=== PATIENT | female | born 1965 ===

== ENCOUNTER 2020-02-11 16:01 | Outpatient (REF) | payer OTHER, SELFPAY ==
[2020-02-11 17:09] LABS: Blood Urea Nitrogen 14 mg/dL (9-16)
[2020-02-11 18:49] LABS: Estimated Glomerular Filt Rate > 60
== END 2020-02-11 16:02 | disposition home or self-care (01) ==
LOC: HO.LAB 16:01
PROVIDERS: Visit Provider Urology
DX: R31.0 Gross hematuria (principal)
CPT/HCPCS: 82565; 84520

== ENCOUNTER 2020-02-12 11:04 | Outpatient (REF) | payer OTHER, SELFPAY ==
--- NOTE | 2020-02-12 11:03 | CT_ITS ---
EXAMINATION: CT ABDOMEN AND PELVIS WITHOUT AND WITH CONTRAST CLINICAL INFORMATION: Gross hematuria COMPARISON: Renal ultrasound 01/02/2020, CT abdomen and pelvis 11/06/2019, ultrasound abdomen 10/29/2017, CT abdomen and pelvis with contrast 02/10/2016. TECHNIQUE: Noncontrast CT of the abdomen is performed followed by split bolus contrast-enhanced images using 85 mL Omnipaque 350 contrast.? Post contrast imaging of the abdomen and pelvis is performed during the combined nephrogram and excretion phase. Sagittal and coronal reformatted images were obtained on the technologist's workstation for both the pre and postcontrast phases. DOSE LOWERING TECHNIQUES: This CT examination was performed using dose optimization techniques as appropriate, variously including the following: *Automated exposure control *Adjustment of mA and/or kV according to patient size (this includes techniques or standardized protocols for targeted exams where dose is matched to indication/reason for exam; i.e. extremities or head) *Use of iterative reconstruction technique DLP: 356 mGy-cm FINDINGS: LUNG BASES: The visualized lung bases are unremarkable. LIVER, GALLBLADDER, AND BILIARY TREE: The liver is normal in size and smooth in contour. There is mild hepatic steatosis. No focal hepatic parenchymal lesion or intrahepatic ductal dilatation. The gallbladder is distended to 4.2 cm in diameter. There is no gallstone or gallbladder wall thickening or pericholecystic inflammatory changes. The common duct is unremarkable. PANCREAS: Normal. SPLEEN: Normal. ADRENAL GLANDS: Normal. KIDNEYS AND URETERS: The kidneys are normal in size and contour and attenuation. The kidneys enhance symmetrically. There is no parenchymal lesion. Noncontrast reformatted images suggest a punctate nonobstructing calculus upper pole left kidney under 3 mm, coronal image 48 and sagittal image 34. There are no other urinary tract calculi. No hydronephrosis or hydroureter or perinephric stranding. No visible mucosal lesion or intra or luminal filling defect post contrast. BLADDER: Unremarkable GASTROINTESTINAL TRACT: No bowel obstruction or inflammatory changes in bowel or mesentery. No ascites or fluid collection. ABDOMINAL WALL: No significant hernia is appreciated. LYMPH NODES: No lymphadenopathy. VASCULAR: Unremarkable PELVIC VISCERA: Unremarkable OSSEOUS STRUCTURES: Multilevel degenerative changes lower thoracic and lumbosacral spine. IMPRESSION: 1. Punctate nonobstructing calculus upper pole left kidney under 3 mm. 2. No hydronephrosis, parenchymal lesion, or visible mucosal lesion.
[2020-02-12] MEDS: iohexoL 350 MG/ML 100 ML INFUS..BTL 85 ML IV (11:56)
== END 2020-02-12 11:05 | disposition home or self-care (01) ==
LOC: HO.CT 11:04
PROVIDERS: PCP Internal Medicine; Visit Provider Urology
DX: R31.0 Gross hematuria (principal)
CPT/HCPCS: 74178; Q9967

== ENCOUNTER → 2020-04-05 09:11 | Outpatient (BNVA) | payer OTHER, SELFPAY | PROVIDERS: PCP Pediatrics; Referring Provider Pediatrics; Visit Provider Internal Medicine | DX: E05.90 Thyrotoxicosis, unspecified without thyrotoxic crisis or storm (principal); R79.89 Other specified abnormal findings of blood chemistry; E55.9 Vitamin D deficiency, unspecified; G89.4 Chronic pain syndrome; Z79.899 Other long term (current) drug therapy | CPT/HCPCS: Q3014 ==

== ENCOUNTER 2020-04-06 12:17 | Outpatient (REF) | payer OTHER, SELFPAY ==
[2020-04-06 13:38] LABS: Estimated Glomerular Filt Rate > 60
[2020-04-06 14:00] LABS: Free T4 (Free Thyroxine) 0.77 ng/dL (0.71-1.85); Thyroid Stimulating Hormone 0.43 uIU/mL (0.32-4.0); Vitamin D 25-OH Total 60.3 ng/mL (>30)
[2020-04-07 20:22] LABS: Triiodothyronine T3 Total 96 ng/dL (76-181)
== END 2020-04-06 12:18 | disposition home or self-care (01) ==
LOC: HO.LAB 12:17
PROVIDERS: Urology; PCP Internal Medicine; Visit Provider Internal Medicine
DX: R31.0 Gross hematuria (principal); E05.90 Thyrotoxicosis, unspecified without thyrotoxic crisis or storm; E55.9 Vitamin D deficiency, unspecified
CPT/HCPCS: 82306; 82565; 84439; 84443; 84480

== ENCOUNTER → 2020-05-27 12:10 | Outpatient (BNVA) | payer OTHER, SELFPAY | PROVIDERS: PCP Internal Medicine; Visit Provider Internal Medicine | DX: Z76.89 Persons encountering health services in other specified circumstances (principal) | CPT/HCPCS: 93005; 99202 ==

== ENCOUNTER → 2020-06-02 12:41 | Outpatient (BNVA) | payer OTHER, SELFPAY | PROVIDERS: PCP Internal Medicine; Visit Provider Internal Medicine | DX: Z13.89 Encounter for screening for other disorder (principal) | CPT/HCPCS: Q3014 ==

== ENCOUNTER → 2020-06-07 14:03 | Outpatient (BNVA) | payer OTHER, SELFPAY | PROVIDERS: PCP Internal Medicine; Visit Provider Internal Medicine Gastroenterology | DX: Z13.89 Encounter for screening for other disorder (principal) | CPT/HCPCS: 99212 ==

== ENCOUNTER 2020-06-22 12:01 | Day surgery (SDC) | payer OTHER, SELFPAY ==
--- NOTE | 2020-06-18 13:26 | HO.ANESPROP2 ---
Documented by User: Eveline Barrientos 06/18/20 13:47 HPI - Anesthesia Eval Consult details Narrative: 54yo F for Upper Endoscopy PMFSH Active Problems Active Problems: All Active Problems (Updated 05/27/20 @ 13:42 by Carlos Lawrence MD) Idiopathic hypotension (Acute) Hair loss (Acute) Hypotension (Acute) Fibromyalgia (Acute) Mild asthma (Acute) Vitamin D deficiency (Acute) Elevated plasma metanephrines (Acute) Subclinical hyperthyroidism (Acute) Peptic ulcer disease (Acute) Anxiety (Acute) Gross hematuria (Acute) Past Medical History Medical History Anxiety Elevated plasma metanephrines Fibromyalgia Hair loss Hypotension Mild asthma Subclinical hyperthyroidism Vitamin D deficiency Family History Family History Father Alzheimers disease Mother Hypertension Surgical History Surgical History Ectopic History of appendectomy History of colonoscopy History of hysterectomy Hx of endoscopy Social History Social History Household Members: None Alcohol intake: current Alcohol intake frequency: does not drink Smoking Status: Never smoker Use of substances other than those prescribed or required for medical reasons: No Advance Directives: No Advance Directives Information Provided: Yes Recently lost weight without trying: No Meds Allergies Allergy/AdvReac Type Severity Reaction Status Date / Time zolmitriptan [From ZOMIG] Allergy Severe SWOLLEN Verified 06/07/20 14:04 THROAT AND ITCHING salsalate Allergy Unknown Unknown Verified 06/07/20 14:04 Home Medications Medication Instructions Recorded Confirmed Last Taken Type clonazepam 1 mg tablet 1 mg PO DAILY 04/05/20 06/02/20 Unknown History prochlorperazine 25 mg rectal mg [place] 04/22/20 06/02/20 Unknown History suppository mirtazapine 7.5 mg tablet 7.5 mg PO BEDTIME 05/27/20 06/02/20 Unknown History oxycodone-acetaminophen 5 mg-325 1 tab PO DAILY PRN tab 05/27/20 06/02/20 Unknown History mg tablet cimetidine 300 mg tablet 300 mg PO tab 06/02/20 06/02/20 Unknown History ibuprofen 600 mg tablet 0 mg PO 06/02/20 06/02/20 Unknown History linaclotide 290 mcg capsule 290 mcg PO DAILY cap 06/02/20 06/02/20 Unknown History ondansetron HCl 8 mg tablet 8 mg PO DAILY tab 06/02/20 06/02/20 Unknown History Exam Exam Date and Time: June 18, 2020 1326 Pertinent Lab Results Pertinent Lab Results: Laboratory Tests 12/22/19 12/22/19 02/11/20 11:37 11:37 16:15 WBC 4.5 L Hgb 12.8 Hct 40.9 Plt Count 210 Sodium 142 Potassium 4.2 Chloride 108 BUN 14 Creatinine 04/06/20 12:30 WBC Hgb Hct Plt Count Sodium Potassium Chloride BUN Creatinine 0.81 Narrative Narrative: EKG 05/2020 NSR Assessment and Plan Assessment Anesthesia Assessment: Chart Reviewed Documented by User: Araceli Sparks 06/22/20 12:48 PMFSH Past Medical History Medical History Anxiety Elevated plasma metanephrines Fibromyalgia Hair loss Hypotension Mild asthma Subclinical hyperthyroidism Vitamin D deficiency Family History Family History Father Alzheimers disease Mother Hypertension Surgical History Surgical History Ectopic History of appendectomy History of colonoscopy History of hysterectomy Hx of endoscopy Social History Social History Household Members: None Alcohol intake: current Alcohol intake frequency: does not drink Smoking Status: Never smoker Use of substances other than those prescribed or required for medical reasons: No Advance Directives: No Advance Directives Information Provided: Yes Recently lost weight without trying: No Meds Allergies Allergy/AdvReac Type Severity Reaction Status Date / Time zolmitriptan [From ZOMIG] Allergy Severe SWOLLEN Verified 06/07/20 14:04 THROAT AND ITCHING salsalate Allergy Unknown Unknown Verified 06/07/20 14:04 Home Medications Medication Instructions Recorded Confirmed Last Taken Type clonazepam 1 mg tablet 1 mg PO DAILY 04/05/20 06/02/20 Unknown History prochlorperazine 25 mg rectal mg [place] 04/22/20 06/02/20 Unknown History suppository mirtazapine 7.5 mg tablet 7.5 mg PO BEDTIME 05/27/20 06/02/20 Unknown History oxycodone-acetaminophen 5 mg-325 1 tab PO DAILY PRN tab 05/27/20 06/02/20 Unknown History mg tablet cimetidine 300 mg tablet 300 mg PO tab 06/02/20 06/02/20 Unknown History ibuprofen 600 mg tablet 0 mg PO 06/02/20 06/02/20 Unknown History linaclotide 290 mcg capsule 290 mcg PO DAILY cap 06/02/20 06/02/20 Unknown History ondansetron HCl 8 mg tablet 8 mg PO DAILY tab 06/02/20 06/02/20 Unknown History Exam Airway Mallampati Class: III TM Dist: >3cm Neck ROM: Full Heart: RRR Lungs: CTA
[2020-06-22 12:34] VITALS: BMI 24.8
--- NOTE | 2020-06-22 12:39 | MHC.SHP ---
Pre-Procedural Eval Section B Chief Complaint: dysphagia Relevant Social History: None Present Medications: see Short Stay Collaborative assessment Medical History: Significant History History of Previous Operations: Relevant previous surgery/procedure and date(s) Allergies: Allergies Allergy/AdvReac Type Severity Reaction Status Date / Time zolmitriptan [From ZOMIG] Allergy Severe SWOLLEN Verified 06/07/20 14:04 THROAT AND ITCHING salsalate Allergy Unknown Unknown Verified 06/07/20 14:04 Review of Systems Sugical H&P ROS: Negative: Constitution, Cardiovascular, Respiratory, Neurological, Hem-Onc, Allergic/Immunologic, Gastrointestinal, Genitourinary, Musculoskeletal, Integumentary, Endocrine and Eyes/Ears/Nose/Throat and Yes, Specify: Psychiatric (depression) Exam Surgical H&P Exam: Normal: HEENT, Normal: Heart, Normal: Lungs, Normal: Extremities, Normal: Skin and Normal: Neurological and Significant Findings: Abdomen (tender epigastrium) Plan Diagnosis/Plan: Unchanged I have reviewed the history and physical and performed a pertinent physical examination on my patient. No changes have occurred unless specified.
--- NOTE | 2020-06-22 12:40 | PM.OP ---
Brief Operative Note Date of Service: 06/22/20 Pre-op diagnosis: epigastric pain Post-op diagnosis: same Procedure: see op note Surgeon: Eileen Payne MD Anesthesia: MAC Estimated blood loss (mL): 0 Condition: stable Disposition: PACU
--- NOTE | 2020-06-22 12:40 | W.PM.OPN ---
Operative Note Operative Note Date of Service: 06/22/20 Narrative: Procedure Description: EGD FLEXIBLE TRANSORAL UPPER GASTROINTESTINAL ENDOSCOPY UPPER ENDOSCOPY Consent: Indications for the procedure and potential complications of bleeding, perforation, reaction to medications and missed diagnosis were discussed with the patient and informed consent was obtained. Instrument: Olympus GIF H 190 J mid size upper endoscope Monitoring: Vital signs and clinical assessment, continuous EKG monitoring, Pulse oximetry, Carbon Dioxide monitoring and blood pressure monitoring were done throughout the procedure. Procedure: The patient was placed in the left lateral decubitis position and pre-procedure medications were administered and a bite block was placed. The endoscope was inserted into the mouth and advanced under direct vision to the third part of duodenum. A careful inspection was made as the upper endoscope was withdrawn including a retroflexed examination of the proximal stomach; Findings and interventions are described below. Findings: Larynx:normal Esophagus: GE junction at 32 cm, diaphragm hiatus at 32 cm, mild LA grade A esophagitis, bx taken from GEJ and random esophagus in separate jars Stomach: Patchy gastric erythema, x 2 small ulcers at antrum 4-5 mm with crateriform appearance, bx taken. Biopsies were obtained from random stomach in seperate jar. Grade 2 flap valve on retroflexed examination of the cardia. Duodenum: Normal bulb and descending duodenum, bx taken Intervention: Biopsies as noted above Impression/Findings: gastric ulcers, improved from before but still present esophagitis gastritis (prior gastrin level was nml) PLAN: bx sent for mast cell staining maximize PPI and H 2 rhiannon combo
[2020-06-22 12:42] VITALS: BP 120/68; PULSE 72; RESP 18; TEMP 36.3; O2SAT 98
[2020-06-22] MEDS: Lactated Ringers 1,000 ML 100 ML IVCONT (12:49)
[2020-06-22 13:41] VITALS: BP 91/55; PULSE 87; RESP 16; TEMP 36.2; O2SAT 95
[2020-06-22 13:56] VITALS: BP 95/55; PULSE 66; RESP 16; O2SAT 100
[2020-06-22 14:11] VITALS: BP 95/56; PULSE 62; RESP 16; TEMP 36.2; O2SAT 99
== END 2020-06-22 14:42 | disposition home or self-care (01) ==
PROVIDERS: PCP Internal Medicine; Visit Provider Internal Medicine Gastroenterology
PROC: 0DJ08ZZ Inspection of Upper Intestinal Tract, Via Natural or Artificial Opening Endoscopic (ICD-10-PCS; CPT 43235; principal; 2020-06-22 13:40)
DX: K25.9 Gastric ulcer, unspecified as acute or chronic, without hemorrhage or perforation (principal); K20.90 Esophagitis, unspecified without bleeding; K29.70 Gastritis, unspecified, without bleeding; Z88.8 Allergy status to other drugs, medicaments and biological substances
CPT/HCPCS: 43239; 88305; 88341; 88342; J2405

== ENCOUNTER 2020-07-02 15:43 | Outpatient (REF) | payer OTHER, SELFPAY ==
[2020-07-02 15:55] LABS: MANUAL DIFF FLAG NO
[2020-07-02 15:58] LABS: Basophils Percent Auto 0.5 % (0-2); Eosinophils Absolute Auto 0.1 X10*3/uL (0.0-0.4); Eosinophils Percent Auto 2.1 % (0-4); Hematocrit 38.2 % (37-47); Imm Gran Abs Auto 0.01 X10*3/uL (0.00-0.03); Imm Gran Pct Auto 0.3 % (0.0-0.4); Lymphocytes Absolute Auto 1.6 X10*3/uL (1.2-4.9); Lymphocytes Percent Auto 41.4 % (20-40); Mean Corpuscular HGB Conc 31.4 g/dl (31.0-35.0); Mean Corpuscular Volume 92.3 fL (80-98); Monocytes Absolute Auto 0.5 X10*3/uL (0.1-1.2); Monocytes Percent Auto 12.6 % (2-11); Neutrophils Absolute Auto 1.6 X10*3/uL (2.0-8.3); Neutrophils Percent Auto 43.1 % (45-73); Platelet Count 200 X10*3/uL (160-400); Red Blood Count 4.14 X10*6/uL (4.20-5.50); White Blood Count 3.7 X10*3/uL (4.8-10.8)
[2020-07-02 16:34] LABS: Alanine Aminotransferase 19 U/L (0-31); Albumin Level 4.1 g/dL (3.5-5.0); Alkaline Phosphatase 51 U/L (39-117); Anion Gap 10 (12-20); Aspartate Amino Transferase 17 U/L (5-31); Bilirubin Total 0.4 mg/dL (0.0-1.0); Blood Urea Nitrogen 14 mg/dL (9-16); Calcium 8.4 mg/dL (8.4-10.2); Carbon Dioxide 25 mmol/L (22-29); Chloride 110 mmol/L (96-108); Cholesterol 179 mg/dL; Estimated Glomerular Filt Rate > 60; Glucose Fasting 92 mg/dL (60-99); HDL Cholesterol 65 mg/dL; LDL Cholesterol Calculated 101 mg/dl; Rheumatoid Factor < 15.0 IU/mL (<15.0); Sodium 141 mmol/L (135-145); Total Protein 6.5 g/dL (6.5-8.0); Triglycerides 67 mg/dL
== END 2020-07-02 15:44 | disposition home or self-care (01) ==
LOC: HO.LAB 15:43
PROVIDERS: PCP Internal Medicine; Visit Provider Nurse Practitioner Family
DX: M79.7 Fibromyalgia (principal)
CPT/HCPCS: 36415; 80053; 80061; 85025; 86431

== ENCOUNTER → 2020-08-04 09:55 | Outpatient (REF) | payer OTHER, SELFPAY ==
--- NOTE | 2020-08-04 09:58 | CA_ITS ---
Transthoracic Echocardiogram Patient (Last, First, Middle): Megan Santos, Gender: Female Date of : 1965 Age: 55 Procedure Date: 08/04/2020 Procedure Type: Transthoracic Echocardiogram Location: OP Height: 144.78 cm Weight: 54.43 kg BSA: 1.45 m2 Heart Rate: bpm BP: 98 / 76 mmHg Mix House Operator: RUSSELL Referring MD: Carlos Lawrence MD Video Player Mechanic: Leonardo Ruvalcaba MD Symptoms: I95.0 - Idiopathic hypotension Study Quality: Good ECG Rhythm: Sinus Conclusions: - Essentially normal study Findings Left Ventricle Normal left ventricular size, thickness, and systolic function. The visually estimated ejection fraction is between 65-70%. Diastolic function is normal for age. Right Ventricle Normal right ventricular cavity size and systolic function. Atria Both atria are normal in size. Aortic Valve Normal aortic valve structure and function. There is no aortic valve stenosis. There is no aortic valve regurgitation. Mitral Valve Normal mitral valve structure and function. There is trace mitral valve regurgitation. There is no mitral valve stenosis. Pulmonic Valve The pulmonic valve is likely normal. There is trace pulmonic valve regurgitation. Tricuspid Valve Normal tricuspid valve structure. There is trace tricuspid valve regurgitation. The right ventricular systolic pressure is normal. The right ventricular systolic pressure is 25 mmHg. Normal right atrial pressure. There is no evidence of pulmonary hypertension. Great Vessels All visible segments of the aorta are normal in size. The pulmonary artery was not well visualized. Venous The inferior vena cava is normal in size and collapses greater than 50% with inspiration. Pericardium/Pleural There is no evidence of pericardial effusion. Prior Study Comparison No prior study available for comparison. Measurements 2D Linear Measurements IVSd: 0.80 0.6-0.9/0.6-1.0 cm LVIDd: 4.26 3.9-5.3/4.2-5.9 cm LVIDd Index: 2.94 2.4-3.2/2.2-3.1 cm/m2 LVIDs: 2.51 2.0-3.6 cm LVPWd: 0.77 0.7-1.1 cm Ao Root: 2.50 2.1-3.5 cm LA Diam: 2.40 2.7-3.8/3.0-4.0 cm LAIDs Index: 1.66 1.5-2.3 cm/m2 LV Mass: 125.15 67-162/88-224 g LV Mass Index: 86.31 43-95/49-115 g/m2 LVOT Diam: 1.80 3.0+(-)1.3 cm 2D Systolic Function EF 4C: 64.90 >55% EF 2C: 78.80 >55% EF BiP: 72.20 >55% Mitral Valve MV Pk E: 0.66 MV PK A: 0.66 MV Decel Time: 136.00 E/A: 1.00 E'Lateral: 9.57 E'Medial: 7.40 E/E' Med: 8.90 E/E' Lat: 6.90 PHT: 40.00 MVA PHT: 5.50 Decel Beadle: 4.86 Aortic Valve AoV Pk Geovanny: 1.32 AoV Pk Grad: 7.00 LVOT LVOT Pk Geovanny: 1.04 LVOT Mn Geovanny: 0.67 LVOT VTI: 0.16 LVOT Pk Grad: 4.00 LVOT Mn Grad: 2.00 LVOT Diam: 1.80 LVOT Area: 2.54 Diastolic Function MV Pk E: 0.66 MV Pk A: 0.66 E/A: 1.00 E'Medial: 7.40 E/E' Med: 8.90 E' Laterial: 9.57 E/E' Lat: 6.90 Tricuspid Valve TR Pk Geovanny: 2.33 TR Pk Grad: 22.00 RA Press: 3.00 RVSP: 25.00 Great Vessels Aorta Ao Root-2D: 2.50 2.0-3.7 cm Ao Asc: 2.70 2.1-3.4 cm Updated in Other Vendor System with Status of Final Leonardo Ruvalcaba MD electronically signed on 08/04/2020 5:27:50 PM with status of Final
== END ==
LOC: HO.CARD 09:55
PROVIDERS: Visit Provider Internal Medicine
DX: I95.0 Idiopathic hypotension (principal)
CPT/HCPCS: 93306

== ENCOUNTER → 2020-10-19 10:07 | Outpatient (BNVA) | payer OTHER, SELFPAY | PROVIDERS: PCP Internal Medicine; Visit Provider Internal Medicine Gastroenterology | DX: K27.9 Peptic ulcer, site unspecified, unspecified as acute or chronic, without hemorrhage or perforation (principal) | CPT/HCPCS: 99212 ==

== ENCOUNTER 2020-11-09 13:18 | Outpatient (REF) | payer OTHER, SELFPAY ==
--- NOTE | ~2020-11-09 | US_ITS ---
EXAMINATION: US ABDOMEN COMPLETE CLINICAL INFORMATION: Epigastric pain. COMPARISON: CT abdomen pelvis 02/12/2020. Ultrasound renal with bladder 01/02/2020. TECHNIQUE: Real-time imaging of the abdominal viscera.. Exam is limited due to patient body habitus. FINDINGS: PANCREAS: Normal. ABDOMINAL AORTA: The proximal, mid, and distal segments are normal in caliber. INFERIOR VENA CAVA: Visualized portions are normal. LIVER: The liver is normal in size. The liver contour is normal. Liver echogenicity slightly increased questionable for fatty infiltration. No focal hepatic lesion. There is no intrahepatic biliary duct dilatation seen. GALLBLADDER: Normal. The gallbladder is physiologically distended without evidence of stones, sludge, polyps, wall thickening or pericholecystic fluid. COMMON BILE DUCT: Normal in caliber measuring 0.3 cm in diameter. RIGHT KIDNEY: Normal. No hydronephrosis. No renal calculi or focal parenchymal lesions. The kidney measures 10.5 cm in maximum dimension. LEFT KIDNEY: Normal. No hydronephrosis. No renal calculi or focal parenchymal lesions. The kidney measures 10.6 cm in maximum dimension. SPLEEN: Normal. The spleen measures 7.7 cm in maximum dimension. FREE FLUID: None. US/US abdomen complete IMPRESSION: Limited exam. Slightly echogenic liver questionable for mild fatty infiltration.
--- NOTE | ~2020-11-09 | US_ITS ---
EXAMINATION: US SMA CLINICAL INFORMATION: Epigastric abdominal pain. Weight loss. COMPARISON: CTA abdomen 11/06/2019. Doppler abdominal ultrasound 04/17/2019. TECHNIQUE: Ultrasound along with color Doppler imaging and spectral analysis was performed of the aorta, celiac, superior mesenteric, inferior mesenteric, and splenic arteries. FINDINGS: Note: No visceral atherosclerotic disease demonstrated on review of the CTA from 11/06/2019. 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 There is no evidence of any narrowing from the median arcuate ligament. There is no dilatation distal to the location of a possible median arcuate ligament compression site. No abnormally enlarged pancreaticoduodenal collaterals are seen which would be expected if there is chronic hemodynamically significant disease. Aorta: Normal waveform. Peak systolic velocity proximal to the SMA 72 cm/s. Peak systolic velocity distal to the SMA 81 cm/s. Celiac artery: Inspiration: Normal low resistance waveform. Peak systolic velocity 93 cm/s. Expiration: Normal low resistance waveform. Peak systolic velocity 126-249 cm/s. Erect: Normal low resistance waveform. Peak systolic velocity 104 cm/s. Postprandial: Normal low resistance waveform. Peak systolic velocity 144 cm/s. Superior mesenteric artery: Proximal: Normal waveform. Peak systolic velocity 243 cm/s. Mid: Normal waveform. Peak systolic velocity 122 cm/s. Distal: Normal waveform. Peak systolic velocity 108 cm/s. Inferior mesenteric artery: Normal waveform. Peak systolic velocity 103 cm/s. Splenic artery: Normal waveform. Peak systolic velocity 145 cm/s. 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 All other celiac velocities in both supine inspiration and erect inspiration/expiration are normal. This raises the possibility of celiac compression from the median arcuate ligament. 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 Also, there is no dilatation of the celiac artery distal to the median arcuate ligament nor are there abnormally enlarged pancreaticoduodenal collaterals which would be expected in the presence of a chronic hemodynamically significant lesion. Overall, the imaging appearance is not strongly consistent with significant compression by the median arcuate ligament. Recommend clinical correlation. Consider referral to a median arcuate ligament syndrome vascular specialist. The SMA and the AUGUSTA are widely patent.
== END 2020-11-09 13:19 | disposition home or self-care (01) ==
LOC: HO.US 13:18
PROVIDERS: PCP Internal Medicine; Visit Provider Internal Medicine Gastroenterology
DX: K27.9 Peptic ulcer, site unspecified, unspecified as acute or chronic, without hemorrhage or perforation (principal)
CPT/HCPCS: 76700; 93976

== ENCOUNTER 2021-01-03 11:35 | Day surgery (SDC) | payer OTHER, SELFPAY ==
[2020-12-28 16:22] VITALS: BMI 29.5
--- NOTE | 2020-12-31 09:23 | HO.ANESPROP2 ---
Documented by User: Eveline Barrientos NP 12/31/20 09:24 HPI - Anesthesia Eval Consult details Narrative: 55yo F for Upper Endoscopy Last EGD with TIVA 06/2020 [facility] Active Problems Active Problems: All Active Problems (Updated 12/28/20 @ 16:29 by Migdalia Abebe, RN) Gross hematuria (Acute) Peptic ulcer disease (Acute) Idiopathic hypotension (Acute) GERD (gastroesophageal reflux disease) (Acute) Bladder pain (Acute) Leg edema (Acute) Migraine headache (Acute) Hair loss (Acute) Hypotension (Acute) Fibromyalgia (Acute) Mild asthma (Acute) Vitamin D deficiency (Acute) Elevated plasma metanephrines (Acute) Subclinical hyperthyroidism (Acute) Anxiety (Acute) Past Medical History Medical History Anxiety Back pain Bladder pain Elevated plasma metanephrines Fibromyalgia GERD (gastroesophageal reflux disease) Hair loss Hypotension Leg edema Migraine headache Mild asthma Neck pain Sciatica Subclinical hyperthyroidism Vitamin D deficiency Family History Family History Father Alzheimers disease Mother Hypertension Surgical History Surgical History Ectopic History of appendectomy History of colonoscopy History of hysterectomy Hx of endoscopy Social History Social History (Updated 12/28/20 @ 16:18 by Migdalia Abebe, CHIN) Household Members: None Housing: Apartment Alcohol intake: never Patient Tobacco Use Status: Never used Tobacco e-Cigarette/Vaping Use: Never Used Second Hand Smoke Exposure: No Use of substances other than those prescribed or required for medical reasons: No Are you DNR?: No Advance Directives: No Advance Directives Information Provided: No Advance Directives on File: No Recently lost weight without trying: No Patient : No service: No Current occupational status: unemployed Meds Allergies Allergy/AdvReac Type Severity Reaction Status Date / Time zolmitriptan [From ZOMIG] Allergy Severe SWOLLEN Verified 12/16/20 13:44 THROAT AND ITCHING salsalate Allergy Intermediate Itching Verified 12/28/20 16:18 Home Medications Medication Instructions Recorded Confirmed Last Taken Type clonazepam 1 mg tablet 1 mg PO DAILY 04/05/20 12/28/20 Unknown History Exam Exam Date and Time: December 31, 2020922 Height,Weight and Vital Signs: Height 4 ft 7 in Weight 57.606 kg Narrative Narrative: EKG 05/2020 NSR ECHO 07/2020 Conclusions: - Essentially normal study ? Assessment and Plan Assessment Anesthesia Assessment: Chart Reviewed Documented by User: Araceli Brink MD 01/03/21 12:35 PMFSH Past Medical History Medical History Anxiety Back pain Bladder pain Elevated plasma metanephrines Fibromyalgia GERD (gastroesophageal reflux disease) Hair loss Hypotension Leg edema Migraine headache Mild asthma Neck pain Sciatica Subclinical hyperthyroidism Vitamin D deficiency Functional capacity: independent ambulation Patient : No Family History Family History Father Alzheimers disease Mother Hypertension Family history of problems with anesthesia: No Surgical History Surgical History Ectopic History of appendectomy History of colonoscopy History of hysterectomy Hx of endoscopy Social History Social History (Updated 12/28/20 @ 16:18 by Migdalia Abebe RN) Household Members: None Housing: Apartment Alcohol intake: never Patient Tobacco Use Status: Never used Tobacco e-Cigarette/Vaping Use: Never Used Second Hand Smoke Exposure: No Use of substances other than those prescribed or required for medical reasons: No Are you DNR?: No Advance Directives: No Advance Directives Information Provided: No Advance Directives on File: No Recently lost weight without trying: No Patient : No service: No Current occupational status: unemployed Meds Allergies Allergy/AdvReac Type Severity Reaction Status Date / Time zolmitriptan [From ZOMIG] Allergy Severe SWOLLEN Verified 12/16/20 13:44 THROAT AND ITCHING salsalate Allergy Intermediate Itching Verified 12/28/20 16:18 Home Medications Medication Instructions Recorded Confirmed Last Taken Type clonazepam 1 mg tablet 1 mg PO DAILY 04/05/20 12/28/20 Unknown History Exam Airway Mallampati Class: II TM Dist: >3cm Neck ROM: Full Loose/Missing/Broken Teeth: No Heart: RRR Lungs: CTA Assessment and Plan Final Anesthetic Review Family History of Problems with Anesthesia: No
--- NOTE | 2021-01-03 11:56 | P.HPSUR_ITS ---
Pre-Procedural Eval Section A Date of Service: 01/03/21 Section B Chief Complaint: epigastric pain Relevant Social History: None Present Medications: see Short Stay Collaborative assessment Medical History: Significant History (Anxiety Back pain Bladder pain Elevated plasma metanephrines Fibromyalgia GERD (gastroesophageal reflux disease) Hair loss Hypotension Leg edema Migraine headache Mild asthma Neck pain Sciatica Subclinical hyperthyroidism Vitamin D deficiency) History of Previous Operations: Relevant previous surgery/procedure and date(s) (Ectopic History of appendectomy History of colonoscopy History of hysterectomy Hx of endoscopy) Allergies: Allergies Allergy/AdvReac Type Severity Reaction Status Date / Time zolmitriptan [From ZOMIG] Allergy Severe SWOLLEN Verified 12/16/20 13:44 THROAT AND ITCHING salsalate Allergy Intermediate Itching Verified 12/28/20 16:18 Review of Systems Sugical H&P ROS: Negative: Constitution, Cardiovascular, Respiratory, Neurological, Psychiatric, Hem-Onc, Allergic/Immunologic, Gastrointestinal, Genitourinary, Musculoskeletal, Integumentary, Endocrine and Eyes/Ears/Nose/Throat Exam Surgical H&P Exam: Normal: HEENT, Normal: Heart, Normal: Lungs, Normal: Extrem ities, Normal: Skin and Normal: Neurological and Significant Findings: Abdomen (tender epigastrium) Plan Diagnosis/Plan: Unchanged I have reviewed the history and physical and performed a pertinent physical examination on my patient. No changes have occurred unless specified.
[2021-01-03 11:57] VITALS: BP 124/70; PULSE 72; RESP 16; TEMP 36.8; O2SAT 98
[2021-01-03] MEDS: Lactated Ringers 1,000 ML 100 ML IVCONT (12:01)
--- NOTE | 2021-01-03 12:03 | PC.NURSE ---
Patient is having upper endoscopy only. Flexible sigmoidoscopy is cancelled
--- NOTE | 2021-01-03 12:04 | P.BOP_ITS ---
Brief Operative Note Date of Service: 01/03/21 Pre-op diagnosis: epigastric pain, hx of ulcers Post-op diagnosis: same Procedure: see op note Surgeon: Eileen Payne MD Anesthesia: MAC Was an Title I Instructional Assistant used for this Procedure?: No Estimated blood loss (mL): 0 Condition: stable Disposition: PACU
--- NOTE | 2021-01-03 12:05 | W.PM.OPN ---
Operative Note Operative Note Date of Service: 01/03/21 Narrative: Procedure Description: EGD FLEXIBLE TRANSORAL UPPER GASTROINTESTINAL ENDOSCOPY UPPER ENDOSCOPY Consent: Indications for the procedure and potential complications of bleeding, perforation, reaction to medications and missed diagnosis were discussed with the patient and informed consent was obtained. Instrument: Olympus GIF H 190 J mid size upper endoscope Monitoring: Vital signs and clinical assessment, continuous EKG monitoring, Pulse oximetry, Carbon Dioxide monitoring and blood pressure monitoring were done throughout the procedure. Procedure: The patient was placed in the left lateral decubitis position and pre-procedure medications were administered and a bite block was placed. The endoscope was inserted into the mouth and advanced under direct vision to the third part of duodenum. A careful inspection was made as the upper endoscope was withdrawn including a retroflexed examination of the proximal stomach; Findings and interventions are described below. Findings: Larynx:normal Esophagus: GE junction at 34 cm, diaphragm hiatus at 34 cm, balloon dilation of LES done to 20 mm no tear seen, then UES dilated to 20 mm (no resistance was felt ) but tear noted at UES. Stomach: x 2 superficial stellate shaped ulcers at the pylorus 8-10 mm in size with surrounding inflammation. Biopsies were obtained. Grade 2 flap valve on retroflexed examination of the cardia. Duodenum: Normal bulb, diaphragmatic stricture noted at proximal second part of duodenum, dilated with 10 then 11 mm balloon, bx taken, some erythema noted consistent with peptic damage. Intervention: Biopsies as noted above, dilation of esophagus and duodenum Impression/Findings: duodenal stricture gastric ulcers-still present but not as large as before UES esophageal stricture PLAN: confirm whether or not taking nsaids cont with PPi, can use magic mouthwash as well may need repeat dilation in 6-8 weeks
[2021-01-03 12:42] VITALS: BP 111/71; PULSE 73; RESP 16; TEMP 36.8; O2SAT 96
[2021-01-03] MEDS: Mag&Al/Sim/Diphenhyd/Lidocaine 10 ML ORAL.SUSP PO (12:56)
[2021-01-03 12:57] VITALS: BP 111/68; PULSE 72; RESP 18; TEMP 36.8; O2SAT 97
--- NOTE | 2021-01-03 13:22 | HO.POSTANES ---
Post Anesthesia Evaluation Post Anesthesia Evaluation Vital Signs: Vital Signs Temp Pulse Resp BP Pulse Ox 01/03/21 12:57 98.2 F 72 18 111/68 97 01/03/21 12:42 98.2 F 73 16 111/71 96 01/03/21 11:57 98.3 F 72 16 124/70 98 Anesthesia: Monitored Mental Status: Awake Pain Control: Satisfactory Nausea/Vomiting: None Hydration: Adequate Anesthesia-Related Issues: No Anes. Related Issues
== END 2021-01-03 13:20 ==
PROVIDERS: PCP Internal Medicine; Visit Provider Internal Medicine Gastroenterology
PROC: 0DJD8ZZ Inspection of Lower Intestinal Tract, Via Natural or Artificial Opening Endoscopic (ICD-10-PCS; CPT 45330; principal; 2021-01-03 13:00)
DX: K31.5 Obstruction of duodenum (principal); K22.2 Esophageal obstruction; K25.9 Gastric ulcer, unspecified as acute or chronic, without hemorrhage or perforation; K29.80 Duodenitis without bleeding; K21.9 Gastro-esophageal reflux disease without esophagitis; K44.9 Diaphragmatic hernia without obstruction or gangrene; K58.9 Irritable bowel syndrome, unspecified; I95.9 Hypotension, unspecified; G89.0 Central pain syndrome; G47.33 Obstructive sleep apnea (adult) (pediatric); J45.909 Unspecified asthma, uncomplicated; Z88.8 Allergy status to other drugs, medicaments and biological substances
CPT/HCPCS: 43249; 43245; 43239; 88305; 88342; C1726

== ENCOUNTER 2021-01-06 12:50 | Outpatient (REF) | payer OTHER, SELFPAY ==
--- NOTE | ~2021-01-06 | US_ITS ---
EXAMINATION: US PELVIS LIMITED (BLADDER) CLINICAL INFORMATION: Other signs and symptoms involving the genitourinary system. COMPARISON: Ultrasound abdomen complete 11/09/2020. CT abdomen and pelvis over 12/25/2019. Renal ultrasound 01/02/2020. KUB 03/26/2019. X-ray abdomen 02/03/2016. TECHNIQUE: Real-time imaging of the bladder. FINDINGS: BLADDER: Well distended and normal. Bilateral ureteral jets are demonstrated. Prevoid bladder volume is 153 mL. Postvoid bladder volume is 2.23 mL. US/US bladder IMPRESSION: Unremarkable bladder US.
[2021-01-06 13:58] LABS: Alanine Aminotransferase 20 U/L (0-31); Albumin Level 4.1 g/dL (3.5-5.0); Alkaline Phosphatase 60 U/L (39-117); Anion Gap 9 (12-20); Aspartate Amino Transferase 17 U/L (5-31); Bilirubin Total 0.4 mg/dL (0.0-1.0); Blood Urea Nitrogen 13 mg/dL (9-16); Calcium 9.4 mg/dL (8.4-10.2); Carbon Dioxide 29 mmol/L (22-29); Chloride 107 mmol/L (96-108); Estimated Glomerular Filt Rate > 60; Glucose Fasting 76 mg/dL (60-99); Potassium 4.1 mmol/L (3.3-5.1); Sodium 141 mmol/L (135-145); Total Protein 6.6 g/dL (6.5-8.0)
[2021-01-06 14:11] LABS: Free T4 (Free Thyroxine) 1.01 ng/dL (0.71-1.85); Thyroid Stimulating Hormone 0.86 uIU/mL (0.32-4.0)
[2021-01-07 09:12] LABS: Thyroglobulin Antibodies 2 IU/mL (< or = 1); Thyroid Peroxidase Antibodies 17 IU/mL (<9)
[2021-01-13 14:07] LABS: Vitamin D 25-OH, D2 <4 ng/mL; Vitamin D 25-OH, D3 51 ng/mL; Vitamin D 25-OH, Total 51 ng/mL (30-100)
== END 2021-01-06 12:51 | disposition home or self-care (01) ==
LOC: HO.US 12:50
PROVIDERS: PCP Internal Medicine; Visit Provider Internal Medicine
DX: R39.89 Other symptoms and signs involving the genitourinary system (principal); E55.9 Vitamin D deficiency, unspecified; E05.90 Thyrotoxicosis, unspecified without thyrotoxic crisis or storm; M79.7 Fibromyalgia
CPT/HCPCS: 36415; 76857; 80053; 82306; 84439; 84443; 86376; 86800

== ENCOUNTER → 2021-02-18 11:40 | Outpatient (BNVA) | payer OTHER, SELFPAY | PROVIDERS: PCP Internal Medicine; Visit Provider Internal Medicine Gastroenterology | CPT/HCPCS: Q3014 ==

== ENCOUNTER → 2021-03-02 13:54 | Outpatient (REF) | payer OTHER, SELFPAY ==
--- NOTE | ~2021-03-02 | XR_ITS ---
EXAMINATION: XR SHOULDER, LEFT CLINICAL INFORMATION: Left shoulder pain COMPARISON: None TECHNIQUE: Four views of the left shoulder. Suboptimal axillary view as the patient is unable to lift her arm. FINDINGS: No fracture or dislocation. The glenohumeral joint is well aligned. The acromioclavicular joint is intact. The visualized lung is clear. The visualized ribs are intact. XR/XR shoulder LT min 2V IMPRESSION: Normal left shoulder.
--- NOTE | 2021-03-02 13:58 | CA_ITS ---
Transthoracic Echocardiogram Patient (Last, First, Middle): Megan Santos, Gender: Female Date of : 1965 Age: 55 Procedure Date: 03/02/2021 Procedure Type: Transthoracic Echocardiogram Location: OP Height: 144.78 cm Weight: 54.89 kg BSA: 1.45 m2 Heart Rate: bpm BP: 110 / 70 mmHg Butadiene Convertor Operator: ALEX/TASHIA Referring MD: Viviana Nick MD Rock Worker: Leonardo Ruvalcaba MD Symptoms: R60.0 - Localized edema Study Quality: Good ECG Rhythm: Sinus Conclusions: - 1. Normal LV systolic function with grade 1 diastolic dysfunction 2. Normal cardiac valvular Doppler 3. No gross pericardial effusion Findings Left Ventricle Normal left ventricular size, thickness, and systolic function. The visually estimated ejection fraction is between 60-65%. Spectral Doppler is indicative of an impaired relaxation filling pattern. E/E prime ratio is <8, consistent with normal filling pressures. Evidence suggests grade I (mild) diastolic dysfunction. Right Ventricle Normal right ventricular cavity size and systolic function. Atria Both atria are normal in size. There is no evidence of interatrial shunt. Aortic Valve Normal aortic valve structure and function. There is no aortic valve stenosis. There is no aortic valve regurgitation. Mitral Valve Normal mitral valve structure and function. There is no mitral valve regurgitation. There is no mitral valve stenosis. Pulmonic Valve The pulmonic valve is likely normal. There is trace pulmonic valve regurgitation. Tricuspid Valve Normal tricuspid valve structure. Tricuspid regurgitation envelope is inadequate for calculation of right ventricular systolic pressure. Great Vessels All visible segments of the aorta are normal in size. The pulmonary artery was not well visualized. Venous The inferior vena cava is normal in size and collapses greater than 50% with inspiration. Pericardium/Pleural There is no evidence of pericardial effusion. Prior Study Comparison No significant change compared to prior study dated: 08/04/2020. Measurements 2D Linear Measurements IVSd: 0.83 0.6-0.9/0.6-1.0 cm LVIDd: 4.19 3.9-5.3/4.2-5.9 cm LVIDd Index: 2.89 2.4-3.2/2.2-3.1 cm/m2 LVIDs: 2.95 2.0-3.6 cm LVPWd: 0.69 0.7-1.1 cm Ao Root: 2.90 2.1-3.5 cm LA Diam: 2.60 2.7-3.8/3.0-4.0 cm LAIDs Index: 1.79 1.5-2.3 cm/m2 LV Mass: 116.61 67-162/88-224 g LV Mass Index: 80.42 43-95/49-115 g/m2 LVOT Diam: 1.90 3.0+(-)1.3 cm 2D Systolic Function EF 4C: 62.30 >55% EF 2C: 60.60 >55% EF BiP: 61.40 >55% Mitral Valve MV Pk E: 0.60 MV PK A: 0.77 MV Decel Time: 204.00 E/A: 0.80 E'Lateral: 9.25 E'Medial: 6.20 E/E' Med: 9.70 E/E' Lat: 6.50 PHT: 60.00 MVA PHT: 3.67 Decel Hand: 2.94 Aortic Valve AoV Pk Geovanny: 1.26 AoV Mn Geovanny: 0.89 AoV VTI: 0.24 AoV Pk Grad: 6.00 Aov Mn Grad: 3.00 LVOT LVOT Diam: 1.90 LVOT Area: 2.84 Diastolic Function MV Pk E: 0.60 MV Pk A: 0.77 E/A: 0.80 E'Medial: 6.20 E/E' Med: 9.70 E' Laterial: 9.25 E/E' Lat: 6.50 Right Ventricle TAPSE (mm): 2.11 TVS' Geovanny: 12.10 Great Vessels Aorta Ao Root-2D: 2.90 2.0-3.7 cm Ao Asc: 2.90 2.1-3.4 cm Ao Arch: 2.50 Updated in Other Vendor System with Status of Final Leonardo Ruvalcaba MD electronically signed on 03/02/2021 3:22:10 PM with status of Final
== END ==
LOC: HO.CARD 13:54
PROVIDERS: PCP Internal Medicine; Visit Provider Internal Medicine
DX: R60.0 Localized edema (principal); M25.512 Pain in left shoulder
CPT/HCPCS: 73030; 93306

== ENCOUNTER 2021-06-07 10:23 | Outpatient (REF) | payer OTHER, SELFPAY ==
[2021-06-07 11:31] LABS: Erythrocyte Sedimentation Rate 9 MM/HR (0-20)
[2021-06-07 11:34] LABS: Alanine Aminotransferase 17 U/L (0-31); Albumin Level 4.2 g/dL (3.5-5.0); Alkaline Phosphatase 65 U/L (39-117); Anion Gap 9 (12-20); Aspartate Amino Transferase 22 U/L (5-31); Bilirubin Total 0.4 mg/dL (0.0-1.0); Blood Urea Nitrogen 14 mg/dL (9-16); Calcium 9.7 mg/dL (8.4-10.2); Carbon Dioxide 29 mmol/L (22-29); Chloride 104 mmol/L (96-108); Cholesterol 164 mg/dL; Estimated Glomerular Filt Rate > 60; Glucose Fasting 87 mg/dL (60-99); HDL Cholesterol 58 mg/dL; LDL Cholesterol Calculated 84 mg/dl; Potassium 4.3 mmol/L (3.3-5.1); Rheumatoid Factor < 15.0 IU/mL (<15.0); Sodium 138 mmol/L (135-145); Total Protein 6.8 g/dL (6.5-8.0); Triglycerides 110 mg/dL
[2021-06-08 13:11] LABS: Anti Nuclear Antibody Screen NEGATIVE (NEGATIVE)
[2021-06-09 07:57] LABS: Anti DNA DS Antibody 2 IU/mL
[2021-06-09 17:26] LABS: Cyclic Citrullinated Peptide <16 UNITS
[2021-06-11 13:02] LABS: Vitamin D 25-OH, D2 <4 ng/mL; Vitamin D 25-OH, D3 48 ng/mL; Vitamin D 25-OH, Total 48 ng/mL (30-100)
== END 2021-06-07 10:24 | disposition home or self-care (01) ==
LOC: HO.LAB 10:23
PROVIDERS: PCP Internal Medicine; Visit Provider Internal Medicine
DX: Z00.00 Encounter for general adult medical examination without abnormal findings (principal); E55.9 Vitamin D deficiency, unspecified; M25.50 Pain in unspecified joint; E78.5 Hyperlipidemia, unspecified
CPT/HCPCS: 36415; 80053; 80061; 82306; 85652; 86038; 86039; 86140; 86200; 86225; 86431

== ENCOUNTER → 2021-06-20 10:19 | Outpatient (BNVA) | payer OTHER, SELFPAY | PROVIDERS: PCP Internal Medicine; Referring Provider Internal Medicine; Visit Provider Internal Medicine Gastroenterology | DX: K21.9 Gastro-esophageal reflux disease without esophagitis (principal); K27.9 Peptic ulcer, site unspecified, unspecified as acute or chronic, without hemorrhage or perforation | CPT/HCPCS: 99212 ==

== ENCOUNTER 2021-07-14 08:42 | Outpatient (REF) | payer OTHER, SELFPAY ==
[2021-07-14 09:17] LABS: MANUAL DIFF FLAG NO
[2021-07-14 09:40] LABS: Basophils Percent Auto 0.6 % (0-2); Eosinophils Absolute Auto 0.1 X10*3/uL (0.0-0.4); Eosinophils Percent Auto 2.5 % (0-4); Hematocrit 38.1 % (37.0-47.0); Hemoglobin 11.9 g/dl (12.0-16.0); Imm Gran Abs Auto 0.01 X10*3/uL (0.00-0.03); Imm Gran Pct Auto 0.2 % (0.0-0.4); Lymphocytes Absolute Auto 1.7 X10*3/uL (1.2-4.9); Lymphocytes Percent Auto 33.4 % (20-40); Mean Corpuscular HGB Conc 31.2 g/dl (31.0-35.0); Mean Corpuscular Hemoglobin 28.9 pg (27.0-33.0); Mean Corpuscular Volume 92.5 fL (80.0-98.0); Mean Platelet Volume 11.2 fL (9.4-12.3); Monocytes Absolute Auto 0.7 X10*3/uL (0.1-1.2); Monocytes Percent Auto 13.6 % (2-11); Neutrophils Absolute Auto 2.6 x10*3/uL (2.0-8.3); Neutrophils Percent Auto 49.7 % (45-73); Platelet Count 213 X10*3/uL (160-400); Red Blood Count 4.12 X10*6/uL (4.20-5.50); Red Cell Distribution Width 13.1 % (11.0-16.0); White Blood Count 5.2 X10*3/uL (4.8-10.8)
[2021-07-14 11:01] LABS: Alanine Aminotransferase 17 U/L (0-31); Albumin Level 4.1 g/dL (3.5-5.0); Alkaline Phosphatase 67 U/L (39-117); Anion Gap 9 (12-20); Aspartate Amino Transferase 20 U/L (5-31); Bilirubin Total 0.4 mg/dL (0.0-1.0); Blood Urea Nitrogen 16 mg/dL (9-16); Calcium 9.2 mg/dL (8.4-10.2); Carbon Dioxide 28 mmol/L (22-29); Chloride 107 mmol/L (96-108); Estimated Glomerular Filt Rate > 60; Glucose Random 88 mg/dL (60-115); Potassium 4.4 mmol/L (3.3-5.1); Sodium 140 mmol/L (135-145); Total Protein 6.8 g/dL (6.5-8.0)
[2021-07-14 11:07] LABS: Vitamin D 25-OH Total 46.3 ng/mL (>30)
== END 2021-07-14 08:43 | disposition home or self-care (01) ==
LOC: HO.LAB 08:42
PROVIDERS: PCP Internal Medicine; Visit Provider Internal Medicine
DX: K21.9 Gastro-esophageal reflux disease without esophagitis (principal); E78.5 Hyperlipidemia, unspecified; L65.9 Nonscarring hair loss, unspecified; R10.11 Right upper quadrant pain
CPT/HCPCS: 36415; 80053; 82306; 85025

== ENCOUNTER 2021-08-09 14:56 | Outpatient (REF) | payer OTHER, SELFPAY ==
--- NOTE | ~2021-08-09 | XR_ITS ---
EXAMINATION: BILATERAL KNEE X-RAY CLINICAL INFORMATION: Osteoarthritis COMPARISON: None TECHNIQUE: 4 views of each knee FINDINGS: Bone alignment is normal. No fracture or dislocation is seen. There are mild degenerative changes at the bilateral medial femoral tibial joints with small osteophytes. Joint spaces are otherwise normal. There is no joint effusion. XR/XR knee LT 4V IMPRESSION: Mild degenerative changes at the bilateral medial femoral tibial joints.
--- NOTE | ~2021-08-09 | US_ITS ---
EXAMINATION: US ABDOMEN LIMITED CLINICAL INFORMATION: Right upper quadrant pain. COMPARISON: Ultrasound abdomen complete 11/09/2020. CT abdomen and pelvis 02/12/2020. Ultrasound kidneys and bladder 01/02/2020. X-ray abdomen KUB 03/26/2019. TECHNIQUE: Real-time imaging of the right upper quadrant abdominal viscera. FINDINGS: PANCREAS: Normal. LIVER: The liver is normal in size. The liver contour is normal. Parenchymal echogenicity is normal. No focal hepatic lesion. There is no intrahepatic biliary duct dilatation seen. GALLBLADDER: Normal. The gallbladder is physiologically distended without evidence of stones, sludge, polyps, wall thickening or pericholecystic fluid. COMMON BILE DUCT: Normal in caliber measuring 0.2 cm in diameter. RIGHT KIDNEY: Normal. No hydronephrosis. No renal calculi or focal parenchymal lesions. The kidney measures 9.5 cm in maximum dimension. FREE FLUID: None. US/US abdomen limited IMPRESSION: Essentially unremarkable sonographic appearance of the right upper quadrant of the abdomen. Specifically, no sonographic evidence of any cholelithiasis or biliary obstruction is present
--- NOTE | ~2021-08-09 | XR_ITS ---
EXAMINATION: BILATERAL KNEE X-RAY CLINICAL INFORMATION: Osteoarthritis COMPARISON: None TECHNIQUE: 4 views of each knee FINDINGS: Bone alignment is normal. No fracture or dislocation is seen. There are mild degenerative changes at the bilateral medial femoral tibial joints with small osteophytes. Joint spaces are otherwise normal. There is no joint effusion. XR/XR knee RT 4V IMPRESSION: Mild degenerative changes at the bilateral medial femoral tibial joints.
== END 2021-08-09 14:57 | disposition home or self-care (01) ==
LOC: HO.US 14:56
PROVIDERS: Absent Provider Physician Assistant; PCP Internal Medicine; Visit Provider Internal Medicine
DX: M17.0 Bilateral primary osteoarthritis of knee (principal)
CPT/HCPCS: 73564; 76705

== ENCOUNTER 2021-08-24 10:47 | Day surgery (SDC) | payer OTHER, SELFPAY ==
[2021-08-17 11:58] VITALS: BMI 29.0
--- NOTE | 2021-08-19 13:19 | HO.ANESPROP2 ---
Documented by User: Eveline Barrientos NP 08/19/21 13:41 HPI - Anesthesia Eval Consult details Narrative: 56yo F for Upper Endoscopy and Colonoscopy s/p flex sig 12/2020 with MAC prn opioids PMFSH Active Problems Active Problems: All Active Problems (Updated 07/14/21 @ 08:40 by Viviana Nick MD) Mild recurrent major depression (Acute) Right upper quadrant abdominal pain (Acute) Peptic ulcer (Acute) Voice hoarseness (Acute) Polyarthralgia (Acute) Physical exam (Acute) Left shoulder pain (Acute) Gross hematuria (Acute) Peptic ulcer disease (Acute) Idiopathic hypotension (Acute) GERD (gastroesophageal reflux disease) (Acute) Bladder pain (Acute) Leg edema (Acute) Migraine headache (Acute) Hair loss (Acute) Hypotension (Acute) Fibromyalgia (Acute) Mild asthma (Acute) Vitamin D deficiency (Acute) Elevated plasma metanephrines (Acute) Subclinical hyperthyroidism (Acute) Anxiety (Acute) Past Medical History Medical History Anxiety Back pain Bladder pain Elevated plasma metanephrines Fibromyalgia GERD (gastroesophageal reflux disease) Hair loss Hypotension Left shoulder pain Leg edema Migraine headache Mild asthma Mild recurrent major depression Neck pain Physical exam Polyarthralgia Right upper quadrant abdominal pain Sciatica Subclinical hyperthyroidism Vitamin D deficiency Voice hoarseness Family History Family History Father Alzheimers disease Mother Hypertension Family history of problems with anesthesia: No Surgical History Surgical History Ectopic History of appendectomy History of colonoscopy History of hysterectomy Hx of endoscopy Social History Social History Household Members: None Housing: Apartment Alcohol intake: never Patient Tobacco Use Status: Never used Tobacco e-Cigarette/Vaping Use: Never Used Second Hand Smoke Exposure: No Use of substances other than those prescribed or required for medical reasons: No Are you DNR?: No Advance Directives: No Advance Directives Information Provided: Yes Patient : No (hysterectomy) service: No Current occupational status: unemployed Meds Allergies Allergy/AdvReac Type Severity Reaction Status Date / Time zolmitriptan [From ZOMIG] Allergy Severe SWOLLEN Verified 07/14/21 08:25 THROAT AND ITCHING salsalate Allergy Intermediate Itching Verified 07/14/21 08:25 Home Medications Medication Instructions Recorded Confirmed Last Taken Type clonazepam 1 mg tablet 1 mg PO DAILY 04/05/20 07/14/21 Unknown History citalopram 20 mg tablet 0 mg PO 02/18/21 07/14/21 Unknown History oxycodone-acetaminophen 5 mg-325 1 tab PO TID PRN 02/18/21 07/14/21 Unknown History mg tablet Exam Exam Date and Time: August 19, 2021 1319 Height,Weight and Vital Signs: Height 4 ft 7 in Weight 56.699 kg Pertinent Lab Results Pertinent Lab Results: Laboratory Tests 07/14/21 07/14/21 09:16 09:16 WBC 5.2 Hgb 11.9 L Hct 38.1 Plt Count 213 Sodium 140 Potassium 4.4 Chloride 107 Carbon Dioxide 28 BUN 16 Creatinine 0.67 Narrative Narrative: ECHO 02/2021 Conclusions: - 1. Normal LV systolic function with grade 1 diastolic? dysfunction? 2. Normal cardiac valvular Doppler ? 3. No gross pericardial effusion ?? EKG 05/2020 NSR Assessment and Plan Assessment Anesthesia Assessment: Chart Reviewed Final Anesthetic Review Family History of Problems with Anesthesia: No Documented by User: Lila Napier MD 08/24/21 11:52 PMF Past Medical History Medical History Anxiety Back pain Bladder pain Elevated plasma metanephrines Fibromyalgia GERD (gastroesophageal reflux disease) Hair loss Hypotension Left shoulder pain Leg edema Migraine headache Mild asthma Mild recurrent major depression Neck pain Physical exam Polyarthralgia Right upper quadrant abdominal pain Sciatica Subclinical hyperthyroidism Vitamin D deficiency Voice hoarseness Family History Family History Father Alzheimers disease Mother Hypertension Surgical History Surgical History Ectopic History of appendectomy History of colonoscopy History of hysterectomy Hx of endoscopy History of Problems with Anesthesia: No Social History Social History Household Members: None Housing: Apartment Alcohol intake: never Patient Tobacco Use Status: Never used Tobacco e-Cigarette/Vaping Use: Never Used Second Hand Smoke Exposure: No Use of substances other than those prescribed or required for medical reasons: No Are you DNR?: No Advance Directives: No Advance Directives Information Provided: Yes Patient : No (hysterectomy) service: No Current occupational status: unemployed Meds Allergies Allergy/AdvReac Type Severity Reaction Status Date / Time zolmitriptan [From ZOMIG] Allergy Severe SWOLLEN Verified 07/14/21 08:25 THROAT AND ITCHING salsalate Allergy Intermediate Itching Verified 07/14/21 08:25 Home Medications Medication Instructions Recorded Confirmed Last Taken Type clonazepam 1 mg tablet 1 mg PO DAILY 04/05/20 07/14/21 Unknown History citalopram 20 mg tablet 0 mg PO 02/18/21 07/14/21 Unknown History oxycodone-acetaminophen 5 mg-325 1 tab PO TID PRN 02/18/21 07/14/21 Unknown History mg tablet Exam Airway Mallampati Class: II TM Dist: >3cm Neck ROM: Full Loose/Missing/Broken Teeth: No Heart: RRR Lungs: CTA Assessment and Plan Assessment Anesthesia Assessment: Anesthesia Plan Discussed Final Anesthetic Review History of Problems with Anesthesia: No NPO: Yes ASA Class: II Final Preanesthetic Review: Meds/Allgs Chart Reviewed, Consent Obtained/Reviewed and Anes Risks/Benef Reviewed Patient Risk: Low Procedure Risk: Intermediate Anesthetic Plan Anesthetic Plan: MAC: Disposition: Standard PACU
[2021-08-24 11:19] VITALS: BP 133/82; PULSE 89; RESP 22; TEMP 36.6; O2SAT 97
--- NOTE | 2021-08-24 11:30 | MHC.SHP ---
Pre-Procedural Eval Section A Date of Service: 08/24/21 Section B Chief Complaint: dysphagia,bleeding Details of Present Illness: Hx of peptic ulcer disease, joyce umbilical pain with straining, rectal bleeding Relevant Family History (Specify if Yes): No Relevant Social History: None Present Medications: see Short Stay Collaborative assessment Medical History: Significant History (Anxiety Back pain Bladder pain Elevated plasma metanephrines Fibromyalgia GERD (gastroesophageal reflux disease) Hair loss Hypotension Left shoulder pain Leg edema Migraine headache Mild asthma Mild recurrent major depression Neck pain Physical exam Polyarthralgia Right upper quadrant abdominal pain) History of Previous Operations: Relevant previous surgery/procedure and date(s) (Ectopic History of appendectomy History of colonoscopy History of hysterectomy Hx of endoscopy) Allergies: Allergies Allergy/AdvReac Type Severity Reaction Status Date / Time zolmitriptan [From ZOMIG] Allergy Severe SWOLLEN Verified 07/14/21 08:25 THROAT AND ITCHING salsalate Allergy Intermediate Itching Verified 07/14/21 08:25 Review of Systems Sugical H&P ROS: Negative: Constitution, Cardiovascular, Respiratory, Neurological, Psychiatric, Hem-Onc, Allergic/Immunologic, Gastrointestinal, Genitourinary, Musculoskeletal, Integumentary, Endocrine and Eyes/Ears/Nose/Throat Exam Surgical H&P Exam: Normal: HEENT, Normal: Heart, Normal: Lungs, Normal: Extremities, Normal: Abdomen, Normal: Skin and Normal: Neurological Plan Diagnosis/Plan: Unchanged I have reviewed the history and physical and performed a pertinent physical examination on my patient. No changes have occurred unless specified.
[2021-08-24] MEDS: Lactated Ringers 1,000 ML 100 ML IVCONT (11:37)
--- NOTE | 2021-08-24 11:47 | P.BOP_ITS ---
Brief Operative Note Date of Service: 08/24/21 Pre-op diagnosis: Hx of peptic ulcer disease, joyce umbilical pain with straining, rectal bleeding, dysphagia Post-op diagnosis: same Procedure: see op note Surgeon: Eileen Payne MD Anesthesia: MAC Was an Casino Duty Manager used for this Procedure?: No Estimated blood loss (mL): 0 Condition: stable Disposition: PACU
--- NOTE | 2021-08-24 11:48 | P.OP_ITS ---
Operative Note Operative Note Date of Service: 08/24/21 Narrative: Operative Information Procedure Description: EGD, Colonoscopy Indication: Hx of peptic ulcer disease, joyce umbilical pain with straining, rectal bleeding, dysphagia Anesthesia: MAC FLEXIBLE TRANSORAL UPPER GASTROINTESTINAL ENDOSCOPY AND COLONOSCOPY PROCEDURE NOTE UPPER ENDOSCOPY Consent: Indications for the procedure and potential complications of bleeding, perforation, reaction to medications and missed diagnosis were discussed with the patient and informed consent was obtained. Instrument: Olympus GIF H 190 J mid size upper endoscope Monitoring: Vital signs and clinical assessment, continuous EKG monitoring, Pulse oximetry, Carbon Dioxide monitoring and blood pressure monitoring were done throughout the procedure. Procedure: The patient was placed in the left lateral decubitis position and pre-procedure medications were administered and a bite block was placed. The endoscope was inserted into the mouth and advanced under direct vision to the third part of duodenum. A careful inspection was made as the upper endoscope was withdrawn including a retroflexed examination of the proximal stomach; Findings and interventions are described below. Findings: Larynx:normal Esophagus: GE junction at 34 cm, diaphragm hiatus at 34 cm, balloon dilation done at UES to 18 mm and GEJ to 20 mm, no tear noted. Stomach: Scars from prior uclers noted with some gastritis. Biopsies were obtained. Grade 2 flap valve on retroflexed examination of the cardia. Duodenum: tight stricture at distal bulb unable to bypass with regular scope, slim scope used and then wire placed. Over the wire the stricture was dilated to 12 mm with heme noted. Still couldnt bypass with regular scope but the stricture had opened up with the dilation. Intervention: Biopsies as noted above, dilation of esophagus and duodenal stricture COLONOSCOPY Instrument: Olympus variable stiffness pediatric scope 190L Colonoscopy Monitoring: Vital signs and clinical assessment, continuous EKG monitoring, Pulse oximetry, Carbon Dioxide monitoring and blood pressure monitoring were done throughout the procedure. Colon withdrawal time was 11 minutes. Procedure: The patient was placed in the left lateral decubitis position and pre-procedure medications were administered. After a digital rectal examination of the ano-rectum, the video colonoscope was inserted into the rectum and advanced through the colon to the cecum/TI. The colonoscope was slowly withdrawn in a retrograde panoramic fashion and the colon mucosa was carefully examined including a retroflexed view of the rectum. Rectal exam was done with patient awake before starting colonoscopy, normal squeeze, no paradoxical tightening of anal sphincter, there did appear to be exaggerated descent on bearing down. Sensation was normal, no fissures seen Findings and interventions are described below. Procedure Difficulty: easy Findings: Terminal Ileum-normal, bx taken Cecum: mild erythema bx taken from right colon Ascending Colon: normal Transverse Colon -normal, random bx taken Descending Colon:normal, random bx taken Sigmoid Colon: normal, random bx taken Rectum: Retroflexion with small internal hemorrhoids, grade I, erythema noted at mid rectum which could be consistent with prolapse, bx taken Anorectum - normal Colon preparation: [place] Bowel Preparation Scale Right colon; 2 Transverse colon:2 Left colon; 2 (0 = Unprepared colon segment with mucosa not seen due to solid stool that cannot be cleared. 1 = Portion of mucosa of the colon segment seen, but other areas of the colon segment not well seen due to staining, residual stool and/or opaque liquid. 2 = Minor amount of residual staining, small fragments of stool and/or opaque liquid, but mucosa of colon segment seen well. 3 = Entire mucosa of colon segment seen well with no residual staining, small fragments of stool or opaque liquid) Impression and Post Procedure Diagnosis: Endoscopy Findings: duodenal stricture gastritis Colonoscopy Findings: rectal erythema, internal hemorrhoids Plan: Await Pathology results Repeat Colonoscopy in 10 years or earlier if clinically indicated High fiber diet leaflet avoid straining at stool, epsom salts and sitz bath, anusol supps or cream repeat EGD in 2-4 weeks, try to stretch stricture further, might consider kenalog injection as well, cont with PPI meantime, Above findings were reviewed with the patient and relevant handouts were provided if indicated.
[2021-08-24 13:00] VITALS: BP 109/69; PULSE 78; RESP 20; TEMP 36.5; O2SAT 100
[2021-08-24 13:05] VITALS: BP 99/69; PULSE 79; RESP 16; O2SAT 99
[2021-08-24 13:10] VITALS: BP 111/66; PULSE 78; RESP 16; O2SAT 98
[2021-08-24 13:15] VITALS: BP 105/73; PULSE 74; RESP 16; TEMP 36.4; O2SAT 99
== END 2021-08-24 14:00 | disposition home or self-care (01) ==
PROVIDERS: PCP Internal Medicine; Visit Provider Internal Medicine Gastroenterology
PROC: (CPT 45380; principal; 2021-08-24 12:20)
DX: K62.5 Hemorrhage of anus and rectum (principal); K62.3 Rectal prolapse; K64.0 First degree hemorrhoids; K21.9 Gastro-esophageal reflux disease without esophagitis; R10.33 Periumbilical pain; K29.50 Unspecified chronic gastritis without bleeding; K31.5 Obstruction of duodenum; K27.9 Peptic ulcer, site unspecified, unspecified as acute or chronic, without hemorrhage or perforation; I95.9 Hypotension, unspecified; K44.9 Diaphragmatic hernia without obstruction or gangrene; J45.909 Unspecified asthma, uncomplicated; E05.80 Other thyrotoxicosis without thyrotoxic crisis or storm; Z90.49 Acquired absence of other specified parts of digestive tract
CPT/HCPCS: 45380; 43249; 43245; 43239; 88305; 88342; C1726; J2405

== ENCOUNTER 2021-09-29 13:25 | Outpatient (REF) | payer OTHER, SELFPAY ==
[2021-09-29 14:40] LABS: Thyroid Stimulating Hormone 0.35 uIU/mL (0.32-4.0)
== END 2021-09-29 13:26 | disposition home or self-care (01) ==
LOC: HO.LAB 13:25
PROVIDERS: PCP Internal Medicine; Visit Provider Internal Medicine
DX: E06.3 Autoimmune thyroiditis (principal)
CPT/HCPCS: 36415; 84443

== ENCOUNTER 2021-09-29 13:37 | Day surgery (SDC) | payer OTHER, SELFPAY ==
--- NOTE | 2021-09-28 12:01 | HO.ANESPROP2 ---
Documented by User: Eveline Barrientos NP 09/28/21 12:04 HPI - Anesthesia Eval Consult details Narrative: 56yo F for Upper Endoscopy with Balloon Dilitation PMFSH Active Problems Active Problems: All Active Problems (Updated 09/23/21 @ 12:04 by Suzie Nunez RN) Gross hematuria (Acute) Peptic ulcer disease (Acute) Idiopathic hypotension (Acute) Peptic ulcer (Acute) Rectal prolapse (Acute) Autoimmune thyroiditis (Acute) URI (upper respiratory infection) (Acute) Mild recurrent major depression (Acute) Right upper quadrant abdominal pain (Acute) Voice hoarseness (Acute) Polyarthralgia (Acute) Physical exam (Acute) Left shoulder pain (Acute) GERD (gastroesophageal reflux disease) (Acute) Bladder pain (Acute) Leg edema (Acute) Migraine headache (Acute) Hair loss (Acute) Hypotension (Acute) Fibromyalgia (Acute) Mild asthma (Acute) Vitamin D deficiency (Acute) Elevated plasma metanephrines (Acute) Subclinical hyperthyroidism (Acute) Anxiety (Acute) Past Medical History Medical History Anxiety Autoimmune thyroiditis Back pain Bladder pain Elevated plasma metanephrines Fibromyalgia GERD (gastroesophageal reflux disease) Hair loss Hypotension Left shoulder pain Leg edema Migraine headache Mild asthma Mild recurrent major depression Neck pain Physical exam Polyarthralgia Right upper quadrant abdominal pain Sciatica Subclinical hyperthyroidism URI (upper respiratory infection) Vitamin D deficiency Voice hoarseness Family History Family History Father Alzheimers disease Mother Hypertension Family history of problems with anesthesia: No Surgical History Surgical History Ectopic History of appendectomy History of colonoscopy History of hysterectomy Hx of endoscopy History of Problems with Anesthesia: No Social History Social History Household Members: None Housing: Apartment Alcohol intake: never Patient Tobacco Use Status: Never used Tobacco e-Cigarette/Vaping Use: Never Used Second Hand Smoke Exposure: No Use of substances other than those prescribed or required for medical reasons: No Are you DNR?: No Advance Directives: No Advance Directives Information Provided: Yes Patient : No (hysterectomy) service: No Current occupational status: unemployed Cognitive needs: No Hearing needs: No Vision needs: No Meds Allergies Allergy/AdvReac Type Severity Reaction Status Date / Time zolmitriptan [From ZOMIG] Allergy Severe SWOLLEN Verified 08/29/21 17:04 THROAT AND ITCHING salsalate Allergy Intermediate Itching Verified 08/29/21 17:04 Home Medications Medication Instructions Recorded Confirmed Last Taken Type clonazepam 1 mg tablet 1 mg PO DAILY 04/05/20 09/23/21 Unknown History citalopram 20 mg tablet 0 mg PO 02/18/21 08/29/21 Unknown History oxycodone-acetaminophen 5 mg-325 1 tab PO TID PRN 02/18/21 09/23/21 Unknown History mg tablet Exam Exam Date and Time: September 28, 2021 1201 Pertinent Lab Results Pertinent Lab Results: Laboratory Tests 07/14/21 07/14/21 09:16 09:16 WBC 5.2 Hgb 11.9 L Hct 38.1 Plt Count 213 Sodium 140 Potassium 4.4 Chloride 107 Carbon Dioxide 28 BUN 16 Creatinine 0.67 Narrative Narrative: ECHO 2021 Conclusions: - 1. Normal LV systolic function with grade 1 diastolic? dysfunction? 2. Normal cardiac valvular Doppler ? 3. No gross pericardial effusion ? Findings Left Ventricle Normal left ventricular size, thickness, and systolic function. The visually estimated ejection fraction is between 60-65%.? Spectral Doppler is indicative of an impaired relaxation filling pattern.? E/E prime ratio is <8, consistent with normal filling pressures.? Evidence suggests grade I (mild) diastolic dysfunction. Assessment and Plan Assessment Anesthesia Assessment: Chart Reviewed Final Anesthetic Review Family History of Problems with Anesthesia: No History of Problems with Anesthesia: No Documented by User: Kaitlyn Markham MD 09/29/21 15:16 HPI - Anesthesia Eval Consult details Narrative: 56yo F for Upper Endoscopy with Balloon Dilatation, Flexible sigmoidoscopy PMF Active Problems Active Problems: All Active Problems (Updated 09/23/21 @ 12:04 by Suzie Nunez RN) Gross hematuria (Acute) Peptic ulcer disease (Acute) Idiopathic hypotension (Acute) Peptic ulcer (Acute) Rectal prolapse (Acute) Autoimmune thyroiditis (Acute) URI (upper respiratory infection) (Acute) Mild recurrent major depression (Acute) Right upper quadrant abdominal pain (Acute) Voice hoarseness (Acute) Polyarthralgia (Acute) Physical exam (Acute) Left shoulder pain (Acute) GERD (gastroesophageal reflux disease) (Acute) Bladder pain (Acute) Leg edema (Acute) Migraine headache- took imitrex today. Headache better Hair loss (Acute) Hypotension (Acute) Fibromyalgia (Acute) Mild asthma (Acute) Vitamin D deficiency (Acute) Elevated plasma metanephrines (Acute) Subclinical hyperthyroidism (Acute) Anxiety/Depression MIGUE. Uses CPAP machine H/o chronic nausea H/o disc herniation-cervical and lumbar Past Medical History Medical History Anxiety Autoimmune thyroiditis Back pain Bladder pain Elevated plasma metanephrines Fibromyalgia GERD (gastroesophageal reflux disease) Hair loss Hypotension Left shoulder pain Leg edema Migraine headache Mild asthma Mild recurrent major depression Neck pain Physical exam Polyarthralgia Right upper quadrant abdominal pain Sciatica Subclinical hyperthyroidism URI (upper respiratory infection) Vitamin D deficiency Voice hoarseness Family History Family History Father Alzheimers disease Mother Hypertension Surgical History Surgical History Ectopic History of appendectomy History of colonoscopy History of hysterectomy Hx of endoscopy History of Problems with Anesthesia: Yes (Woke up during EGD with severe pain) Social History Social History Household Members: None Housing: Apartment Alcohol intake: never Patient Tobacco Use Status: Never used Tobacco e-Cigarette/Vaping Use: Never Used Second Hand Smoke Exposure: No Use of substances other than those prescribed or required for medical reasons: No Are you DNR?: No Advance Directives: No Advance Directives Information Provided: Yes Patient : No (hysterectomy) service: No Current occupational status: unemployed Cognitive needs: No Hearing needs: No Vision needs: No Meds Allergies Allergy/AdvReac Type Severity Reaction Status Date / Time zolmitriptan [From ZOMIG] Allergy Severe SWOLLEN Verified 08/29/21 17:04 THROAT AND ITCHING salsalate Allergy Intermediate Itching Verified 08/29/21 17:04 Home Medications Medication Instructions Recorded Confirmed Last Taken Type clonazepam 1 mg tablet 1 mg PO DAILY 04/05/20 09/23/21 Unknown History citalopram 20 mg tablet 0 mg PO 02/18/21 08/29/21 Unknown History oxycodone-acetaminophen 5 mg-325 1 tab PO TID PRN 02/18/21 09/23/21 Unknown History mg tablet Exam Height,Weight and Vital Signs: Height 4 ft 9 in Weight 54.885 kg Vital Signs Temp Pulse Resp BP Pulse Ox 09/29/21 14:17 98.8 F 76 16 133/70 99 Airway Mallampati Class: II TM Dist: >3cm Neck ROM: Limited (Limited extension) Heart: RRR Lungs: CTAB Assessment and Plan Assessment Anesthesia Assessment: Anesthesia Plan Discussed Final Anesthetic Review History of Problems with Anesthesia: Yes (Woke up during EGD with severe pain) NPO: Yes ASA Class: III Final Preanesthetic Review: No Changes in Pt Med Stat, Meds/Allgs Chart Reviewed, Consent Obtained/Reviewed and Anes Risks/Benef Reviewed Patient Risk: Intermediate Procedure Risk: Low Anesthetic Plan Anesthetic Plan: GA and MAC: Disposition: Standard PACU
--- NOTE | 2021-09-29 13:59 | MHC.SHP ---
Pre-Procedural Eval Section A Date of Service: 09/29/21 Section B Chief Complaint: obstruction of duodenum Details of Present Illness: rectal bleeding and duodenal stricture Relevant Family History (Specify if Yes): No Relevant Social History: None Present Medications: see Short Stay Collaborative assessment Medical History: Significant History (Autoimmune thyroiditis Back pain Bladder pain Elevated plasma metanephrines Fibromyalgia GERD (gastroesophageal reflux disease) Hair loss Hypotension Left shoulder pain Leg edema Migraine headache Mild asthma Mild recurrent major depression Neck pain Physical exam Polyarthralgia Right upper quadrant) History of Previous Operations: Relevant previous surgery/procedure and date(s) (Ectopic History of appendectomy History of colonoscopy History of hysterectomy Hx of endoscopy) Allergies: Allergies Allergy/AdvReac Type Severity Reaction Status Date / Time zolmitriptan [From ZOMIG] Allergy Severe SWOLLEN Verified 08/29/21 17:04 THROAT AND ITCHING salsalate Allergy Intermediate Itching Verified 08/29/21 17:04 Review of Systems Sugical H&P ROS: Negative: Constitution, Cardiovascular, Respiratory, Neurological, Psychiatric, Hem-Onc, Allergic/Immunologic, Gastrointestinal, Genitourinary, Musculoskeletal, Integumentary, Endocrine and Eyes/Ears/Nose/Throat Exam Surgical H&P Exam: Normal: HEENT, Normal: Heart, Normal: Lungs, Normal: Extremities, Normal: Abdomen, Normal: Skin and Normal: Neurological Plan Diagnosis/Plan: Unchanged I have reviewed the history and physical and performed a pertinent physical examination on my patient. No changes have occurred unless specified. EGD with dudeonal dilation and sigmoidoscopy with possible hemorrhoidal banding
[2021-09-29 14:17] VITALS: BP 133/70; PULSE 76; RESP 16; TEMP 37.1; O2SAT 99; BMI 26.2
[2021-09-29] MEDS: Lactated Ringers 1,000 ML 100 ML IVCONT (14:25)
[2021-09-29] MEDS: Sodium Phosphate,Mono-Dibasic 133 ML ENEMA PR (14:35)
--- NOTE | 2021-09-29 14:59 | P.BOP_ITS ---
Brief Operative Note Date of Service: 09/29/21 Pre-op diagnosis: rectal bleeding and duodenal stricture Post-op diagnosis: same Procedure: see op note Surgeon: Eileen Payne MD Anesthesia: MAC Was an Prn Physical Therapist used for this Procedure?: No Estimated blood loss (mL): 0 Condition: stable Disposition: PACU
--- NOTE | 2021-09-29 15:39 | W.PM.OPN ---
Operative Note Operative Note Date of Service: 09/29/21 Narrative: Operative Information Procedure Description: EGD, sigmoidoscopy Indication: rectal bleeding and duodenal stricture, dysphagia Anesthesia: MAC FLEXIBLE TRANSORAL UPPER GASTROINTESTINAL ENDOSCOPY AND Sigmoidoscopy PROCEDURE NOTE UPPER ENDOSCOPY Consent: Indications for the procedure and potential complications of bleeding, perforation, reaction to medications and missed diagnosis were discussed with the patient and informed consent was obtained. Instrument: Olympus GIF H 190 J mid size upper endoscope Monitoring: Vital signs and clinical assessment, continuous EKG monitoring, Pulse oximetry, Carbon Dioxide monitoring and blood pressure monitoring were done throughout the procedure. Procedure: The patient was placed in the left lateral decubitis position and pre-procedure medications were administered and a bite block was placed. The endoscope was inserted into the mouth and advanced under direct vision to the third part of duodenum. A careful inspection was made as the upper endoscope was withdrawn including a retroflexed examination of the proximal stomach; Findings and interventions are described below. Findings: Larynx:normal Esophagus: GE junction at 34? cm, diaphragm hiatus at 34 cm, balloon dilation done at UES to 14 mm with resistance felt and GEJ to 15.5 mm, no tear noted.? Stomach: Scars from prior uclers noted with some gastritis and superficail ucleration at the antrum.Grade 2 flap valve on retroflexed examination of the cardia. Duodenum: tight stricture at distal bulb able to pass with gentle pressure, the stricture was dilated to 14 mm with heme noted. Intervention: ballon dilation sigmoidoscopy Instrument: as above Procedure: The patient was placed in the left lateral decubitis position and pre-procedure medications were administered. After a digital rectal examination of the ano-rectum, the video scope was inserted into the rectum and advanced through the descending colon. The scope was slowly withdrawn in a retrograde panoramic fashion and the colon mucosa was carefully examined including a retroflexed view of the rectum. Findings and interventions are described below. Procedure Difficulty:easy Findings: Descending Colon:normal Sigmoid Colon: normal Rectum: Retroflexion with small internal hemorrhoids, grade I mid rectum mucosa had a dusky appearance with few small erosions, bx taken, maybe consistent with rectal prolapse Anorectum - normal Impression and Post Procedure Diagnosis: Endoscopy Findings: gastritis and ulceration duodenal stricture Sigmoidoscopy Findings: internal hemorrhoids possible rectal prolapse with some ischemic appearance to rectum Plan: Await Pathology results Avoid straining at stool High fiber diet leaflet avoid straining at stool, epsom salts and sitz bath, anusol supps or cream Ok to have regular diet, chew food thoroughly make sure compliant with anti acid medication --prior gastrin levels have been normal Above findings were reviewed with the patient and relevant handouts were provided if indicated.
[2021-09-29 15:45] VITALS: BP 132/78; PULSE 98; RESP 18; TEMP 36.9; O2SAT 97
[2021-09-29 16:00] VITALS: BP 111/71; PULSE 87; RESP 18; TEMP 36.9; O2SAT 97
== END 2021-09-29 16:31 | disposition home or self-care (01) ==
PROVIDERS: PCP Internal Medicine; Visit Provider Internal Medicine Gastroenterology
PROC: (CPT 45331; principal; 2021-09-29 15:00)
DX: K62.5 Hemorrhage of anus and rectum (principal); K62.89 Other specified diseases of anus and rectum; K64.0 First degree hemorrhoids; K64.4 Residual hemorrhoidal skin tags; K31.5 Obstruction of duodenum; R13.10 Dysphagia, unspecified; K29.30 Chronic superficial gastritis without bleeding; K25.9 Gastric ulcer, unspecified as acute or chronic, without hemorrhage or perforation; K44.9 Diaphragmatic hernia without obstruction or gangrene; K21.9 Gastro-esophageal reflux disease without esophagitis; I95.9 Hypotension, unspecified; E88.09 Other disorders of plasma-protein metabolism, not elsewhere classified; E06.3 Autoimmune thyroiditis; E55.9 Vitamin D deficiency, unspecified; L65.9 Nonscarring hair loss, unspecified; M79.7 Fibromyalgia; J45.998 Other asthma; Z79.1 Long term (current) use of non-steroidal anti-inflammatories (NSAID); Z79.899 Other long term (current) drug therapy; Z88.8 Allergy status to other drugs, medicaments and biological substances
CPT/HCPCS: 45331; 43249; 43245; 88305; C1726; J2250

== ENCOUNTER → 2021-10-21 09:49 | Outpatient (BNVA) | payer OTHER, SELFPAY | PROVIDERS: PCP Internal Medicine; Referring Provider Internal Medicine; Visit Provider Internal Medicine Gastroenterology | DX: K29.70 Gastritis, unspecified, without bleeding (principal); K27.9 Peptic ulcer, site unspecified, unspecified as acute or chronic, without hemorrhage or perforation; K64.8 Other hemorrhoids; Z79.899 Other long term (current) drug therapy; Z98.890 Other specified postprocedural states | CPT/HCPCS: 99212 ==

== ENCOUNTER 2021-11-29 14:00 | Outpatient (RCR) | payer OTHER, SELFPAY ==
--- NOTE | 2021-10-21 12:13 | MHC.PT.EP ---
[facility] [place] Office [place] [facility] [place] [facility] [address] [place] [address] [phone] F: [phone] F: [phone] F: [phone] F: [phone] Physical Therapy Plan of Care Date of Evaluation: Date of Surgery: NA Diagnosis: Rectal prolapse Assessment: Megan is a 56 year old female who is referred to PT for rectal prolapse . She reports of having symptoms of fullness/ pressure in rectum and blood when she wipes herself for the last 2 years. She was recently seen by her GI and colonscopy was done. She was diagnosed with rectal prolapse. In addition to this she also reports of having low back pain, CYNTHIA, urinary retention and constant pain in rectum. On examination she presented with TTP over RA, decreased core strength and decreased lumbar ROM. Internal pelvic exam not done today as pt requested this for next session. Due to these impairments she has difficutly performing IADLS like carrying weights, lifting, cleaning and cooking. She would benefit form skilled PT to improve PFM strength, managing prolapse, learning to manage intra-abdominal pressure, lumbar stabs, improve ROM and functional training. Frequency and Duration: The patient will be seen 1/week for 9 weeks Short Term Goals: 1. Internal pelvic exam will be performed in 1 week 2. Pt will be able to demonstrate good toileting mechanics and thereby reduce straining and prolapse in 3 weeks 3. Pt will report of having 50% decrease in after BM in 5 weeks Prison Goals: 1. Pt will be able to perform IADLS 75% in a month in 7 weeks. 2. Pt will be independent with [facility] for symptom management and maintenance of improvements in 9 weeks Treatment Plan: Modalities to reduce pain, spasms and effusion. Manual therapy to restore motion and function. Therapeutic exercise to improve strength and flexibility. Neuromuscular re-education for posture and balance. Therapeutic activities to return to functional activities of daily living. Electronically signed by: Please sign and return to therapist. Thank you for your referral.
--- NOTE | 2022-01-05 08:37 | MHC.PT.DC ---
[facility] [place] [facility] [place] [facility] [place] [facility] [address] [place] [address] [phone] F: [phone] F: [phone] F: [phone] F: [phone] Physical Therapy Discharge Report Diagnosis: Rectal prolapse Date of Surgery: NA Date of Evaluation: 10/21/21 Date of Discharge: 01/05/22 Treatments to Date: 5 Cancellations to Date: 3 No Shows to Date: Discharge Status: Achieved Goals Improved Function Independent with HEP Discharge Summary: Megan completed 5 PT visits. She was then not able to attend to PT due to COVID. She later called in stating she is feeling significantly better and is independent with HEP. She is therefore being d/c from PT. Electronically signed by: Abigail Jacob PT DPT Please sign and return to therapist. Thank you for your referral.
== END 2022-01-05 08:38 | disposition home or self-care (01) ==
LOC: HO.PT 14:00
PROVIDERS: PCP Internal Medicine; Visit Provider Internal Medicine Gastroenterology
DX: K62.3 Rectal prolapse (principal)
CPT/HCPCS: 97112; 97140; 97161

== ENCOUNTER 2021-12-22 11:06 | Day surgery (SDC) | payer OTHER, SELFPAY ==
--- NOTE | 2021-12-21 13:41 | HO.ANESPROP2 ---
Documented by User: Eveline Barrientos NP 12/21/21 13:42 HPI - Anesthesia Eval Consult details Narrative: 56yo F for Upper Endoscopy with Balloon Dilitation s/p same 09/2021 with MAC PMF Active Problems Active Problems: All Active Problems (Updated 11/30/21 @ 15:55 by LAUREANO Lynn) Lower back pain (Acute) Upper back pain (Acute) Rib pain (Acute) Gross hematuria (Acute) Peptic ulcer disease (Acute) Idiopathic hypotension (Acute) Peptic ulcer (Acute) Rectal prolapse (Acute) Autoimmune thyroiditis (Acute) URI (upper respiratory infection) (Acute) Mild recurrent major depression (Acute) Right upper quadrant abdominal pain (Acute) Voice hoarseness (Acute) Polyarthralgia (Acute) Physical exam (Acute) Left shoulder pain (Acute) GERD (gastroesophageal reflux disease) (Acute) Bladder pain (Acute) Leg edema (Acute) Migraine headache (Acute) Hair loss (Acute) Hypotension (Acute) Fibromyalgia (Acute) Mild asthma (Acute) Vitamin D deficiency (Acute) Elevated plasma metanephrines (Acute) Subclinical hyperthyroidism (Acute) Anxiety (Acute) Past Medical History Medical History Anxiety Autoimmune thyroiditis Back pain Bladder pain Elevated plasma metanephrines Fibromyalgia GERD (gastroesophageal reflux disease) Hair loss Hypotension Left shoulder pain Leg edema Migraine headache Mild asthma Mild recurrent major depression Neck pain Physical exam Polyarthralgia Right upper quadrant abdominal pain Sciatica Subclinical hyperthyroidism URI (upper respiratory infection) Vitamin D deficiency Voice hoarseness Family History Family History Father Alzheimers disease Mother Hypertension Family history of problems with anesthesia: No Surgical History Surgical History Ectopic History of appendectomy History of colonoscopy History of hysterectomy Hx of endoscopy History of Problems with Anesthesia: Yes (Woke up during EGD with severe pain) Social History Social History Household Members: None Housing: Apartment Alcohol intake: never Patient Tobacco Use Status: Never used Tobacco e-Cigarette/Vaping Use: Never Used Second Hand Smoke Exposure: No Use of substances other than those prescribed or required for medical reasons: No Are you DNR?: No Advance Directives: No Advance Directives Information Provided: Yes service: No Current occupational status: unemployed Cognitive needs: No Hearing needs: No Vision needs: No Meds Allergies Allergy/AdvReac Type Severity Reaction Status Date / Time zolmitriptan [From ZOMIG] Allergy Severe SWOLLEN Verified 11/30/21 15:42 THROAT AND ITCHING salsalate Allergy Intermediate Itching Verified 11/30/21 15:42 Home Medications Medication Instructions Recorded Confirmed Last Taken Type clonazepam 1 mg tablet 1 mg PO DAILY 04/05/20 11/30/21 12/22/21 09:00 History citalopram 20 mg tablet 0 mg PO 02/18/21 11/30/21 Unknown History oxycodone-acetaminophen 5 mg-325 1 tab PO TID PRN Pain 02/18/21 11/30/21 Unknown History mg tablet bupropion HCl 150 mg 24 hr tablet, 150 mg PO DAILY PRN 10/21/21 11/30/21 Unknown History extended release bupropion HCl 150 mg tablet,12 hr 150 mg PO BID 10/21/21 11/30/21 Unknown History sustained-release lidocaine HCl 2 % mucosal solution ml PO 10/21/21 11/30/21 Unknown History (Lidocaine Viscous) amitriptyline 25 mg tablet 1 tab PO BEDTIME 12/19/21 12/19/21 Unknown History quetiapine 50 mg tablet 1 tab PO BEDTIME 12/19/21 12/19/21 Unknown History tizanidine 2 mg tablet 1 tab PO Q6H PRN muscle spasm 12/19/21 12/19/21 Unknown History Exam Exam Date and Time: December 21, 2021 1341 Pertinent Lab Results Pertinent Lab Results: Laboratory Tests 07/14/21 07/14/21 09:16 09:16 WBC 5.2 Hgb 11.9 L Hct 38.1 Plt Count 213 Sodium 140 Potassium 4.4 Chloride 107 Carbon Dioxide 28 BUN 16 Creatinine 0.67 Narrative Narrative: ECHO 2020 Conclusions: - 1. Normal LV systolic function with grade 1 diastolic? dysfunction? 2. Normal cardiac valvular Doppler ? 3. No gross pericardial effusion ? Findings Left Ventricle Normal left ventricular size, thickness, and systolic function. The visually estimated ejection fraction is between 60-65%.? Spectral Doppler is indicative of an impaired relaxation filling pattern.? E/E prime ratio is <8, consistent with normal filling pressures.? Evidence suggests grade I (mild) diastolic dysfunction. Assessment and Plan Assessment Anesthesia Assessment: Chart Reviewed Final Anesthetic Review Family History of Problems with Anesthesia: No History of Problems with Anesthesia: Yes (Woke up during EGD with severe pain) Documented by User: Araceli Brink MD 12/22/21 13:20 PMFSH Past Medical History Medical History Anxiety Autoimmune thyroiditis Back pain Bladder pain Elevated plasma metanephrines Fibromyalgia GERD (gastroesophageal reflux disease) Hair loss Hypotension Left shoulder pain Leg edema Migraine headache Mild asthma Mild recurrent major depression Neck pain Physical exam Polyarthralgia Right upper quadrant abdominal pain Sciatica Subclinical hyperthyroidism URI (upper respiratory infection) Vitamin D deficiency Voice hoarseness Functional capacity: independent ambulation Patient : No Family History Family History Father Alzheimers disease Mother Hypertension Surgical History Surgical History Ectopic History of appendectomy History of colonoscopy History of hysterectomy Hx of endoscopy Social History Social History Household Members: None Housing: Apartment Alcohol intake: never Patient Tobacco Use Status: Never used Tobacco e-Cigarette/Vaping Use: Never Used Second Hand Smoke Exposure: No Use of substances other than those prescribed or required for medical reasons: No Are you DNR?: No Advance Directives: No Advance Directives Information Provided: Yes service: No Current occupational status: unemployed Cognitive needs: No Hearing needs: No Vision needs: No Meds Allergies Allergy/AdvReac Type Severity Reaction Status Date / Time zolmitriptan [From ZOMIG] Allergy Severe SWOLLEN Verified 11/30/21 15:42 THROAT AND ITCHING salsalate Allergy Intermediate Itching Verified 11/30/21 15:42 Home Medications Medication Instructions Recorded Confirmed Last Taken Type clonazepam 1 mg tablet 1 mg PO DAILY 04/05/20 11/30/21 12/22/21 09:00 History citalopram 20 mg tablet 0 mg PO 02/18/21 11/30/21 Unknown History oxycodone-acetaminophen 5 mg-325 1 tab PO TID PRN Pain 02/18/21 11/30/21 Unknown History mg tablet bupropion HCl 150 mg 24 hr tablet, 150 mg PO DAILY PRN 10/21/21 11/30/21 Unknown History extended release bupropion HCl 150 mg tablet,12 hr 150 mg PO BID 10/21/21 11/30/21 Unknown History sustained-release lidocaine HCl 2 % mucosal solution ml PO 10/21/21 11/30/21 Unknown History (Lidocaine Viscous) amitriptyline 25 mg tablet 1 tab PO BEDTIME 12/19/21 12/19/21 Unknown History quetiapine 50 mg tablet 1 tab PO BEDTIME 12/19/21 12/19/21 Unknown History tizanidine 2 mg tablet 1 tab PO Q6H PRN muscle spasm 12/19/21 12/19/21 Unknown History Exam Airway Mallampati Class: II TM Dist: >3cm Neck ROM: Full Heart: RRR Lungs: CTA Assessment and Plan Final Anesthetic Review NPO: Yes ASA Class: II Final Preanesthetic Review: No Changes in Pt Med Stat, Meds/Allgs Chart Reviewed, Consent Obtained/Reviewed and Anes Risks/Benef Reviewed Patient Risk: Low Procedure Risk: Low Anesthetic Plan Anesthetic Plan: MAC: Disposition: Standard PACU
[2021-12-22 11:19] VITALS: BMI 25.9
[2021-12-22 11:48] VITALS: BP 121/71; PULSE 80; RESP 16; TEMP 36.8; O2SAT 99
[2021-12-22] MEDS: Lactated Ringers 1,000 ML 100 ML IVCONT (11:48)
--- NOTE | 2021-12-22 12:57 | MHC.SHP ---
Pre-Procedural Eval Section A Date of Service: 12/22/21 Section B Chief Complaint: obstruction Relevant Family History (Specify if Yes): No Relevant Social History: None Present Medications: see Short Stay Collaborative assessment Medical History: Significant History (Anxiety Autoimmune thyroiditis Back pain Bladder pain Elevated plasma metanephrines Fibromyalgia GERD (gastroesophageal reflux disease) Hair loss Hypotension Left shoulder pain Leg edema Migraine headache Mild asthma Mild recurrent major depression Neck pain Physical exam Polyarthralgia Right upper ) History of Previous Operations: Relevant previous surgery/procedure and date(s) (Ectopic History of appendectomy History of colonoscopy History of hysterectomy Hx of endoscopy) Allergies: Allergies Allergy/AdvReac Type Severity Reaction Status Date / Time zolmitriptan [From ZOMIG] Allergy Severe SWOLLEN Verified 11/30/21 15:42 THROAT AND ITCHING salsalate Allergy Intermediate Itching Verified 11/30/21 15:42 Review of Systems Sugical H&P ROS: Negative: Constitution, Cardiovascular, Respiratory, Neurological, Psychiatric, Hem-Onc, Allergic/Immunologic, Gastrointestinal, Genitourinary, Musculoskeletal, Integumentary, Endocrine and Eyes/Ears/Nose/Throat Exam Surgical H&P Exam: Normal: HEENT, Normal: Heart, Normal: Lungs, Normal: Extremities, Normal: Abdomen, Normal: Skin and Normal: Neurological Plan Diagnosis/Plan: Unchanged I have reviewed the history and physical and performed a pertinent physical examination on my patient. No changes have occurred unless specified.
--- NOTE | 2021-12-22 12:58 | W.PM.OPN ---
Operative Note Operative Note Date of Service: 12/22/21 Narrative: Procedure Description: EGD Indication: [] Anesthesia: MAC FLEXIBLE TRANSORAL UPPER GASTROINTESTINAL ENDOSCOPY UPPER ENDOSCOPY Consent: Indications for the procedure and potential complications of bleeding, perforation, reaction to medications and missed diagnosis were discussed with the patient and informed consent was obtained. Instrument: Olympus GIF H 190 J mid size upper endoscope Monitoring: Vital signs and clinical assessment, continuous EKG monitoring, Pulse oximetry, Carbon Dioxide monitoring and blood pressure monitoring were done throughout the procedure. Procedure: The patient was placed in the left lateral decubitis position and pre-procedure medications were administered and a bite block was placed. The endoscope was inserted into the mouth and advanced under direct vision to the third part of duodenum. A careful inspection was made as the upper endoscope was withdrawn including a retroflexed examination of the proximal stomach; Findings and interventions are described below. Findings: Larynx:normal Esophagus: GE junction at 34? cm, diaphragm hiatus at 34 cm, balloon dilation done at [facility] to 16 mm with resistance felt and GEJ to 16 mm, with some heme noted? Stomach: Scars from prior uclers noted with some gastritis and streaky streaks with scarring around the pylorus.Grade 2 flap valve on retroflexed examination of the cardia. Duodenum: tight stricture at distal bulb able to pass with gentle pressure, the stricture was dilated to 16 mm with heme noted. Intervention: balloon dilation and biopsy Impression/Findings: gastritis duodenal stricture PLAN: cont with PPI can bring back for dilation in about 8-12 weeks, next time use solumedrol into the duodenal stricture
[2021-12-22 13:40] VITALS: BP 110/67; PULSE 87; RESP 16; TEMP 37.4; O2SAT 96
[2021-12-22 13:55] VITALS: BP 97/54; PULSE 73; RESP 16; TEMP 37.4; O2SAT 95
[2021-12-22 14:10] VITALS: BP 104/58; PULSE 69; RESP 16; TEMP 37.4; O2SAT 95
== END 2021-12-22 14:42 | disposition home or self-care (01) ==
PROVIDERS: PCP Internal Medicine; Visit Provider Internal Medicine Gastroenterology
PROC: (CPT 43245; principal; 2021-12-22 12:50)
DX: K31.5 Obstruction of duodenum (principal); K29.50 Unspecified chronic gastritis without bleeding; K21.9 Gastro-esophageal reflux disease without esophagitis; M79.7 Fibromyalgia; G43.909 Migraine, unspecified, not intractable, without status migrainosus; E06.3 Autoimmune thyroiditis; L65.9 Nonscarring hair loss, unspecified; I95.9 Hypotension, unspecified; R60.0 Localized edema; E88.09 Other disorders of plasma-protein metabolism, not elsewhere classified; J45.909 Unspecified asthma, uncomplicated; F33.0 Major depressive disorder, recurrent, mild; Z87.11 Personal history of peptic ulcer disease; Z88.8 Allergy status to other drugs, medicaments and biological substances; Z79.899 Other long term (current) drug therapy
CPT/HCPCS: 43245; 43249; 43239; 88305; 88342; C1726

== ENCOUNTER 2022-01-20 13:18 | Outpatient (REF) | payer OTHER, SELFPAY ==
--- NOTE | 2022-01-20 13:34 | ECG_ITS ---
Test Reason : chest pain Blood Pressure : / mmHG Vent. Rate : 080 BPM Atrial Rate : 080 BPM P-R Int : 142 ms QRS Dur : 078 ms QT Int : 364 ms P-R-T Axes : 053 079 033 degrees QTc Int : 419 ms Normal sinus rhythm Normal ECG When compared with ECG of 03-FEB-2016 21:03, No significant change was found Referred By: Viviana Nick Electronically Signed By:ISABEL SOTELO
[2022-01-20 13:44] LABS: MANUAL DIFF FLAG NO
[2022-01-20 13:55] LABS: Basophils Percent Auto 0.2 % (0-2); Eosinophils Absolute Auto 0.1 X10*3/uL (0.0-0.4); Eosinophils Percent Auto 2.9 % (0-4); Hematocrit 36.2 % (37.0-47.0); Hemoglobin 11.7 g/dl (12.0-16.0); Imm Gran Abs Auto 0.01 X10*3/uL (0.00-0.03); Imm Gran Pct Auto 0.2 % (0.0-0.4); Lymphocytes Absolute Auto 1.5 X10*3/uL (1.2-4.9); Lymphocytes Percent Auto 33.9 % (20-40); Mean Corpuscular HGB Conc 32.3 g/dl (31.0-35.0); Mean Corpuscular Hemoglobin 29.3 pg (27.0-33.0); Mean Corpuscular Volume 90.5 fL (80.0-98.0); Mean Platelet Volume 10.9 fL (9.4-12.3); Monocytes Absolute Auto 0.6 X10*3/uL (0.1-1.2); Monocytes Percent Auto 12.6 % (2-11); Neutrophils Absolute Auto 2.2 x10*3/uL (2.0-8.3); Neutrophils Percent Auto 50.2 % (45-73); Platelet Count 242 X10*3/uL (160-400); White Blood Count 4.5 X10*3/uL (4.8-10.8)
[2022-01-20 14:19] LABS: Iron 80 mcg/dL (30-160); Percent Iron Saturation 21 % (15-50); Total Iron Binding Capacity 389 mcg/dL (228-428); Unsaturated Iron Binding 309 ug/dL
[2022-01-20 14:39] LABS: Thyroid Stimulating Hormone 0.65 uIU/mL (0.32-4.0)
== END 2022-01-20 13:19 | disposition home or self-care (01) ==
LOC: HO.LAB 13:18
PROVIDERS: PCP Internal Medicine; Visit Provider Internal Medicine
DX: R07.9 Chest pain, unspecified (principal); E06.3 Autoimmune thyroiditis; D64.9 Anemia, unspecified
CPT/HCPCS: 36415; 83540; 84443; 85025; 93005

== ENCOUNTER 2022-02-15 13:06 | Day surgery (SDC) | payer MEDICARE, MEDICAID, SELFPAY ==
--- NOTE | 2022-02-14 12:39 | HO.ANESPROP2 ---
Documented by User: Eveline Barrientos NP 02/14/22 12:41 HPI - Anesthesia Eval Consult details Narrative: 56yo F for Upper Endoscopy with Balloon Dilitation s/p EGD with dilation 12/2021 with MAC chronic opioids PMFSH Active Problems Active Problems: All Active Problems (Updated 12/28/21 @ 16:30 by Viviana Nick MD) Allergic reaction (Acute) Neck pain (Acute) Chest pain (Acute) Lower back pain (Acute) Upper back pain (Acute) Rib pain (Acute) Gross hematuria (Acute) Peptic ulcer disease (Acute) Idiopathic hypotension (Acute) Peptic ulcer (Acute) Rectal prolapse (Acute) Autoimmune thyroiditis (Acute) URI (upper respiratory infection) (Acute) Mild recurrent major depression (Acute) Right upper quadrant abdominal pain (Acute) Voice hoarseness (Acute) Polyarthralgia (Acute) Physical exam (Acute) Left shoulder pain (Acute) GERD (gastroesophageal reflux disease) (Acute) Bladder pain (Acute) Leg edema (Acute) Migraine headache (Acute) Hair loss (Acute) Hypotension (Acute) Fibromyalgia (Acute) Mild asthma (Acute) Vitamin D deficiency (Acute) Elevated plasma metanephrines (Acute) Subclinical hyperthyroidism (Acute) Anxiety (Acute) Past Medical History Medical History (Updated 02/15/22 @ 13:10 by Ana Baker, RN) Anxiety Autoimmune thyroiditis Back pain Bladder pain Elevated plasma metanephrines Fibromyalgia GERD (gastroesophageal reflux disease) Hair loss Hypotension Left shoulder pain Leg edema Migraine headache Mild asthma Mild recurrent major depression Murmur Neck pain Physical exam Polyarthralgia Right upper quadrant abdominal pain Sciatica Subclinical hyperthyroidism URI (upper respiratory infection) Vitamin D deficiency Voice hoarseness Family History Family History Father Alzheimers disease Mother Hypertension Family history of problems with anesthesia: No Surgical History Surgical History Ectopic History of appendectomy History of colonoscopy History of hysterectomy Hx of endoscopy History of Problems with Anesthesia: Yes (Woke up during EGD with severe pain) Social History Social History Household Members: None Housing: Apartment Alcohol intake: never Patient Tobacco Use Status: Never used Tobacco e-Cigarette/Vaping Use: Never Used Second Hand Smoke Exposure: No Use of substances other than those prescribed or required for medical reasons: No Are you DNR?: No Advance Directives: No Advance Directives Information Provided: Yes service: No Current occupational status: unemployed Cognitive needs: No Hearing needs: No Vision needs: No Meds Allergies Allergy/AdvReac Type Severity Reaction Status Date / Time zolmitriptan [From ZOMIG] Allergy Severe SWOLLEN Verified 02/15/22 13:11 THROAT AND ITCHING salsalate Allergy Intermediate Itching Verified 02/15/22 13:11 Home Medications Medication Instructions Recorded Confirmed Last Taken Type clonazepam 1 mg tablet 1 mg PO DAILY 04/05/20 12/28/21 12/22/21 09:00 History citalopram 20 mg tablet 0 mg PO 02/18/21 12/28/21 Unknown History oxycodone-acetaminophen 5 mg-325 1 tab PO TID PRN Pain 02/18/21 12/28/21 Unknown History mg tablet tizanidine 2 mg tablet 1 tab PO Q6H PRN muscle spasm 12/19/21 12/28/21 Unknown History bupropion HCl 300 mg 24 hr tablet, 300 mg PO QAM 12/28/21 12/28/21 Unknown History extended release Exam Exam Date and Time: February 14, 2022 1239 Pertinent Lab Results Pertinent Lab Results: Laboratory Tests 07/14/21 01/20/22 09:16 13:41 WBC 4.5 L Hgb 11.7 L Hct 36.2 L Plt Count 242 Sodium 140 Potassium 4.4 Chloride 107 Carbon Dioxide 28 BUN 16 Creatinine 0.67 Narrative Narrative: EKG 01/2022 Vent. Rate : 080 BPM ? ? Atrial Rate : 080 BPM ?? P-R Int : 142 ms? QRS Dur : 078 ms ? ? QT Int : 364 ms ? ? ? P-R-T Axes : 053 079 033 degrees ?? QTc Int : 419 ms ? Normal sinus rhythm Normal ECG When compared with ECG of 03-FEB-2016 21:03, No significant change was found ECHO 2020 Conclusions: - 1. Normal LV systolic function with grade 1 diastolic? dysfunction? 2. Normal cardiac valvular Doppler ? 3. No gross pericardial effusion ? ? Assessment and Plan Assessment Anesthesia Assessment: Chart Reviewed Final Anesthetic Review Family History of Problems with Anesthesia: No History of Problems with Anesthesia: Yes (Woke up during EGD with severe pain) Documented by User: Vonda Hopper MD 02/15/22 13:19 [facility] Past Medical History Medical History (Updated 02/15/22 @ 13:10 by Ana Baker RN) Anxiety Autoimmune thyroiditis Back pain Bladder pain Elevated plasma metanephrines Fibromyalgia GERD (gastroesophageal reflux disease) Hair loss Hypotension Left shoulder pain Leg edema Migraine headache Mild asthma Mild recurrent major depression Murmur Neck pain Physical exam Polyarthralgia Right upper quadrant abdominal pain Sciatica Subclinical hyperthyroidism URI (upper respiratory infection) Vitamin D deficiency Voice hoarseness Family History Family History Father Alzheimers disease Mother Hypertension Surgical History Surgical History Ectopic History of appendectomy History of colonoscopy History of hysterectomy Hx of endoscopy History of Problems with Anesthesia: No (Woke up during EGD with severe pain) Social History Social History Household Members: None Housing: Apartment Alcohol intake: never Patient Tobacco Use Status: Never used Tobacco e-Cigarette/Vaping Use: Never Used Second Hand Smoke Exposure: No Use of substances other than those prescribed or required for medical reasons: No Are you DNR?: No Advance Directives: No Advance Directives Information Provided: Yes service: No Current occupational status: unemployed Cognitive needs: No Hearing needs: No Vision needs: No Meds Allergies Allergy/AdvReac Type Severity Reaction Status Date / Time zolmitriptan [From ZOMIG] Allergy Severe SWOLLEN Verified 02/15/22 13:11 THROAT AND ITCHING salsalate Allergy Intermediate Itching Verified 02/15/22 13:11 Home Medications Medication Instructions Recorded Confirmed Last Taken Type clonazepam 1 mg tablet 1 mg PO DAILY 04/05/20 12/28/21 12/22/21 09:00 History citalopram 20 mg tablet 0 mg PO 02/18/21 12/28/21 Unknown History oxycodone-acetaminophen 5 mg-325 1 tab PO TID PRN Pain 02/18/21 12/28/21 Unknown History mg tablet tizanidine 2 mg tablet 1 tab PO Q6H PRN muscle spasm 12/19/21 12/28/21 Unknown History bupropion HCl 300 mg 24 hr tablet, 300 mg PO QAM 12/28/21 12/28/21 Unknown History extended release Exam Airway Mallampati Class: II TM Dist: >3cm Neck ROM: Full Heart: rrr Lungs: cta Assessment and Plan Assessment Anesthesia Assessment: Anesthesia Plan Discussed Final Anesthetic Review History of Problems with Anesthesia: No (Woke up during EGD with severe pain) NPO: Yes ASA Class: II Final Preanesthetic Review: No Changes in Pt Med Stat, Meds/Allgs Chart Reviewed and Consent Obtained/Reviewed Patient Risk: Intermediate Procedure Risk: Intermediate Anesthetic Plan Anesthetic Plan: MAC: Disposition: Standard PACU
[2022-02-15 13:08] VITALS: BMI 29.0
--- NOTE | 2022-02-15 13:10 | MHC.SHP ---
Pre-Procedural Eval Section A Date of Service: 02/15/22 Section B Chief Complaint: duodenum obstruction Relevant Family History (Specify if Yes): No Relevant Social History: None Present Medications: see Short Stay Collaborative assessment Medical History: Significant History (Anxiety Autoimmune thyroiditis Back pain Bladder pain Elevated plasma metanephrines Fibromyalgia GERD (gastroesophageal reflux disease) Hair loss Hypotension Left shoulder pain Leg edema Migraine headache Mild asthma Mild recurrent major depression Murmur Neck pain Physical exam Polyarthralgia Right) History of Previous Operations: Relevant previous surgery/procedure and date(s) (Ectopic History of appendectomy History of colonoscopy History of hysterectomy Hx of endoscopy) Allergies: Allergies Allergy/AdvReac Type Severity Reaction Status Date / Time zolmitriptan [From ZOMIG] Allergy Severe SWOLLEN Verified 12/28/21 16:23 THROAT AND ITCHING salsalate Allergy Intermediate Itching Verified 12/28/21 16:23 Review of Systems Sugical H&P ROS: Negative: Constitution, Cardiovascular, Respiratory, Neurological, Psychiatric, Hem-Onc, Allergic/Immunologic, Gastrointestinal, Genitourinary, Musculoskeletal, Integumentary, Endocrine and Eyes/Ears/Nose/Throat Exam Surgical H&P Exam: Normal: HEENT, Normal: Heart, Normal: Lungs, Normal: Extremities, Normal: Abdomen, Normal: Skin and Normal: Neurological Plan Diagnosis/Plan: Unchanged I have reviewed the history and physical and performed a pertinent physical examination on my patient. No changes have occurred unless specified.
[2022-02-15 13:31] VITALS: BP 138/64; PULSE 80; RESP 15; TEMP 36.8; O2SAT 100
[2022-02-15] MEDS: Lactated Ringers 1,000 ML 100 ML IVCONT (13:32)
--- NOTE | 2022-02-15 14:01 | W.PM.OPN ---
Operative Note Operative Note Date of Service: 02/15/22 Narrative: Procedure Description: EGD Indication: [] Anesthesia: MAC FLEXIBLE TRANSORAL UPPER GASTROINTESTINAL ENDOSCOPY UPPER ENDOSCOPY Consent: Indications for the procedure and potential complications of bleeding, perforation, reaction to medications and missed diagnosis were discussed with the patient and informed consent was obtained. Instrument: Olympus GIF H 190 J mid size upper endoscope Monitoring: Vital signs and clinical assessment, continuous EKG monitoring, Pulse oximetry, Carbon Dioxide monitoring and blood pressure monitoring were done throughout the procedure. Procedure: The patient was placed in the left lateral decubitis position and pre-procedure medications were administered and a bite block was placed. The endoscope was inserted into the mouth and advanced under direct vision to the third part of duodenum. A careful inspection was made as the upper endoscope was withdrawn including a retroflexed examination of the proximal stomach; Findings and interventions are described below. Findings: Larynx:normal Esophagus: GE junction at 34? cm, diaphragm hiatus at 34 cm, balloon dilation done at U[facility] to 18 mm with resistance felt and GEJ to 18 mm,? Stomach: Scars from prior uclers noted with some gastritis and streaky erythema with scarring around the pylorus.Grade 2 flap valve on retroflexed examination of the cardia. Duodenum: tight stricture at distal bulb able to pass with gentle pressure, the stricture was dilated to 19 mm with heme noted. Kenalog 40 mg injected around the stricture area. Intervention: balloon dilation, kenalog injection and biopsy Impression/Findings: gastritis peptic stricture PLAN: cont with PPI< can add carafate if not taking, her persistent gastritis maybe due to her medications, prior gastrin level check was normal, may consider rechecking. at future date.
[2022-02-15 14:05] VITALS: BP 128/75; PULSE 86; RESP 16; TEMP 36.2; O2SAT 97
[2022-02-15 14:20] VITALS: BP 104/66; PULSE 72; RESP 20; TEMP 36.2; O2SAT 97
== END 2022-02-15 14:40 | disposition home or self-care (01) ==
PROVIDERS: PCP Internal Medicine; Visit Provider Internal Medicine Gastroenterology
PROC: (CPT 43249; principal; 2022-02-15 15:20)
DX: K31.5 Obstruction of duodenum (principal); K29.50 Unspecified chronic gastritis without bleeding; K44.9 Diaphragmatic hernia without obstruction or gangrene; K21.9 Gastro-esophageal reflux disease without esophagitis; M79.7 Fibromyalgia; E06.3 Autoimmune thyroiditis; E88.09 Other disorders of plasma-protein metabolism, not elsewhere classified; L65.9 Nonscarring hair loss, unspecified; I95.9 Hypotension, unspecified; F33.0 Major depressive disorder, recurrent, mild; Z79.899 Other long term (current) drug therapy; Z88.8 Allergy status to other drugs, medicaments and biological substances
CPT/HCPCS: 43249; 43245; 43239; 43236; 88305; 88342; C1726; J2250; J3300

== ENCOUNTER 2022-03-28 12:09 | Outpatient (REF) | payer MEDICARE, MEDICAID, SELFPAY ==
--- NOTE | ~2022-03-28 | XR_ITS ---
EXAMINATION: XR CERVICAL SPINE XR THORACIC SPINE XR LUMBAR SPINE XR CHEST XR SHOULDER, LEFT CLINICAL INFORMATION: Pain all over. COMPARISON: None TECHNIQUE: Cervical spine 3 views. Dorsal spine 3 views. Lumbar spine 3 views. Left shoulder 4 views. Chest 2 views. FINDINGS: CERVICAL SPINE: There is mild straightening of the cervical lordosis. There is loss of C3-C4 disc height with grade 1 anterolisthesis of C4 over C5. Mild loss of disc height at C5-C6 and C6-C7 disc levels is noted. The C7-T1 disc is not visualized on the lateral view. There is mild ventral and posterior spondylosis at the C3-C4 disc level. No visible acute fracture, dislocation or lytic process is seen. The paravertebral soft tissues are normal. DORSAL SPINE: There is normal thoracic kyphosis. The vertebral height and alignment are normal. There is loss of disc height at virtually at every disc level with moderate ventral spondylosis. There is mild dextroscoliosis of the lumbar spine with moderate left lateral osteophytes. No visible acute fracture or dislocation is seen. There is no lytic process. LUMBAR SPINE: There is normal lumbar lordosis. The vertebral height and alignment are normal. There is loss of disc height at virtually every disc level with moderate lateral spondylosis. There is minimal dextroscoliosis of mid lumbar spine. There is no visible acute fracture, dislocation or lytic process seen. The SI joints are symmetrical. The paravertebral soft tissues are normal. CHEST: The lungs are well expanded and clear. The heart size and pulmonary vascularity are normal. No gross bony abnormality is seen. LEFT SHOULDER: There is no visible acute fracture, dislocation or subluxation. The glenohumeral and AC joints are normal. The soft tissues are normal. XR/XR shoulder LT min 2V IMPRESSION: 1. Degenerative disc changes throughout cervical, thoracic and lumbar spine with ventral and posterior spondylosis. No visible acute fracture, dislocation or lytic process seen. 2. No visible acute fracture or dislocation seen. There is mild dextroscoliosis of mid lumbar spine. The soft tissues are normal. 3. The lateral view of the cervical spine is limited. Grade 1 anterolisthesis C3-C4 over C5 with degenerative disc changes and ventral and posterior spondylosis. 4. Unremarkable chest. 5. Unremarkable left shoulder.
== END 2022-03-28 12:10 | disposition home or self-care (01) ==
LOC: HO.XRAY 12:09
PROVIDERS: Absent Provider Internal Medicine; PCP Internal Medicine; Visit Provider Nurse Practitioner Family
DX: M54.2 Cervicalgia (principal); R07.9 Chest pain, unspecified; M54.9 Dorsalgia, unspecified; M54.50 Low back pain, unspecified; M25.512 Pain in left shoulder
CPT/HCPCS: 71046; 72040; 72072; 72100; 73030

== ENCOUNTER → 2022-08-07 15:03 | Outpatient (BNVA) | payer OTHER, SELFPAY | PROVIDERS: PCP Internal Medicine; Visit Provider Internal Medicine Gastroenterology | DX: R10.13 Epigastric pain (principal); K59.03 Drug induced constipation | CPT/HCPCS: 99212 ==

== ENCOUNTER 2022-08-30 12:08 | Day surgery (SDC) | payer OTHER, SELFPAY ==
--- NOTE | 2022-08-29 09:32 | HO.ANESPROP2 ---
Documented by User: Eveline Barrientos NP 08/29/22 09:34 HPI - Anesthesia Eval Consult details Narrative: 57yo F for Upper Endoscopy with Balloon Dilitation& Kenalog, Sigmoidoscopy Flexible s/p EGD with dilation 02/2022 with TIVA PMFSH Active Problems Active Problems: All Active Problems (Updated 05/05/22 @ 14:58 by LAUREANO Lynn) Sinusitis (Acute) Gross hematuria (Acute) Peptic ulcer disease (Acute) Idiopathic hypotension (Acute) Peptic ulcer (Acute) Rectal prolapse (Acute) Rib pain (Acute) Upper back pain (Acute) Lower back pain (Acute) Chest pain (Acute) Neck pain (Acute) Allergic reaction (Acute) Autoimmune thyroiditis (Acute) URI (upper respiratory infection) (Acute) Mild recurrent major depression (Acute) Right upper quadrant abdominal pain (Acute) Voice hoarseness (Acute) Polyarthralgia (Acute) Physical exam (Acute) Left shoulder pain (Acute) GERD (gastroesophageal reflux disease) (Acute) Bladder pain (Acute) Leg edema (Acute) Migraine headache (Acute) Hair loss (Acute) Hypotension (Acute) Fibromyalgia (Acute) Mild asthma (Acute) Vitamin D deficiency (Acute) Elevated plasma metanephrines (Acute) Subclinical hyperthyroidism (Acute) Anxiety (Acute) Past Medical History Medical History Anxiety Autoimmune thyroiditis Back pain Bladder pain Elevated plasma metanephrines Fibromyalgia GERD (gastroesophageal reflux disease) Hair loss Hypotension Left shoulder pain Leg edema Migraine headache Mild asthma Mild recurrent major depression Murmur Neck pain Physical exam Polyarthralgia Right upper quadrant abdominal pain Sciatica Subclinical hyperthyroidism URI (upper respiratory infection) Vitamin D deficiency Voice hoarseness Family History Family History Father Alzheimers disease Mother Hypertension Family history of problems with anesthesia: No Surgical History Surgical History Ectopic History of appendectomy History of colonoscopy History of hysterectomy Hx of endoscopy History of Problems with Anesthesia: No (Woke up during EGD with severe pain) Social History Social History Household Members: None Housing: Apartment Alcohol intake: never Patient Tobacco Use Status: Never used Tobacco e-Cigarette/Vaping Use: Never Used Second Hand Smoke Exposure: No Use of substances other than those prescribed or required for medical reasons: No Are you DNR?: No Advance Directives: No Advance Directives Information Provided: Yes Recently lost weight without trying: No Nutrition Risks: No Nutritional Risk service: No Current occupational status: unemployed Cognitive needs: No Hearing needs: No Vision needs: No Meds Allergies Allergy/AdvReac Type Severity Reaction Status Date / Time zolmitriptan [From ZOMIG] Allergy Severe SWOLLEN Verified 08/07/22 15:09 THROAT AND ITCHING salsalate Allergy Intermediate Itching Verified 08/07/22 15:09 Home Medications Medication Instructions Recorded Confirmed Last Taken Type clonazepam 1 mg tablet 1 mg PO DAILY 04/05/20 08/30/22 08/30/22 06:00 History citalopram 20 mg tablet 20 mg PO DAILY 02/18/21 02/15/22 Unknown History oxycodone-acetaminophen 5 mg-325 1 tab PO TID PRN Pain 02/18/21 02/15/22 02/15/22 08:00 History mg tablet tizanidine 2 mg tablet 1 tab PO Q6H PRN muscle spasm 12/19/21 02/15/22 Unknown History bupropion HCl 300 mg 24 hr tablet, 300 mg PO QAM 12/28/21 02/15/22 Unknown History extended release amitriptyline 25 mg tablet 25 mg PO BEDTIME 08/07/22 Unknown History naloxegol 12.5 mg tablet (Movantik) 25 mg PO QAM 08/07/22 Unknown History Exam Exam Date and Time: August 29, 2022 0932 Narrative Narrative: EKG 2021 Vent. Rate : 080 BPM ? ? Atrial Rate : 080 BPM ?? P-R Int : 142 ms? QRS Dur : 078 ms ? ? QT Int : 364 ms ? ? ? P-R-T Axes : 053 079 033 degrees ?? QTc Int : 419 ms ? Normal sinus rhythm Normal ECG When compared with ECG of 03-FEB-2016 21:03, No significant change was found Assessment and Plan Assessment Anesthesia Assessment: Chart Reviewed Final Anesthetic Review Family History of Problems with Anesthesia: No History of Problems with Anesthesia: No (Woke up during EGD with severe pain) Documented by User: Vonda Hopper MD 08/30/22 14:30 PMFSH Past Medical History Medical History Anxiety Autoimmune thyroiditis Back pain Bladder pain Elevated plasma metanephrines Fibromyalgia GERD (gastroesophageal reflux disease) Hair loss Hypotension Left shoulder pain Leg edema Migraine headache Mild asthma Mild recurrent major depression Murmur Neck pain Physical exam Polyarthralgia Right upper quadrant abdominal pain Sciatica Subclinical hyperthyroidism URI (upper respiratory infection) Vitamin D deficiency Voice hoarseness Family History Family History Father Alzheimers disease Mother Hypertension Surgical History Surgical History Ectopic History of appendectomy History of colonoscopy History of hysterectomy Hx of endoscopy Social History Social History Household Members: None Housing: Apartment Alcohol intake: never Patient Tobacco Use Status: Never used Tobacco e-Cigarette/Vaping Use: Never Used Second Hand Smoke Exposure: No Use of substances other than those prescribed or required for medical reasons: No Are you DNR?: No Advance Directives: No Advance Directives Information Provided: Yes Recently lost weight without trying: No Nutrition Risks: No Nutritional Risk service: No Current occupational status: unemployed Cognitive needs: No Hearing needs: No Vision needs: No Meds Allergies Allergy/AdvReac Type Severity Reaction Status Date / Time zolmitriptan [From ZOMIG] Allergy Severe SWOLLEN Verified 08/07/22 15:09 THROAT AND ITCHING salsalate Allergy Intermediate Itching Verified 08/07/22 15:09 Home Medications Medication Instructions Recorded Confirmed Last Taken Type clonazepam 1 mg tablet 1 mg PO DAILY 04/05/20 08/30/22 08/30/22 06:00 History citalopram 20 mg tablet 20 mg PO DAILY 02/18/21 02/15/22 Unknown History oxycodone-acetaminophen 5 mg-325 1 tab PO TID PRN Pain 02/18/21 02/15/22 02/15/22 08:00 History mg tablet tizanidine 2 mg tablet 1 tab PO Q6H PRN muscle spasm 12/19/21 02/15/22 Unknown History bupropion HCl 300 mg 24 hr tablet, 300 mg PO QAM 12/28/21 02/15/22 Unknown History extended release amitriptyline 25 mg tablet 25 mg PO BEDTIME 08/07/22 Unknown History naloxegol 12.5 mg tablet (Movantik) 25 mg PO QAM 08/07/22 Unknown History Exam Airway Mallampati Class: II TM Dist: >3cm Neck ROM: Full Heart: rrr Lungs: cta Assessment and Plan Assessment Anesthesia Assessment: Anesthesia Plan Discussed Final Anesthetic Review NPO: Yes ASA Class: III Final Preanesthetic Review: No Changes in Pt Med Stat, Meds/Allgs Chart Reviewed and Consent Obtained/Reviewed Patient Risk: Intermediate Procedure Risk: Intermediate Anesthetic Plan Anesthetic Plan: MAC: Disposition: Standard PACU
[2022-08-30 12:46] VITALS: BMI 25.9
[2022-08-30 12:59] VITALS: BP 117/73; PULSE 75; RESP 16; TEMP 36.9; O2SAT 100
--- NOTE | 2022-08-30 13:09 | MHC.SHP ---
Pre-Procedural Eval Section A Date of Service: 08/30/22 The patient is an INPATIENT: No The History & Physical has been completed within 30 days and I have reviewed it.: Yes Section B Chief Complaint: Gastrointestinal hemorrhage, gastritis Allergies: Allergies Allergy/AdvReac Type Severity Reaction Status Date / Time zolmitriptan [From ZOMIG] Allergy Severe SWOLLEN Verified 08/07/22 15:09 THROAT AND ITCHING salsalate Allergy Intermediate Itching Verified 08/07/22 15:09 Plan I have reviewed the history and physical and performed a pertinent physical examination on my patient. No changes have occurred unless specified. EGD and flex sigmoidoscopy Time Spent With Patient Time: Total time managing care of this patient today ____ minutes.
--- NOTE | 2022-08-30 13:25 | PC.NURSE ---
ARMINDA LEFT LATERAL FLEET ENEMA PER MD ORDER FROM MD SKINNER. ARMINDA PROCEDURE WELL.
[2022-08-30] MEDS: Lactated Ringers 1,000 ML 100 ML IVCONT (13:36)
--- NOTE | 2022-08-30 14:16 | W.PM.OPN ---
Operative Note Operative Note Date of Service: 08/30/22 Narrative: Operative Information Procedure Description: EGD, Colonoscopy Indication: rectal pain and duodenal stricture Anesthesia: MAC FLEXIBLE TRANSORAL UPPER GASTROINTESTINAL ENDOSCOPY AND Sigmoidoscopy PROCEDURE NOTE UPPER ENDOSCOPY Consent: Indications for the procedure and potential complications of bleeding, perforation, reaction to medications and missed diagnosis were discussed with the patient and informed consent was obtained. Instrument: Olympus GIF H 190 J mid size upper endoscope Monitoring: Vital signs and clinical assessment, continuous EKG monitoring, Pulse oximetry, Carbon Dioxide monitoring and blood pressure monitoring were done throughout the procedure. Procedure: The patient was placed in the left lateral decubitis position and pre-procedure medications were administered and a bite block was placed. The endoscope was inserted into the mouth and advanced under direct vision to the third part of duodenum. A careful inspection was made as the upper endoscope was withdrawn including a retroflexed examination of the proximal stomach; Findings and interventions are described below. Findings: Larynx:normal Esophagus: GE junction at 34? cm, diaphragm hiatus at 34 cm, normal Stomach: Mild erosive gastritis and streaky erythema with scarring around the pylorus.Grade 2 flap valve on retroflexed examination of the cardia. Duodenum: Stricture at distal bulb able to pass, the stricture was dilated to 20 mm. Kenalog 40 mg injected around the stricture area. Intervention: balloon dilation, kenalog injection Sigmoidoscopy Instrument:As above Procedure: The patient was placed in the left lateral decubitis position and pre-procedure medications were administered. After a digital rectal examination of the ano-rectum, the video colonoscope was inserted into the rectum and advanced through the colon. The colonoscope was slowly withdrawn in a retrograde panoramic fashion and the colon mucosa was carefully examined including a retroflexed view of the rectum. Findings and interventions are described below. Procedure Difficulty:easy Findings: Transverse Colon -normal Descending Colon:normal Sigmoid Colon: normal Rectum: Retroflexion with small internal hemorrhoids, grade I, there was some erythema in the distal and mid rectum, bx taken, maybe suspicious for prolpase changes Anorectum - normal Impression and Post Procedure Diagnosis: Endoscopy Findings: duodenal stricture gastritis Colonoscopy Findings: internal hemorrhoids possible rectal prolapse Plan: Await Pathology results High fiber diet leaflet avoid straining at stool, epsom salts and sitz bath, anusol supps or cream if prolapse changes seen on path then refer for PT check if still taking PPI Above findings were reviewed with the patient and relevant handouts were provided if indicated.
[2022-08-30 15:08] VITALS: BP 86/51; PULSE 80; RESP 20; TEMP 36.6; O2SAT 93
[2022-08-30 15:23] VITALS: BP 103/69; PULSE 75; RESP 18; O2SAT 98
[2022-08-30 15:38] VITALS: BP 116/76; PULSE 72; RESP 16; TEMP 36.3; O2SAT 97
== END 2022-08-30 16:00 | disposition home or self-care (01) ==
PROVIDERS: PCP Internal Medicine; Visit Provider Internal Medicine Gastroenterology
PROC: (CPT 45331; principal; 2022-08-30 14:10)
DX: K62.5 Hemorrhage of anus and rectum (principal); K64.0 First degree hemorrhoids; K31.5 Obstruction of duodenum; K29.70 Gastritis, unspecified, without bleeding; K52.9 Noninfective gastroenteritis and colitis, unspecified; K44.9 Diaphragmatic hernia without obstruction or gangrene; K21.9 Gastro-esophageal reflux disease without esophagitis; M79.7 Fibromyalgia; J45.909 Unspecified asthma, uncomplicated; I95.9 Hypotension, unspecified; E06.3 Autoimmune thyroiditis; E55.9 Vitamin D deficiency, unspecified; F33.0 Major depressive disorder, recurrent, mild; Z88.8 Allergy status to other drugs, medicaments and biological substances
CPT/HCPCS: 45331; 43249; 43236; 88305; C1726; J2250; J3301

== ENCOUNTER → 2022-10-30 14:48 | Outpatient (BNVA) | payer OTHER, SELFPAY | PROVIDERS: Visit Provider Internal Medicine Gastroenterology | DX: K27.9 Peptic ulcer, site unspecified, unspecified as acute or chronic, without hemorrhage or perforation (principal); K31.5 Obstruction of duodenum | CPT/HCPCS: 99212 ==

== ENCOUNTER 2022-10-30 20:04 | Emergency (ER) | payer OTHER, SELFPAY ==
--- NOTE | ~2022-10-30 | XR_ITS ---
EXAMINATION: XR CHEST CLINICAL INFORMATION: Chest pain COMPARISON: None available. TECHNIQUE: 2 views of the chest were obtained. FINDINGS: No significant abnormality is noted involving the heart, lungs, mediastinum, bony thorax or soft tissues. XR/XR chest 2V IMPRESSION: Unremarkable chest examination.
[2022-10-30 20:08] VITALS: BP 151/97; PULSE 85; RESP 20; TEMP 36.6; O2SAT 99; BMI 26.2
--- NOTE | 2022-10-30 20:08 | ED.CHESTPAIN ---
HPI - Chest Pain General Chief Complaint: General Medical Stated Complaint: high bp? chest pain/ sob Time Seen by Provider: 10/30/22 23:34 Source: patient Mode of arrival: ambulatory Limitations: no limitations History of Present Illness HPI narrative: Patient with history of anxiety/panic attack alert today patient checked her blood pressure was 166/108 went to see Gastroenterology and blood pressure was 149/88 denied any history of hypertension patient was very anxious earlier today also been having migraine headache with nausea during stay in the ER blood pressure improved to 137/93. Patient never been diagnosed with hypertension Related Data Home Medications Medication Instructions Recorded Confirmed clonazepam 1 mg tablet 1 mg PO DAILY 04/05/20 08/30/22 citalopram 20 mg tablet 20 mg PO DAILY 02/18/21 02/15/22 oxycodone-acetaminophen 5 mg-325 1 tab PO TID PRN Pain 02/18/21 02/15/22 mg tablet bupropion HCl 300 mg 24 hr tablet, 300 mg PO QAM 12/28/21 02/15/22 extended release naloxegol 12.5 mg tablet (Movantik) 25 mg PO QAM 08/07/22 oxycodone 10 mg tablet 0 mg PO 10/30/22 tizanidine 4 mg capsule 0 mg PO 10/30/22 Previous Rx's Medication Instructions Recorded protein (Ensure High Protein oral 1 ea PO DAILY malnutrition 1 month 02/23/22 powder) #30 ea Magic Mouthwash 10 ml PO Q4-6H 30 days #1,200 mL 04/14/22 Diphen/Lido/Antacid 1:1:1 240 mL suspension diclofenac sodium 1 % topical gel 2 g topical QID PRN pain 30 days 07/18/22 (Arthritis Pain (diclofenac)) #100 grams linaclotide 290 mcg capsule 290 mcg PO QAM 30 days #30 caps 07/18/22 (Linzess) polyethylene glycol 3350 17 See Rx Instructions .Route 08/01/22 gram/dose oral powder (Gavilax) .COMPLEX #510 grams dicyclomine 10 mg capsule 10 mg PO QID #90 caps 08/07/22 omeprazole 40 mg capsule,delayed 40 mg PO BID #90 caps 08/07/22 release plecanatide 3 mg tablet (Trulance) 3 mg PO DAILY #90 tabs 08/07/22 sucralfate 1 gram tablet (Carafate) 1 g PO BID #60 tabs 08/17/22 albuterol sulfate 90 mcg/actuation 2 puff PO Q6H PRN for wheezing 08/28/22 aerosol inhaler #8.5 grams prochlorperazine 25 mg rectal 25 mg PA BID PRN for 09/21/22 suppository (Compro) nausea/vomiting #12 supp amitriptyline 25 mg tablet 25 mg PO BEDTIME 90 days #90 tabs 10/02/22 cetirizine 1 mg/mL oral solution 10 mg (10 mL) PO DAILY PRN allergy 10/15/22 (All Day Allergy (cetirizine)) symptoms 30 days #120 mL duloxetine 20 mg capsule,delayed 20 mg PO BID 30 days #60 caps 10/15/22 release hydrocortisone 2.5 % topical cream 1 appl topical Q12H for itch #30 10/23/22 with perineal applicator grams nitroglycerin 0.4 % (w/w) rectal 1 inch PA BID #30 grams 10/23/22 ointment (Rectiv) sumatriptan succinate 50 mg tablet 50 mg PO Q2-4H PRN migraine 10/23/22 headache 30 days #9 tabs famotidine 40 mg tablet 40 mg PO BEDTIME #30 tabs 10/30/22 xutbvmrzqe-yrxtoyvjlehsy-pnqssvwd 1 cap PO Q6H PRN headache #20 caps 10/31/22 50 mg-300 mg-40 mg capsule (Fioricet) sumatriptan succinate 50 mg tablet 50 mg PO Q2H PRN migraine headache 10/31/22 (Imitrex) #10 tabs Allergies Allergy/AdvReac Type Severity Reaction Status Date / Time zolmitriptan [From ZOMIG] Allergy Severe SWOLLEN Verified 10/30/22 20:07 THROAT AND ITCHING salsalate Allergy Intermediate Itching Verified 10/30/22 20:07 Review of Systems Review of Systems: Yes all other systems are reviewed and are negative PMFSH Past Medical History Medical History Anxiety Autoimmune thyroiditis Back pain Bladder pain Elevated plasma metanephrines Fibromyalgia GERD (gastroesophageal reflux disease) Hair loss Hypotension Left shoulder pain Leg edema Migraine headache Mild asthma Mild recurrent major depression Murmur Neck pain Physical exam Polyarthralgia Right upper quadrant abdominal pain Sciatica Subclinical hyperthyroidism URI (upper respiratory infection) Vitamin D deficiency Voice hoarseness Surgical History Ectopic History of appendectomy History of colonoscopy History of hysterectomy Hx of endoscopy Family History Family History Father Alzheimers disease Mother Hypertension Social History Social History Household Members: None Housing: Apartment Alcohol intake: never Patient Tobacco Use Status: Never used Tobacco Smoked in Last 30 Days: No e-Cigarette/Vaping Use: Never Used Second Hand Smoke Exposure: No Use of substances other than those prescribed or required for medical reasons: No Advance Directives: No Advance Directives Information Provided: No Patient : No service: No Current occupational status: unemployed Cognitive needs: No Hearing needs: No Vision needs: No Physical Exam Vital Signs: Vital Signs: Last Vital Signs Temp 98.2 F 10/30/22 23:30 Pulse 85 10/31/22 00:00 Resp 15 10/31/22 00:00 BP 149/88 H 10/31/22 00:00 Pulse Ox 99 10/31/22 00:00 O2 Del Method Room Air 10/31/22 00:00 BMI result Body Mass Index 26.2 Appearance: Alert. Oriented X3. No acute distress. Eyes: PERRLA, ENT: Pharynx normal. Oral Mucosa moist Neck: Normal inspection. Neck supple. CVS: Normal heart rate and rhythm. Pulses normal. Respiratory: No respiratory distress. Equal air entry bilateral, no wheezing/rales/rhonchi Abdomen: Soft and nontender. Bowel sounds are present, no mass palpable, no CVA tenderness Skin: Skin warm and dry. Normal skin color. Normal skin turgor. Extremities: No lower extremity edema. No calf tenderness Neuro: Oriented X 3. No motor deficit. No sensory deficit.No cerebellar signs , cranial nerves II-XII intact Course Course Course Narrative: RME - 57 yo female with history of hypotension presents to the ER for evaluation of elevated BP today associated with chest pain, SOB and headache. Baseline SBP 90-100s. BP at GI office was 153/68, had BP reading at home 160/120. BP 151/97 in triage Plan: EKG, labs, CXR Medications Administered Discontinued Medications Generic Name Dose Route Start Last Admin Trade Name Krista PRN Reason Stop Dose Admin Clonazepam 1 mg 10/31/22 00:03 10/31/22 00:18 Clonazepam 1 Mg Tablet PO 10/31/22 00:04 1 mg ONCE ONE Administration Ondansetron HCl 4 mg 10/31/22 00:03 10/31/22 00:18 Ondansetron Odt 4 Mg Tab.Rapdis TRANSLINGU 10/31/22 00:04 4 mg ONCE ONE Administration Sumatriptan Succinate 6 mg 10/31/22 00:03 10/31/22 00:18 Sumatriptan Succinate 6 Mg/0.5 Ml Vial SUBCUT 10/31/22 00:04 6 mg ONCE ONE Administration Medical Decision Making Medical Decision Making [facility] Narrative: Patient elevated blood pressure likely from panic attack and headache. Patient's blood pressure improved during stable advised follow-up with PCP continue medication Lab Data [facility] Lab Attestation statement: I reviewed the patient's lab results. 10/30/22 20:55 10/30/22 20:55 Labs: Lab Results 10/30/22 10/30/22 10/30/22 Range/Units 20:55 20:55 20:55 WBC 6.6 (4.8-10.8) X10*3/uL RBC 3.93 L (4.20-5.50) X10*6/uL Hgb 11.3 L (12.0-16.0) g/dl Hct 35.5 L (37.0-47.0) % MCV 90.3 (80.0-98.0) fL MCH 28.8 (27.0-33.0) pg MCHC 31.8 (31.0-35.0) g/dl RDW 14.1 (11.0-16.0) % Plt Count 210 (160-400) X10*3/uL MPV 11.0 (9.4-12.3) fL Immature Gran % (Auto) 0.2 (0.0-0.4) % Neut % (Auto) 55.1 (45-73) % Lymph % (Auto) 31.8 (20-40) % [place] % (Auto) 11.5 H (2-11) % Eos % (Auto) 0.9 (0-4) % Baso % (Auto) 0.5 (0-2) % Lymph # (Auto) 2.1 (1.2-4.9) X10*3/uL [place] # (Auto) 0.8 (0.1-1.2) X10*3/uL Eos # (Auto) 0.1 (0.0-0.4) X10*3/uL Baso # (Auto) 0.0 (0.0-0.2) X10*3/uL Abs Immat Gran (auto) 0.01 (0.00-0.03) X10*3/uL Absolute Neuts (auto) 3.6 (2.0-8.3) x10*3/uL Absolute Nucleated RBC 0.000 (0.0-0.012) X10*3/uL Nucleated RBC % (auto) 0.0 (0.0-0.2) /100WBC Sodium 143 (135-145) mmol/L Potassium 3.3 D (3.3-5.1) mmol/L Chloride 102 (96-108) mmol/L Carbon Dioxide 34 H (22-29) mmol/L Anion Gap 10 L (12-20) BUN 10 (9-16) mg/dL Creatinine 0.70 (0.5-1.4) mg/dL Estim Creat Clear Calc 63.1 Estimated GFR > 60 Random Glucose 89 (60-115) mg/dL Calcium 9.4 (8.4-10.2) mg/dL Magnesium 2.2 (1.6-2.6) mg/dL Total Bilirubin 0.2 (0.0-1.0) mg/dL Direct Bilirubin < 0.2 (0.0-0.5) mg/dL AST 21 (5-31) U/L ALT 37 H (0-31) U/L Alkaline Phosphatase 57 (39-117) U/L Troponin I High Sens < 2.7 (<3.5-17.0) ng/L Total Protein 6.4 L (6.5-8.0) g/dL Albumin 3.8 (3.5-5.0) g/dL Discharge Plan Discharge Clinical Impression: Anxiety, Headache, migraine Patient Disposition: Home, Self-Care Instructions: Migraine Headache (ED), Anxiety (ED) Additional Instructions: Rest at home taking medication for anxiety as prescribed by your provider Medication for migraine headache as prescribed Your blood pressure is normal transient elevated blood pressure likely from anxiety and pain follow-up with your PCP for further evaluation Prescriptions: New sumatriptan succinate [Imitrex] 50 mg tablet 50 mg PO Q2H PRN (Reason: migraine headache) Qty: 10 0RF Rx Instructions: do not exceed 2 doses per 24 hrs yzipqzpsij-yaztizmehaxoe-mzvg [Fioricet] 50-300-40 mg capsule 1 cap PO Q6H PRN (Reason: headache) Qty: 20 0RF No Action protein [Ensure High Protein] Powder 1 ea PO DAILY 30 Days Qty: 30 4RF Magic Mouthwash Diphen/Lido/Antacid 1:1:1 240 mL suspension 10 ml PO Q4-6H 30 Days Qty: 1200 3RF Rx Instructions: Lidocaine Viscous 2 % 80mL; diphenhydramine 12.5 mg/5 mL 80mL; aluminum-mag hydrox-simeth [id number]/5mL 80mL diclofenac sodium [Arthritis Pain (diclofenac)] 1 % gel 2 g topical QID PRN (Reason: pain) 30 Days Qty: 100 2RF Rx Instructions: apply to single elbow, wrist or hand; for hand includes palm/fingers/back of hand Linzess 290 mcg capsule 290 mcg PO QAM 30 Days Qty: 30 1RF polyethylene glycol 3350 [Gavilax] 17 gram/dose powder See Rx Instructions .ROUTE .COMPLEX Qty: 510 3RF Dose Instruction: MIX 17GRAMS IN LIQUID AND DRINK DAILY Rx Instructions: MIX 17GRAMS IN LIQUID AND DRINK DAILY omeprazole 40 mg capsule,delayed release(DR/EC) 40 mg PO BID Qty: 90 2RF dicyclomine 10 mg capsule 10 mg PO QID Qty: 90 4RF sucralfate [Carafate] 1 gram tablet 1 g PO BID Qty: 60 2RF albuterol sulfate 90 mcg/actuation HFA aerosol inhaler 2 puff PO Q6H PRN (Reason: for wheezing) Qty: 8.5 6RF prochlorperazine [Compro] 25 mg suppository 25 mg PA BID PRN (Reason: for nausea/vomiting) Qty: 12 2RF amitriptyline 25 mg tablet 25 mg PO BEDTIME 90 Days Qty: 90 1RF duloxetine 20 mg capsule,delayed release(DR/EC) 20 mg PO BID 30 Days Qty: 60 1RF cetirizine [All Day Allergy (cetirizine)] 1 mg/mL solution 10 mg PO DAILY PRN (Reason: allergy symptoms) 30 Days Qty: 120 1RF hydrocortisone 2.5 % cream with perineal applicator 1 appl topical Q12H Qty: 30 0RF Rectiv 0.4 % (w/w) ointment 1 inch PA BID Qty: 30 0RF sumatriptan succinate 50 mg tablet 50 mg PO Q2-4H PRN (Reason: migraine headache) 30 Days Qty: 9 1RF Rx Instructions: do not exceed 4 doses per 24 hrs famotidine 40 mg tablet 40 mg PO BEDTIME Qty: 30 1RF bupropion HCl 300 mg tablet extended release 24 hr 300 mg PO QAM clonazepam 1 mg tablet 1 mg PO DAILY oxycodone-acetaminophen 5-325 mg tablet 1 tab PO TID PRN (Reason: Pain) citalopram 20 mg tablet 20 mg PO DAILY Movantik 12.5 mg tablet 25 mg PO QAM Trulance 3 mg tablet 3 mg PO DAILY Qty: 90 1RF tizanidine 4 mg capsule 0 mg PO oxycodone 10 mg tablet 0 mg PO
--- NOTE | 2022-10-30 20:10 | ECG_ITS ---
Test Reason : CX PAIN Blood Pressure : / mmHG Vent. Rate : 083 BPM Atrial Rate : 083 BPM P-R Int : 146 ms QRS Dur : 076 ms QT Int : 374 ms P-R-T Axes : 049 073 028 degrees QTc Int : 439 ms Normal sinus rhythm Normal ECG When compared with ECG of 20-JAN-2022 13:35, No significant change was found Referred By: Claudia Aronld Electronically Signed By:Bryant Ferguson
[2022-10-30 21:06] LABS: MANUAL DIFF FLAG NO
[2022-10-30 21:13] LABS: Basophils Percent Auto 0.5 % (0-2); Eosinophils Absolute Auto 0.1 X10*3/uL (0.0-0.4); Eosinophils Percent Auto 0.9 % (0-4); Hematocrit 35.5 % (37.0-47.0); Hemoglobin 11.3 g/dl (12.0-16.0); Imm Gran Abs Auto 0.01 X10*3/uL (0.00-0.03); Imm Gran Pct Auto 0.2 % (0.0-0.4); Lymphocytes Absolute Auto 2.1 X10*3/uL (1.2-4.9); Lymphocytes Percent Auto 31.8 % (20-40); Mean Corpuscular HGB Conc 31.8 g/dl (31.0-35.0); Mean Corpuscular Hemoglobin 28.8 pg (27.0-33.0); Mean Corpuscular Volume 90.3 fL (80.0-98.0); Monocytes Absolute Auto 0.8 X10*3/uL (0.1-1.2); Monocytes Percent Auto 11.5 % (2-11); Neutrophils Absolute Auto 3.6 x10*3/uL (2.0-8.3); Neutrophils Percent Auto 55.1 % (45-73); Platelet Count 210 X10*3/uL (160-400); Red Blood Count 3.93 X10*6/uL (4.20-5.50); Red Cell Distribution Width 14.1 % (11.0-16.0); White Blood Count 6.6 X10*3/uL (4.8-10.8)
[2022-10-30 21:26] LABS: Alanine Aminotransferase 37 U/L (0-31); Albumin Level 3.8 g/dL (3.5-5.0); Alkaline Phosphatase 57 U/L (39-117); Anion Gap 10 (12-20); Aspartate Amino Transferase 21 U/L (5-31); Bilirubin Direct < 0.2 mg/dL (0.0-0.5); Bilirubin Total 0.2 mg/dL (0.0-1.0); Blood Urea Nitrogen 10 mg/dL (9-16); Calcium 9.4 mg/dL (8.4-10.2); Carbon Dioxide 34 mmol/L (22-29); Chloride 102 mmol/L (96-108); Creatinine Clr Calc Pharmacy 63.1; Estimated Glomerular Filt Rate > 60; Glucose Random 89 mg/dL (60-115); Magnesium 2.2 mg/dL (1.6-2.6); Potassium 3.3 mmol/L (3.3-5.1); Sodium 143 mmol/L (135-145); Total Protein 6.4 g/dL (6.5-8.0)
[2022-10-30 21:41] LABS: Troponin-I High Sensitivity < 2.7 ng/L (<3.5-17.0)
[2022-10-30 22:32] VITALS: BP 148/87; PULSE 75; RESP 18; O2SAT 98
--- NOTE | 2022-10-30 22:32 | PC.NURSE ---
Pt requesting vital signs be rechecked. Pt VSS at this time. Pt in no acute distress. awaiting room in main ED.
[2022-10-30 23:25] VITALS: BP 137/93; PULSE 80; RESP 13; O2SAT 99
[2022-10-30 23:30] VITALS: BP 139/99; PULSE 79; RESP 20; TEMP 36.8; O2SAT 97
[2022-10-31] VITALS: BP 149/88; PULSE 85; RESP 15; O2SAT 99
--- NOTE | 2022-10-31 00:12 | MHC.EDTECH ---
This tech assumed care of pt at 2300, Vitals taken,Pt is resting comfortably on stretcher with call su within reach.
[2022-10-31] MEDS: clonazePAM 1 MG TABLET PO (00:18)
[2022-10-31] MEDS: SUMAtriptan succinate 6 MG/0.5 ML VIAL SUBCUT (00:18)
[2022-10-31] MEDS: Ondansetron ODT 4 MG TAB.RAPDIS TRANSLINGU (00:18)
== END 2022-10-31 00:57 | disposition home or self-care (01) ==
PROVIDERS: Physician Assistant; Emergency Provider Internal Medicine; PCP Internal Medicine
DX: F41.9 Anxiety disorder, unspecified (principal); G43.909 Migraine, unspecified, not intractable, without status migrainosus; R03.0 Elevated blood-pressure reading, without diagnosis of hypertension; Z79.899 Other long term (current) drug therapy
CPT/HCPCS: 36415; 71046; 80048; 80076; 83735; 84484; 85025; 93005; 96372; 99284; 99285; J3030

== ENCOUNTER → 2022-10-31 11:25 | Outpatient (BNVA) | payer OTHER, SELFPAY | PROVIDERS: PCP Internal Medicine; Visit Provider Physician Assistant | DX: M54.50 Low back pain, unspecified (principal); M51.37 Other intervertebral disc degeneration, lumbosacral region; M48.07 Spinal stenosis, lumbosacral region | CPT/HCPCS: 99202 ==

== ENCOUNTER 2022-11-14 13:44 | Outpatient (AMB) | payer OTHER, SELFPAY ==
--- NOTE | 2022-11-14 13:45 | A.OFFPC_ITS ---
Vital Signs 11/14/22 13:48 Height 4 ft 9 in Weight 119 lb BMI 25.7 BP 126/88 Blood Pressure Location Rt brachial Position Sitting Pulse 114 H Pulse Source Pulse Oximeter Pulse Oximetry (%) 98 Intake Visit Reasons: ( High Bp 10/31/22) Intake Note: pt is here for a high blood pressure readings recently Protective Clothing Issuer Required: No Accompanied by: Self / Same As Patient Allergies zolmitriptan [From ZOMIG] Allergy (Severe, Verified 11/14/22 14:02) SWOLLEN THROAT AND ITCHING salsalate Allergy (Intermediate, Verified 11/14/22 14:02) Itching Medication List - Last Reconciled 11/14/22 by Chauncey Parnell PA-C albuterol sulfate 90 mcg/actuation 2 puffs PO Q6H PRN amitriptyline 25 mg PO BEDTIME 90 days bupropion HCl 300 mg PO QAM lfgkfrxtsn-nxgqrrmsscjlx-uuxj 50-300-40 mg (Fioricet) 1 cap PO Q6H PRN cetirizine (All Day Allergy (cetirizine)) 10 mg (10 mL) PO DAILY PRN 30 days citalopram 20 mg PO DAILY clonazepam 1 mg PO DAILY diclofenac sodium 1% (Arthritis Pain (diclofenac)) 2 grams topical QID PRN 30 days dicyclomine 10 mg PO QID duloxetine 20 mg PO BID 30 days famotidine 40 mg PO BEDTIME hydrocortisone 2.5% 1 appl topical Q12H linaclotide (Linzess) 290 mcg PO QAM Magic Mouthwash Diphen/Lido/Antacid 1:1:1 10 mL PO Q4-6H 30 days naloxegol (Movantik) 25 mg PO QAM nitroglycerin 0.4%(w/w) (Rectiv) 1 inch IA BID omeprazole 40 mg PO BID oxycodone 0 mg PO plecanatide (Trulance) 3 mg PO DAILY polyethylene glycol 3350 (Gavilax) MIX 17GRAMS IN LIQUID AND DRINK DAILY prochlorperazine (Compro) 25 mg IA BID PRN protein (Ensure High Protein oral powder) 1 ea PO DAILY 1 month sucralfate (Carafate) 1 g PO BID sumatriptan succinate (Imitrex) 50 mg PO Q2H PRN sumatriptan succinate 50 mg PO Q2-4H PRN 30 days tizanidine 0 mg PO Tobacco use date assessed: 11/14/22 Dental Screening Dental Screen Date: 11/14/22 Did you have a dental visit in the last 12 months?: Yes Was dental information given to patient?: Patient has dentist HPI ( High Bp 10/31/22) HPI Details Patient is a 57-year-old female here today for problem visit. This is the 1st time I am meeting this 57-year-old female with a past medical history significant for generalized anxiety disorder, lumbar disc disease, hypothyroidism, fibromyalgia, GERD and peptic ulcer disease.. Patient recently seen at the [place] [facility] for acute elevated blood pressure readings without diagnosis of hypertension. Patient's EKG and troponins were negative Has been noting elevated BP reading at home 170 -190s systolic. She attributes some of this to her pain in her lower back and her abdomen as well as being anxious due to upcoming spinal surgery. She is concerned about her chronic abdominal pain which is located around her umbilicus and both her right and left upper abdominal quadrants. She feels that there are lumps in these areas that her tender to palpation. [facility] Medical History Anxiety Autoimmune thyroiditis Back pain Bladder pain Elevated plasma metanephrines Fibromyalgia GERD (gastroesophageal reflux disease) Hair loss Hypotension Left shoulder pain Leg edema Migraine headache Mild asthma Mild recurrent major depression Murmur Neck pain Physical exam Polyarthralgia Right upper quadrant abdominal pain Sciatica Subclinical hyperthyroidism URI (upper respiratory infection) Vitamin D deficiency Voice hoarseness Surgical History Ectopic History of appendectomy History of colonoscopy History of hysterectomy Hx of endoscopy Family History Father Alzheimers disease Mother Hypertension Social History Household Members: None Housing: Apartment Alcohol intake: never Patient Tobacco Use Status: Never used Tobacco e-Cigarette/Vaping Use: Never Used Second Hand Smoke Exposure: No service: No Current occupational status: unemployed Cognitive needs: No Hearing needs: No Vision needs: No Questionnaire Thrive Questionnaire Date Thrive assessed: 11/30/21 EUSEBIA-7 AMB Questionnaire EUSEBIA-7 Date EUSEBIA - 7 assessed: 11/30/21 Source: Developed by Drs. Don Gan, Alison Hu, Anjel Chery and colleagues, with an educational kadi from [employer]. Review of Systems Const Denies headache(s) Eyes Denies loss of vision ENT Denies vertigo, Denies dizziness, Denies headache(s) and Denies sore throat Card Denies chest pain, Denies leg edema and Denies lightheadedness Resp Denies cough, Denies hemoptysis and Denies wheezing GI Denies abdominal pain, Denies melena, Denies constipation, Denies diarrhea and Denies vomiting Denies urinary frequency, Denies dysuria and Denies urinary urgency Musc Denies arthralgias, Denies joint swelling, Denies numbness and Denies tingling Neuro Denies Abnormal speech present, Denies behavioral changes, Denies vertigo, Denies dizziness, Denies headache(s), Denies loss of vision, Denies memory loss, Denies numbness and Denies tingling Psych Denies anxiety, Denies behavioral changes, Denies depression, Denies memory loss and Denies panic attacks Lobo/Lymph Denies easy bleeding and Denies easy bruising Aller/Immun Denies wheezing Physical exam (Primary Care) Vital Signs: Last Vital Signs Pulse 114 H 11/14/22 13:48 BP 126/88 11/14/22 13:48 Pulse Ox 98 11/14/22 13:48 BMI result Body Mass Index 25.7 Tobacco/Smoking Status: Tobacco use Status Tobacco use date assessed 11/14/22 11/14/22 13:55 Patient Tobacco Use Status Never used Tobacco 11/14/22 13:55 Tobacco use type 12/16/20 14:32 e-Cigarette/Vaping Use Never Used 11/14/22 13:55 Thrive Assessment: Date of Thrive Assessment Date Thrive assessed 11/30/21 11/14/22 13:55 Const General: healthy appearing, no acute distress, alert and awake Nutritional Appearance: well nourished Orientation/consciousness: oriented to person, oriented to place and oriented to time HENMT Ears: TM's normal bilaterally General nose exam: Normal nasal mucous membranes and turbinates present Eyes Conjunctivae: conjunctivae normal Sclerae: sclerae normal Pupils: Equal, round and reactive pupils present Neck Neck: Yes no lymphadenopathy and Yes no JVD Thyroid: Thyroid normal Carotids: no bruits Resp Effort & Inspection: normal respiratory effort and not tachypneic Auscultation: no crackles, no rales, no rhonchi and no wheezes Cardio Rate: regular rate Rhythm: regular rhythm Heart sounds: no murmurs and normal S1 and S2 GI Palpation (GI): Soft to palpation, Tenderness to palpation present (GI) in the LUQ, in the RUQ and periumbilically, no hepatomegaly and no splenomegaly Auscultation: normal bowel sounds Skin General skin exam: no rashes or lesions noted and dry skin Neuro General: oriented to person, oriented to place and oriented to time Cranial nerves: Yes Equal, round and reactive pupils present Speech: No Abnormal speech present Gait exam (Neuro): Normal gait present Motor exam (neuro): no tremor noted Extrem Right upper extremity: full ROM Left upper extremity: full ROM Right lower extremity: full ROM; no edema Left lower extremity: full ROM; no edema Psych Mental Status: mental status grossly normal Speech and movement: Normal speech and movement present Affect: normal affect Attitude: cooperative Thought process: Normal thought process present Assessment and Plan Assessment & Plan (1) HTN (hypertension): Code(s): I10 - Essential (primary) hypertension Qualifiers: Hypertension type: primary hypertension Qualified Code(s): I10 - Essential (primary) hypertension Plan: Noting elevated blood pressure readings as of late in the setting of being anxious about upcoming spinal surgery, chronic pain related to her back and abdomen. Will start lisinopril as her blood pressure readings have been moderately elevated 170-190 systolic. Advised to monitor blood pressures at home with goal blood pressure be below 140/90 and above 90/60. (2) Elevated blood pressure reading: Code(s): R03.0 - Elevated blood-pressure reading, without diagnosis of hypertension (3) Abdominal wall lump: Code(s): R22.2 - Localized swelling, mass and lump, trunk Plan: Patient tender to the right upper and left upper quadrants of her abdomen. Also tender around the umbilicus. Will send for CT abdomen pelvis with contrast to evaluate for hernia. Otherwise denies any diarrhea or vomiting. Does have chronic constipation to which she is followed by gastroenterology medicated for. Orders: Orders CT abdomen pelvis w IV con Today R22.2 - Localized swelling, mass and lump, trunk Medications: New lisinopril 10 mg PO DAILY 30 days 30 tabs 1RF I10 - Essential (primary) hypertension miscellaneous medical supply (Blood Pressure Cuff) As directed 1 ea 0RF I10 - Essential (primary) hypertension ibuprofen 600 mg PO TID 7 days PRN 21 tabs 0RF pain M54.40 - Lumbago with sciatica, unspecified side Coding Level of Care Code Est Pt Level 4 (99261) Diagnoses HTN (hypertension) I10 Hypertension type: primary hypertension Elevated blood pressure reading R03.0 Abdominal wall lump R22.2
[2022-11-14 13:48] VITALS: BP 126/88; PULSE 114; O2SAT 98; BMI 25.7
== END 2022-11-14 14:24 | disposition home or self-care (01) ==
PROVIDERS: PCP Internal Medicine; Visit Provider Physician Assistant
DX: I10 Essential (primary) hypertension (principal); R03.0 Elevated blood-pressure reading, without diagnosis of hypertension; R22.2 Localized swelling, mass and lump, trunk
CPT/HCPCS: 99214

== ENCOUNTER 2022-11-17 08:39 | Outpatient (REF) | payer OTHER, SELFPAY ==
--- NOTE | ~2022-11-17 | FL_ITS ---
EXAMINATION: XR GI SERIES CLINICAL INFORMATION: Peptic ulcer. COMPARISON: None available. TECHNIQUE: Routine upper GI air-contrast study was performed in upright and lying position. FINDINGS: Following oral administration of thick barium and effervescent granules there is normal propagation of bolus from the oral cavity through the pharynx, esophagus into stomach without any evidence of obstruction, narrowing or stricture. There is minimal narrowing suspected at the GE junction. The course, caliber and peristalsis of the stomach, duodenal bulb and the sweep is normal. The mucosal pattern of the stomach and the duodenum is normal. FLUOROSCOPY TIME: 1.3 minutes DOSE AREA PRODUCT: 16.150 uGy-m2 (microgray-meter squared) FL/FL upper GI series IMPRESSION: Minimal narrowing suspected at the GE junction with no focal mass or total obstruction seen. Rest of the upper GI exam is unremarkable.
== END 2022-11-17 08:40 | disposition home or self-care (01) ==
LOC: HO.XRAY 08:39
PROVIDERS: PCP Internal Medicine; Visit Provider Internal Medicine Gastroenterology
DX: K27.9 Peptic ulcer, site unspecified, unspecified as acute or chronic, without hemorrhage or perforation (principal); M54.40 Lumbago with sciatica, unspecified side
CPT/HCPCS: 74240; 99212

== ENCOUNTER → 2022-11-17 08:39 | Outpatient (BNV) | payer OTHER, SELFPAY | PROVIDERS: PCP Internal Medicine; Visit Provider Radiology Diagnostic Radiology | DX: K27.9 Peptic ulcer, site unspecified, unspecified as acute or chronic, without hemorrhage or perforation (principal) | CPT/HCPCS: 74246 ==

== ENCOUNTER 2022-11-17 15:08 | Outpatient (AMB) | payer OTHER, SELFPAY ==
--- NOTE | 2022-11-17 15:49 | A.SPINEOV_ITS ---
Intake Intake Visit Reasons: 2 weeks follow up Intake Note: Ms. Santos is here today for a 2 wk f/u and discuss possible surgical treatment. Potato Inspector Required: No Allergies zolmitriptan [From ZOMIG] Allergy (Severe, Verified 11/14/22 14:02) SWOLLEN THROAT AND ITCHING salsalate Allergy (Intermediate, Verified 11/14/22 14:02) Itching Assessment & Plan Assessment & Plan (1) Back pain of lumbar region with sciatica: Code(s): M54.40 - Lumbago with sciatica, unspecified side Plan Mrs Santos is here in follow-up today. She underwent her MRI and x-ray but unfortunately the [facility] website is not loading the images so the only thing I can see is her x-ray but not her MRI. As we suspected, she has a grade 1 anterior listhesis at L5-S1 with pars defect and bilateral foraminal narrowing. The report also suggests that she has significant facet arthropathy at L4-5. I explained to the patient that typically in the setting of back pain with bilateral leg pain we would likely need to treat L5-S1 and probably L4-5 as well with spinal fusion. Traditionally we would do this with an oblique lumbar interbody fusion or an anterior lumbar interbody fusion but without the MRI images it would be very difficult to make that assessment. The patient is going to get a copy of her disc and drop it off and I will have Dr. Jane review it and we could back to the patient with final plan. I explained to her in general the risks and benefits of spinal fusion surgery as well as the recovery. We discussed the role of a vascular surgeon to help with the approach for the surgery if Dr. Jane chooses an anterior lumbar interbody fusion. We will follow up with the patient next week and finalize the plan.. Total amount of time spent in this visit was 20 minutes in discussion of symptoms, lumbar x-ray and lumbar MRI imaging results and subsequent plan of care Ivan Jane MD,PhD [facility] Coding Level of Care Code Est Pt Level 3 (98554) Diagnoses Back pain of lumbar region with sciatica M54.40
== END 2022-11-17 16:14 | disposition home or self-care (01) ==
PROVIDERS: PCP Internal Medicine; Visit Provider Physician Assistant
DX: M54.40 Lumbago with sciatica, unspecified side (principal)
CPT/HCPCS: 99213

== ENCOUNTER 2022-11-29 14:42 | Outpatient (AMB) | payer OTHER, SELFPAY ==
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
[2022-11-29 14:48] VITALS: BMI 24.9
== END 2022-11-29 15:12 | disposition home or self-care (01) ==
PROVIDERS: PCP Internal Medicine; Visit Provider Surgery
DX: K64.8 Other hemorrhoids (principal)
CPT/HCPCS: 46600; 99203

== ENCOUNTER → 2022-11-29 14:42 | Outpatient (BNVA) | payer OTHER, SELFPAY | PROVIDERS: PCP Internal Medicine; Visit Provider Surgery | DX: K64.8 Other hemorrhoids (principal) | CPT/HCPCS: 46600; 99202 ==

== ENCOUNTER 2022-12-05 12:26 | Outpatient (AMB) | payer OTHER, SELFPAY ==
--- NOTE | 2022-12-05 12:36 | A.OFFPC_ITS ---
Vital Signs 12/05/22 12:38 Height 4 ft 9 in Weight 116 lb BMI 25.1 BP 128/90 H Blood Pressure Location Lt brachial Position Sitting Intake Visit Reasons: [facility] / clearance Intake Note: Patient here for Clearance for surgery Loan Auditor Required: No Accompanied by: Self / Same As Patient Allergies zolmitriptan [From ZOMIG] Allergy (Severe, Verified 12/05/22 12:58) SWOLLEN THROAT AND ITCHING salsalate Allergy (Intermediate, Verified 12/05/22 12:58) Itching Medication List - Last Reconciled 12/05/22 by Vviiana Nick MD albuterol sulfate 90 mcg/actuation 2 puffs PO Q6H PRN bupropion HCl 300 mg PO QAM skkxsmnsix-ypnyzqesyaxeu-ovaf 50-300-40 mg (Fioricet) 1 cap PO Q6H PRN cetirizine (All Day Allergy (cetirizine)) 10 mg (10 mL) PO DAILY PRN 30 days citalopram 20 mg PO DAILY clonazepam 1 mg PO DAILY diclofenac sodium 1% (Arthritis Pain (diclofenac)) 2 grams topical QID PRN 30 days dicyclomine 10 mg PO QID duloxetine 20 mg PO BID 30 days famotidine 40 mg PO BEDTIME hydrocortisone 2.5% 1 appl topical Q12H ibuprofen 600 mg PO TID PRN 7 days linaclotide (Linzess) 290 mcg PO QAM lisinopril 10 mg PO DAILY 30 days miscellaneous medical supply (Blood Pressure Cuff) As directed naloxegol (Movantik) 25 mg PO QAM nitroglycerin 0.4%(w/w) (Rectiv) 1 inch MN BID omeprazole 40 mg PO BID ondansetron HCl 8 mg PO DAILY PRN oxycodone 0 mg PO plecanatide (Trulance) 3 mg PO DAILY polyethylene glycol 3350 (Gavilax) MIX 17GRAMS IN LIQUID AND DRINK DAILY prochlorperazine (Compro) 25 mg [place] BID PRN sucralfate (Carafate) 1 g PO BID sumatriptan succinate (Imitrex) 50 mg PO Q2H PRN tizanidine 0 mg PO Tobacco use date assessed: 11/14/22 Dental Screening Dental Screen Date: 12/05/22 Did you have a dental visit in the last 12 months?: Yes Did you have a dental problem in the last 6 months where you did not have access to dental care?: No Was dental information given to patient?: Patient has dentist HPI HPI Comments History of Present Illness Details This is a 57-year-old female with hypertension and mild recurrent major depression that comes today for preop evaluation for hemorrhoidectomy scheduled for 12/29/2022. Blood pressure has been stable with lisinopril. She did went to the ER recently and had elevated blood pressure and chest pain that was secondary to anxiety. Last EKG show normal sinus rhythm and this was done 10/30/2022. Depression stable with citalopram and this is follow by counseling. No chest pain or shortness of breath. By RCRI she is class 1 with 0.4% of cardiac risk complications. Patient is medically clear for hemorrhoidectomy. [facility] Medical History (Updated 12/05/22 @ 13:06 by Viviana Nick MD) Anxiety Autoimmune thyroiditis Back pain Bladder pain Elevated plasma metanephrines Fibromyalgia GERD (gastroesophageal reflux disease) Hair loss Hypotension Left shoulder pain Leg edema Migraine headache Mild asthma Mild recurrent major depression Murmur Neck pain Physical exam Polyarthralgia Prolapsed hemorrhoids Right upper quadrant abdominal pain Sciatica Subclinical hyperthyroidism URI (upper respiratory infection) Vitamin D deficiency Voice hoarseness Surgical History Ectopic History of appendectomy History of colonoscopy History of hysterectomy Hx of endoscopy Family History Father Alzheimers disease Mother Hypertension Social History Household Members: None Housing: Apartment Alcohol intake: never Patient Tobacco Use Status: Never used Tobacco e-Cigarette/Vaping Use: Never Used Second Hand Smoke Exposure: No service: No Current occupational status: unemployed Cognitive needs: No Hearing needs: No Vision needs: No Questionnaire PHQ-9 Over the last 2 weeks, how often have you been bothered by any of the following problems? 1. Little interest or pleasure in doing things: not at all 2. Feeling down, depressed, or hopeless: several days 3. Trouble falling or staying asleep, or sleeping too much: several days 4. Feeling tired or having little energy: not at all 5. Poor appetite or overeating: not at all 6. Feeling bad about yourself - or that you are a failure or have let yourself or your family down: not at all 7. Trouble concentrating on things, such as reading the newspaper or watching television: not at all 8. Moving or speaking so slowly that other people could have noticed. Or the opposite - being so fidgety or restless that you have been moving around a lot more than usual: several days 9. Thoughts that you would be better off or of hurting yourself in some way: not at all Total score: 3 Depression Screening Interpretation: Positive Depression Screening Follow-up: Existing condition, In treatment and Community Mental Health Worker F/U 06269 - PHQ-9 Billing: Yes Source: Developed by Drs. Don Gan, Alison Hu, Anjel Chery and colleagues, with an educational kadi from [employer]. Thrive Questionnaire Date Thrive assessed: 12/05/22 I am a: Patient What is your living situation today?: I have a steady place to live Within the past 12 months, did the food you bought not last and you didn't have the money to get more?: Never true Within the past 12 months, did you worry whether your food would run out before you got money to buy more?: Never true Do you have trouble paying for medicines?: No Do you have trouble getting transportation to medical appointments?: No Do you have trouble paying your heating and electricity bill?: No Do you have trouble taking care of your child, family member or friend?: No Do you have trouble with day-to-day activities such as bathing, preparing meals, shopping, managing finances, etc.?: No Are you currently unemployed and looking for a job?: No Are you interested in more education?: No Please select the resources that you would like help with: None Currently or been in a relationship where the following occur: no concerns reported AUDIT C Alcohol Use Questionnaire (AUDIT-C) 1. How often do you have a drink containing alcohol?: Never Total Score: 0 EUSEBIA-7 AMB Questionnaire EUSEBIA-7 Date EUSEBIA - 7 assessed: 12/05/22 Feeling nervous, anxious, or on edge: 3 = Nearly every day Not being able to stop or control worryin = More than half the days Worrying too much about different things: 3 = Nearly every day Trouble relaxin = Several days Being so restless that it is hard to sit still: 0 = Not at all Becoming easily annoyed or irritable: 0 = Not at all Feeling afraid as if something awful might happen: 2 = More than half the days Total EUSEBIA-7 score (0-4 normal; 5-9 mild; 10-14 moderate; 15-21 severe): 11 Source: Developed by Drs. Don Gan, Alison Hu, Anjel Chery and colleagues, with an educational kadi from [employer]. EUSEBIA-7 Assessment Billing EUSEBIA-7 Assessment Tool: EUSEBIA-7 Assessment 18169 Review of Systems Const All systems reviewed & are unremarkable except as noted in HPI and below Eyes Reports no additional complaints, Denies change in vision and Denies other visual disturbances Card Denies chest pain at rest, Denies chest pain with activity, Denies edema, Denies irregular heart rhythm, Denies claudication, Denies dyspnea, Denies dyspnea on exertion, Denies orthopnea, Denies paroxysmal nocturnal dyspnea and Denies slow heart rate Resp Denies cough, Denies dyspnea and Denies dyspnea on exertion GI Denies abdominal pain, Denies change in bowel habits, Denies excessive flatus, Denies nausea and Denies vomiting Denies urinary incontinence, Denies urinary hesitancy and Denies urinary urgency Musc Denies abnormal gait, Denies atrophy, Denies deformity and Denies limited range of motion Skin/Breast Denies bleeding lesions, Denies changing lesions and Denies rash Neuro Denies abnormal gait and Denies lack of coordination Physical exam (Primary Care) Vital Signs: Last Vital Signs BP 128/90 H 12/05/22 12:38 BMI result Body Mass Index 25.1 Tobacco/Smoking Status: Tobacco use Status Tobacco use date assessed 11/14/22 12/05/22 12:47 Patient Tobacco Use Status Never used Tobacco 12/05/22 12:47 Tobacco use type 12/16/20 14:32 e-Cigarette/Vaping Use Never Used 12/05/22 12:47 PHQ-9: PHQ-9 Score PHQ-9: Total score 3 12/05/22 12:51 Depression Screening Interpretation: Positive Depression Screening Follow-up: Existing condition, In treatment and Community Mental Health Worker F/U Thrive Assessment: Date of Thrive Assessment Date Thrive assessed 12/05/22 12/05/22 12:51 Currently or been in a relationship where the following occur: no concerns reported Eyes General: appearance normal, both eyes and all related structures Eyelids: Yes eyelids normal Conjunctivae: conjunctivae normal Neck Neck: Yes normal visual inspection and Yes supple Resp Effort & Inspection: normal respiratory effort Auscultation: clear to auscultation bilaterally Cardio Jugular venous distension: no JVD Rate: regular rate Rhythm: regular rhythm Heart sounds: S1 normal heart sound present and S2 normal heart sound present Extrem General: Yes full ROM Assessment and Plan Assessment & Plan (1) Pre-op evaluation: Code(s): Z01.818 - Encounter for other preprocedural examination Plan: And patient is medically clear for her more a ductotomy scheduled for 12/29/2022. EKG and labs were within normal limits. (2) Prolapsed hemorrhoids: Code(s): K64.8 - Other hemorrhoids Plan: Patient can proceed with hemorrhoidectomy. (3) Mild recurrent major depression: Code(s): F33.0 - Major depressive disorder, recurrent, mild Plan: Continue citalopram. Follow-up with Behavioral Health. (4) HTN (hypertension): Code(s): I10 - Essential (primary) hypertension Qualifiers: Hypertension type: primary hypertension Qualified Code(s): I10 - Essential (primary) hypertension Plan: Continue lisinopril. Blood pressure goal is equal or less than 130/80. Coding Level of Care Code Est Pt Level 4 (85517) Diagnoses Pre-op evaluation Z01.818 Prolapsed hemorrhoids K64.8 Mild recurrent major depression F33.0 HTN (hypertension) I10 Hypertension type: primary hypertension Additional Codes EUSEBIA-7 Assessment Billing - EUSEBIA-7 Assessment Tool: EUSEBIA-7 Assessment 46407 ([id number]) Time Spent (min) 25
[2022-12-05 12:38] VITALS: BP 128/90; BMI 25.1
== END 2022-12-05 13:11 | disposition home or self-care (01) ==
PROVIDERS: PCP Internal Medicine; Visit Provider Internal Medicine
DX: I10 Essential (primary) hypertension (principal); Z01.818 Encounter for other preprocedural examination; F33.0 Major depressive disorder, recurrent, mild; K64.8 Other hemorrhoids
CPT/HCPCS: 99214

== ENCOUNTER 2022-12-29 07:27 | Day surgery (SDC) | payer OTHER, SELFPAY ==
[2022-12-27 10:47] VITALS: BMI 24.9
--- NOTE | 2022-12-28 11:40 | HO.ANESPROP2 ---
Documented by User: Eveline Barrientos NP 12/28/22 11:45 HPI - Anesthesia Eval Consult details Narrative: 57yo F for Exam Under Anesthesia, Hemorrhoidectomy Medically optimized per PCP PMF Active Problems Active Problems: All Active Problems (Updated 12/05/22 @ 13:06 by Viviana Nick MD) Pre-op evaluation (Acute) Prolapsed hemorrhoids (Acute) Hemorrhoid (Acute) HTN (hypertension) (Acute) Abdominal wall lump (Acute) Elevated blood pressure reading (Acute) Back pain of lumbar region with sciatica (Acute) Duodenal stricture (Acute) Sinusitis (Acute) Gross hematuria (Acute) Peptic ulcer disease (Acute) Idiopathic hypotension (Acute) Peptic ulcer (Acute) Rectal prolapse (Acute) Rib pain (Acute) Upper back pain (Acute) Lower back pain (Acute) Chest pain (Acute) Neck pain (Acute) Allergic reaction (Acute) Autoimmune thyroiditis (Acute) URI (upper respiratory infection) (Acute) Mild recurrent major depression (Acute) Right upper quadrant abdominal pain (Acute) Voice hoarseness (Acute) Polyarthralgia (Acute) Physical exam (Acute) Left shoulder pain (Acute) GERD (gastroesophageal reflux disease) (Acute) Bladder pain (Acute) Leg edema (Acute) Migraine headache (Acute) Hair loss (Acute) Hypotension (Acute) Fibromyalgia (Acute) Mild asthma (Acute) Vitamin D deficiency (Acute) Elevated plasma metanephrines (Acute) Subclinical hyperthyroidism (Acute) Anxiety (Acute) Past Medical History Medical History (Updated 12/29/22 @ 08:02 by Jenniefr Patricia RN) Anxiety Autoimmune thyroiditis Back pain Bladder pain Elevated plasma metanephrines Fibromyalgia GERD (gastroesophageal reflux disease) Hair loss Hypotension Left shoulder pain Leg edema Migraine headache Mild asthma Mild recurrent major depression Murmur Neck pain MIGUE on CPAP Physical exam Polyarthralgia Prolapsed hemorrhoids Right upper quadrant abdominal pain Sciatica Subclinical hyperthyroidism URI (upper respiratory infection) Vitamin D deficiency Voice hoarseness Family History Family History Father Alzheimers disease Mother Hypertension Family history of problems with anesthesia: No Surgical History Surgical History Ectopic History of appendectomy History of colonoscopy History of hysterectomy Hx of endoscopy History of Problems with Anesthesia: No (Woke up during EGD with severe pain) Social History Social History Household Members: None Housing: Apartment Alcohol intake: never Patient Tobacco Use Status: Never used Tobacco e-Cigarette/Vaping Use: Never Used Second Hand Smoke Exposure: No Are you DNR?: No Advance Directives: No Advance Directives Information Provided: Yes Nutrition Risks: No Nutritional Risk service: No Current occupational status: unemployed Cognitive needs: No Hearing needs: No Vision needs: No Meds Allergies Allergy/AdvReac Type Severity Reaction Status Date / Time zolmitriptan [From ZOMIG] Allergy Severe SWOLLEN Verified 12/05/22 12:58 THROAT AND ITCHING salsalate Allergy Intermediate Itching Verified 12/05/22 12:58 Home Medications Medication Instructions Recorded Confirmed Last Taken Type clonazepam 1 mg tablet 1 mg PO DAILY 04/05/20 12/05/22 12/29/22 History citalopram 20 mg tablet 20 mg PO DAILY 02/18/21 12/05/22 Unknown History bupropion HCl 300 mg 24 hr tablet, 300 mg PO QAM 12/28/21 12/05/22 12/29/22 History extended release naloxegol 12.5 mg tablet (Movantik) 25 mg PO QAM 08/07/22 12/05/22 Unknown History oxycodone 10 mg tablet 0 mg PO 10/30/22 12/05/22 Unknown History tizanidine 4 mg capsule 0 mg PO 10/30/22 12/05/22 Unknown History Exam Exam Date and Time: December 28, 2022 1140 Height,Weight and Vital Signs: Height 4 ft 9 in Weight 52.163 kg Pertinent Lab Results Pertinent Lab Results: Laboratory Tests 10/30/22 10/30/22 20:55 20:55 WBC 6.6 Hgb 11.3 L Hct 35.5 L Plt Count 210 Sodium 143 Potassium 3.3 D Chloride 102 Carbon Dioxide 34 H BUN 10 Creatinine 0.70 Narrative Narrative: EKG 10/2022 Vent. Rate : 083 BPM ? ? Atrial Rate : 083 BPM ?? P-R Int : 146 ms? QRS Dur : 076 ms ? ? QT Int : 374 ms ? ? ? P-R-T Axes : 049 073 028 degrees ?? QTc Int : 439 ms ? Normal sinus rhythm Normal ECG When compared with ECG of 20-JAN-2022 13:35, No significant change was found Assessment and Plan Assessment Anesthesia Assessment: Chart Reviewed Final Anesthetic Review Family History of Problems with Anesthesia: No History of Problems with Anesthesia: No (Woke up during EGD with severe pain) Documented by User: Brodie Lazo MD 12/29/22 09:38 PMFSH Past Medical History Medical History (Updated 12/29/22 @ 08:02 by Jennifer Patricia RN) Anxiety Autoimmune thyroiditis Back pain Bladder pain Elevated plasma metanephrines Fibromyalgia GERD (gastroesophageal reflux disease) Hair loss Hypotension Left shoulder pain Leg edema Migraine headache Mild asthma Mild recurrent major depression Murmur Neck pain MIGUE on CPAP Physical exam Polyarthralgia Prolapsed hemorrhoids Right upper quadrant abdominal pain Sciatica Subclinical hyperthyroidism URI (upper respiratory infection) Vitamin D deficiency Voice hoarseness Family History Family History Father Alzheimers disease Mother Hypertension Surgical History Surgical History Ectopic History of appendectomy History of colonoscopy History of hysterectomy Hx of endoscopy Social History Social History Household Members: None Housing: Apartment Alcohol intake: never Patient Tobacco Use Status: Never used Tobacco e-Cigarette/Vaping Use: Never Used Second Hand Smoke Exposure: No Are you DNR?: No Advance Directives: No Advance Directives Information Provided: Yes Nutrition Risks: No Nutritional Risk service: No Current occupational status: unemployed Cognitive needs: No Hearing needs: No Vision needs: No Meds Allergies Allergy/AdvReac Type Severity Reaction Status Date / Time zolmitriptan [From ZOMIG] Allergy Severe SWOLLEN Verified 12/05/22 12:58 THROAT AND ITCHING salsalate Allergy Intermediate Itching Verified 12/05/22 12:58 Home Medications Medication Instructions Recorded Confirmed Last Taken Type clonazepam 1 mg tablet 1 mg PO DAILY 04/05/20 12/05/22 12/29/22 History citalopram 20 mg tablet 20 mg PO DAILY 02/18/21 12/05/22 Unknown History bupropion HCl 300 mg 24 hr tablet, 300 mg PO QAM 12/28/21 12/05/22 12/29/22 History extended release naloxegol 12.5 mg tablet (Movantik) 25 mg PO QAM 08/07/22 12/05/22 Unknown History oxycodone 10 mg tablet 0 mg PO 10/30/22 12/05/22 Unknown History tizanidine 4 mg capsule 0 mg PO 10/30/22 12/05/22 Unknown History Exam Airway Mallampati Class: II TM Dist: <=3cm Neck ROM: Full Loose/Missing/Broken Teeth: No Heart: ok Lungs: ok Assessment and Plan Assessment Anesthesia Assessment: Anesthesia Plan Discussed Final Anesthetic Review NPO: Yes ASA Class: III Final Preanesthetic Review: No Changes in Pt Med Stat, Meds/Allgs Chart Reviewed, Consent Obtained/Reviewed and Anes Risks/Benef Reviewed Patient Risk: Intermediate Procedure Risk: Intermediate Anesthetic Plan Anesthetic Plan: GA and Agree w/ Assess. and Plan Disposition: Standard PACU
[2022-12-29] VITALS (11 sets, daily range): BP systolic 90–138; BP diastolic 44–83; PULSE 65–98; RESP 16–18; TEMP 36.1–37.6; O2SAT 91–98
--- NOTE | 2022-12-29 09:20 | MHC.SHP ---
Pre-Procedural Eval Section A Date of Service: 12/29/22 The patient is an INPATIENT: No Changes since office visit: Yes Cold of Flu in the past 2 weeks, Yes New Medical Problems, Yes Changes in Medication and Yes Patient answered all questions The History & Physical has been completed within 30 days and I have reviewed it.: Yes Section B Chief Complaint: Other hemorrhoids Allergies: Allergies Allergy/AdvReac Type Severity Reaction Status Date / Time zolmitriptan [From ZOMIG] Allergy Severe SWOLLEN Verified 12/05/22 12:58 THROAT AND ITCHING salsalate Allergy Intermediate Itching Verified 12/05/22 12:58 Plan I have reviewed the history and physical and performed a pertinent physical examination on my patient. No changes have occurred unless specified. Time Spent With Patient Time: Total time managing care of this patient today ____ minutes.
--- NOTE | 2022-12-29 10:31 | P.OP_ITS ---
Operative Note Operative Note Date of Service: 12/29/22 Narrative: Preop diagnosis: Hemorrhoids with pain and prolapse Postop diagnosis: The same with note of mucosal prolapse from internal component Procedure: Exam under anesthesia hemorrhoidectomy x2 columns Surgeon: Yonny Washington MD The patient is a 57 year old female was seen in the office because of bothersome prolapse of her anus. She was examined and she was noted to have internal hemorrhoids with small external component. The internal component appear to prolapse easily along with some excess mucosal tissue. There was no evidence of rectal prolapse . She understood the technique of exam under anesthesia and hemorrhoidectomy. She was aware of the risks, benefits, and alternatives . She was brought to the operating room. She was placed in prone bhavna-knife position under general anesthesia via LMA. The buttocks were retracted with wide tape laterally. The perianal area was prepped draped in the usual sterile fashion. A surgical time-out was done. The patient received Cefotan 2 g IV preoperatively. Perianal area was infiltrated with lidocaine 1%. I inserted the Mattie Koehler retractor. I examined the anal canal circumferentially. There was note of some small external hemorrhoids. However, examination of the anal mucosa revealed mucosa that easily prolapse along with some internal hemorrhoids. This appeared to be under for left right side I applied a Wallace grasper on this hemorrhoidal column on the left along with some excess mucosa. I made of figure-eight stitch at the pedicle using chromic 3-0. I made an incision around this hemorrhoidal column to the perianal skin with a blade 15. I excised this column along with the has been goes a along this incision using scissors. I closed this incision with a running chromic 3-0 stitch. Additional laboxl-sb-svjae hemostatic sutures were placed as well for oozing areas Repeated this procedure on the right side. Again the hemorrhoidal column along with some excess mucosa was retracted using a Wallace grasper. I made a vcbwip-gi-jsehx stitch at the pedicle. I made an incision around this column to the perianal skin and excise this above the plane of sphincters using scissors. I closed this incision with a running chromic 3-0 stitch. Additional hemostatic sutures were placed as well with chromic 3-0 . I observed for hemostasis. Once hemostasis was confirmed, I re-examined the anal canal. There were no other lesions seen. There was no any evidence and a fissure or any ulcer. There was no sphincter defect . I applied a rolled Gelfoam into the anal canal for additional hemostasis. I infi ltrated the perianal area with Marcaine 0.5% for postop analgesia and the procedure was completed The patient tolerated procedure well. There were no immediate complications. Initial and final counts of sponges and instruments were correct. Estimated blood loss about 3 cc The patient was extubated without difficulty and transferred to the recovery room with stable vital signs
[2022-12-29] MEDS: Acetaminophen 325 MG TABLET 650 MG PO (11:34)
[2022-12-29] MEDS: fentaNYL citrate/PF 100 MCG/2 ML VIAL 50 MCG IVPUSH (11:35)
[2022-12-29] MEDS: oxyCODONE HCl Immed Release 5 MG TABLET PO (11:35)
== END 2022-12-29 12:35 | disposition home or self-care (01) ==
PROVIDERS: PCP Internal Medicine; Visit Provider Surgery
PROC: (CPT 46260; principal; 2022-12-29 09:40)
PROC: (CPT 46260; 2022-12-29 09:40)
DX: K64.8 Other hemorrhoids (principal); K62.2 Anal prolapse; K64.4 Residual hemorrhoidal skin tags; K21.9 Gastro-esophageal reflux disease without esophagitis; G89.29 Other chronic pain; M54.9 Dorsalgia, unspecified; M79.7 Fibromyalgia; E06.3 Autoimmune thyroiditis; J45.909 Unspecified asthma, uncomplicated; G47.33 Obstructive sleep apnea (adult) (pediatric); Z99.89 Dependence on other enabling machines and devices; Z79.899 Other long term (current) drug therapy; Z79.1 Long term (current) use of non-steroidal anti-inflammatories (NSAID); Z88.8 Allergy status to other drugs, medicaments and biological substances
CPT/HCPCS: 46260; 88304; J1885; J2250; J2371; J2405; J2795; J3010

== ENCOUNTER → 2022-12-29 07:27 | Outpatient (BNV) | payer OTHER, SELFPAY | PROVIDERS: PCP Internal Medicine; Visit Provider Surgery | DX: K64.8 Other hemorrhoids (principal) | CPT/HCPCS: 46260 ==

== ENCOUNTER 2023-01-04 15:50 | Outpatient (AMB) | payer OTHER, SELFPAY ==
[2023-01-04 15:56] VITALS: BP 139/74; PULSE 87
--- NOTE | 2023-01-04 15:56 | MHC.OFFVIS ---
Intake Vital Signs 01/04/23 15:56 Weight 118 lb BP 139/74 Blood Pressure Location Rt brachial Position Sitting Pulse 87 Intake Visit Reasons: s/p hemorrhoidectomy, severe pain Intake Note: Patient here s/p hemorrhoidectomy. C/o severe pain and bleeding. Reports involuntary BM. Wearing pads. Still taking rx pain meds. Asset Protection Professional Required: No Accompanied by: Self / Same As Patient Allergies zolmitriptan [From ZOMIG] Allergy (Severe, Verified 01/04/23 15:58) SWOLLEN THROAT AND ITCHING salsalate Allergy (Intermediate, Verified 01/04/23 15:58) Itching HPI s/p hemorrhoidectomy, severe pain HPI Details She had undergone hemorrhoidectomy last 12/29/2022. She says she has soft pain and wanted to be seen in the office this week She describes some blood per rectum with bowel movements. She describes some leakage of stool after bowel movements as well. She does state that this seems to be slowly improving. She is extremely anxious as she has never had any hemorrhoidectomy in the past. [facility] Medical History Anxiety Autoimmune thyroiditis Back pain Bladder pain Elevated plasma metanephrines Fibromyalgia GERD (gastroesophageal reflux disease) Hair loss Hypotension Left shoulder pain Leg edema Migraine headache Mild asthma Mild recurrent major depression Murmur Neck pain MIGUE on CPAP Physical exam Polyarthralgia Prolapsed hemorrhoids Right upper quadrant abdominal pain Sciatica Subclinical hyperthyroidism URI (upper respiratory infection) Vitamin D deficiency Voice hoarseness Surgical History Ectopic History of appendectomy History of colonoscopy History of hysterectomy Hx of endoscopy Family History Father Alzheimers disease Mother Hypertension Social History Household Members: None Housing: Apartment Alcohol intake: never Patient Tobacco Use Status: Never used Tobacco e-Cigarette/Vaping Use: Never Used Second Hand Smoke Exposure: No service: No Current occupational status: unemployed Cognitive needs: No Hearing needs: No Vision needs: No Review of Systems Const Denies chills and Denies fever(s) Card Denies chest pain at rest Resp Denies cough GI Denies abdominal pain and Reports hematochezia Physical Exam Vital Signs: Last Vital Signs Pulse 87 01/04/23 15:56 BP 139/74 01/04/23 15:56 Const Other: Sitting down on chair and appears to be comfortable although very anxious General: no acute distress Resp Effort & Inspection: normal respiratory effort Cardio Rate: regular rate GI Other: Rectal exam shows the hemorrhoidectomy sites to be healing well, not infected, he has ecchymosis around the area, node discharge, no pus, no induration Assessment & Plan Assessment & Plan (1) Hemorrhoid: Code(s): K64.9 - Unspecified hemorrhoids Plan: Status post hemorrhoidectomy. I assured her that her hemorrhoidectomy sites are actually healing well. There is no evidence of any infection. She had does have some ecchymosis but I told her that this will resolve on its own. I advised her to continue doing hot Sitz baths or warm soaks to the perianal area. I will prescribe her lidocaine topical for the perianal area. I will see her again in the office in about 2 weeks for another wound check. She is comfortable with the plan. Coding Level of Care Code Global (42092) Diagnoses Hemorrhoid K64.9
== END 2023-01-04 16:07 | disposition home or self-care (01) ==
PROVIDERS: PCP Internal Medicine; Visit Provider Surgery
DX: K64.9 Unspecified hemorrhoids (principal)
CPT/HCPCS: 99024

== ENCOUNTER → 2023-01-04 15:50 | Outpatient (BNVA) | payer OTHER, SELFPAY | PROVIDERS: PCP Internal Medicine; Visit Provider Surgery ==

== ENCOUNTER 2023-01-15 13:45 | Outpatient (REF) | payer OTHER, SELFPAY ==
[2023-01-15 15:18] LABS: Anion Gap 10 (12-20); Blood Urea Nitrogen 8 mg/dL (9-16); Calcium 9.2 mg/dL (8.4-10.2); Carbon Dioxide 27 mmol/L (22-29); Chloride 108 mmol/L (96-108); Estimated Glomerular Filt Rate > 60; Glucose Random 99 mg/dL (60-115); Potassium 4.3 mmol/L (3.3-5.1); Sodium 141 mmol/L (135-145)
== END 2023-01-15 13:46 | disposition home or self-care (01) ==
LOC: HO.LAB 13:45
PROVIDERS: PCP Internal Medicine; Visit Provider Physician Assistant
DX: Z01.812 Encounter for preprocedural laboratory examination (principal)
CPT/HCPCS: 36415; 80048

== ENCOUNTER 2023-01-18 15:20 | Outpatient (AMB) | payer OTHER, SELFPAY ==
--- NOTE | 2023-01-18 15:37 | MHC.OFFVIS ---
Intake Vital Signs 01/18/23 15:38 Weight 120 lb BP 123/65 Blood Pressure Location Rt brachial Position Sitting Pulse 77 Intake Visit Reasons: 2 wks post hemorrhoidectomy Intake Note: This patient presents for a two-week post-op assessment status post hemorrhoidectomy. Patient c/o; denies complaints at this time. Wrinkle Chaser Required: No Accompanied by: Self / Same As Patient Allergies zolmitriptan [From ZOMIG] Allergy (Severe, Verified 01/18/23 15:39) SWOLLEN THROAT AND ITCHING salsalate Allergy (Intermediate, Verified 01/18/23 15:39) Itching HPI 2 wks post hemorrhoidectomy HPI Details She is here for follow-up after hemorrhoidectomy last 12/29/2022 She says she feels much better. She says her pain has improved significantly. She denies bleeding with bowel movements. She says she has good bowel movements now. [facility] Medical History MIGUE on CPAP Prolapsed hemorrhoids Murmur Autoimmune thyroiditis URI (upper respiratory infection) Mild recurrent major depression Right upper quadrant abdominal pain Voice hoarseness Polyarthralgia Physical exam Left shoulder pain Sciatica Neck pain Back pain GERD (gastroesophageal reflux disease) Bladder pain Leg edema Migraine headache Hair loss Hypotension Fibromyalgia Mild asthma Vitamin D deficiency Elevated plasma metanephrines Subclinical hyperthyroidism Anxiety Surgical History History of hemorrhoidectomy (~12/29/22) Ectopic History of hysterectomy History of appendectomy Hx of endoscopy History of colonoscopy Family History Father Alzheimers disease Mother Hypertension Social History Household Members: None Housing: Apartment Alcohol intake: never Patient Tobacco Use Status: Never used Tobacco e-Cigarette/Vaping Use: Never Used Second Hand Smoke Exposure: No service: No Current occupational status: unemployed Cognitive needs: No Hearing needs: No Vision needs: No Review of Systems Const Denies chills and Denies fever(s) Card Denies chest pain, Denies dyspnea and Denies dyspnea on exertion Resp Denies cough, Denies dyspnea and Denies dyspnea on exertion GI Denies hematochezia and Denies change in bowel habits Denies hematuria Musc Reports back pain and Denies limited range of motion Neuro Denies focal weakness and Denies convulsions Psych Denies depression and Denies mood swings Physical Exam Vital Signs: Last Vital Signs Pulse 77 01/18/23 15:38 BP 123/65 01/18/23 15:38 Const General: comfortable and no acute distress Resp Effort & Inspection: normal respiratory effort GI Other: Rectal exam shows the hemorrhoidectomy sites to be well-healed, no prolapse, no perianal redness or induration Assessment & Plan Assessment & Plan (1) Prolapsed hemorrhoids: Code(s): K64.8 - Other hemorrhoids Plan: Status post hemorrhoidectomy. She feels much better. She says that she has good bowel movements. She says she no longer significant pain or significant bleeding per rectum Her incisions are well healed I advised her to continue taking softeners as well as fiber supplements especially as she is to undergo back surgery next month and may be on narcotic pain meds. She can otherwise follow up on a p.r.n. basis. Coding Level of Care Code Global (61388) Diagnoses Prolapsed hemorrhoids K64.8
[2023-01-18 15:38] VITALS: BP 123/65; PULSE 77
== END 2023-01-18 15:47 | disposition home or self-care (01) ==
PROVIDERS: PCP Internal Medicine; Visit Provider Surgery
DX: K64.8 Other hemorrhoids (principal)
CPT/HCPCS: 99024

== ENCOUNTER → 2023-01-18 15:20 | Outpatient (BNVA) | payer OTHER, SELFPAY | PROVIDERS: PCP Internal Medicine; Visit Provider Surgery ==

== ENCOUNTER 2023-01-31 15:00 | Outpatient (AMB) | payer OTHER, SELFPAY ==
--- NOTE | 2023-01-31 15:17 | HO.SPINEOV ---
Intake Intake Visit Reasons: to meet doctor before surgery Intake Note: Ms. Santos is here today to meet Dr. Jane before her scheduled surgery on 02/26/23. Concrete Batcher Required: No Allergies zolmitriptan [From ZOMIG] Allergy (Severe, Verified 01/18/23 15:39) SWOLLEN THROAT AND ITCHING salsalate Allergy (Intermediate, Verified 01/18/23 15:39) Itching Assessment & Plan Assessment & Plan (1) Back pain of lumbar region with sciatica: Code(s): M54.40 - Lumbago with sciatica, unspecified side (2) Acquired spondylolisthesis of lumbosacral region: Code(s): M43.17 - Spondylolisthesis, lumbosacral region Plan Dear colleague, On 01/31/2023, I saw for preoperative visit Megan Santos to discuss her upcoming anterior lumbar interbody fusion L5-S1. The patient is suffering predominantly left-sided back pain radiating down both legs in an L5 dermatome. The left leg is more affected than the right side. This corresponds with the MRI finding of a grade 1 L5-S1 spondylolisthesis with severe bilateral L5 foraminal stenosis with the left side is more affected than the right side. The goal surgeries to address her leg pains and hopefully her back pain will improve as well. She is aware that she is also suffering from a degenerative scoliosis in the mid lumbar region and multilevel degenerative disc disease basically involving every disc. I am optimistic that this will treat her bilateral L5 radiculopathy and a part of her back pain. All questions were answered. I spent 30 minutes in this consult. Thank you for the referral. Alden Jane MD, PhD Spine Fellowship Trained Neurosurgeon Director, [facility] Coding Level of Care Code Est Pt Level 4 (65191) Diagnoses Back pain of lumbar region with sciatica M54.40 Acquired spondylolisthesis of lumbosacral region M43.17
== END 2023-01-31 15:51 | disposition home or self-care (01) ==
PROVIDERS: PCP Internal Medicine; Visit Provider Neurological Surgery
DX: M54.40 Lumbago with sciatica, unspecified side (principal); M43.17 Spondylolisthesis, lumbosacral region
CPT/HCPCS: 99214

== ENCOUNTER → 2023-01-31 15:00 | Outpatient (BNVA) | payer OTHER, SELFPAY | PROVIDERS: PCP Internal Medicine; Visit Provider Neurological Surgery | DX: M54.40 Lumbago with sciatica, unspecified side (principal); M43.17 Spondylolisthesis, lumbosacral region | CPT/HCPCS: 99212 ==

== ENCOUNTER 2023-02-05 15:47 | Outpatient (REF) | payer OTHER, SELFPAY ==
--- NOTE | ~2023-02-05 | CT_ITS ---
EXAMINATION: CT ABDOMEN AND PELVIS WITH CONTRAST CLINICAL INFORMATION: Chronic abdominal pain and palpable periumbilical lump. COMPARISON: Abdominal ultrasound dated 08/09/2021; CT abdomen and pelvis dated 02/12/2020. TECHNIQUE: Multidetector volumetric images were obtained from the superior aspect of the liver through the pubic symphysis following administration 85 mL of Omnipaque 350 intravenous contrast. Sagittal and coronal reformatted images were obtained on the technologist's workstation. Oral contrast: No This CT examination was performed using dose optimization techniques as appropriate, variously including the following: *Automated exposure control *Adjustment of mA and/or kV according to patient size (this includes techniques or standardized protocols for targeted exams where dose is matched to indication/reason for exam; i.e. extremities or head) *Use of iterative reconstruction technique DLP: 222 mGy-cm FINDINGS: LUNG BASES: The visualized lung bases are unremarkable. LIVER, GALLBLADDER, AND BILIARY TREE: The liver is normal in size, shape, and generally diminished in attenuation. No focal hepatic lesion or biliary ductal dilatation is present. The gallbladder is unremarkable with no evidence of radiopaque gallstones, gallbladder wall thickening, or obvious pericholecystic inflammatory changes. PANCREAS: Unremarkable. SPLEEN: Unremarkable. ADRENAL GLANDS: Unremarkable. KIDNEYS AND URETERS: The kidneys are normal in size, shape, and attenuation. No hydronephrosis, hydroureter, or calculi seen. No perinephric stranding. BLADDER: Unremarkable. GASTROINTESTINAL TRACT: The small and large bowel are unremarkable. No obstruction, free intraperitoneal air or abscess is seen. There is no diverticulosis or diverticulitis. No focal bowel wall thickening is seen. The vermiform appendix appears to be surgically absent. ABDOMINAL WALL: No significant hernia is appreciated. LYMPH NODES: Normal. VASCULAR: Unremarkable. PELVIC VISCERA: The uterus is surgically absent. No pelvic mass, free fluid or lymphadenopathy is seen. OSSEOUS STRUCTURES: There is multi-level marked lower thoracic and lumbar degenerative disc disease, spondylosis, Schmorl's node formation and facet arthropathy. No acute or aggressive osseous finding is noted. CT/CT abdomen pelvis w IV con IMPRESSION: 1. No bowel obstruction, free intraperitoneal air or abscess is seen. No diverticulosis or diverticulitis is seen. 2. There is hepatic steatosis. 3. The uterus and vermiform appendix appear to be surgically absent. Please correlate with the patient's past surgical history. 4. No urinary calculus or obstruction is noted. 5. There is no abdominopelvic mass, lymphadenopathy or ascites. 6. There are multi-level marked degenerative changes of the included spine. Fleischner guidelines were followed.
[2023-02-05] MEDS: iohexoL 350 MG/ML 100 ML INFUS..BTL IV (16:07)
== END 2023-02-05 15:48 | disposition home or self-care (01) ==
LOC: HO.CT 15:47
PROVIDERS: PCP Internal Medicine; Visit Provider Physician Assistant
DX: R22.2 Localized swelling, mass and lump, trunk (principal)
CPT/HCPCS: 74177; Q9967

== ENCOUNTER 2023-02-16 09:41 | Outpatient (AMB) | payer OTHER, SELFPAY ==
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
== END 2023-02-16 12:29 | disposition home or self-care (01) ==
LOC: HO.HGI 09:41
PROVIDERS: PCP Internal Medicine; Visit Provider Internal Medicine Gastroenterology
DX: K27.9 Peptic ulcer, site unspecified, unspecified as acute or chronic, without hemorrhage or perforation (principal); K31.5 Obstruction of duodenum
CPT/HCPCS: 99441

== ENCOUNTER → 2023-02-16 09:41 | Outpatient (BNVA) | payer OTHER, SELFPAY | PROVIDERS: PCP Internal Medicine; Visit Provider Internal Medicine Gastroenterology ==

== ENCOUNTER 2023-02-26 06:05 | Inpatient (IN) | payer OTHER, SELFPAY ==
[2023-02-15 10:10] VITALS: BMI 26.0
--- NOTE | 2023-02-15 11:39 | HO.ANESPROP2 ---
Documented by User: Eveline Barrientos NP 02/20/23 12:32 HPI - Anesthesia Eval Consult details Narrative: 57yo F for L5-S1 Ant Lumbar Interbody Fusion, 02/26/23 s/p hemorrhoidectomy 12/2022 with GETA (Medically optimized prior) PMFSH Active Problems Active Problems: All Active Problems (Updated 02/15/23 @ 11:16 by Migdalia Abebe, CHIN) Acquired spondylolisthesis of lumbosacral region (Acute) Pre-procedure lab exam (Acute) Pre-op evaluation (Acute) Hemorrhoid (Acute) HTN (hypertension) (Acute) Abdominal wall lump (Acute) Elevated blood pressure reading (Acute) Back pain of lumbar region with sciatica (Acute) Duodenal stricture (Acute) Sinusitis (Acute) Allergic reaction (Acute) Neck pain (Acute) Chest pain (Acute) Lower back pain (Acute) Upper back pain (Acute) Rib pain (Acute) Rectal prolapse (Acute) Peptic ulcer (Acute) Idiopathic hypotension (Acute) Peptic ulcer disease (Acute) Gross hematuria (Acute) Prolapsed hemorrhoids (Acute) Autoimmune thyroiditis (Acute) URI (upper respiratory infection) (Acute) Mild recurrent major depression (Acute) Right upper quadrant abdominal pain (Acute) Voice hoarseness (Acute) Polyarthralgia (Acute) Physical exam (Acute) Left shoulder pain (Acute) GERD (gastroesophageal reflux disease) (Acute) Bladder pain (Acute) Leg edema (Acute) Migraine headache (Acute) Hair loss (Acute) Hypotension (Acute) Fibromyalgia (Acute) Mild asthma (Acute) Vitamin D deficiency (Acute) Elevated plasma metanephrines (Acute) Subclinical hyperthyroidism (Acute) Anxiety (Acute) Past Medical History Medical History History of blood transfusion MIGUE on CPAP Prolapsed hemorrhoids Murmur Autoimmune thyroiditis URI (upper respiratory infection) Mild recurrent major depression Right upper quadrant abdominal pain Voice hoarseness Polyarthralgia Physical exam Left shoulder pain Sciatica Neck pain Back pain GERD (gastroesophageal reflux disease) Bladder pain Leg edema Migraine headache Hair loss Hypotension Fibromyalgia Mild asthma Vitamin D deficiency Elevated plasma metanephrines Subclinical hyperthyroidism Anxiety Family History Family History Father Alzheimers disease Mother Hypertension Family history of problems with anesthesia: No Surgical History Surgical History History of hemorrhoidectomy (~12/29/22) Ectopic History of hysterectomy History of appendectomy Hx of endoscopy History of colonoscopy History of Problems with Anesthesia: No (Woke up during EGD with severe pain) Social History Social History Household Members: None Housing: Apartment Are you a primary manager home healthcare to a significant other at home: No Do you presently have visiting nurse or other home services: No Alcohol intake: never Patient Tobacco Use Status: Never used Tobacco e-Cigarette/Vaping Use: Never Used Second Hand Smoke Exposure: No Use of substances other than those prescribed or required for medical reasons: No Currently Displaying Signs/Symptoms of Drug Intoxication Withdrawal: No Have you been hit, kicked, punched, or otherwise hurt by someone within the past year? If so, by whom?: No Do you feel safe in your current relationship?: Yes Is there a partner from a previous relationship who is making you feel unsafe now?: No Are you made to feel afraid or neglected: No Are you DNR?: No Advance Directives: No Advance Directives Information Provided: Yes Advance Directives on File: No Do you have thoughts of harming others: None Do you have a plan to hurt others: No Plan Recently lost weight without trying: No Eating poorly because of decreased appetite: No Nutrition Risks: No Nutritional Risk Patient : No : No Poor oral hygiene: No service: No Current occupational status: unemployed Cognitive needs: No Hearing needs: No Vision needs: No Meds Allergies Allergy/AdvReac Type Severity Reaction Status Date / Time salsalate Allergy Severe throat Verified 02/26/23 06:20 itching swelling zolmitriptan [From ZOMIG] Allergy Severe SWOLLEN Verified 02/26/23 06:20 THROAT AND ITCHING Home Medications Medication Instructions Recorded Confirmed Last Taken Type clonazepam 1 mg tablet 1 mg PO BID 04/05/20 02/15/23 12/29/22 History citalopram 20 mg tablet 40 mg PO DAILY 02/18/21 02/26/23 Unknown History oxycodone 10 mg tablet 15 mg PO TID PRN Pain 10/30/22 02/26/23 Unknown History tizanidine 4 mg capsule 4 mg PO Q6H PRN Pain 10/30/22 02/26/23 Unknown History bupropion HCl 150 mg tablet,12 hr 150 mg PO BID 02/26/23 02/26/23 Unknown History sustained-release docusate sodium 100 mg capsule 100 mg PO BID 02/26/23 02/26/23 Unknown History melatonin 5 mg tablet 5 mg PO BEDTIME 02/26/23 02/26/23 Unknown History omeprazole 40 mg capsule,delayed 40 mg PO BID 02/26/23 02/26/23 Unknown History release psyllium husk (aspartame) 3.4 3.4 ea PO BID 02/26/23 02/26/23 Unknown History gram/5.8 gram oral powder (Metamucil Sugar-Free (aspartame)) Exam Exam Date and Time: February 15, 2023 1139 Height,Weight and Vital Signs: Height 4 ft 9 in Weight 54.431 kg Pertinent Lab Results Pertinent Lab Results: Laboratory Tests 10/30/22 10/30/22 20:55 20:55 WBC 6.6 Hgb 11.3 L Hct 35.5 L Plt Count 210 Sodium 143 Potassium 3.3 D Chloride 102 Carbon Dioxide 34 H BUN 10 Creatinine 0.70 Laboratory Tests 01/15/23 14:04 Sodium 141 Potassium 4.3 D Chloride 108 Carbon Dioxide 27 BUN 8 L Creatinine 0.67 Narrative Narrative: EKG 10/2022 Vent. Rate : 083 BPM ? ? Atrial Rate : 083 BPM ?? P-R Int : 146 ms? QRS Dur : 076 ms ? ? QT Int : 374 ms ? ? ? P-R-T Axes : 049 073 028 degrees ?? QTc Int : 439 ms ? Normal sinus rhythm Normal ECG When compared with ECG of 20-JAN-2022 13:35, No significant change was found ECHO 2020 Conclusions: - 1. Normal LV systolic function with grade 1 diastolic dysfunction 2. Normal cardiac valvular Doppler 3. No gross pericardial effusion Assessment and Plan Final Anesthetic Review Family History of Problems with Anesthesia: No History of Problems with Anesthesia: No (Woke up during EGD with severe pain) Documented by User: John Briones MD 02/27/23 17:37 [facility] Past Medical History Medical History History of blood transfusion MIGUE on CPAP Prolapsed hemorrhoids Murmur Autoimmune thyroiditis URI (upper respiratory infection) Mild recurrent major depression Right upper quadrant abdominal pain Voice hoarseness Polyarthralgia Physical exam Left shoulder pain Sciatica Neck pain Back pain GERD (gastroesophageal reflux disease) Bladder pain Leg edema Migraine headache Hair loss Hypotension Fibromyalgia Mild asthma Vitamin D deficiency Elevated plasma metanephrines Subclinical hyperthyroidism Anxiety Functional capacity: independent ambulation Family History Family History Father Alzheimers disease Mother Hypertension Surgical History Surgical History History of hemorrhoidectomy (~12/29/22) Ectopic History of hysterectomy History of appendectomy Hx of endoscopy History of colonoscopy Social History Social History Household Members: None Housing: Apartment Are you a primary manager home healthcare to a significant other at home: No Do you presently have visiting nurse or other home services: No Alcohol intake: never Patient Tobacco Use Status: Never used Tobacco e-Cigarette/Vaping Use: Never Used Second Hand Smoke Exposure: No Use of substances other than those prescribed or required for medical reasons: No Currently Displaying Signs/Symptoms of Drug Intoxication Withdrawal: No Have you been hit, kicked, punched, or otherwise hurt by someone within the past year? If so, by whom?: No Do you feel safe in your current relationship?: Yes Is there a partner from a previous relationship who is making you feel unsafe now?: No Are you made to feel afraid or neglected: No Are you DNR?: No Advance Directives: No Advance Directives Information Provided: Yes Advance Directives on File: No Do you have thoughts of harming others: None Do you have a plan to hurt others: No Plan Recently lost weight without trying: No Eating poorly because of decreased appetite: No Nutrition Risks: No Nutritional Risk Patient : No : No Poor oral hygiene: No service: No Current occupational status: unemployed Cognitive needs: No Hearing needs: No Vision needs: No Meds Allergies Allergy/AdvReac Type Severity Reaction Status Date / Time salsalate Allergy Severe throat Verified 02/26/23 06:20 itching swelling zolmitriptan [From ZOMIG] Allergy Severe SWOLLEN Verified 02/26/23 06:20 THROAT AND ITCHING Home Medications Medication Instructions Recorded Confirmed Last Taken Type clonazepam 1 mg tablet 1 mg PO BID 04/05/20 02/15/23 12/29/22 History citalopram 20 mg tablet 40 mg PO DAILY 02/18/21 02/26/23 Unknown History oxycodone 10 mg tablet 15 mg PO TID PRN Pain 10/30/22 02/26/23 Unknown History tizanidine 4 mg capsule 4 mg PO Q6H PRN Pain 10/30/22 02/26/23 Unknown History bupropion HCl 150 mg tablet,12 hr 150 mg PO BID 02/26/23 02/26/23 Unknown History sustained-release docusate sodium 100 mg capsule 100 mg PO BID 02/26/23 02/26/23 Unknown History melatonin 5 mg tablet 5 mg PO BEDTIME 02/26/23 02/26/23 Unknown History omeprazole 40 mg capsule,delayed 40 mg PO BID 02/26/23 02/26/23 Unknown History release psyllium husk (aspartame) 3.4 3.4 ea PO BID 02/26/23 02/26/23 Unknown History gram/5.8 gram oral powder (Metamucil Sugar-Free (aspartame)) Exam Airway Mallampati Class: III Loose/Missing/Broken Teeth: Yes Assessment and Plan Assessment Anesthesia Assessment: Anesthesia Plan Discussed Final Anesthetic Review NPO: Yes ASA Class: III Final Preanesthetic Review: Meds/Allgs Chart Reviewed, Consent Obtained/Reviewed and Anes Risks/Benef Reviewed Patient Risk: Intermediate Procedure Risk: Intermediate Anesthetic Plan Anesthetic Plan: GA and Agree w/ Assess. and Plan Disposition: Standard PACU
[2023-02-26] VITALS (16 sets, daily range): BP systolic 101–150; BP diastolic 58–97; PULSE 78–108; RESP 15–20; TEMP 36–37.7; O2SAT 92–99
--- NOTE | ~2023-02-26 | XR_ITS ---
EXAMINATION: XR LUMBOSACRAL SPINE CLINICAL INFORMATION: ALIF COMPARISON: 03/28/2022. CT abdomen and pelvis 02/05/2023. TECHNIQUE: Single portable AP supine view of the lumbar spine. FINDINGS: Dextroscoliosis of the lumbar spine with advanced multilevel degenerative changes. Interval posterior fixation with rods and screws traversing L5-S1 and interdisc spacer. Surgical clips in the pelvis. XR/XR lumbar spine 1V IMPRESSION: Dextroscoliosis of the lumbar spine with advanced multilevel degenerative changes. Interval posterior fixation with rods and screws traversing L5-S1 and interdisc spacer.
--- NOTE | ~2023-02-26 | FL_ITS ---
EXAMINATION: XR FLUOROSCOPY WITH IMAGES CLINICAL INFORMATION: L5-S1 ALIF. COMPARISON: Lumbar spine x-ray October 2022. TECHNIQUE: Fluoroscopy Supervised By: Dr. Alden Jane. Fluoroscopy Time: 1 minute 48 seconds. Cumulative Dose: 72.968 mGy. DAP: 19.727 Gycm2. Images: 3. FINDINGS: Images demonstrate posterior fusion hardware with rods and bilateral transpedicular screws at L4 and L5 and intervertebral body disc spacer at the L5-S1 disc space. 1 cm anterolisthesis of L5 with respect to S1 similar to previous x-ray. FL/FL guidance in OR IMPRESSION: Fluoroscopy guidance for lumbar spine surgery.
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
--- OUTSIDE RECORDS SUMMARY | 2023-02-26 06:15 | XMS_ITS | Continuity of Care Document ---
Author Name Unknown Organization [facility] Address [address] [place] [phone]- Care Team Providers Care Lab Animal Technologist Name Role Phone Hitesh Nick MD, Melia Benjamin Primary Care Physician [phone] [place] [facility] [place]/20 [facility] [address] [place] [phone]- Allergies, Adverse Reactions, Alerts Substance Reaction Severity [...] tablets, By Mouth, 3 times a day, max 5 tabs/day for 7 days, then 4 tab/day for 7 days, then 3 tabs/day. RX 1 of 2, # 84 tablet, Refills 0, Tot. Refills 0, Maintenance, 06/02/20 17:08:00 EST, Route to Pharmacy Electronically, [facility]/pharmacy #[id number] Ta... Start Date: 06/02/20 Status: Ordered buprenorphine 15 mcg/hr transdermal film, extended release 1 patch, Topically, Every 7 days, # 4 patch, 1 Refills, Maintenance, 04/13/20 16:30:00 EST Start Date: 04/13/20 Status: Ordered CeleXA 20 mg oral tablet [...] tablet, 3 Refills, Maintenance, 05/10/20 13:13:00 EST, [facility]/pharmacy #[id number], 142, cm, 04/07/20 14:00:00 EST, Height, 51, kg, 07/18/19 15:34:00... Start Date: 05/10/20 Status: Ordered clonazePAM 1 mg oral tablet TAKE 1 TABLET BY MOUTH 30 MINUTES BEFORE BEDTIME Start Date: 02/24/20 Status: Ordered Compro 25 mg rectal suppository UNWRAP AND INSERT 1 SUPPOSITORY RECTALLY NEEDED TWICE A DAY RECTAL 30 DAYS Start Date: 02/24/20 Status: Ordered ibuprofen 600 mg oral tablet 1, tablet, By Mouth, Every 6 hours, PRN, # 100 tablet, Refills 2, Tot. Refills 0, Acute, NEEDED FOR PAIN, 03/15/20 9:55:00 EST, Route to Pharmacy Electronically, [facility] STORE [id number], 142, cm, :57:00 EDT, Height, 51, kg, 07/18/19 15:34:00 EDT,... Start Date: 03/15/20 Status: Ordered Linzess 145 mcg oral capsule [...] tablet, 3 Refills, Maintenance, 03/25/20 13:39:00 EST, [facility]/pharmacy #[id number], 142, cm, 03/03/20 7:57:00 EDT, Height, 51, kg, 07/18/19 15:34:00 EDT, Dry Weight Start Date: 03/25/20 Status: Ordered sucralfate 1 gm/10 ml oral suspension TAKE 2 TEASPOONSFUL (10 ML) ON AN EMPTY STOMACH TWICE A DAY, NOT AT SAME TIME NEXIUM Start Date: 02/24/20 Status: Ordered SUMAtriptan 25 mg oral tablet [...] 66% ( crippled ) on 07/01/19; Updated [place] Back Pain DisabilityScale: 56 on 07/01/19. 2Updated Oswestry Disability Index:: 73% (33/45; crippled ) on 04/08/18; updated [place] Back Pain Disability Scale score: 56 on 04/08/18. 3Updated Oswestry: 46% ( severe disability ) on 03/19/17; Updated [place]: 34 on 03/19/17 4Updated [place] Disability Index: 64% crippled and [place] Back Pain Disability Scale: 52 on 02/28/2016. 5Updated [place] Disability Index: 50%(15/30; severe disability ) on 01/25/15; updated [place] Back Pain Disability Scale score: 35 on [...]
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
--- OUTSIDE RECORDS SUMMARY | 2023-02-26 06:15 | XMS_ITS | Continuity of Care Document ---
Author Name Unknown Organization [facility] [employer] Address [address], [address] [place] [address]- Care Team Providers Care Delivery Clerk Name Role Phone Hitesh Nick MD, Melia Benjamin Primary Care Physician [phone] [facility] [place] Date(s): 08/11/20 - 09/10/20 [facility] [employer] [address] [place] [address]- Allergies, Adverse Reactions, Alerts Substance Reaction Severity Status salsalate difficulty breathing, severe swelling who le body Active zonisamide Finger swelling Rash Active lamoTRIgine Somnolence Confusion Active ZOLMitriptan Chest tightness Active Immunizations Given and Recorded Vaccine Date Status Refusal Reason tetanus/diphtheria/pertussis, acel(Tdap) 07/25/13 Given influenza virus vaccine, inactivated 1 04/14/13 Gi prudence 1Result Comment: [04/15/2013] ORDERED BY URIEL PHIPPS NP Medications busPIRone 10 mg oral tablet TAKE 1 [...] &esomeprazole, # 90 tablet, 3 Refills, Maintenance, 08/04/20 9:49:00 EDT, [id number], 142, cm, 07/07/20 7:17:00 EST, Height, 51, kg, 07/18/19 15:34:00 E... Start Date: 08/04/20 Status: Ordered clonazePAM 1 mg oral tablet [...] 03/15/20 9:55:00 EST, Route to Pharmacy Electronically, [facility] ST[facility] [id number], 142, cm, 207:57:00 EDT, Height, 51, kg, 07/18/19 15:34:00 EDT,... [...] Status: Ordered Movantik 25 mg oral tablet 0 Refills, Maintenance, 08/31/20 14:31:00 EDT, Partial fill upon patient request if the prescription is for a schedule II opioid drug. Start Date: 08/31/20 Status: Ordered Movantik 25 mg oral tablet TAKE 1 TABLET BY MOUTH EVERY DAY IN THE MORNING Start Date: 02/17/19 Status: Ordered ondansetron 8 mg oral tablet 1 tablet = 8 mg, By Mouth, 2 times a day, # 56 tablet, 1 Refills, Maintenance, 07/13/20 14:22:00 EST, [id number], 142, cm, 07/07/20 7:17:00 EST, Height, 51, kg, 07/18/19 15:34:00 EDT, Dry Weight Start Date: 07/13/20 Status: Ordered SUMAtriptan 25 mg oral tablet See Instructions, 1 tab at onset of migraine. September repeat 1 tab after 2hrs. 28 DAY SUPPLY. Treat maxof 1 h/a per week., # 8 tablet, 2 Refills, Maintenance, 07/29/20 10:52:00 EDT, Tablet, [id number], 142, cm, 07/07/20 7:17:00 EST, Height, 51, k... Start Date: 07/29/20 Status: Ordered topiramate 200 mg oral tablet 1.5 tablets, By Mouth, 2 times a day, 90 day supply, # 270 tablet, 3 Refills, Maintenance, 06/17/2114:15:00 EST, [id number], 142, cm, 06/03/20 14:39:00 EST, Height, 51, kg, 07/18/19 15:34:00EDT, Dry Weight Start Date: 06/17/20 Status: Ordered traMADol 50 mg oral tablet 0 Refills, Maintenance, 08/31/20 14:31:00 EDT, Partial fill upon patient request if the prescription is for a schedule II opioid drug. Start Date: 08/31/20 Status: Ordered Tylenol 8 Hour 650 mg oral tablet, extended release 1 tablet = 650 mg, By Mouth, Every 8 hours, PRN as needed for pain, # 50 tablet, 0 Refills, Maintenance, 07/31/20 15:57:00 EDT, ER Tablet, [id number], Partial fill upon patient request if theprescription is for a schedule II opioid drug., 142... Start Date: 07/31/20 Status: Ordered Ventolin HFA 108 mcg/inh inhalation [...]
--- OUTSIDE RECORDS SUMMARY | 2023-02-26 06:15 | XMS_ITS | Continuity of Care Document ---
Author Name Unknown Organization [facility] ter Address [address] [place] [address]- Care Team Providers Care Telephone Technician Name Role Phone Melia Jacobs MD Primary Care Physician [place] [facility] [place] 07/30/20 - 07/31/[address] [address]- Encounter Diagnosis Lower back pain(Final) - 07/31/20 Discharge Disposition: A-D/C Home Attending Physician: Catalina Wellington MD Admitting Physician: Catalina Wellington MD Referring Physician: Not on Staff, Referring MD Allergies, Adverse Reactions, Alerts Substance Reaction Severity [...] tablet, 3 Refills, Maintenance, 05/10/20 13:13:00 EST, [facility]/pharmacy #[id number], 142, cm, 04/07/20 14:00:00 EST, [...] 03/15/20 9:55:00 EST, Route to Pharmacy Electronically, [facility] STORE [id number], 142, cm, :57:00 EDT, Height, 51, kg, [...] Instructions, 1 tab at onset of migraine. May repeat 1 tab after 2hrs. 28 DAY [...] Dry Weight Start Date: 06/17/20 Status: Ordered Tylenol 8 Hour 650 mg [...] 66% ( crippled ) on 07/01/19; Updated [place] Back Pain DisabilityScale: 56 on 07/01/19. 2Updated Oswestry Disability Index:: 73% (33/45; crippled ) on 04/08/18; updated [place] Back Pain Disability Scale score: 56 on 04/08/18. 3Updated Oswestry: 46% ( severe disability ) on 03/19/17; Updated [place]: 34 on 03/19/17 4Updated [place] Disability Index: 64% crippled and [place] Back Pain Disability Scale: 52 on 02/28/2016. [...] balance. On 02/01/18 the morphinetrial was abandoned. Vital Signs Most recent to oldest [Reference Range]: 1 2 3 Oxygen Saturation [94-100 %] 100 % (07/31/20 4:25 PM) 100 % (07/31/20 12:52 PM) 99 % (07/31/20 8:14 AM) Pulse Rate [55-90 bpm] 72 bpm (07/31/20 4:25 PM) 86 bpm (07/31/20 12:52 PM) 92 bpm *H* (07/31/20 8:14 AM) Blood Pressure [90-138/55-84 mm Hg] 109/67mm Hg (07/31/20 4:25 PM) 115/69mm Hg (07/31/20 12:52 PM) 105/53mm Hg (07/31/20 8:14 AM) Respiratory Rate [16-30 br/min] 15 br/min *L* (07/31/20 4:25 PM) 20 br/min (07/31/20 12:52 PM) 18 br/min (07/31/20 8:14 AM) Temperature [96.8-100.4 DegF] 98.9 DegF (07/31/20 12:52 PM) 99.0 DegF (07/31/20 8:14 AM) 98.3 DegF (07/30/20 10:07 PM) Mode of Delivery (Oxygen) Nasal cannula (07/31/20 4:25 PM) Room air (07/31/20 12:52 PM) Room air (07/31/20 8:14 AM) Blood pressure sites Arm, left (07/31/20 4:25 PM) Arm, left (07/31/20 12:52 PM) Arm, left (07/31/20 8:14 AM) Temperature Route Oral (07/31/20 12:52 PM) Oral (07/31/20 8:14 AM) Oral (07/30/20 10:07 PM) Social History Social History Type Response Smoking Status Never smoker entered on: 04/25/13 Sex
--- OUTSIDE RECORDS SUMMARY | 2023-02-26 06:16 | XMS_ITS | Continuity of Care Document ---
Author Name Unknown Organization [facility] Address [address] [place] [phone]- Care Team Providers Care Family Engagement Specialist Name Role Phone Hitesh Nick MD, Olinda Primary [id number] - [facility]27[facility] [address] [place] [address]- Allergies, Adverse Reactions, Alerts Substance Reaction Severity Status salsalate difficulty breathing, severe swelling who le body Active zonisamide Finger swelling Rash Active lamoTRIgine Somnolence Confusion Active ZOLMitriptan Chest tightness Active Immunizations Given and Recorded Vaccine Date Status Refusal Reason tetanus/diphtheria/pertussis, acel(Tdap) 07/25/13 Given influenza virus vaccine, inactivated 1 04/14/13 Gi prudence 1Result Comment: [04/15/2013] ORDERED BY URIEL PHIPPS NP Medications CeleXA 20 mg oral tablet 20 mg, 1, tablet, By Mouth, Daily, taking from an old prescription, Refills 0, Maintenance, 06/02/20 11:19:00 EST, Partial fill upon patient request if the prescription is for a schedule II opioid drug. Start Date: 06/02/20 Status: Ordered clonazePAM 1 mg oral tablet TAKE 1 TABLET BY MOUTH 30 MINUTES BEFORE BEDTIME Start Date: 02/24/20 Status: Ordered Linzess 145 mcg oral capsule [...] tablet, 1 Refills, Maintenance, 07/13/20 14:22:00 EST, [facility]/pharmacy #[id number], 142, cm, 07/07/20 7:17:00 EST, Height, 51, kg, 07/18/19 15:34:00 EDT, Dry Weight Start Date: 07/13/20 Status: Ordered traMADol 50 mg oral tablet [...] Refills, Maintenance, 07/31/20 15:57:00 EDT, ER Tablet, [facility]/pharmacy #[id number], Partial fill upon patient request if [...] 66% ( crippled ) on 07/01/19; Updated [place] Back Pain DisabilityScale: 56 on 07/01/19. 2Updated [place]estry Disability Index:: 73% (33/45; crippled ) on 04/08/18; updated [place] Back Pain Disability Scale score: 56 on 04/08/18. 3Updated [place]estry: 46% ( severe disability ) on 03/19/17; Updated [place]: 34 on 03/19/17 4Updated [place] Disability Index: 64% crippled and [place] Back Pain Disability Scale: 52 on 02/28/2016. [...]
--- OUTSIDE RECORDS SUMMARY | 2023-02-26 06:16 | XMS_ITS | Continuity of Care Document ---
Author Name Unknown Organization [facility] Address Unknown Care Team Providers Care Clutch Operator Name Role Phone Hitseh Nick MD, Olinda Primary Care Physician Encounter [facility] [place] Date(s): 02/24/21 - 03/26/21 [facility] Attending Physician: Toby Phelps Admitting Physician: Toby Phelps Referring Physician: Toby Phelps Allergies, Adverse Reactions, Alerts Substance Reaction Severity [...] tablet, 1 Refills, Maintenance, 07/13/20 14:22:00 EST, [facility]/pharmacy #[id number], 142, cm, 07/07/20 7:17:00 EST, Height, 51, kg, 07/18/19 15:34:00 EDT, Dry Weight Start Date: 07/13/20 Status: Ordered Percocet 5 mg-325 mg oral tablet 1, tablet, By Mouth, 3 times a day, PRN, Refills 0, Tot. Refills 0, Maintenance, as needed for pain, 02/17/21 15:26:00 EDT, Tablet, Partial fill upon patient request if the prescription is for a schedule II opioid drug. Start Date: 02/17/21 Status: Ordered Tylenol 8 Hour 650 mg oral tablet, extended release 1 tablet = 650 mg, By Mouth, Every 8 hours, PRN as needed for pain, # 50 tablet, 0 Refills, Maintenance, 07/31/20 15:57:00 EDT, ER Tablet, [facility]/pharmacy #[id number], Partial fill upon patient request [...]
--- OUTSIDE RECORDS SUMMARY | 2023-02-26 06:16 | XMS_ITS | Continuity of Care Document ---
Author Name Unknown Organization [facility] Address [address] [place] [address]- Care Team Providers Care Handicrafts Teacher Name Role Phone Humberto RIVERA, Rudolph Ochoa Primary Care Physi courtney Encounter [facility] Date(s): 10/09/19 - 11/08/[address] [address]- [facility] Attending Physician: Toby Phelps Admitting Physician: AdmToby darnell Referring Physician: AdmtrToby Allergies, Adverse Reactions, Alerts Substance Reaction Severity [...] Mouth, 3 times a day, PRN Pain.Max 6/day.RX 1 of 2, # 84 tablet, Refills 0, Tot. Refills 0, Maintenance, 10/16/19 13:55:00 EDT, Route to Pharmacy Electronically, [facility]/pharmacy #[id number] Tablet, Partial fill upon patient request, 142, cm, 05... Start Date: 10/16/19 Status: Ordered acetaminophen-oxyCODONE 325 mg-5 mg oral tablet 1-2 tablets, By Mouth, 3 times a day, PRN Pain.Max 6tabs/day.RX 2 of 2, # 84 tablet, Refills 0, Tot. Refills 0, Maintenance, 10/16/19 13:55:00 EDT, Route to Pharmacy Electronically, [facility]/pharmacy #[id number] Tablet, Partial fill upon patient request, ... Start Date: 10/16/19 Status: Ordered Adderall XR 10 mg oral capsule, extended release See Instructions, 1 capsule By Mouth Daily in AM, 1 capsule at 12PM., # 56 capsule, 0 Refills, Maintenance, 10/20/19 8:37:00 EDT, [facility]/pharmacy #[id number], 1 capsule By Mouth Daily in AM, 1 capsule at 12PM., 142, cm, 09/15/19 15:31:00 EDT, Height, 51, kg, 0... Start Date: 10/20/19 Status: Ordered AneCream 5 topical cream APPLY TO AFFECTED AREA 4 TIMES A DAY NEEDED Start Date: 04/09/19 Status: Ordered buPROPion 100 mg/12 hours (SR) oral tablet, extended release TAKE 1 TABLET BY MOUTH TWICE A DAY FOR DEPRESSION Start Date: 12/26/18 Status: Ordered Carafate 1 gm/10 ml oral suspension TAKE 10 ML BY MOUTH TWICE A DAY ON EMPTY STOMACH Start Date: 02/17/19 Status: Ordered cimetidine 300 mg oral tablet See Instructions, 1-2 tabs po 3-4 times/day 30min before meals & qhs. Replaces famotidine &esomeprazole, # 90 tablet, 3 Refills, Maintenance, 09/18/19 9:33:00 EDT, [facility]/pharmacy #[id number], 142, cm, 09/15/19 15:31:00 EDT, Height, 51, kg, 07/18/19 15:34:00... Start Date: 09/18/19 Status: Ordered citalopram 40 mg oral tablet TAKE 1 TABLET BY MOUTH AT BEDTIME FOR ANXIETY/MOOD Start Date: 01/28/18 Status: Ordered clonazePAM 1 mg oral tablet TAKE 1 TABLET BY MOUTH THREE TIMES A DAY NEEDED FOR ANXIETY AND REST Start Date: 06/06/18 Status: Ordered diazepam 5 mg oral tablet See Instructions, 1 tablet po 1 hr prior to procedure, may repeat x1 if needed, # 2 tablet, Refills0, Tot. Refills 0, Maintenance, 10/21/19 13:21:00 EDT, Instructions Replace Required Details, Routeto Pharmacy Electronically, [facility]/pharmacy #[id number], 142... Start Date: 10/21/19 Status: Ordered famotidine 40 mg/5 ml oral powder for reconstitution TAKE 5 ML BY MOUTH ONCE A DAY AT BEDTIME Start Date: 09/15/19 Status: Ordered ibuprofen 600 mg oral tablet 1, tablet, By Mouth, Every 6 hours, PRN, # 100 tablet, Refills 2, Tot. 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 Start Date: 10/30/19 Status: Ordered SUMAtriptan 25 mg oral tablet See Instructions, PRN for migraine headache, 1 tab at onset of migraine. If needed may repeat 1 tabafter 2hrs. Treat max of 1 h/a per week. supply, # 8 tablet, 2 Refills, Maintenance, 08/31/2010:42:00 EDT, Tablet, [id number], 142, cm,... Start Date: 09/01/19 Status: Ordered topiramate 200 mg oral tablet 1.5 tablets, By Mouth, 2 times a day, 90 day supply, # 270 tablet, 3 Refills, Maintenance, 07/07/2013:01:00 EST, [id number], Also plz prepare oxycodone/APAP (rx on hold) for quill picking machine operator 07/08. Thank you, 142, cm, 07/01/19 15:50:00 EST, Height, 51.4... Start Date: 07/08/19 Status: Ordered Vaginal valium suppository Vaginal valium suppository, See Instructions, # 10 supp, Refills 1, Tot. Refills 1, Maintenance, 5 mg Insert in vagina q 8 hours prn pain, 08/07/19 13:48:00 EDT, Please call pt for billing and pick-up information, Compound Start Date: 08/07/19 Status: Ordered Ventolin HFA 108 mcg/inh inhalation aerosol with adapter 2 puffs = 180 mcg, Inhalation, Every 4 hours, PRN for wheezing, # 1 each, 3 Refills, Maintenance, 07/12/18 14:02:14 EST, Inhaler Start Date: 07/12/18 Status: Ordered Vitamin D3 2000 intl units oral tablet 1 tablet = 2,000 International_Units, By Mouth, Daily, 0 Refills, Maintenance, 05/05/19 15:24:00 EST Start Date: 05/05/19 Status: Ordered zolpidem 5 mg oral tablet TAKE 1 TABLET BY MOUTH EVERY DAY AT BEDTIME NEEDED FOR SLEEP Start Date: 09/15/19 Status: Ordered Problem List Condition Effective Dates [...]
--- OUTSIDE RECORDS SUMMARY | 2023-02-26 06:16 | XMS_ITS | Continuity of Care Document ---
Author Name Unknown Organization [facility] Address [address] [place] [address]- Care Team Providers Care Agricultural Education Teacher Name Role Phone Hitesh Nick MD, Olinda Primary Care Physician Encounter [facility] Date(s): 01/19/21 - 02/18/21 [facility] [address] [place] [address]- Allergies, Adverse Reactions, Alerts Substance Reaction Severity [...] tablet, 1 Refills, Maintenance, 07/13/20 14:22:00 EST, [facility]/pharmacy #[id number], 142, cm, 07/07/20 7:17:00 EST, [...] Refills, Maintenance, 07/31/20 15:57:00 EDT, ER Tablet, [facility]/pharmacy #[id number], Partial fill upon patient request [...] 66% ( crippled ) on 07/01/19; Updated [place] Back Pain DisabilityScale: 56 on 07/01/19. 2Updated Oswestry Disability Index:: 73% (33/45; crippled ) on 04/08/18; updated [place] Back Pain Disability Scale score: 56 on 04/08/18. 3Updated Oswestry: 46% ( severe disability ) on 03/19/17; Updated [place]: 34 on 03/19/17 4Updated [place] Disability Index: 64% crippled and [place] Back Pain Disability Scale: 52 on 02/28/2016. [...]
--- OUTSIDE RECORDS SUMMARY | 2023-02-26 06:16 | XMS_ITS | Continuity of Care Document ---
Author Name Unknown Organization [facility] Address [address] [place] [address]- Care Team Providers Care Manager Internet Retails Sales Name Role Phone Hitesh Nick MD, Melia Benjamin Primary Care Physician [phone] Encounter [facility] Date(s): 05/12/20 - 06/24/20 [facility] [address] [place] [address] Attending Physician: Lane Grace MD Admitting Physician: Lane Grace MD Allergies, Adverse Reactions, Alerts Substance Reaction Severity Status salsalate difficulty breathing, severe swelling who le body Active lamoTRIgine Somnolence Confusion Active ZOLMitriptan Chest tightness Active zonisamide Finger swelling Rash Active Immunizations Given and Recorded Vaccine Date [...] 06/02/20 17:08:00 EST, Route to Pharmacy Electronically, [facility]/pharmacy #[id number] Ta... Start Date: 06/02/20 Status: Ordered busPIRone 10 mg oral tablet [...] tablet, 3 Refills, Maintenance, 05/10/20 13:13:00 EST, [facility]/pharmacy #[id number], 142, cm, 04/07/20 14:00:00 [...] 03/15/20 9:55:00 EST, Route to Pharmacy Electronically, [facility] STORE [id number], 142, cm, :57:00 EDT, Height, 51, kg, [...] 66% ( crippled ) on 07/01/19; Updated [place] Back Pain DisabilityScale: 56 on 07/01/19. 2Updated Oswestry Disability Index:: 73% (33/45; crippled ) on 04/08/18; updated [place] Back Pain Disability Scale score: 56 on 12/3/18. 3Updated Oswestry: 46% ( severe disability ) on 03/19/17; Updated [place]: 34 on 03/19/17 4Updated [place] Disability Index: 64% crippled and [place] Back Pain Disability Scale: 52 on 02/28/2016. [...]
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
--- OUTSIDE RECORDS SUMMARY | 2023-02-26 06:16 | XMS_ITS | Continuity of Care Document ---
Author Name Unknown Organization [facility] Address [address] [place] [address]- Care Team Providers Care Die Casting Machine Setter Name Role Phone Araceli Ziegler MD Primary Care Physician Encounter [facility] Date(s): 06/27/19 - 08/02/[address] [address]- [facility] Referring Physician: Araceli Ziegler MD Allergies, Adverse Reactions, Alerts Substance Reaction [...] [04/15/2013] ORDERED BY URIEL PHIPPS NP Medications Adderall XR 10 mg oral capsule, extended release See Instructions, 1 capsule By Mouth Daily in AM, 1 capsule at 12PM., # 56 capsule, 0 Refills, Maintenance, 06/25/19 17:59:00 EST, [id number], 1 capsule By Mouth Daily in AM, 1 capsule at 12PM., 142, cm, 06/10/19 14:02:00 EST, Height, 51.4, kg... Start Date: 06/25/19 Status: Ordered AneCream 5 topical cream APPLY [...] EMPTY STOMACH Start Date: 02/17/19 Status: Ordered citalopram 40 mg oral tablet TAKE 1 TABLET BY MOUTH AT BEDTIME FOR ANXIETY/MOOD Start Date: 01/28/18 Status: Ordered clonazePAM 1 mg oral tablet TAKE 1 TABLET BY MOUTH THREE TIMES A DAY NEEDED FOR ANXIETY AND REST Start Date: 06/06/18 Status: Ordered esomeprazole 20 mg oral enteric coated capsule TAKE 1 CAPSULE BY MOUTH TWICE A DAY Start Date: 04/09/19 Status: Ordered estradiol 0.1 mg/g vaginal cream APPLY VAGINALLY 4GM ONCE DAILY X2 WEEKS, 2GM DAILY X1 WEEK THEN 1GM WEEKLY THEREAFTER Start Date: 07/01/19 Status: Ordered famotidine 40 mg oral tablet 1 tablet, By Mouth, 2 times a day, INSTR:REPLACES ESOMEPRAZOLE, # 56 tablet, 3 Refills, Maintenance, 06/30/19 7:01:00 EST, [facility]/pharmacy #[id number], 142, cm, 06/10/19 14:02:00 EST, Height, 51.4, kg, 06/06/19 15:19:00 EST, Dry Weight Start Date: 06/30/19 Status: Ordered gabapentin 100 mg oral capsule TAKE 1 CAPSULE BY MOUTH TWICE A DAY Start Date: 04/09/19 Status: Ordered ibuprofen 600 mg oral tablet 600 mg, 1, tablet, By Mouth, Every 6 hours, PRN, # 100 tablet, Refills 2, Tot. Refills 2, Acute 02/04/20 0:00:00 EDT, for pain, 08/01/19 14:28:00 EDT, Route to Pharmacy Electronically, [facility]/pharmacy #[id number], 142, cm, 07/18/19 15:34:00 EDT, Height, 51, kg... Start Date: 08/01/19 Stop Date: 02/04/20 Status: Ordered Linzess 145 mcg oral capsule [...] day, # 56 tablet, 3 Refills, Maintenance, 05/28/19 15:40:00 EST, [id number], 142, cm, 05/05/19 15:28:00 EST, Height, 53.1, kg, 07/12/18 13:35:00 EST, Dry Weight Start Date: 05/28/19 Status: Ordered Percocet-5/325 325 mg-5 mg oral tablet 1-2 tablets, By Mouth, 3 times a day, PRN Pain.Max 6tabs/day.RX 2 of 2, # 84 tablet, Refills 0, Tot. Refills 0, Maintenance, 07/22/19 14:59:00 EDT, Route to Pharmacy Electronically, [facility]/pharmacy #[id number], Partial fill upon patient request, 08/05/19, 142,... Start Date: 07/22/19 Status: Ordered Percocet-5/325 325 mg-5 mg oral tablet 1-2 tablets, By Mouth, 3 times a day, PRN Pain.Max 6/day.RX 1 of 2, # 84 tablet, Refills 0, Tot. Refills 0, Maintenance, 07/22/19 14:59:00 EDT, Route to Pharmacy Electronically, [facility]/pharmacy #[id number], Partial full upon patient request, 142, cm, 07/18/19... Start Date: 07/22/19 Status: Ordered SUMAtriptan 25 mg oral tablet 1 tablet = 25 mg, By Mouth, Daily, PRN for migraine headache, may repeat dose after 2 hours up to amaximum of 2; max 4 headaces/mo, # 8 tablet, 2 Refills, Maintenance, 05/27/19 14:58:00 EST, [facility]t,[id number], 142, cm, 05/05/19 15:28:00 EST,... 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 Thank you, 142, cm, 07/01/19 [...] 66% ( crippled ) on 07/01/19; Updated [place] Back Pain DisabilityScale: 56 on 07/01/19. 2Updated Oswestry Disability Index:: 73% (33/45; crippled ) on 04/08/18; updated [place] Back Pain Disability Scale score: 56 on 04/08/18. 3Updated Oswestry: 46% ( severe disability ) on 03/19/17; Updated [place]: 34 on 03/19/17 4Updated [place] Disability Index: 64% crippled and [place] Back Pain Disability Scale: 52 on 02/28/2016. [...]
--- OUTSIDE RECORDS SUMMARY | 2023-02-26 06:16 | XMS_ITS | Continuity of Care Document ---
Author Name Unknown Organization [facility] Address [address] [place] [address]- Care Team Providers Care Remelter Name Role Phone Hitesh Nick MD, Melia Benjamin Primary Care Physician Encounter [facility] Date(s): 05/10/20 - 06/09/20 [facility] [address] [place] [address]- Allergies, Adverse Reactions, Alerts Substance Reaction Severity [...] 06/02/20 17:08:00 EST, Route to Pharmacy Electronically, [facility]/pharmacy #[id number] Ta... Start Date: 06/02/20 Status: Ordered buprenorphine [...] tablet, 3 Refills, Maintenance, 05/10/20 13:13:00 EST, [facility]/pharmacy #[id number], 142, cm, 04/07/20 14:00:00 [...] 03/15/20 9:55:00 EST, Route to Pharmacy Electronically, [facility] STORE [id number], 142, cm, :57:00 EDT, Height, 51, kg, [...] tablet, 3 Refills, Maintenance, 03/25/20 13:39:00 EST, 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 Thank you, 142, cm, 07/01/19 [...] 66% ( crippled ) on 07/01/19; Updated [place] Back Pain DisabilityScale: 56 on 07/01/19. 2Updated Oswestry Disability Index:: 73% (33/45; crippled ) on 04/08/18; updated [place] Back Pain Disability Scale score: 56 on 04/08/18. 3Updated Oswestry: 46% ( severe disability ) on 03/19/17; Updated [place]: 34 on 03/19/17 4Updated [place] Disability Index: 64% crippled and [place] Back Pain Disability Scale: 52 on 02/28/2016. [...]
--- OUTSIDE RECORDS SUMMARY | 2023-02-26 06:16 | XMS_ITS | Continuity of Care Document ---
Author Name Unknown Organization [facility] [employer] [place] Address [address] [place] [address], [address] [place] [address]- Care Team Providers Care Senior Business Process Analyst Name Role Phone Hitesh Nick MD, Melia Benjamin Primary Care Physician [phone] Encounter [facility] [place] ACCT R [id number] Date(s): 01/13/20 - 02/12/20 [facility] [employer] [facility] [address] [facility], [address] [place] [address]- [facility] Attending Physician: AdmToby darnell Admitting Physician: AdmtrToby Referring Physician: Admtr, Ar8 Allergies, Adverse Reactions, Alerts Substance Reaction Severity Status ZOLMitriptan Chest tightness Active salsalate difficulty breathing, severe swelling who le body Active zonisamide Finger swelling Rash Active lamoTRIgine Somnolence Confusion Active Immunizations Given and Recorded Vaccine Date Status Refusal Reason tetanus/diphtheria/pertussis, acel(Tdap) 07/25/13 Given influenza virus vaccine, inactivated 1 04/14/13 Gi prudence 1Result Comment: [04/15/2013] ORDERED BY URIEL PHIPPS NP Medications acetaminophen-oxyCODONE 325 mg-5 mg oral tablet 1-2 tablets, By Mouth, 3 times a day, PRN Pain.Max 6/day. RX 1 of 2, # 84 tablet, Refills 0, Tot. Refills 0, Maintenance, 01/26/20 11:54:00 EDT, Route to Pharmacy Electronically, [facility]/pharmacy #[id number] Tablet, Partial fill upon patient request, 142, cm, 0... Start Date: 01/26/20 Status: Ordered acetaminophen-oxyCODONE 325 mg-5 mg oral tablet 1-2 tablets, By Mouth, 3 times a day, PRN Pain.Max 6tabs/day.RX 2 of 2, # 84 tablet, Refills 0, Tot. Refills 0, Maintenance, 01/26/20 11:54:00 EDT, Route to Pharmacy Electronically, [facility]/pharmacy #[id number] Tablet, Partial fill upon patient request, ... Start Date: 01/26/20 Status: Ordered AneCream 5 topical cream APPLY TO AFFECTED AREA 4 TIMES A DAY NEEDED Start Date: 04/09/19 Status: Ordered cimetidine 300 mg oral tablet See Instructions, 1-2 tabs po 3-4 times/day 30min before meals & qhs. Replaces famotidine &esomeprazole, # 90 tablet, 3 Refills, Maintenance, 12/01/19 9:58:00 EDT, [facility]/pharmacy #[id number], 142, cm, 11/13/19 12:42:00 EDT, Height, 51, kg, 07/18/19 15:34:00... Start Date: 12/01/19 Status: Ordered clonazePAM 2 mg oral tablet TAKE 1 TABLET BY MOUTH THREE TIMES A DAY NEEDED FOR ANXIETY AND REST Start Date: 01/14/20 Status: Ordered ibuprofen 600 mg oral tablet 1, tablet, By Mouth, Every 6 hours, PRN, # 100 tablet, Refills 2, Tot. Refills 0, Acute, NEEDED FOR PAIN, 01/12/20 3:54:00 EDT, Route to Pharmacy Electronically, [facility] STORE [id number], 142, cm, 01/07/2013:49:00 EDT, Height, 51, kg, 07/18/19 15:34:00 EDT... Start Date: 01/12/20 Status: Ordered Linzess 145 mcg oral capsule [...] tablet, 3 Refills, Maintenance, 10/30/19 13:08:00 EDT, [facility]/pharmacy #[id number], Will order picker 11/02 along w/oxycodone- APAP currently on [...] tablet, 2 Refills, Maintenance, 12/01/2016:05:00 EDT, Tablet, [facility]/pharmacy #[id number], 142, cm,... Start Date: 12/02/19 Status: Ordered topiramate 200 mg oral tablet 1.5 tablets, By Mouth, 2 times a day, 90 day supply, # 270 tablet, 3 Refills, Maintenance, 07/07/2013:01:00 EST, [facility]/pharmacy #[id number], Also plz prepare oxycodone/APAP (rx on hold) for order picker 07/08. Thank you, 142, cm, 07/01/19 [...] pap smears needed(Confirmed) Active Constipation, chronic(Confirmed) Active Chronic pelvic pain, especia lly retropubic(Confirmed) Active Decreased range of motion of [...] 66% ( crippled ) on 07/01/19; Updated [place] Back Pain DisabilityScale: 56 on 07/01/19. 2Updated Oswestry Disability Index:: 73% (33/45; crippled ) on 04/08/18; updated [place] Back Pain Disability Scale score: 56 on 04/08/18. 3Updated Oswestry: 46% ( severe disability ) on 03/19/17; Updated [place]: 34 on 03/19/17 4Updated [place] Disability Index: 64% crippled and [place] Back Pain Disability Scale: 52 on 02/28/2016. [...]
--- OUTSIDE RECORDS SUMMARY | 2023-02-26 06:16 | XMS_ITS | Continuity of Care Document ---
Author Name Unknown Organization [facility] Address [address] [place] [address]- Care Team Providers Care Allied Health Professional Name Role Phone Hitesh Nick MD, Melia Benjamin Primary Care Physician Encounter [facility] Date(s): 07/20/20 - 08/19/20 [facility] [address] [place] [address]- Allergies, Adverse Reactions, Alerts Substance Reaction Severity [...] 3 Refills, Maintenance, 08/04/20 9:49:00 EDT, [id number], 142, cm, 07/07/20 7:17:00 EST, [...] 03/15/20 9:55:00 EST, Route to Pharmacy Electronically, [facility] STORE 93468, 142, cm, :57:00 EDT, Height, 51, kg, [...] tablet, 1 Refills, Maintenance, 07/13/20 14:22:00 EST, [facility]/pharmacy #[id number], 142, cm, 07/07/20 7:17:00 EST, Height, [...] 50%(15/30; severe disability ) on 01/25/15; updated [facility] Back Pain Disability Scale score: 35 on [...]
--- OUTSIDE RECORDS SUMMARY | 2023-02-26 06:16 | XMS_ITS | Continuity of Care Document ---
Author Name Unknown Organization [facility] [employer] Address [address] [facility], 4t [place] [address]- Care Team Providers Care Risk Compliance Manager Name Role Phone Hitesh Nick MD, Melia Benjamin Primary Care Physician [phone] [id number] Date(s): 08/20/20 - 09/19/20 [facility] [employer] [facility] [address] [facility], 4th [place] [address]- Attending Physician: AdmToby darnell Admitting Physician: AdmtrToby [...] tablet, 3 Refills, Maintenance, 08/04/20 9:49:00 EDT, [facility]/pharmacy #[id number], 142, cm, 07/07/20 7:17:00 EST, Height, [...] 03/15/20 9:55:00 EST, Route to Pharmacy Electronically, [facility] STORE [id number], 142, cm, :57:00 EDT, Height, 51, kg, [...]
--- OUTSIDE RECORDS SUMMARY | 2023-02-26 06:16 | XMS_ITS | Continuity of Care Document ---
Author Name Unknown Organization [facility] [employer] Address [address] [place] [address], 4t [place] [address]- Care Team Providers Care Filer Helper Name Role Phone Hitesh Nick MD, Viviana Benjamin Primary Care Physician [id number] Date[facility]s): 08/05/22 - 12/03/22 [facility] [employer] [address] [facility], [address] [place] [address]- Attending Physician: Rebecca Steele MD Referring Physician: Hitesh Nick MD , Viviana Benjamin Allergies, Adverse Reactions, Alerts Substance Reaction Severity Status aspirin Swelling of throat Active salsalate difficulty breathing, severe swelling who le body Active Motrin Swelling of throat Active zonisamide Finger swelling Rash Active Nuts Swelling of throat Active NSAIDs Active lamoTRIgine Somnolence Confusion Active ZOLMitriptan Chest [...] opioid drug. Start Date: 03/02/22 Status: Ordered sucralfate 1 gm/10 ml oral [...] opioid drug. Start Date: 03/02/22 Status: Ordered Tylenol Extra Strength 500 mg oral tablet 2 tablet = 1,000 mg, By Mouth, Every 6 hours, PRN as needed for pain, # 100 tablet, 2 Refills, Acute 05/06/23 0:00:00 EST, 11/03/22 15:29:00 EDT, Tablet, [facility]/pharmacy #[id number], Partial fill upon patientrequest if the prescription is for a schedule II op... Start Date: 11/03/22 Stop Date: 05/06/23 Status: Ordered Ventolin HFA 108 mcg/inh inhalation [...] Team Personnel Name: Lillian Delatorre MD Position: [facility] ICING AND GLAZE MAKER MD Member Role: Lifetime ICING AND GLAZE MAKER Physician Address: Address: [address] [place] [address]'s [facility] [place] [address]- [place] Name: Sagrario Fan NP Position: [facility] PCO Associate Professional Member Role: Primary Care Nurse Address: Address: [address] [place] [address]- [place] Name: Vince Carrera MD, Otto Calderon Position: [facility] Anesthesiology MD Member Role: Lifetime Consulting Physician Address: Address: [address] [place] [address] [place] [address]- [place] Name: Hitesh Nick MD , Viviana Benjamin Position: Reference Physician Member Role: PCP Address: Address: [address] [place] [address]- [place] Name: Eveline Brown RN Position: [facility] RN Member Role: Primary Care Nurse Care Team Related Persons Name: ELIANA HEARD Address: home [address] [place] [address] Name: LIZBETH INTERIANO Address: home [address] [address]
--- OUTSIDE RECORDS SUMMARY | 2023-02-26 06:16 | XMS_ITS | Continuity of Care Document ---
Author Name Unknown Organization [facility] Address [address] [place] [address]- Care Team Providers Care Distribution Engineering Technologist Name Role Phone Hitesh Nick MD, Olinda Primary Care Physician Encounter [facility] [place] Date(s): 10/19/20 - 11/18/[address] [address] Attending Physician: Admtr, Toby Admitting Physician: Admtr, Ar8 Referring Physician: Admtr, Ar8 Allergies, Adverse Reactions, [...] Electronically, [facility] STORE 11681, 142, cm, 207:57:00 EDT, Height, 51, kg, [...] 66% ( crippled ) on 07/01/19; Updated [place] Back Pain DisabilityScale: 56 on 07/01/19. 2Updated Oswestry Disability Index:: 73% (33/45; crippled ) on 04/08/18; updated [place] Back Pain Disability Scale score: 56 on 04/08/18. 3Updated [place]estry: 46% ( severe disability ) on 03/19/17; Updated [place]: 34 on 03/19/17 4Updated [place] Disability Index: 64% crippled and [place] Back Pain Disability Scale: 52 on 02/28/2016. [...]
--- OUTSIDE RECORDS SUMMARY | 2023-02-26 06:16 | XMS_ITS | Continuity of Care Document ---
Author Name Unknown Organization [facility] Address [address] [place] [address]- Care Team Providers Care Coach Wirer Name Role Phone Hitesh Nick MD, Melia Benjamin Primary Care Physician Encounter [facility] Date(s): 01/14/20 - 02/13/20 [facility] [address] [place] [address]- [facility] Allergies, Adverse Reactions, [...] 01/26/20 11:54:00 EDT, Route to Pharmacy Electronically, [facility]/pharmacy #[id number] Tablet, Partial fill upon patient request, 142, cm, 0... Start Date: 01/26/20 Status: Ordered acetaminophen-oxyCODONE 325 mg-5 mg oral tablet 1-2 tablets, By Mouth, 3 times a day, PRN Pain.Max 6tabs/day.RX 2 of 2, # 84 tablet, Refills 0, Tot. Refills 0, Maintenance, 01/26/20 11:54:00 EDT, Route to Pharmacy Electronically, [facility]/pharmacy #[id number] Tablet, Partial fill upon patient request, ... Start Date: 01/26/20 Status: Ordered AneCream 5 topical cream APPLY TO AFFECTED AREA 4 TIMES A DAY NEEDED Start Date: 04/09/19 Status: Ordered cimetidine 300 mg oral tablet See Instructions, 1-2 tabs po 3-4 times/day 30min before meals & qhs. Replaces famotidine &esomeprazole, # 90 tablet, 3 Refills, Maintenance, 12/01/19 9:58:00 EDT, [facility]/pharmacy #[id number], 142, cm, 11/13/19 12:42:00 EDT, Height, [...] 01/12/20 3:54:00 EDT, Route to Pharmacy Electronically, [facility] STORE 74832, 142, cm, 01/07/2013:49:00 EDT, Height, 51, kg, [...] tablet, 3 Refills, Maintenance, 10/30/19 13:08:00 EDT, [facility]/pharmacy #[id number], Will flower buncher or picker 11/02 along w/oxycodone- APAP currently on [...] plz prepare oxycodone/APAP (rx on hold) for flower buncher or picker 07/08. Thank you, 142, cm, 07/01/19 [...]
--- OUTSIDE RECORDS SUMMARY | 2023-02-26 06:16 | XMS_ITS | Continuity of Care Document ---
Author Name Unknown Organization [facility] Address [address] [place] [address]- Care Team Providers Care Winding Department Supervisor Name Role Phone Rudolph Paul NP Primary Care Physi [place] Encounter [facility] [place] Date(s): 08/13/19 - 10/30/19 [facility] [address] [place] [address]- [facility] Attending Physician: Lane Grace MD Admitting Physician: Lane Grace MD Referring Physician: Rudolph Paul NP Allergies, Adverse Reactions, Alerts Substance Reaction Severity [...] 10/16/19 13:55:00 EDT, Route to Pharmacy Electronically, [facility]/pharmacy #[id number] Tablet, Partial fill upon patient request, 142, cm, 05... Start Date: 10/16/19 Status: Ordered acetaminophen-oxyCODONE 325 mg-5 mg oral tablet 1-2 tablets, By Mouth, 3 times a day, PRN Pain.Max 6tabs/day.RX 2 of 2, # 84 tablet, Refills 0, Tot. Refills 0, Maintenance, 10/16/19 13:55:00 EDT, Route to Pharmacy Electronically, [facility]/pharmacy #[id number] Tablet, Partial fill upon patient request, ... Start Date: 10/16/19 Status: Ordered Adderall XR 10 mg oral capsule, extended release See Instructions, 1 capsule By Mouth Daily in AM, 1 capsule at 12PM., # 56 capsule, 0 Refills, Maintenance, 10/20/19 8:37:00 EDT, [facility]/pharmacy #[id number], 1 capsule By Mouth Daily [...] tablet, 3 Refills, Maintenance, 09/18/19 9:33:00 EDT, [facility]/pharmacy #[id number], 142, cm, 09/15/19 15:31:00 EDT, [...] Instructions Replace Required Details, Routeto Pharmacy Electronically, [facility]/pharmacy #[id number], 142... Start Date: 10/21/19 Status: Ordered famotidine 40 mg/5 ml oral powder for reconstitution TAKE 5 ML BY MOUTH ONCE A DAY AT BEDTIME Start Date: 09/15/19 Status: Ordered ibuprofen 600 mg oral tablet 1, tablet, By Mouth, Every 6 hours, PRN, # 100 tablet, Refills 2, Tot. Refills 0, Acute, NEEDED FOR PAIN, 10/16/19 7:59:00 EDT, Route to Pharmacy Electronically, [facility] STORE 35952, 142, cm, 09/14/2014:31:00 EDT, Height, 51, kg, [...] tablet, 3 Refills, Maintenance, 10/30/19 13:08:00 EDT, [facility]/pharmacy #[id number], Will picker/puller 11/02 along w/oxycodone- APAP currently on hold., [...] plz prepare oxycodone/APAP (rx on hold) for picker/puller 07/08. Thank you, 142, cm, 07/01/19 15:50:00 [...]
--- OUTSIDE RECORDS SUMMARY | 2023-02-26 06:16 | XMS_ITS | Continuity of Care Document ---
Author Name Unknown Organization [facility] Address [address] [place] [address]- Care Team Providers Care Public Health Staff Nurse Name Role Phone Hitesh Nick MD, Melia Benjamin Primary Care Physician [phone] Encounter [facility] [place] Date(s): 06/15/20 - 07/15/20 [facility] [address] [place] [id number] Allergies, Adverse Reactions, Alerts Substance Reaction Severity [...] tablet, 3 Refills, Maintenance, 05/10/20 13:13:00 EST, [facility]/pharmacy #[id number], 142, cm, 04/07/20 14:00:00 [...] 03/15/20 9:55:00 EST, Route to Pharmacy Electronically, [facility] STORE 10400, 142, cm, :57:00 EDT, Height, 51, kg, [...] left shoulder(Confirmed) Active Shoulder pain, left, mechani shaym (including at AC joint)(Confirmed) Active Shoulder pain, [...] 50%(15/30; severe disability ) on 01/25/15; updated [facility] Back Pain Disability Scale score: 35 on [...]
--- OUTSIDE RECORDS SUMMARY | 2023-02-26 06:16 | XMS_ITS | Continuity of Care Document ---
Author Name Unknown Organization [facility] Address [address] [place] [address]- Care Team Providers Care Account Supervisor Name Role Phone Hitesh Nick MD, Melia Benjamin Primary Care Physician Encounter [facility] Date(s): 06/11/20 - 07/11/20 [facility] [address] [place] [id number] Allergies, Adverse Reactions, Alerts Substance Reaction Severity [...] tablet, 3 Refills, Maintenance, 05/10/20 13:13:00 EST, [facility]/pharmacy #[id number], 142, cm, 04/07/20 14:00:00 EST, Height, [...] 03/15/20 9:55:00 EST, Route to Pharmacy Electronically, [facility] STORE 50068, 142, cm, :57:00 EDT, Height, 51, kg, [...]
--- OUTSIDE RECORDS SUMMARY | 2023-02-26 06:16 | XMS_ITS | Continuity of Care Document ---
Author Name Unknown Organization [facility] [employer] Address [address] [facility], [address] [place] [address]- Care Team Providers Care Threshing Operator Name Role Phone Hitesh Nick MD, Melia Benjamin Primary Care Physician [phone] [id number] Date(s[facility] 07/22/20 - 09/19/20 [facility] [employer] [address] [facility], [address] [place] [address]- Attending Physician: Ivette WHITEHEAD, Rebecca Flores Allergies, Adverse Reactions, Alerts Substance Reaction Severity [...] tablet, 3 Refills, Maintenance, 08/04/20 9:49:00 EDT, [facility]/pharmacy #[id number], 142, cm, 07/07/20 7:17:00 EST, [...] 03/15/20 9:55:00 EST, Route to Pharmacy Electronically, [facility] STORE 38055, 142, cm, :57:00 EDT, Height, 51, kg, [...]
--- OUTSIDE RECORDS SUMMARY | 2023-02-26 06:16 | XMS_ITS | Continuity of Care Document ---
Author Name Unknown Organization [facility] Address [address] [place] [address]- Care Team Providers Care Computer Security Specialist Name Role Phone Humberto AERIAL LINEMAN, Rudolph Ochoa Primary Care Physi courtney [place] [facility] [place] Date(s): 12/10/19 - 01/09/20 [facility] [address] [place] [address] [facility] Allergies, Adverse Reactions, Alerts Substance Reaction Severity [...] 12/25/19 12:39:00 EDT, Route to Pharmacy Electronically, [facility]/pharmacy #[id number] Tablet, Partial fill upon patient request, ... Start Date: 12/25/19 Status: Ordered acetaminophen-oxyCODONE 325 mg-5 mg oral tablet 1-2 tablets, By Mouth, 3 times a day, PRN Pain.Max 6/day. RX 1 of 2, # 84 tablet, Refills 0, Tot. Refills 0, Maintenance, 12/25/19 12:39:00 EDT, Route to Pharmacy Electronically, [facility]/pharmacy #[id number] Tablet, Partial fill upon patient request, 142, cm, 0... Start Date: 12/25/19 Status: Ordered AneCream 5 topical cream APPLY TO AFFECTED AREA 4 TIMES A DAY NEEDED Start Date: 04/09/19 Status: Ordered cimetidine 300 mg oral tablet See Instructions, 1-2 tabs po 3-4 times/day 30min before meals & qhs. Replaces famotidine &esomeprazole, # 90 tablet, 3 Refills, Maintenance, 12/01/19 9:58:00 EDT, [facility]/pharmacy #[id number], 142, cm, 11/13/19 12:42:00 EDT, Height, 51, kg, 07/18/19 15:34:00... Start Date: 12/01/19 Status: Ordered clonazePAM 1 mg oral tablet TAKE 1 TABLET BY MOUTH THREE TIMES A DAY NEEDED FOR ANXIETY AND REST Start Date: 06/06/18 Status: Ordered ibuprofen 600 mg oral tablet 1, tablet, By Mouth, Every 6 hours, PRN, # 100 tablet, Refills 2, Tot. Refills 0, Acute, NEEDED FOR PAIN, 10/16/19 7:59:00 EDT, Route to Pharmacy Electronically, [facility] STORE 37321, 142, cm, 09/14/2014:31:00 EDT, Height, 51, kg, [...] tablet, 3 Refills, Maintenance, 10/30/19 13:08:00 EDT, [facility]/pharmacy #[id number], Will bead picker 11/02 along w/oxycodone- APAP currently on [...] tablet, 2 Refills, Maintenance, 12/01/2016:05:00 EDT, Tablet, [facility]/pharmacy #[id number], 142, cm,... Start Date: 12/02/19 Status: Ordered topiramate 200 mg oral tablet 1.5 tablets, By Mouth, 2 times a day, 90 day supply, # 270 tablet, 3 Refills, Maintenance, 07/07/2013:01:00 EST, [id number], Also plz prepare oxycodone/APAP (rx on hold) for bead picker 07/08. Thank you, 142, cm, 07/01/19 [...] 66% ( crippled ) on 07/01/19; Updated [place] Back Pain DisabilityScale: 56 on 07/01/19. 2Updated [place]estry Disability Index:: 73% (33/45; crippled ) on 04/08/18; updated [place] Back Pain Disability Scale score: 56 on 04/08/18. 3Updated [place]: 46% ( severe disability ) on 03/19/17; Updated [place]: 34 on 03/19/17 4Updated [place] Disability Index: 64% crippled and [place] Back Pain Disability Scale: 52 on 02/28/2016. [...]
--- OUTSIDE RECORDS SUMMARY | 2023-02-26 06:16 | XMS_ITS | Continuity of Care Document ---
Author Name Unknown Organization [facility] [employer] Address [address] [facility], [address] [place] [address]- Care Team Providers Care Ux Information Architect Name Role Phone Hitesh Nick MD, Melia Benjamin Primary Care Physician [place] [facility] [place] Date(s): 07/22/20 - 08/21/20 [facility] [employer] [address] [facility], [address] [place] [address]- Allergies, Adverse Reactions, Alerts Substance Reaction Severity [...] 3 Refills, Maintenance, 08/04/20 9:49:00 EDT, [id number], 142, cm, 07/07/20 7:17:00 EST, Height, 51, [...] 03/15/20 9:55:00 EST, Route to Pharmacy Electronically, [facility] STORE 28173, 142, cm, 207:57:00 EDT, Height, 51, kg, [...] crippled ) on 07/01/19; Updated [place] Back Pain DisabilityScale: 56 on 07/01/19. 2Updated [place]estry Disability Index:: 73% (33/45; crippled ) on 04/08/18; updated [place] Back Pain Disability Scale score: 56 on 04/08/18. 3Updated [place]: 46% ( severe disability ) on 03/19/17; Updated [place]: 34 on 03/19/17 4Updated [place] Disability Index: 64% crippled and [place] Back Pain Disability Scale: 52 on [...]
--- OUTSIDE RECORDS SUMMARY | 2023-02-26 06:17 | XMS_ITS | Continuity of Care Document ---
Author Name Unknown Organization [facility] Address Unknown Care Team Providers Care Wire Setter Name Role Phone Hitesh Nick MD, Olinda Primary Care Physician [phone] Encounter [facility] Date(s): 11/24/20 - 12/24/20 [facility] Allergies, Adverse Reactions, Alerts Substance Reaction Severity [...] tablet, 3 Refills, Maintenance, 08/04/20 9:49:00 EDT, [facility]/pharmacy #[id number], 142, cm, 07/07/20 7:17:00 EST, [...] 03/15/20 9:55:00 EST, Route to Pharmacy Electronically, [facility] STORE 06737, 142, cm, :57:00 EDT, Height, 51, kg, [...] tablet, 1 Refills, Maintenance, 07/13/20 14:22:00 EST, [facility]/pharmacy #[id number], 142, cm, 07/07/20 7:17:00 EST, Height, 51, kg, 07/18/19 15:34:00 EDT, Dry Weight Start Date: 07/13/20 Status: Ordered SUMAtriptan 25 mg oral tablet See Instructions, 1 tab at onset of migraine. May repeat 1 tab after 2hrs. 28 DAY SUPPLY. Treat maxof 1 h/a per week., # 8 tablet, 2 Refills, Maintenance, 07/29/20 10:52:00 EDT, Tablet, [facility]/pharmacy#[id number], 142, cm, 07/07/20 7:17:00 EST, Height, 51, k... Start Date: 07/29/20 Status: Ordered topiramate 200 mg oral tablet 1.5 tablets, By Mouth, 2 times a day, 90 day supply, # 270 tablet, 3 Refills, Maintenance, 06/17/2114:15:00 EST, [facility]/pharmacy #[id number], 142, cm, 06/03/20 14:39:00 EST, Height, [...] Refills, Maintenance, 07/31/20 15:57:00 EDT, ER Tablet, [facility]/pharmacy #[id number], Partial fill upon patient request if [...]
--- OUTSIDE RECORDS SUMMARY | 2023-02-26 06:17 | XMS_ITS | Continuity of Care Document ---
Author Name Unknown Organization [facility] Address [address] [place] [address]- Care Team Providers Care Car Deliverer Name Role Phone Humberto PRIMARY THERAPIST, Rudolph Ochoa Primary Care Physi [facility] [place] Encounter [facility] Date(s): 07/07/19 - 09/18/19 [facility] [address] [place] [address]- [facility] Attending Physician: Lane Grace MD Admitting Physician: [...] tablet, Refills 0, Tot. Refills 0, Maintenance, 09/18/19 11:29:00 EDT, Route to Pharmacy Electronically, [facility]/pharmacy #[id number] Tablet, Partial fill upon patient request, 142, cm, 05... Start Date: 09/18/19 Status: Ordered acetaminophen-oxyCODONE 325 mg-5 mg oral tablet 1-2 tablets, By Mouth, 3 times a day, PRN Pain.Max 6tabs/day.RX 2 of 2, # 84 tablet, Refills 0, Tot. Refills 0, Maintenance, 09/18/19 11:29:00 EDT, Route to Pharmacy Electronically, [facility]/pharmacy #[id number] Tablet, Partial fill upon patient request, ... Start Date: 09/18/19 Status: Ordered Adderall XR 10 mg oral capsule, extended release See Instructions, 1 capsule By Mouth Daily in AM, 1 capsule at 12PM., # 56 capsule, 0 Refills, Maintenance, 09/18/19 11:29:00 EDT, [facility]/pharmacy #[id number], 1 capsule By Mouth Daily in AM, 1 capsule at 12PM., 142, cm, 09/15/19 15:31:00 EDT, Height, 51, kg,... Start Date: 09/18/19 Status: Ordered AneCream 5 topical cream APPLY [...] tablet, 3 Refills, Maintenance, 09/18/19 9:33:00 EDT, [facility]/pharmacy #[id number], 142, cm, 09/15/19 15:31:00 EDT, Height, 51, kg, 07/18/19 15:34:00... Start Date: 09/18/19 Status: Ordered citalopram 40 mg oral tablet TAKE 1 TABLET BY MOUTH AT BEDTIME FOR ANXIETY/MOOD Start Date: 01/28/18 Status: Ordered clonazePAM 1 mg oral tablet TAKE 1 TABLET BY MOUTH THREE TIMES A DAY NEEDED FOR ANXIETY AND REST Start Date: 06/06/18 Status: Ordered estradiol 0.1 mg/g vaginal cream APPLY VAGINALLY 4GM ONCE DAILY X2 WEEKS, 2GM DAILY X1 WEEK THEN 1GM WEEKLY THEREAFTER Start Date: 07/01/19 Status: Ordered famotidine 40 mg/5 ml oral powder for reconstitution TAKE 5 ML BY MOUTH ONCE A DAY AT BEDTIME Start Date: 09/15/19 Status: Ordered Linzess 145 mcg oral capsule 1 capsule = 145 mcg, By Mouth, 2 times a day, # 30 capsule, 0 Refills, Maintenance, 02/06/17 14:58:22, Capsule Start Date: 02/06/17 Status: Ordered memantine 10 mg oral tablet See Instructions, 0.5 tablet By Mouth 2 times a day for 14 days, then 0.5 tab in AM, 1 tab hs. (On refill will take 1 tab bid.), # 28 tablet, 0 Refills, Maintenance, 09/15/19 16:30:00 EDT, [facility]/pharmacy #[id number], 142, cm, 09/15/19 15:31:00 EDT, Height, 51... Start Date: 09/15/19 Status: Ordered Movantik 25 mg oral tablet TAKE 1 TABLET BY MOUTH EVERY DAY IN THE MORNING Start Date: 02/17/19 Status: Ordered ondansetron 8 mg oral tablet 1 tablet = 8 mg, By Mouth, 2 times a day, # 56 tablet, 3 Refills, Maintenance, 05/28/19 15:40:00 EST, [facility]/pharmacy #[id number], 142, cm, 05/05/19 15:28:00 EST, Height, 53.1, kg, 07/12/18 13:35:00 EST, Dry Weight Start Date: 05/28/19 Status: Ordered SUMAtriptan 25 mg oral tablet See Instructions, PRN for migraine headache, 1 tab at onset of migraine. If needed may repeat 1 tabafter 2hrs. Treat max of 1 h/a per week. supply, # 8 tablet, 2 Refills, Maintenance, 08/31/2010:42:00 EDT, Tablet, [facility]/pharmacy #[id number], 142, cm,... Start Date: 09/01/19 Status: Ordered topiramate 200 mg oral tablet 1.5 tablets, By Mouth, 2 times a day, 90 day supply, # 270 tablet, 3 Refills, Maintenance, 07/07/2013:01:00 EST, [id number], Also plz prepare oxycodone/APAP (rx on hold) for picker packer 07/08. Thank you, 142, cm, 07/01/19 15:50:00 [...]
--- OUTSIDE RECORDS SUMMARY | 2023-02-26 06:17 | XMS_ITS | Continuity of Care Document ---
Author Name Unknown Organization [facility] Address [address] [place] [address]- Care Team Providers Care Delimer Name Role Phone Hitesh Nick MD, Melia Benjamin Primary Care Physician Encounter [place] Date(s): 02/10/20 - 03/11/20 [facility] [address] [place] [address] Allergies, Adverse Reactions, Alerts Substance Reaction Severity [...] Mouth, 3 times a day, PRN Pain.Max 6/day., # 84 tablet, Refills 0, Tot. Refills 0, Maintenance, 02/24/20 17:04:00 EDT, Route to Pharmacy Electronically, [facility]/pharmacy #[id number] Tablet, Partial fill upon patient request, 142, cm, 02/24/20 14... Start Date: 02/24/20 Status: Ordered acetaminophen-oxyCODONE 325 mg-5 mg oral tablet 1-2 tablets, By Mouth, 3 times a day, PRN Pain.Max 6tabs/day., # 84 tablet, Refills 0, Tot. Refills0, Maintenance, 03/08/20 20:03:00 EST, Route to Pharmacy Electronically, [facility]/pharmacy #[id number] Tablet,Partial fill upon patient request, 142, cm, ... Start Date: 03/08/20 Status: Ordered buprenorphine 10 mcg/hr transdermal film, extended release 1 patch, Topically, Every 7 days, # 2 patch, 0 Refills, Maintenance, 03/09/20 14:23:00 EST, Dry Weight Start Date: 03/09/20 Status: Ordered cimetidine 300 mg oral tablet See Instructions, 1-2 tabs po 3-4 times/day 30min before meals & qhs. Replaces famotidine &esomeprazole, # 90 tablet, 3 Refills, Maintenance, 12/01/19 9:58:00 EDT, [facility]/pharmacy #[id number], 142, cm, 11/13/19 12:42:00 EDT, Height, [...] 01/12/20 3:54:00 EDT, Route to Pharmacy Electronically, [facility] STORE [id number], 142, cm, 01/07/2013:49:00 EDT, Height, 51, kg, [...] Maintenance, 10/30/19 13:08:00 EDT, [id number], Will case picker 11/02 along w/oxycodone- APAP currently on hold., 142, cm, 10/28/19 16:01:00 EDT, Height, 51, kg, 07/18/19 15:34:00 ED... Start Date: 10/30/19 Status: Ordered sucralfate 1 gm/10 ml oral [...] supply, # 8 tablet, 2 Refills, Maintenance, 02/23/2017:04:00 EDT, Tablet, [id number], 142, cm,... Start Date: 02/24/20 Status: Ordered topiramate 200 mg oral tablet 1.5 tablets, By Mouth, 2 times a day, 90 day supply, # 270 tablet, 3 Refills, Maintenance, 07/07/2013:01:00 EST, [id number], Also plz prepare oxycodone/APAP (rx on hold) for case picker 07/08. Thank you, 142, cm, 07/01/19 [...] 66% ( crippled ) on 07/01/19; Updated [place] Back Pain DisabilityScale: 56 on 07/01/19. 2Updated Oswestry Disability Index:: 73% (33/45; crippled ) on 04/08/18; updated [place] Back Pain Disability Scale score: 56 on 04/08/18. 3Updated Oswestry: 46% ( severe disability ) on 03/19/17; Updated [place]: 34 on 03/19/17 4Updated [place] Disability Index: 64% crippled and [place] Back Pain Disability Scale: 52 on 02/28/2016. [...]
--- OUTSIDE RECORDS SUMMARY | 2023-02-26 06:17 | XMS_ITS | Continuity of Care Document ---
Author Name Unknown Organization [facility] [employer] Address [address] [place] [address]- Care Team Providers Care Doper Operator Name Role Phone Hitesh Nick MD, Melia Benjamin Primary Care Physician Encounter [facility] [id number] Date(s): 08/25/20 - 09/24/20 [facility] [employer] [facility] [address] [place] [address]- Attending Physician: AdmToby darnell Admitting Physician: AdmtrToby [...] tablet, 3 Refills, Maintenance, 08/04/20 9:49:00 EDT, [facility]/pharmacy #[id number], 142, cm, 07/07/20 7:17:00 EST, [...] 03/15/20 9:55:00 EST, Route to Pharmacy Electronically, [facility] STORE [id number], 142, cm, :57:00 EDT, Height, 51, kg, [...] 66% ( crippled ) on 07/01/19; Updated [place] Back Pain DisabilityScale: 56 on 07/01/19. 2Updated Oswestry Disability Index:: 73% (33/45; crippled ) on 04/08/18; updated [place] Back Pain Disability Scale score: 56 on 04/08/18. 3Updated Oswestry: 46% ( severe disability ) on 03/19/17; Updated [place]: 34 on 03/19/17 4Updated [place] Disability Index: 64% crippled and [place] Back Pain Disability Scale: 52 on 02/28/2016. [...]
--- OUTSIDE RECORDS SUMMARY | 2023-02-26 06:17 | XMS_ITS | Continuity of Care Document ---
Author Name Unknown Organization [facility] [employer] [employer] [facility] Address [address] [place] [address], [address] [place] [address]- Care Team Providers Care Needleworker Name Role Phone Hitesh Nick MD, Viviana Benjamin Primary Care Physician [phone] Encounter [facility] Date(s): 11/03/22 - 11/10/22 [facility] [employer] [facility] [address] [place] [address]- Attending Physician: Ivette WHITEHEAD, Rebecca Flores Allergies, Adverse Reactions, Alerts Substance Reaction Severity Status aspirin Swelling of throat Active NSAIDs Active salsalate difficulty breathing, severe swelling who le body Active Motrin Swelling of throat Active zonisamide Finger swelling Rash Active Nuts Swelling of throat Active ZOLMitriptan Chest tightness Active lamoTRIgine Somnolence Confusion Active Immunizations Given [...] 05/06/23 0:00:00 EST, 11/03/22 15:29:00 EDT, Tablet, [facility]/pharmacy #[id number], Partial fill upon patientrequest if the prescription [...] 50%(15/30; severe disability ) on 01/25/15; updated [facility] Back Pain Disability Scale score: 35 on 01/25/15. 6Initial Oswestry Disability Index: 80% ( crippled ) on 04/25/2013. 7On 01/28/18 prescribed a trial rotat'n oxycodone/APAP->immediate release morphine. After 24 hr oftx w i.r. morphine, developed a horrible headache and felt off balance. On 02/01/18 the morphinetrial was abandoned. Vital Signs Most recent to oldest [Reference Range]: 1 Height 145 cm (11/03/22 3:12 PM) Weight 52.72 kg (11/03/22 3:12 PM) Body Mass Index [18.5-24.99 kg/m2] 25.07 kg/m2 *H* (11/03/22 3:12 PM) Systolic Blood Pressure [90-138 mm Hg] 1 40 mm Hg *H* (11/03/22 3:12 PM) Blood pressure sites Arm, left (11/03/22 3:12 PM) Dry Weight Obtained Via Standing scale (11/03/22 3:12 PM) Social History Social History Type Response Smoking Status Never smoker entered on: 04/25/13 Sex Note * Emily Redding: PERFORM, SIGN, VERIFY Event Display: Patient Education/Instruction Authored Date: [id number] [facility] *[facility] [employer] Clinical Summary Name ORTIZ BERNAL Age 57 Years 1965 PCP Hitesh Nick MD , Viviana Benjamin PCP Visit Date 11/03/2022 14:40:00 Additional Instructions: Scheduled Appointments?? Future Appointments ?*[facility] ?[address]??[place],??[place],??[address] ?Phone:??--?Fax:??-- ?Appt. Date:??11/23/2022?11:40 AM ?Scheduled Provider:??Soren WHITEHEAD , Weston Manuel Follow-Up Instructions ?? Diagnosis Pelvic and perineal pain Medications: Please continue your medications until treatment is completed or stopped by your provider. Discuss any questions related to medications with your provider. New Medications [id number], [address] [place], [place] [id number], [phone] Acetaminophen (Tylenol Extra Strength 500 mg oral tablet) 2 tab(s) Oral every 6 hours as needed as needed for pain. Refills: 2. Next Dose: Medications to Continue with No Changes These medications were not printed or sent to your pharmacy Albuterol (Ventolin HFA 108 mcg/inh inhalation aerosol with adapter) Next Dose: BuPROpion 150 Milligram Oral Daily. Next Dose: Clonazepam (clonazePAM 1 mg oral tablet) Next Dose: Diclofenac Topical (diclofenac 1% topical gel) Next Dose: linaclotide (Linzess 145 mcg oral capsule) 1 capsule Oral twice a day. Next Dose: naloxegol (Movantik 12.5 mg oral tablet) Next Dose: Omeprazole (omeprazole 40 mg oral enteric coated capsule) Next Dose: plecanatide (Trulance 3 mg oral tablet) Next Dose: Sucralfate (sucralfate 1 gm/10 ml oral suspension) Next Dose: Sumatriptan 50 Milligram Daily. Next Dose: Tizanidine (tiZANidine 4 mg oral capsule) Next Dose: No Longer Take the Following Medications Oxycodone / Acetaminophen (Percocet 5 mg-325 mg oral tablet) 1 tab(s) Oral 3 times a day as needed as needed for pain. Allergy Info:?? ZOLMitriptan; lamoTRIgine; NSAIDs; Nuts; zonisamide; Motrin; salsalate; aspirin Medications Given This Visit Future Orders ?No future orders Vital Signs Height 145 cm Weight 52.72 kg BMI 25.07 kg/m2 Blood Pressure 140 mm Hg/ Temperature Pulse Rate Respiratory Rate 02 Sat Mode of Delivery / You can now view a summary of your hospital visit from the comfort of your home through a free online portal called Wagon. Wagon is a website that allows you to securely view your medical information including discharge summary, medications and follow-up visits. ??You can alsosend a secure electronic message to your doctor???s office to request appointments, renew medications or just ask a question. You can enroll at [email or web address] or register during your next office visit. Disclaimer:?? The information provided is of a general nature and is intended to be used in conjunction with the recommendations and advice of your health care practitioner. ??Every effort has been made to ensure that the information provided is accurate and complete at the time it is provided to you however, as your needs change, or, as new ??information becomes available, different or additional instructions may be required. If you have questions, please consult with your primary care provider or pharmacist, as appropriate. ??This information is not intended to serve as substitution for assessment and evaluation by a qualified health care provider. If you do not have a primary care provider, you may find a [facility] provider by calling [facility] at [phone]. For information about the plan of care including goals and instructions for your diagnosis, please see the patient education orders section of this document. Patient Education Materials?? The content of this educational material or handout may have been modified, supplemented, or adapted from its original content and format to support your individualized medical care. Please follow instructions discussed with your provider during this visit as well as any education documents you were given today. Patient Care team information Care Team Personnel Name: Lillian Delatorre MD Position: [facility] [employer] MD Member Role: Lifetime [employer] Physician Address: Address: [address] [facility] [employer] [place] [address]- [place] Name: Sagrario Fan NP Position: [facility] PCO Associate Professional Member Role: Primary Care Nurse Address: Address: [address] [place] [address]- [place] Name: Otto Clarke Jr, MD Position: [facility] Anesthesiology MD Member Role: Lifetime Consulting Physician Address: Address: [address] [facility] [place] [address]- [place] Name: Viviana Jacobs MD Position: Reference Physician Member Role: PCP Address: Address: [address] [place] [address]- [place] Name: Eveline Brown RN Position: [facility] RN Member Role: Primary Care Nurse Care Team Related Persons Name: ELIANA HEARD Address: home [address] [place] [address] Name: LIZBETH INTERIANO Address: home [address] [address]
--- OUTSIDE RECORDS SUMMARY | 2023-02-26 06:17 | XMS_ITS | Continuity of Care Document ---
Author Name Unknown Organization [facility] Address [address] [place] [address]- Care Team Providers Care Wet Pour Supervisor Name Role Phone Hitesh Nick MD, Olinda Primary Care Physician [place] [facility] Date(s): 10/13/20 - 11/18/[address] [address] Allergies, Adverse Reactions, Alerts Substance Reaction Severity [...] 03/15/20 9:55:00 EST, Route to Pharmacy Electronically, [facility] 985[facility], 142, cm, :57:00 EDT, Height, 51, kg, [...] 270 tablet, 3 Refills, Maintenance, 06/17/2114:15:00 EST, [facility]/pharmacy #[id number], 142, cm, 06/03/20 14:39:00 EST, Height, [...] Refills, Maintenance, 07/31/20 15:57:00 EDT, ER Tablet, [facility]/pharmacy #[id number], Partial fill upon patient request if [...]
--- OUTSIDE RECORDS SUMMARY | 2023-02-26 06:17 | XMS_ITS | Continuity of Care Document ---
Author Name Unknown Organization [facility] Address [address] [place] [address]- Care Team Providers Care Civil Designer Name Role Phone Hitesh Nick MD, Melia Benjamin Primary Care Physician Encounter [facility] Date(s): 12/29/19 - 01/28/20 [facility] [address] [place] [address] [facility] Allergies, Adverse Reactions, Alerts [...] 01/26/20 11:54:00 EDT, Route to Pharmacy Electronically, [facility]/pharmacy #[id number] Tablet, Partial fill upon patient request, 142, cm, 0... Start Date: 01/26/20 Status: Ordered acetaminophen-oxyCODONE 325 mg-5 mg oral tablet 1-2 tablets, By Mouth, 3 times a day, PRN Pain.Max 6tabs/day.RX 2 of 2, # 84 tablet, Refills 0, Tot. Refills 0, Maintenance, 01/26/20 11:54:00 EDT, Route to Pharmacy Electronically, [facility]/pharmacy #[id number] Tablet, Partial fill upon patient request, ... Start Date: 01/26/20 Status: Ordered AneCream 5 topical cream APPLY TO AFFECTED AREA 4 TIMES A DAY NEEDED Start Date: 04/09/19 Status: Ordered cimetidine 300 mg oral tablet See Instructions, 1-2 tabs po 3-4 times/day 30min before meals & qhs. Replaces famotidine &esomeprazole, # 90 tablet, 3 Refills, Maintenance, 12/01/19 9:58:00 EDT, [facility]/pharmacy #[id number], 142, cm, 11/13/19 12:42:00 EDT, Height, [...] 01/12/20 3:54:00 EDT, Route to Pharmacy Electronically, [facility] STORE 56501, 142, cm, 01/07/2013:49:00 EDT, Height, 51, kg, [...] tablet, 3 Refills, Maintenance, 10/30/19 13:08:00 EDT, [facility]/pharmacy #[id number], Will slat pickler 11/02 along w/oxycodone- APAP currently on hold., [...] tablet, 2 Refills, Maintenance, 12/01/2016:05:00 EDT, Tablet, [facility]/pharmacy #[id number], 142, cm,... Start Date: 12/02/19 Status: Ordered topiramate 200 mg oral tablet 1.5 tablets, By Mouth, 2 times a day, 90 day supply, # 270 tablet, 3 Refills, Maintenance, 07/07/2013:01:00 EST, [id number], Also plz prepare oxycodone/APAP (rx on hold) for slat pickler 07/08. Thank you, 142, cm, 07/01/19 15:50:00 [...]
--- OUTSIDE RECORDS SUMMARY | 2023-02-26 06:17 | XMS_ITS | Continuity of Care Document ---
Author Name Unknown Organization [facility] Address [address] [place] [address]- Care Team Providers Care Due Diligence Coordinator Name Role Phone Humberto RIVERA, Rudolph Ochoa Primary Care Physi [facility] [place] Encounter [facility] Date(s): 07/04/19 - 08/28/19 [facility] [address] [place] [address]- [facility] Attending Physician: Lane Grace MD Admitting Physician: Lane Grace MD Referring Physician: Araceli Ziegler MD Allergies, Adverse [...] tablet, Refills 0, Tot. Refills 0, Maintenance, 08/21/19 11:06:00 EDT, Route to Pharmacy Electronically, [facility]/pharmacy #[id number] Tablet, Partial fill upon patient request, 142, cm, 03... Start Date: 08/21/19 Status: Ordered acetaminophen-oxyCODONE 325 mg-5 mg oral tablet 1-2 tablets, By Mouth, 3 times a day, PRN Pain.Max 6tabs/day.RX 2 of 2, # 84 tablet, Refills 0, Tot. Refills 0, Maintenance, 08/21/19 11:06:00 EDT, Route to Pharmacy Electronically, [facility]/pharmacy #[id number] Tablet, Partial fill upon patient request, ... Start Date: 08/21/19 Status: Ordered Adderall XR 10 mg oral capsule, extended release See Instructions, 1 capsule By Mouth Daily in AM, 1 capsule at 12PM., # 56 capsule, 0 Refills, Maintenance, 08/07/19 9:16:00 EDT, [facility]/pharmacy #[id number], PLEASE also prepare oxycodone/APAP rx currently on hold. Thank you, 1 capsule By Mouth Daily in AM, 1... Start Date: 08/07/19 Status: Ordered AneCream 5 topical cream APPLY [...] qhs. Replaces famotidine &esomeprazole, # 90 tablet, 1 Refills, Maintenance, 08/11/19 10:38:00 EDT, [facility]/pharmacy #[id number], 142, cm, 07/18/19 15:34:00 EDT, Height, 51, kg, 07/18/19 15:34:00... Start Date: 08/11/19 Status: Ordered citalopram 40 mg oral tablet [...] WEEKLY THEREAFTER Start Date: 07/01/19 Status: Ordered gabapentin 100 mg oral capsule TAKE 1 CAPSULE BY MOUTH TWICE A DAY Start Date: 04/09/19 Status: Ordered ibuprofen 600 mg oral tablet 600 mg, 1, tablet, By Mouth, Every 6 hours, PRN, # 100 tablet, Refills 2, Tot. Refills 2, Acute 02/04/20 0:00:00 EDT, for pain, 08/01/19 14:28:00 EDT, Route to Pharmacy Electronically, [facility]/pharmacy #[id number], 142, cm, 07/18/19 15:34:00 EDT, Height, [...] tablet, 3 Refills, Maintenance, 05/28/19 15:40:00 EST, [facility]/pharmacy #[id number], 142, cm, 05/05/19 15:28:00 EST, Height, 53.1, kg, 07/12/18 13:35:00 EST, Dry Weight Start Date: 05/28/19 Status: Ordered SUMAtriptan 25 mg oral tablet 1 tablet = 25 mg, By Mouth, Daily, PRN for migraine headache, may repeat dose after 2 hours up to amaximum of 2; max 4 headaces/mo, # 8 tablet, 2 Refills, Maintenance, 05/27/19 14:58:00 EST, Tablet,[facility]/pharmacy #[id number], 142, cm, 05/05/19 15:28:00 EST,... Start Date: 05/27/19 Status: Ordered topiramate 200 mg oral tablet 1.5 tablets, By Mouth, 2 times a day, 90 day supply, # 270 tablet, 3 Refills, Maintenance, 07/07/2013:01:00 EST, [facility]/pharmacy #[id number], Also plz prepare oxycodone/APAP (rx on hold) for brain picker 07/08. Thank you, 142, cm, 07/01/19 [...]
--- OUTSIDE RECORDS SUMMARY | 2023-02-26 06:17 | XMS_ITS | Continuity of Care Document ---
Author Name Unknown Organization [facility] Address [address] [place] [address]- Care Team Providers Care Sustainable Products Marketing Manager Name Role Phone Hitesh Nick MD, Olinda Primary Care Physician [phone] [id number] Date(s): 12/28/20 - 02/18/21 [facility] [address] [place] [address]- Attending Physician: Holly Wilson MD Admitting Physician: Holly Wilson MD Allergies, Adverse Reactions, Alerts Substance Reaction [...] tablet, 1 Refills, Maintenance, 07/13/20 14:22:00 EST, [facility]/pharmacy #[id number], 142, cm, 07/07/20 7:17:00 EST, Height, [...] Refills, Maintenance, 07/31/20 15:57:00 EDT, ER Tablet, [facility]/pharmacy #[id number], Partial fill upon patient request if [...]
--- OUTSIDE RECORDS SUMMARY | 2023-02-26 06:17 | XMS_ITS | Continuity of Care Document ---
Author Name Unknown Organization [facility] Address [address] [place] [address]- Care Team Providers Care Slat Pickler Name Role Phone Rudolph Paul NP Primary Care Physi [facility] [place] [facility] [place] - 11/08/[address] [address]- [facility] Attending Physician: Rudolph Paul NP Admitting Physician: Rudolph Paul NP Allergies, Adverse Reactions, [...] 10/16/19 13:55:00 EDT, Route to Pharmacy Electronically, [facility]/pharmacy #[id number] Tablet, Partial fill upon patient request, 142, cm, 05... Start Date: 10/16/19 Status: Ordered acetaminophen-oxyCODONE 325 mg-5 mg oral tablet 1-2 tablets, By Mouth, 3 times a day, PRN Pain.Max 6tabs/day.RX 2 of 2, # 84 tablet, Refills 0, Tot. Refills 0, Maintenance, 10/16/19 13:55:00 EDT, Route to Pharmacy Electronically, [facility]/pharmacy #[id number] Tablet, Partial fill upon patient request, ... Start Date: 10/16/19 Status: Ordered Adderall XR 10 mg oral capsule, extended release See Instructions, 1 capsule By Mouth Daily in AM, 1 capsule at 12PM., # 56 capsule, 0 Refills, Maintenance, 10/20/19 8:37:00 EDT, [facility]/pharmacy #[id number], 1 capsule By Mouth Daily [...] tablet, 3 Refills, Maintenance, 09/18/19 9:33:00 EDT, [facility]/pharmacy #[id number], 142, cm, 09/15/19 15:31:00 EDT, [...] Instructions Replace Required Details, Routeto Pharmacy Electronically, [facility]/pharmacy #[id number], 142... Start Date: 10/21/19 Status: Ordered famotidine 40 mg/5 ml oral powder for reconstitution TAKE 5 ML BY MOUTH ONCE A DAY AT BEDTIME Start Date: 09/15/19 Status: Ordered ibuprofen 600 mg oral tablet 1, tablet, By Mouth, Every 6 hours, PRN, # 100 tablet, Refills 2, Tot. Refills 0, Acute, NEEDED FOR PAIN, 10/16/19 7:59:00 EDT, Route to Pharmacy Electronically, [facility] STORE [id number], 142, cm, 09/14/2014:31:00 EDT, Height, 51, kg, [...] tablet, 3 Refills, Maintenance, 10/30/19 13:08:00 EDT, [facility]/pharmacy #[id number], Will pick remover 11/02 along w/oxycodone- APAP currently on hold., [...] tablet, 2 Refills, Maintenance, 08/31/2010:42:00 EDT, Tablet, [facility]/pharmacy #[id number], 142, cm,... Start Date: 09/01/19 Status: Ordered topiramate 200 mg oral tablet 1.5 tablets, By Mouth, 2 times a day, 90 day supply, # 270 tablet, 3 Refills, Maintenance, 07/07/2013:01:00 EST, [id number], Also plz prepare oxycodone/APAP (rx on hold) for pick remover 07/08. Thank you, 142, cm, 07/01/19 15:50:00 [...]
--- OUTSIDE RECORDS SUMMARY | 2023-02-26 06:17 | XMS_ITS | Continuity of Care Document ---
Author Name Unknown Organization [facility] Address [address] [place] [address]- Care Team Providers Care Belting Inspector Name Role Phone Hitesh Nick MD, Melia Benjamin Primary Care Physician [place] [facility] [place] 06/07/20 - 07/07/20 [facility] [address] [place] [id number] Allergies, Adverse Reactions, Alerts Substance Reaction Severity Status salsalate difficulty breathing, severe swelling who le body Active zonisamide Finger swelling Rash Active lamoTRIgine Somnolence Confusion Active ZOLMitriptan Chest tightness Active Immunizations Given and Recorded Vaccine Date Status Refusal Reason tetanus/diphtheria/pertussis, acel(Tdap) 07/25/13 Given influenza virus vaccine, inactivated 1 04/14/13 Gi prudecne 1Result Comment: [04/15/2013] ORDERED BY URIEL PHIPPS [...] tablet, 3 Refills, Maintenance, 05/10/20 13:13:00 EST, [facility]/pharmacy #[id number], 142, cm, 04/07/20 14:00:00 EST, [...] 03/15/20 9:55:00 EST, Route to Pharmacy Electronically, [facility] STORE [id number], 142, cm, :57:00 EDT, Height, 51, kg, [...] 50%(15/30; severe disability ) on 01/25/15; updated [facility] Back Pain Disability Scale score: [...]
--- OUTSIDE RECORDS SUMMARY | 2023-02-26 06:17 | XMS_ITS | Continuity of Care Document ---
Author Name Unknown Organization [facility] Address [address] [place] [address]- Care Team Providers Care Fare Register Repairer Name Role Phone Hitesh Nick MD, Melia Benjamin Primary Care Physician [place] [facility] [place] 04/20/20 - 06/11/20 [facility] [address] [place] [id number] Attending Physician: Milan Joyce MD Admitting Physician: Milan Joyce MD Allergies, Adverse Reactions, Alerts Substance Reaction Severity Status salsalate difficulty breathing, severe swelling who le body Active lamoTRIgine Somnolence Confusion Active ZOLMitriptan Chest tightness Active zonisamide Finger swelling Rash Active Immunizations Given and Recorded Vaccine Date Status Refusal Reason tetanus/diphtheria/pertussis, acel(Tdap) 07/25/13 Given influenza virus vaccine, inactivated 1 04/14/13 Gi prudence 1Result Comment: [04/15/2013] ORDERED BY UREIL PHIPPS NP Medications acetaminophen-oxyCODONE 325 mg-5 mg oral tablet 1-2 tablets, By Mouth, 3 times a day, max 5 tabs/day for 7 days, then 4 tab/day for 7 days, then 3 tabs/day. RX 1 of 2, # 84 tablet, Refills 0, Tot. Refills 0, Maintenance, 06/02/20 17:08:00 EST, Route to Pharmacy Electronically, [facility]/pharmacy #[id number] Ta... Start Date: 06/02/20 Status: Ordered buprenorphine [...] tablet, 3 Refills, Maintenance, 05/10/20 13:13:00 EST, [facility]/pharmacy #[id number], 142, cm, 04/07/20 14:00:00 EST, Height, [...] 03/15/20 9:55:00 EST, Route to Pharmacy Electronically, [facility] STORE [id number], 142, cm, :57:00 EDT, Height, 51, kg, [...] tablet, 3 Refills, Maintenance, 03/25/20 13:39:00 EST, [facility]/pharmacy #[id number], 142, cm, 03/03/20 7:57:00 EDT, Height, [...] prepare oxycodone/APAP (rx on hold) for picker and packer 07/08. Thank you, 142, cm, 07/01/19 [...]
--- OUTSIDE RECORDS SUMMARY | 2023-02-26 06:17 | XMS_ITS | Continuity of Care Document ---
Author Name Unknown Organization [facility] Address [address] [place] [address]- Care Team Providers Care Teasel Gig Operator Name Role Phone Hitesh Nick MD, Melia Benjamin Primary Care Physician Encounter [facility] [place] Date(s): 12/16/19 - 01/15/20 [facility] [address] [place] [address]- [facility] Allergies, Adverse Reactions, Alerts Substance Reaction Severity [...] 12/25/19 12:39:00 EDT, Route to Pharmacy Electronically, [facility]/pharmacy #[id number] Tablet, Partial fill upon patient request, ... Start Date: 12/25/19 Status: Ordered acetaminophen-oxyCODONE 325 mg-5 mg oral tablet 1-2 tablets, By Mouth, 3 times a day, PRN Pain.Max 6/day. RX 1 of 2, # 84 tablet, Refills 0, Tot. Refills 0, Maintenance, 12/25/19 12:39:00 EDT, Route to Pharmacy Electronically, [facility]/pharmacy #[id number] Tablet, Partial fill upon patient request, 142, cm, 0... Start Date: 12/25/19 Status: Ordered AneCream 5 topical cream APPLY TO AFFECTED AREA 4 TIMES A DAY NEEDED Start Date: 04/09/19 Status: Ordered cimetidine 300 mg oral tablet See Instructions, 1-2 tabs po 3-4 times/day 30min before meals & qhs. Replaces famotidine &esomeprazole, # 90 tablet, 3 Refills, Maintenance, 12/01/19 9:58:00 EDT, [facility]/pharmacy #[id number], 142, cm, 11/13/19 12:42:00 EDT, [...] 01/12/20 3:54:00 EDT, Route to Pharmacy Electronically, [facility] STORE [id number], 142, cm, 01/07/2013:49:00 EDT, Height, 51, kg, [...] tablet, 3 Refills, Maintenance, 10/30/19 13:08:00 EDT, [facility]/pharmacy #[id number], Will last picker 11/02 along w/oxycodone- APAP currently on [...] plz prepare oxycodone/APAP (rx on hold) for last picker 07/08. Thank you, 142, cm, 07/01/19 [...]
--- OUTSIDE RECORDS SUMMARY | 2023-02-26 06:17 | XMS_ITS | Continuity of Care Document ---
Author Name Unknown Organization [facility] Address [address] [place] [address]- Care Team Providers Care Dental Chairside Assistant Name Role Phone Hitesh Nick MD, Melia Benjamin Primary Care Physician [place] [facility] [place] 07/12/20 - 09/30/20 [facility] [address] [place] [id number] Attending Physician: Vince Carrera MD, Otto Calderon Admitting Physician: Otto Clarke Jr, MD Referring Physician: Melia Jacobs MD Allergies, Adverse Reactions, Alerts Substance Reaction [...] &esomeprazole, # 90 tablet, 3 Refills, Maintenance, 03/31/21 9:49:00 EDT, [facility]/pharmacy #[id number], 142, cm, 07/07/20 7:17:00 [...] 03/15/20 9:55:00 EST, Route to Pharmacy Electronically, [facility] STORE [id number], 142, cm, 03/03/207:57:00 EDT, Height, 51, kg, 07/18/19 15:34:00 EDT,... [...]
--- OUTSIDE RECORDS SUMMARY | 2023-02-26 06:17 | XMS_ITS | Continuity of Care Document ---
Author Name Unknown Organization [facility] Address [address] [place] [address], [address] [place] [address]- Care Team Providers Care Dress Draper Name Role Phone Humberto RIVERA, Rudolph Ochoa Primary Care Physi courtney Encounter [facility] [place] Date(s): 08/01/19 - 08/11/19 [facility] [email or web address] [facility] [address] [facility] [place] [address]- Attending Physician: Toby Phelps Admitting Physician: Toby Phelps Referring Physician: AdmtrToby Allergies, Adverse Reactions, Alerts Substance Reaction Severity Status morphine migraine headache; swelling in face Active salsalate difficulty breathing , severe swelling whole body Active Imitrex Difficulty breathing Bilateral shoulder heaviness Active lamoTRIgine Somnolence Confusion Active tiaGABine Headache Blurry vision Active ZOLMitriptan Chest tightness Active Bactrim DS 1 Tongue swelling Chest tightness Persistent Severe Active zonisamide Finger swelling Rash Active 1she began to experience chest pain, [...] capsule, 0 Refills, Maintenance, 08/07/19 9:16:00 EDT, [id number], PLEASE also prepare oxycodone/APAP rx currently on [...] tablet, 1 Refills, Maintenance, 08/11/19 10:38:00 EDT, [facility]/pharmacy #[id number], 142, cm, 07/18/19 15:34:00 EDT, [...] tablet, 3 Refills, Maintenance, 06/30/19 7:01:00 EST, [id number], 142, cm, 06/10/19 14:02:00 EST, Height, [...] 14:28:00 EDT, Route to Pharmacy Electronically, [facility]/pharmacy #[id number], 142, cm, 07/18/19 15:34:00 EDT, [...] tablet, 3 Refills, Maintenance, 05/28/19 15:40:00 EST, [facility]/pharmacy #[id number], 142, cm, 05/05/19 15:28:00 EST, Height, 53.1, kg, 07/12/18 13:35:00 EST, Dry Weight Start Date: 05/28/19 Status: Ordered Percocet-5/325 325 mg-5 mg oral tablet 1-2 tablets, By Mouth, 3 times a day, PRN Pain.Max 6tabs/day.RX 2 of 2, # 84 tablet, Refills 0, Tot. Refills 0, Maintenance, 07/22/19 14:59:00 EDT, Route to Pharmacy Electronically, [facility]/pharmacy #[id number], Partial fill upon patient request, 08/05/19, 142,... Start Date: 07/22/19 Status: Ordered Percocet-5/325 325 mg-5 mg oral tablet 1-2 tablets, By Mouth, 3 times a day, PRN Pain.Max 6/day.RX 1 of 2, # 84 tablet, Refills 0, Tot. Refills 0, Maintenance, 07/22/19 14:59:00 EDT, Route to Pharmacy Electronically, [facility]/pharmacy #[id number], Partial full upon patient request, 142, cm, 07/18/19... Start Date: 07/22/19 Status: Ordered raNITIdine 150 mg oral capsule 1 capsule = 150 mg, By Mouth, 3 times a day, replaces famotidine and esomeprazole, # 90 capsule, 3 Refills, Maintenance, 08/07/19 15:42:00 EDT, [facility]/pharmacy #[id number], 142, cm, 07/18/19 15:34:00 EDT, Height, 51, kg, 07/18/19 15:34:00 EDT, Dry Weight Start Date: 08/07/19 Status: Ordered SUMAtriptan 25 mg oral tablet 1 tablet = 25 mg, By Mouth, Daily, PRN for migraine headache, may repeat dose after 2 hours up to amaximum of 2; max 4 headaces/mo, # 8 tablet, 2 Refills, Maintenance, 05/27/19 14:58:00 EST, Tablet,[facility]/pharmacy #[id number], 142, cm, 05/05/19 15:28:00 EST,... 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 Thank you, 142, cm, 07/01/19 [...]
--- OUTSIDE RECORDS SUMMARY | 2023-02-26 06:17 | XMS_ITS | Continuity of Care Document ---
Author Name Unknown Organization [facility] Address [address] [place] [address]- Care Team Providers Care Grain Drier Name Role Phone Hitesh Nick MD, Melia Benjamin Primary Care Physician [phone] En[place] [facility] [place] Date(s): 05/04/20 - 06/03/20 [facility] [address] [place] [address]- Allergies, Adverse Reactions, Alerts Substance Reaction Severity [...] Medications acetaminophen-oxyCODONE 325 mg-5 mg oral tablet 1, tablet, By Mouth, Every 6 hours, max 2 tabs/day for 7 days, then 1 tab/day for 7 days. RX 2 of 2, # 120 tablet, Refills 0, Tot. Refills 0, Maintenance, 06/02/20 17:08:00 EST, Route to Pharmacy Electronically, [facility]/pharmacy #[id number] Tablet, Partial octavia... Start Date: 06/02/20 Status: Ordered acetaminophen-oxyCODONE 325 mg-5 mg oral tablet 1-2 tablets, By Mouth, 3 times a day, max 5 tabs/day for 7 days, then 4 tab/day for 7 days, then 3 tabs/day. RX 1 of 2, # 84 tablet, Refills 0, Tot. Refills 0, Maintenance, 06/02/20 17:08:00 EST, Route to Pharmacy Electronically, [facility]/pharmacy #[id number] Ta... 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 Thank you, 142, [...]
--- OUTSIDE RECORDS SUMMARY | 2023-02-26 06:17 | XMS_ITS | Continuity of Care Document ---
Author Name Unknown Organization [facility] Address [address] [place] [address]- Care Team Providers Care Size Tester Name Role Phone Hitesh Nick MD, Melia Benjamin Primary Care Physician En[place] [facility] [place] Date(s): 06/02/20 - 07/02/20 [facility] [address] [place] [address]- Allergies, Adverse Reactions, Alerts Substance Reaction Severity [...] tablet, 3 Refills, Maintenance, 05/10/20 13:13:00 EST, [facility]/pharmacy #[id number], 142, cm, 04/07/20 14:00:00 EST, [...] 03/15/20 9:55:00 EST, Route to Pharmacy Electronically, [facility] STORE [id number], 142, cm, :57:00 EDT, Height, 51, kg, [...] 50%(15/30; severe disability ) on 01/25/15; updated [facility] Back Pain Disability Scale score: 35 on [...]
--- OUTSIDE RECORDS SUMMARY | 2023-02-26 06:17 | XMS_ITS | Continuity of Care Document ---
Author Name Unknown Organization [facility] Address [address] [place] [address]- Care Team Providers Care Dianeticist Name Role Phone Hitesh Nick MD, Melia Benjamin Primary Care Physician Encounter [facility] [place] Date(s): 06/02/20 - 07/02/20 [facility] [address] [place] [id number] Allergies, Adverse Reactions, Alerts Substance [...] tablet, 3 Refills, Maintenance, 05/10/20 13:13:00 EST, [facility]/pharmacy #[id number], 142, cm, 04/07/20 14:00:00 EST, [...] 03/15/20 9:55:00 EST, Route to Pharmacy Electronically, [facility] STORE [id number], 142, cm, :57:00 EDT, Height, 51, kg, [...] 50%(15/30; severe disability ) on 01/25/15; updated [facility] Back Pain Disability Scale score: 35 on [...]
--- OUTSIDE RECORDS SUMMARY | 2023-02-26 06:17 | XMS_ITS | Continuity of Care Document ---
Author Name Unknown Organization [facility] Address [address] [place] [address]- Care Team Providers Care Director Traffic And Planning Name Role Phone Hitesh Nick MD, Olinda Primary Care Physician Encounter [facility] [place] Date(s): 02/17/21 - 03/19/21 [facility] [address] [place] [address]- Attending Physician: Admtr, Toby Allergies, Adverse Reactions, Alerts Substance Reaction Severity Status salsalate difficulty breathing, severe swelling who le body Active ZOLMitriptan Chest tightness Active zonisamide Finger swelling Rash Active lamoTRIgine [...] tablet, 1 Refills, Maintenance, 07/13/20 14:22:00 EST, [facility]/pharmacy #[id number], 142, cm, [...] Refills, Maintenance, 07/31/20 15:57:00 EDT, ER Tablet, [facility]/pharmacy #[id number], Partial fill upon patient request [...]
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
--- OUTSIDE RECORDS SUMMARY | 2023-02-26 06:18 | XMS_ITS | Continuity of Care Document ---
Author Name Unknown Organization [facility] Alix [employer] Address [address] [place] [address], [address]t [place] [address]- Care Team Providers Care Insulation Blower Name Role Phone Hitesh Nick MD, Viviana Benjamin Primary Care Physician [place] [facility] [place] 11[place]06[place]22 - 12/06/22 [facility] [employer] [address] [facility], [address] [place], [place] [address] Allergies, Adverse Reactions, Alerts Substance Reaction [...] 05/06/23 0:00:00 EST, 11/03/22 15:29:00 EDT, Tablet, [facility]/pharmacy #[id number], Partial fill upon patientrequest if the prescription [...] Team Personnel Name: Lillian Delatorre MD Position: [facility] LABOR AND DELIVERY NURSE MD Member Role: [employer] LABOR AND DELIVERY NURSE Physician Address: Address: [address] [place] [address]'s [facility] [employer] [place] [address]- [place] Name: Sagrario Fan NP Position: [facility] PCO Associate Professional Member Role: Primary Care Nurse Address: Address: [address] [place] [address]- [place] Name: Otto Clarke Jr, MD Position: [facility] Anesthesiology MD Member Role: Lifetime Consulting Physician Address: Address: [address] [facility] [place] [address]- [place] Name: Hitesh Nick MD , Viviana Benjamin Position: Reference Physician Member Role: PCP Address: Address: [address] [place] [address]- [place] Name: Eveline Brown RN Position: [facility] RN Member Role: Primary Care Nurse Care Team Related Persons Name: HEARD ELIANA Address: home [address] [place] [address] Name: LIZBETH INTERIANO Address: home [address] [address]
--- OUTSIDE RECORDS SUMMARY | 2023-02-26 06:18 | XMS_ITS | Continuity of Care Document ---
Author Name Unknown Organization [facility] Alixrodri Stuart [employer] [facility] Address [address] [facility], 4t [place] [address]- Care Team Providers Care Herbarium Curator Name Role Phone Hitesh Nick MD, Melia Benjamin Primary Care Phys[id number] Date[facility]s): 12/25/19 - 01/29/20 [facility] [employer] [facility] [address] [facility], [address] [place] [address]- [facility] Attending Physician: Soren WHITEHEAD, Weston Manuel Allergies, Adverse Reactions, Alerts Substance Reaction Severity [...] 01/26/20 11:54:00 EDT, Route to Pharmacy Electronically, [facility]/pharmacy #[id number] Tablet, Partial fill upon patient request, 142, cm, 0... Start Date: 01/26/20 Status: Ordered acetaminophen-oxyCODONE 325 mg-5 mg oral tablet 1-2 tablets, By Mouth, 3 times a day, PRN Pain.Max 6tabs/day.RX 2 of 2, # 84 tablet, Refills 0, Tot. Refills 0, Maintenance, 01/26/20 11:54:00 EDT, Route to Pharmacy Electronically, [facility]/pharmacy #[id number] Tablet, Partial fill upon patient request, ... Start Date: 01/26/20 Status: Ordered AneCream 5 topical cream APPLY TO AFFECTED AREA 4 TIMES A DAY NEEDED Start Date: 04/09/19 Status: Ordered cimetidine 300 mg oral tablet See Instructions, 1-2 tabs po 3-4 times/day 30min before meals & qhs. 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 Thank you, 142, cm, 07/01/19 15:50:00 [...]
--- OUTSIDE RECORDS SUMMARY | 2023-02-26 06:18 | XMS_ITS | Continuity of Care Document ---
Author Name Unknown Organization [facility] [employer]ix [employer] Address [address] [facility], 4t [place] [address]- Care Team Providers Care Linseed Oil Press Tender Name Role Phone Hitesh Nick MD, Melia Benjamin Primary Care Physician [phone] Encounter [facility] Date(s): 12/25/19 - 01/24/20 [facility] [employer] [address] [facility], 4th [place] [address]- [facility] Allergies, Adverse Reactions, Alerts Substance Reaction Severity [...] 12/25/19 12:39:00 EDT, Route to Pharmacy Electronically, [facility]/pharmacy #[id number] Tablet, Partial fill upon patient request, ... Start Date: 12/25/19 Status: Ordered acetaminophen-oxyCODONE 325 mg-5 mg oral tablet 1-2 tablets, By Mouth, 3 times a day, PRN Pain.Max 6/day. RX 1 of 2, # 84 tablet, Refills 0, Tot. Refills 0, Maintenance, 12/25/19 12:39:00 EDT, [facility] tablet, 3 Refills, Maintenance, 12/01/19 9:58:00 EDT, [facility]/pharmacy #[id number], 142, cm, 11/13/19 12:42:00 EDT, [...] 01/12/20 3:54:00 EDT, Route to Pharmacy Electronically, [facility] STORE [id number], 142, cm, 01/07/2013:49:00 EDT, Height, 51, kg, [...] tablet, 3 Refills, Maintenance, 10/30/19 13:08:00 EDT, [facility]/pharmacy #[id number], Will bead picker 11/02 along w/oxycodone- [...] tablet, 2 Refills, Maintenance, 12/01/2016:05:00 EDT, Tablet, [facility]/pharmacy #[id number], 142, cm,... Start Date: 12/02/19 Status: [...]
--- OUTSIDE RECORDS SUMMARY | 2023-02-26 06:18 | XMS_ITS | Continuity of Care Document ---
Author Name Unknown Organization [facility] Address [address] [place] [address]- Care Team Providers Care Back Tufter Name Role Phone Hitesh Nick MD, Melia Benjamin Primary Care Physician [place] [facility] [place]19 - 01/25/20 [facility] [address] [place] [address]- [facility] Allergies, Adverse Reactions, Alerts Substance Reaction [...] 12/25/19 12:39:00 EDT, Route to Pharmacy Electronically, [facility]/pharmacy #[id number] Tablet, Partial fill upon patient request, ... Start Date: 12/25/19 Status: Ordered acetaminophen-oxyCODONE 325 mg-5 mg oral tablet 1-2 tablets, By Mouth, 3 times a day, PRN Pain.Max 6/day. RX 1 of 2, # 84 tablet, Refills 0, Tot. 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 Start Date: 12/02/19 Status: Ordered topiramate 200 mg oral tablet 1.5 tablets, By Mouth, 2 times a day, 90 day supply, # 270 tablet, 3 Refills, Maintenance, 07/07/2013:01:00 EST, [id number], Also plz prepare oxycodone/APAP (rx on hold) for order picker/assembler 07/08. Thank you, 142, cm, 07/01/19 15:50:00 [...]
--- OUTSIDE RECORDS SUMMARY | 2023-02-26 06:18 | XMS_ITS | Continuity of Care Document ---
Author Name Unknown Organization [facility] Alix [employer] [facility] Address [address] [place] [address], [address] [address]- Care Team Providers Care Bicycle Ii Assembler Name Role Phone Humberto RIVERA, Rudolph Ochoa Primary Care Physi courtney [id number] - 08/08/[facility] [employer] [facility] [address] [facility], 4th [place] [address]- Attending Physician: Ivette WHITEHEAD, Rebecca Flores Referring Physician: Soren WHITEHEAD, Weston Manuel Allergies, Adverse [...] 0 Refills, Maintenance, 08/07/19 9:16:00 EDT, [id number], PLEASE also prepare oxycodone/APAP rx currently on [...] tablet, 3 Refills, Maintenance, 06/30/19 7:01:00 EST, [facility]/pharmacy #[id number], 142, cm, 06/10/19 14:02:00 EST, Height, [...] 08/01/19 14:28:00 EDT, Route to Pharmacy Electronically, [facility]/pharmacy #[id number], 142, cm, 07/18/19 15:34:00 EDT, Height, [...] tablet, 3 Refills, Maintenance, 05/28/19 15:40:00 EST, [facility]/pharmacy #[id number], 142, cm, 05/05/19 15:28:00 EST, Height, 53.1, kg, 07/12/18 13:35:00 EST, Dry Weight Start Date: 05/28/19 Status: Ordered Percocet-5/325 325 mg-5 mg oral tablet 1-2 tablets, By Mouth, 3 times a day, PRN Pain.Max 6tabs/day.RX 2 of 2, # 84 tablet, Refills 0, Tot. Refills 0, Maintenance, 07/22/19 14:59:00 EDT, Route to Pharmacy Electronically, [facility]/pharmacy #[id number], Partial fill upon patient request, 08/05/19, 142,... Start Date: 07/22/19 Status: Ordered Percocet-5/325 325 mg-5 mg oral tablet 1-2 tablets, By Mouth, 3 times a day, PRN Pain.Max 6/day.RX 1 of 2, # 84 tablet, Refills 0, Tot. Refills 0, Maintenance, 07/22/19 14:59:00 EDT, Route to Pharmacy Electronically, [facility]/pharmacy #[id number], Partial full upon patient request, 142, cm, 07/18/19... Start Date: 07/22/19 Status: Ordered raNITIdine 150 mg oral capsule 1 capsule = 150 mg, By Mouth, 3 times a day, replaces famotidine and esomeprazole, # 90 capsule, 3 Refills, Maintenance, 08/07/19 15:42:00 EDT, [facility]/pharmacy #[id number], 142, cm, 07/18/19 15:34:00 EDT, Height, 51, kg, 07/18/19 15:34:00 EDT, Dry Weight Start Date: 08/07/19 Status: Ordered SUMAtriptan 25 mg oral tablet 1 tablet = 25 mg, By Mouth, Daily, PRN for migraine headache, may repeat dose after 2 hours up to amaximum of 2; max 4 headaces/mo, # 8 tablet, 2 Refills, Maintenance, 05/27/19 14:58:00 EST, Tablet,[facility]/pharmacy #[id number], 142, cm, 05/05/19 15:28:00 EST,... Start Date: 05/27/19 Status: Ordered topiramate 200 mg oral tablet 1.5 tablets, By Mouth, 2 times a day, 90 day supply, # 270 tablet, 3 Refills, Maintenance, 07/07/2013:01:00 EST, 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 Thank you, 142, cm, 07/01/19 [...] 66% ( crippled ) on 07/01/19; Updated [place] Back Pain DisabilityScale: 56 on 07/01/19. 2Updated Oswestry Disability Index:: 73% (33/45; crippled ) on 04/08/18; updated [place] Back Pain Disability Scale score: 56 on 04/08/18. 3Updated Oswestry: 46% ( severe disability ) on 03/19/17; Updated [place]: 34 on 03/19/17 4Updated [place] Disability Index: 64% crippled and [place] Back Pain Disability Scale: 52 on 02/28/2016. 5Updated Oswestry Disability Index: 50%(15/30; severe disability ) on 01/25/15; updated [facility] Back Pain Disability Scale score: [...]
--- OUTSIDE RECORDS SUMMARY | 2023-02-26 06:18 | XMS_ITS | Continuity of Care Document ---
Author Name Unknown Organization [facility] Address [address] [place] [address]- Care Team Providers Care Thermoforming Operator Name Role Phone Hitesh Nick MD, Olinda Primary Care Physician [place] [facility] [place](s): 01/19/21 - 02/26/21 [facility] [address] [place] [address]- Attending Physician: Milan Joyce MD Admitting Physician: [...] tablet, 1 Refills, Maintenance, 07/13/20 14:22:00 EST, [facility]/pharmacy #[id number], 142, cm, 07/07/20 7:17:00 EST, [...] Refills, Maintenance, 07/31/20 15:57:00 EDT, ER Tablet, [facility]/pharmacy #[id number], Partial fill upon patient request [...]
--- OUTSIDE RECORDS SUMMARY | 2023-02-26 06:18 | XMS_ITS | Continuity of Care Document ---
Author Name Unknown Organization [facility] Address [address] [place] [address]- Care Team Providers Care Program Management Intern Name Role Phone Hitesh Nick MD, Olinda Primary Care Physician [phone] [place] [facility] [id number] Date(s): 12/28/20 - 01/27/21 [facility] [address] [place] [address]- Allergies, Adverse Reactions, Alerts Substance Reaction Severity [...] tablet, 1 Refills, Maintenance, 07/13/20 14:22:00 EST, [facility]/pharmacy #[id number], 142, cm, 07/07/20 7:17:00 EST, [...] Refills, Maintenance, 07/31/20 15:57:00 EDT, ER Tablet, [facility]/pharmacy #[id number], Partial fill upon patient request [...]
--- OUTSIDE RECORDS SUMMARY | 2023-02-26 06:18 | XMS_ITS | Continuity of Care Document ---
Author Name Unknown Organization [facility] Address [address] [place] [address]- Care Team Providers Care Pressure Dispatcher Name Role Phone Hitesh Nick MD, Melia Benjamin Primary Care Physician [phone] Encounter [facility] [place] Date(s): 12/16/19 - 01/15/20 [facility] [address] [place] [address]- [facility] Allergies, Adverse Reactions, Alerts [...] 12/25/19 12:39:00 EDT, Route to Pharmacy Electronically, [facility]/pharmacy #[id number] Tablet, Partial fill upon patient request, ... Start Date: 12/25/19 Status: Ordered acetaminophen-oxyCODONE 325 mg-5 mg oral tablet 1-2 tablets, By Mouth, 3 times a day, PRN Pain.Max 6/day. RX 1 of 2, # 84 tablet, Refills 0, Tot. Refills 0, Maintenance, 12/25/19 12:39:00 EDT, Route to Pharmacy Electronically, [facility]/pharmacy #[id number] Tablet, Partial [...] tablet, 3 Refills, Maintenance, 12/01/19 9:58:00 EDT, [facility]/pharmacy #[id number], 142, cm, 11/13/19 12:42:00 EDT, [...] 01/12/20 3:54:00 EDT, Route to Pharmacy Electronically, [facility] STORE 03906, 142, cm, 01/07/2013:49:00 EDT, Height, 51, kg, [...] tablet, 3 Refills, Maintenance, 10/30/19 13:08:00 EDT, [facility]/pharmacy #[id number], Will strip picker 11/02 along w/oxycodone- APAP currently on [...] plz prepare oxycodone/APAP (rx on hold) for strip picker 07/08. Thank you, 142, cm, 07/01/19 [...]
--- OUTSIDE RECORDS SUMMARY | 2023-02-26 06:18 | XMS_ITS | Continuity of Care Document ---
Author Name Unknown Organization [facility] Address [address] [place] [address]- Care Team Providers Care Dry Talc Racker Name Role Phone Humberto RIVERA, Rudolph Ochoa Primary Care Physi courtney En[place] [facility] [place] Date(s): 11/20/19 - 01/07/20 [facility] [address] [place] [address] [facility] Attending Physician: Otto Clarke Jr, MD Admitting Physician: Otto Clarke Jr, MD Allergies, Adverse Reactions, Alerts Substance Reaction [...] 12/25/19 12:39:00 EDT, Route to Pharmacy Electronically, [facility]/pharmacy #[id number] Tablet, Partial fill upon patient request, ... Start Date: 12/25/19 Status: Ordered acetaminophen-oxyCODONE 325 mg-5 mg oral tablet 1-2 tablets, By Mouth, 3 times a day, PRN Pain.Max 6/day. RX 1 of 2, # 84 tablet, Refills 0, Tot. Refills 0, Maintenance, 12/25/19 12:39:00 EDT, Route to Pharmacy Electronically, [facility]/pharmacy #[id number] Tablet, Partial fill upon patient [...] tablet, 3 Refills, Maintenance, 12/01/19 9:58:00 EDT, [facility]/pharmacy #[id number], 142, cm, 11/13/19 12:42:00 EDT, [...] 10/16/19 7:59:00 EDT, Route to Pharmacy Electronically, [facility] STORE 81375, 142, cm, 09/14/2014:31:00 EDT, Height, 51, kg, [...] tablet, 3 Refills, Maintenance, 10/30/19 13:08:00 EDT, [facility]/pharmacy #[id number], Will pickling machine operator 11/02 along w/oxycodone- APAP currently [...] tablet, 2 Refills, Maintenance, 12/01/2016:05:00 EDT, Tablet, [facility]/pharmacy #[id number], 142, cm,... Start Date: 12/02/19 Status: Ordered topiramate 200 mg oral tablet 1.5 tablets, By Mouth, 2 times a day, 90 day supply, # 270 tablet, 3 Refills, Maintenance, 07/07/2013:01:00 EST, [facility]/pharmacy #[id number], Also plz prepare oxycodone/APAP (rx on hold) for pickling machine operator 07/08. Thank you, 142, cm, [...] Refills, Maintenance, 05/05/19 15:24:00 EST Start Date: 12/30/19 Status: Ordered Problem List Condition Effective Dates [...]
--- OUTSIDE RECORDS SUMMARY | 2023-02-26 06:18 | XMS_ITS | Continuity of Care Document ---
Author Name Unknown Organization [facility] Address [address] [place] [address]- Care Team Providers Care Loom Overhauler Name Role Phone Hitesh Nick MD, Melia Benjamin Primary Care Physician [place] [facility] [place] 07/22/20 - 08/21/20 [facility] [address] [place] [id number] Allergies, Adverse Reactions, Alerts Substance Reaction [...] 03/15/20 9:55:00 EST, Route to Pharmacy Electronically, [facility] STORE 71694, 142, cm, :57:00 EDT, Height, 51, kg, [...] tablet, 1 Refills, Maintenance, 07/13/20 14:22:00 EST, [facility]/pharmacy #[id number], 142, cm, 07/07/20 7:17:00 [...]
--- OUTSIDE RECORDS SUMMARY | 2023-02-26 06:18 | XMS_ITS | Continuity of Care Document ---
Author Name Unknown Organization [facility] Address [address] [place] [address]- Care Team Providers Care Rehabilitation Physician Name Role Phone Hitesh Nick MD, Melia Benjamin Primary Care Physician [place] [facility] [place] Date(s): 01/26/20 - 02/25/20 [facility] [address] [place] [address]- [facility] Allergies, Adverse Reactions, Alerts Substance Reaction Severity [...] 02/24/20 17:04:00 EDT, Route to Pharmacy Electronically, [facility]/pharmacy #[id number] Tablet, Partial fill upon patient request, 142, cm, 02/24/20 14... Start Date: 02/24/20 Status: Ordered acetaminophen-oxyCODONE 325 mg-5 mg oral tablet 1-2 tablets, By Mouth, 3 times a day, PRN Pain.Max 6tabs/day.RX 2 of 2, # 84 tablet, Refills 0, Tot. Refills 0, Maintenance, 01/26/20 11:54:00 EDT, Route to Pharmacy Electronically, [facility]/pharmacy #[id number] Tablet, Partial fill upon patient request, ... Start Date: 01/26/20 Status: Ordered AneCream 5 topical cream APPLY TO AFFECTED AREA 4 TIMES A DAY NEEDED Start Date: 04/09/19 Status: Ordered buprenorphine 10 mcg/hr transdermal film, extended release 1 patch, Topically, Every 7 days, # 2 patch, 0 Refills, Maintenance, 02/24/20 17:04:00 EDT, [facility]/pharmacy #[id number], 1 patch Topically Every 7 days, 142, cm, 02/24/20 14:04:00 EDT, Height, 51, kg, 07/18/19 15:34:00 EDT, Dry Weight Start Date: 02/24/20 Status: Ordered cimetidine 300 mg oral tablet See Instructions, 1-2 tabs po 3-4 times/day 30min before meals & qhs. Replaces famotidine &esomeprazole, # 90 tablet, 3 Refills, Maintenance, 12/01/19 9:58:00 EDT, [facility]/pharmacy #[id number], 142, cm, 11/13/19 12:42:00 EDT, [...] 01/12/20 3:54:00 EDT, Route to Pharmacy Electronically, [facility] STORE 28723, 142, cm, 01/07/2013:49:00 EDT, Height, 51, kg, [...] tablet, 3 Refills, Maintenance, 10/30/19 13:08:00 EDT, [facility]/pharmacy #[id number], Will pickle solution maker 11/02 along w/oxycodone- APAP currently on hold., [...] Treat max of 1 h/a per week. 28 supply, # 8 tablet, 2 Refills, Maintenance, 02/23/2017:04:00 EDT, Tablet, [facility]/pharmacy #[id number], 142, cm,... Start Date: 02/24/20 Status: Ordered topiramate 200 mg oral tablet 1.5 tablets, By Mouth, 2 times a day, 90 day supply, # 270 tablet, 3 Refills, Maintenance, 07/07/2013:01:00 EST, [facility]/pharmacy #[id number], Also plz prepare oxycodone/APAP (rx on hold) for pickle solution maker 07/08. Thank you, 142, cm, 07/01/19 15:50:00 [...]
--- OUTSIDE RECORDS SUMMARY | 2023-02-26 06:18 | XMS_ITS | Continuity of Care Document ---
Author Name Unknown Organization [facility] Address [address] [place] [address]- Care Team Providers Care Electricians Top Helper Name Role Phone Hitesh Nick MD, Melia Benjamin Primary Care Physician [place] [facility] [place]20 - 06/24/20 [facility] [address] [place] [address]- Allergies, Adverse Reactions, Alerts Substance Reaction Severity [...] Pharmacy Electronically, [facility]/pharmacy #[id number] Ta... Start Date: 06/02/20 Status: Ordered busPIRone [...] Electronically, [facility] STORE [id number], 142, cm, :57:00 EDT, Height, 51, kg, [...] 50%(15/30; severe disability ) on 01/25/15; updated [facility] Back Pain Disability Scale score: [...]
--- OUTSIDE RECORDS SUMMARY | 2023-02-26 06:18 | XMS_ITS | Continuity of Care Document ---
Author Name Unknown Organization [facility] Address [address] [place] [address]- Care Team Providers Care Manager Community Development Name Role Phone Hitesh Nick MD, Melia Benjamin Primary Care Physician [phone] [place] [facility] [place] - 02/25/20 [facility] [address] [place] [address]- [facility] Allergies, Adverse Reactions, Alerts Substance Reaction [...] 02/24/20 17:04:00 EDT, Route to Pharmacy Electronically, [facility]/pharmacy #[id number] Tablet, Partial fill upon patient request, 142, cm, 02/24/20 14... Start Date: 02/24/20 Status: Ordered acetaminophen-oxyCODONE 325 mg-5 mg oral tablet 1-2 tablets, By Mouth, 3 times a day, PRN Pain.Max 6tabs/day.RX 2 of 2, # 84 tablet, Refills 0, Tot. Refills 0, Maintenance, 01/26/20 11:54:00 EDT, Route to Pharmacy Electronically, [facility]/pharmacy #[id number] Tablet, Partial fill upon patient request, ... Start Date: 01/26/20 Status: Ordered AneCream 5 topical cream APPLY TO AFFECTED AREA 4 TIMES A DAY NEEDED Start Date: 04/09/19 Status: Ordered buprenorphine 10 mcg/hr transdermal film, extended release 1 patch, Topically, Every 7 days, # 2 patch, 0 Refills, Maintenance, 02/24/20 17:04:00 EDT, [facility]/pharmacy #[id number], 1 patch Topically Every 7 days, 142, cm, 02/24/20 14:04:00 EDT, Height, 51, kg, 07/18/19 15:34:00 EDT, Dry Weight Start Date: 02/24/20 Status: Ordered cimetidine 300 mg oral tablet See Instructions, 1-2 tabs po 3-4 times/day 30min before meals & qhs. Replaces famotidine &esomeprazole, # 90 tablet, 3 Refills, Maintenance, 12/01/19 9:58:00 EDT, [facility]/pharmacy #[id number], 142, cm, 11/13/19 12:42:00 EDT, [...] 01/12/20 3:54:00 EDT, Route to Pharmacy Electronically, [facility] [id number], 142, cm, 01/07/2013:49:00 EDT, Height, 51, kg, [...] tablet, 3 Refills, Maintenance, 10/30/19 13:08:00 EDT, [facility]/pharmacy #[id number], Will pharmacy picking tech 11/02 along w/oxycodone- APAP currently on hold., [...] tablet, 2 Refills, Maintenance, 02/23/2017:04:00 EDT, Tablet, [facility]/pharmacy #[id number], 142, cm,... Start Date: 02/24/20 Status: Ordered topiramate 200 mg oral tablet 1.5 tablets, By Mouth, 2 times a day, 90 day supply, # 270 tablet, 3 Refills, Maintenance, 07/07/2013:01:00 EST, [facility]/pharmacy #[id number], Also plz prepare oxycodone/APAP (rx on hold) for pharmacy picking tech 07/08. Thank you, 142, cm, 07/01/19 15:50:00 [...]
--- OUTSIDE RECORDS SUMMARY | 2023-02-26 06:18 | XMS_ITS | Continuity of Care Document ---
Author Name Unknown Organization [facility] Address [address] [place] [address]- Care Team Providers Care Cash Management Clerk Name Role Phone Humberto RIVERA, Rudolph Ochoa Primary Care Physi courtney Encounter [facility] Date(s): 06/27/19 - 08/14/[address] [address]- [facility] Attending Physician: Mindy Muniz MD Admitting Physician: Mindy Muniz MD Referring Physician: Mindy Muniz MD Allergies, Adverse Reactions, Alerts Substance Reaction [...] prudence 1Result Comment: [04/15/2013] ORDERED BY URIEL PHIPSP NP Medications Adderall XR 10 mg oral capsule, extended release See Instructions, 1 capsule By Mouth Daily in AM, 1 capsule at 12PM., # 56 capsule, 0 Refills, Maintenance, 08/07/19 9:16:00 EDT, [id number], PLEASE also prepare oxycodone/APAP rx currently on [...] tablet, 1 Refills, Maintenance, 08/11/19 10:38:00 EDT, [facility]/pharmacy #[id number], 142, cm, 07/18/19 15:34:00 EDT, Height, [...] 08/01/19 14:28:00 EDT, [id number], cm, 07/18/19 15:34:00 EDT, Height, [...] tablet, 3 Refills, Maintenance, 05/28/19 15:40:00 EST, [id number], cm, 05/05/19 15:28:00 EST, Height, 53.1, kg, 07/12/18 13:35:00 EST, Dry Weight Start Date: 05/28/19 Status: Ordered Percocet-5/325 325 mg-5 mg oral tablet 1-2 tablets, By Mouth, 3 times a day, PRN Pain.Max 6tabs/day.RX 2 of 2, # 84 tablet, Refills 0, Tot. Refills 0, Maintenance, 07/22/19 14:59:00 EDT, [id number], Partial fill upon patient request, 08/05/19, 142,... Start Date: 07/22/19 Status: Ordered Percocet-5/325 325 mg-5 mg oral tablet 1-2 tablets, By Mouth, 3 times a day, PRN Pain.Max 6/day.RX 1 of 2, # 84 tablet, Refills 0, Tot. Refills 0, Maintenance, 07/22/19 14:59:00 EDT, [id number], Partial full upon patient request, 142, cm, 07/18/19... Start Date: 07/22/19 Status: Ordered raNITIdine 150 mg oral capsule 1 capsule = 150 mg, By Mouth, 3 times a day, replaces famotidine and esomeprazole, # 90 capsule, 3 Refills, Maintenance, 08/07/19 15:42:00 EDT, [facility]/pharmacy #[id number], 142, cm, 07/18/19 15:34:00 EDT, Height, 51, kg, 07/18/19 15:34:00 EDT, Dry Weight Start Date: 08/07/19 Status: Ordered SUMAtriptan 25 mg oral tablet 1 tablet = 25 mg, By Mouth, Daily, PRN for migraine headache, may repeat dose after 2 hours up to amaximum of 2; max 4 headaces/mo, # 8 tablet, 2 Refills, Maintenance, 05/27/19 14:58:00 EST, Tablet,[id number], 142, cm, 05/05/19 15:28:00 EST,... Start Date: 05/27/19 Status: Ordered topiramate 200 mg oral tablet 1.5 tablets, By Mouth, 2 times a day, 90 day supply, # 270 tablet, 3 Refills, Maintenance, 07/07/2013:01:00 EST, [facility]/pharmacy #[id number], Also plz prepare oxycodone/APAP (rx on [...]
--- OUTSIDE RECORDS SUMMARY | 2023-02-26 06:18 | XMS_ITS | Continuity of Care Document ---
Author Name Unknown Organization [facility] Address Unknown Care Team Providers Care Gas Inspector Name Role Phone Hitesh Nick MD, Olinda Primary Care Physician [place] [facility] [id number] Date(s): 11/26/20 - 03/26/21 [facility] Attending Physician: Weston Franklin MD Admitting Physician: Weston Franklin MD Referring Physician: Ashley Redd DO Allergies, Adverse Reactions, Alerts Substance Reaction Severity [...] tablet, 1 Refills, Maintenance, 07/13/20 14:22:00 EST, [facility]/pharmacy #[id number], 142, cm, 07/07/20 7:17:00 [...] Refills, Maintenance, 07/31/20 15:57:00 EDT, ER Tablet, [facility]/pharmacy #[id number], Partial fill upon patient request [...]
--- OUTSIDE RECORDS SUMMARY | 2023-02-26 06:18 | XMS_ITS | Continuity of Care Document ---
Author Name Unknown Organization [facility] Address [address] [place] [address]- Care Team Providers Care Cerner Analyst Name Role Phone Hitesh Nick MD, Melia Benjamin Primary Care Physician Encounter [facility] [place] Date(s): 01/13/20 - 02/12/20 [facility] [address] [place] [address]- [facility] Allergies, Adverse Reactions, Alerts Substance [...] 01/26/20 11:54:00 EDT, Route to Pharmacy Electronically, [facility]/pharmacy #[id number] Tablet, Partial fill upon patient request, 142, cm, 0... Start Date: 01/26/20 Status: Ordered acetaminophen-oxyCODONE 325 mg-5 mg oral tablet 1-2 tablets, By Mouth, 3 times a day, PRN Pain.Max 6tabs/day.RX 2 of 2, # 84 tablet, Refills 0, Tot. Refills 0, Maintenance, 01/26/20 11:54:00 EDT, Route to Pharmacy Electronically, [facility]/pharmacy #[id number] Tablet, Partial fill upon patient request, ... Start Date: 01/26/20 Status: Ordered AneCream 5 topical cream APPLY TO AFFECTED AREA 4 TIMES A DAY NEEDED Start Date: 04/09/19 Status: Ordered cimetidine 300 mg oral tablet See Instructions, 1-2 tabs po 3-4 times/day 30min before meals & qhs. Replaces famotidine &esomeprazole, # 90 tablet, 3 Refills, Maintenance, 12/01/19 9:58:00 EDT, [facility]/pharmacy #[id number], 142, cm, 11/13/19 [...] 01/12/20 3:54:00 EDT, Route to Pharmacy Electronically, [facility] [id number], 142, cm, 01/07/2013:49:00 EDT, Height, 51, kg, [...] tablet, 3 Refills, Maintenance, 10/30/19 13:08:00 EDT, [facility]/pharmacy #[id number], Will product picker 11/02 along w/oxycodone- APAP currently on [...] tablet, 2 Refills, Maintenance, 12/01/2016:05:00 EDT, Tablet, [facility]/pharmacy #[id number], 142, cm,... Start Date: 12/02/19 Status: Ordered topiramate 200 mg oral tablet 1.5 tablets, By Mouth, 2 times a day, 90 day supply, # 270 tablet, 3 Refills, Maintenance, 07/07/2013:01:00 EST, [id number], Also plz prepare oxycodone/APAP (rx on hold) for product picker 07/08. Thank you, 142, cm, 07/01/19 [...]
--- OUTSIDE RECORDS SUMMARY | 2023-02-26 06:18 | XMS_ITS | Continuity of Care Document ---
Author Name Unknown Organization [facility] Address [address] [place] [address]- Care Team Providers Care Workforce Management Consultant Name Role Phone Hitesh Nick MD, Olinda Primary Care Physician [phone] [place] [facility] [place] 03/14/21 - 04/13/21 [facility] [address] [place] [address]- Allergies, Adverse Reactions, Alerts Substance Reaction Severity [...] tablet, 1 Refills, Maintenance, 07/13/20 14:22:00 EST, [facility]/pharmacy #[id number], 142, cm, 07/07/20 7:17:00 [...] Refills, Maintenance, 07/31/20 15:57:00 EDT, ER Tablet, [facility]/pharmacy #[id number], Partial fill upon patient [...]
--- OUTSIDE RECORDS SUMMARY | 2023-02-26 06:18 | XMS_ITS | Continuity of Care Document ---
Author Name Unknown Organization [facility] Address [address] [place] [address]- Care Team Providers Care Cook Fry Name Role Phone Humberto RIVERA, Rudolph Ochoa Primary Care Physi [employer] Encounter [facility] [place] Date(s): 06/12/19 - 09/28/19 [facility] [address] [place] [address]- [facility] Attending Physician: Germaine Salas DO Admitting Physician: Germaine Salas DO Referring Physician: Araceli Ziegler MD Allergies, Adverse [...] 09/18/19 11:29:00 EDT, Route to Pharmacy Electronically, [facility]/pharmacy #[id number] Tablet, Partial fill upon patient request, 142, cm, 05... Start Date: 09/18/19 Status: Ordered acetaminophen-oxyCODONE 325 mg-5 mg oral tablet 1-2 tablets, By Mouth, 3 times a day, PRN Pain.Max 6tabs/day.RX 2 of 2, # 84 tablet, Refills 0, Tot. Refills 0, Maintenance, 09/18/19 11:29:00 EDT, Route to Pharmacy Electronically, [facility]/pharmacy #[id number] Tablet, Partial fill upon patient request, ... Start Date: 09/18/19 Status: Ordered Adderall XR 10 mg oral capsule, extended release See Instructions, 1 capsule By Mouth Daily in AM, 1 capsule at 12PM., # 56 capsule, 0 Refills, Maintenance, 09/18/19 11:29:00 EDT, [facility]/pharmacy #[id number], 1 capsule By Mouth [...] tablet, 3 Refills, Maintenance, 09/18/19 9:33:00 EDT, [facility]/pharmacy #[id number], 142, cm, 09/15/19 15:31:00 [...] tablet, 0 Refills, Maintenance, 09/15/19 16:30:00 EDT, [facility]/pharmacy #[id number], 142, cm, 09/15/19 15:31:00 [...] tablet, 3 Refills, Maintenance, 07/07/2013:01:00 EST, [id number], Also plz prepare oxycodone/APAP (rx on hold) for grape picker 07/08. Thank you, 142, cm, 07/01/19 [...]
--- OUTSIDE RECORDS SUMMARY | 2023-02-26 06:18 | XMS_ITS | Continuity of Care Document ---
Author Name Unknown Organization [facility] Address [address] [place] [address]- Care Team Providers Care Security Incident Response Engineer Name Role Phone Humberto RIVERA, Rudolph Ohcoa Primary Care Physi courtney En[place] [facility] [place] Date(s): 11/28/19 - 12/28/19 [facility] [address] [place] [address]- [facility] Allergies, Adverse Reactions, Alerts Substance Reaction [...] 12/25/19 12:39:00 EDT, Route to Pharmacy Electronically, [facility]/pharmacy #[id number] Tablet, Partial fill upon patient request, ... Start Date: 12/25/19 Status: Ordered acetaminophen-oxyCODONE 325 mg-5 mg oral tablet 1-2 tablets, By Mouth, 3 times a day, PRN Pain.Max 6/day. RX 1 of 2, # 84 tablet, Refills 0, Tot. Refills 0, Maintenance, 12/25/19 12:39:00 EDT, Route to Pharmacy Electronically, [facility]/pharmacy #[id number] Tablet, Partial fill upon [...] tablet, 3 Refills, Maintenance, 12/01/19 9:58:00 EDT, [facility]/pharmacy #[id number], 142, cm, 11/13/19 12:42:00 [...] 10/16/19 7:59:00 EDT, Route to Pharmacy Electronically, [facility] STORE 91830, 142, cm, 09/14/2014:31:00 EDT, Height, 51, kg, [...] Maintenance, 10/30/19 13:08:00 EDT, [id number], Will machine operator hop picker 11/02 along w/oxycodone- APAP currently on [...] plz prepare oxycodone/APAP (rx on hold) for machine operator hop picker 07/08. Thank you, 142, cm, 07/01/19 [...] 66% ( crippled ) on 07/01/19; Updated [place] Back Pain DisabilityScale: 56 on 07/01/19. 2Updated Oswestry Disability Index:: 73% (33/45; crippled ) on 04/08/18; updated [place] Back Pain Disability Scale score: 56 on 04/08/18. 3Updated Oswestry: 46% ( severe disability ) on 03/19/17; Updated [place]: 34 on 03/19/17 4Updated [place] Disability Index: 64% crippled and [place] Back Pain Disability Scale: 52 on 02/28/2016. [...]
--- OUTSIDE RECORDS SUMMARY | 2023-02-26 06:18 | XMS_ITS | Continuity of Care Document ---
Author Name Unknown Organization [facility] Address [address] [place] [address]- Care Team Providers Care Hotel Housekeeper Name Role Phone Humberto AREA DIRECTOR OF HOME HEALTH SALES, Rudolph Ochoa Primary Care Physi [facility] Encounter [facility] [place] Date(s): 11/13/19 - 12/13/19 [facility] [address] [place] [address]- [facility] Allergies, Adverse Reactions, Alerts [...] tablet, Refills 0, Tot. Refills 0, Maintenance, 11/17/19 10:27:00 EDT, Route to Pharmacy Electronically, [facility]/pharmacy #[id number] Tablet, Partial fill upon patient request, ... Start Date: 11/17/19 Status: Ordered acetaminophen-oxyCODONE 325 mg-5 mg oral tablet 1-2 tablets, By Mouth, 3 times a day, PRN Pain.Max 6/day.RX 1 of 2, # 84 tablet, Refills 0, Tot. Refills 0, Maintenance, 11/17/19 10:28:00 EDT, [id number], Partial fill upon patient request, 142, cm, 07... Start Date: 11/17/19 Status: Ordered Adderall XR 10 mg oral capsule, extended release See Instructions, 1 capsule By Mouth Daily in AM, 1 capsule at 12PM., # 56 capsule, 0 Refills, Maintenance, 12/02/19 17:15:00 EDT, [facility]/pharmacy #[id number], 1 capsule By Mouth Daily in AM, 1 capsule at 12PM., 142, cm, 11/13/19 12:42:00 EDT, Height, 51, kg,... Start Date: 12/02/19 Status: Ordered AneCream 5 topical cream APPLY [...] tablet, 3 Refills, Maintenance, 12/01/19 9:58:00 EDT, [facility]/pharmacy #[id number], 142, cm, 11/13/19 12:42:00 EDT, [...] Instructions Replace Required Details, Routeto Pharmacy Electronically, [facility]/pharmacy #[id number], 142... Start Date: 10/21/19 Status: Ordered famotidine 40 mg/5 ml oral powder for reconstitution TAKE 5 ML BY MOUTH ONCE A DAY AT BEDTIME Start Date: 09/15/19 Status: Ordered ibuprofen 600 mg oral tablet 1, tablet, By Mouth, Every 6 hours, PRN, # 100 tablet, Refills 2, Tot. Refills 0, Acute, NEEDED FOR PAIN, 10/16/19 7:59:00 EDT, Route to Pharmacy Electronically, [facility] 76440, 142, cm, 09/14/2014:31:00 EDT, Height, 51, kg, [...] tablet, 3 Refills, Maintenance, 10/30/19 13:08:00 EDT, [facility]/pharmacy #[id number], Will bead picker 11/02 along [...] tablet, 2 Refills, Maintenance, 12/01/2016:05:00 EDT, Tablet, [facility]/pharmacy #[id number], 142, cm,... Start Date: 12/02/19 Status: Ordered topiramate 200 mg oral tablet 1.5 tablets, By Mouth, 2 times a day, 90 day supply, # 270 tablet, 3 Refills, Maintenance, 07/07/2013:01:00 EST, [facility]/pharmacy #[id number], Also plz prepare oxycodone/APAP (rx on hold) [...]
--- OUTSIDE RECORDS SUMMARY | 2023-02-26 06:18 | XMS_ITS | Continuity of Care Document ---
Author Name Unknown Organization [facility] Address [address] [place] [address]- Care Team Providers Care Senior Buyer Planner Name Role Phone Hitesh Nick MD, Melia Benjamin Primary Care Physician Encounter [facility] [place] Date(s): 08/31/20 - 09/30/20 [facility] [address] [place], [place] [address] Attending Physician: Admtr, [id number] Allergies, Adverse Reactions, Alerts Substance Reaction Severity [...] 3 Refills, Maintenance, 08/04/20 9:49:00 EDT, [id number], 142, cm, 07/07/20 7:17:00 EST, Height, 51, [...] 03/15/20 9:55:00 EST, Route to Pharmacy Electronically, [facility] [id number], 142, cm, :57:00 EDT, Height, 51, kg, [...] tablet, 1 Refills, Maintenance, 07/13/20 14:22:00 EST, [facility]/pharmacy #[id number], 142, cm, 07/07/20 7:17:00 EST, Height, 51, kg, 07/18/19 15:34:00 EDT, Dry Weight Start Date: 07/13/20 Status: Ordered SUMAtriptan 25 mg oral tablet See Instructions, 1 tab at onset of migraine. May repeat 1 tab after 2hrs. 28 DAY SUPPLY. Treat maxof 1 h/a per week., # 8 tablet, 2 Refills, Maintenance, 07/29/20 10:52:00 EDT, Tablet, [facility]/pharmacy#[id number], 142, cm, 07/07/20 7:17:00 EST, Height, 51, [...] Refills, Maintenance, 07/31/20 15:57:00 EDT, ER Tablet, [facility]/pharmacy #[id number], Partial fill upon patient request if [...]
--- OUTSIDE RECORDS SUMMARY | 2023-02-26 06:18 | XMS_ITS | Continuity of Care Document ---
Author Name Unknown Organization [facility] Address [address] [place] [address], [address] [place] [address]- Care Team Providers Care Bowling Pin Setters Installer Name Role Phone Humberto RIVERA, Rudolph Ochoa Primary Care Physi courtney Encounter [facility] [place] Date(s): 10/14/19 - 11/13/19 [facility] Alixrodri HammZendrives [facility] [address] [facility], [address] [place] [address]- [facility] Attending Physician: Toby Phelps Admitting Physician: AdmToby [...] 10/16/19 13:55:00 EDT, Route to Pharmacy Electronically, [facility]/pharmacy #[id number] Tablet, Partial fill upon patient request, 142, cm, 05... Start Date: 10/16/19 Status: Ordered acetaminophen-oxyCODONE 325 mg-5 mg oral tablet 1-2 tablets, By Mouth, 3 times a day, PRN Pain.Max 6tabs/day.RX 2 of 2, # 84 tablet, Refills 0, Tot. Refills 0, Maintenance, 10/16/19 13:55:00 EDT, [id number]t, Partial fill upon patient request, ... Start Date: 10/16/19 Status: Ordered Adderall XR 10 mg oral capsule, extended release See Instructions, 1 capsule By Mouth Daily in AM, 1 capsule at 12PM., # 56 capsule, 0 Refills, Maintenance, 10/20/19 8:37:00 EDT, [facility]/pharmacy #[id number], 1 capsule By Mouth Daily in [...] tablet, 3 Refills, Maintenance, 09/18/19 9:33:00 EDT, [facility]/pharmacy #[id number], 142, cm, 09/15/19 15:31:00 EDT, Height, [...] Instructions Replace Required Details, Routeto Pharmacy Electronically, [facility]/pharmacy #[id number], 142... Start Date: 10/21/19 Status: Ordered famotidine 40 mg/5 ml oral powder for reconstitution TAKE 5 ML BY MOUTH ONCE A DAY AT BEDTIME Start Date: 09/15/19 Status: Ordered ibuprofen 600 mg oral tablet 1, tablet, By Mouth, Every 6 hours, PRN, # 100 tablet, Refills 2, Tot. Refills 0, Acute, NEEDED FOR PAIN, 10/16/19 7:59:00 EDT, Route to Pharmacy Electronically, [facility] STORE 98826, 142, cm, 09/14/2014:31:00 EDT, Height, 51, kg, [...] tablet, 3 Refills, Maintenance, 10/30/19 13:08:00 EDT, [facility]/pharmacy #[id number], Will fruit picker machine operator 11/02 along w/oxycodone- APAP currently [...] tablet, 2 Refills, Maintenance, 08/31/2010:42:00 EDT, Tablet, [facility]/pharmacy #[id number], 142, cm,... Start Date: 09/01/19 Status: Ordered topiramate 200 mg oral tablet 1.5 tablets, By Mouth, 2 times a day, 90 day supply, # 270 tablet, 3 Refills, Maintenance, 07/07/2013:01:00 EST, [id number], Also plz prepare oxycodone/APAP (rx on hold) for fruit picker machine operator 07/08. Thank you, 142, cm, [...] left shoulder(Confirmed) Active Shoulder pain, left, mechani shyma (including at AC joint)(Confirmed) Active Shoulder pain, [...]
--- OUTSIDE RECORDS SUMMARY | 2023-02-26 06:19 | XMS_ITS | Continuity of Care Document ---
Author Name Unknown Organization [facility] Address [address] [place] [address], [address] [place] [address]- Care Team Providers Care Financial Data Analyst Name Role Phone Humberto ACADEMIC VICE PRESIDENT, Rudolph Ochoa Primary Care Physi courtney Encounter [facility] [place] Date(s): 06/06/19 - 08/31/19 [facility] [place] [facility] [facility] [address] [facility], [address] [place] [address]- Attending Physician: Rebecca Steele MD Referring Physician: Araceli Ziegler MD Allergies, [...] 08/21/19 11:06:00 EDT, Route to Pharmacy Electronically, [facility]/pharmacy #[id number] Tablet, Partial fill upon patient request, 142, cm, 03... Start Date: 08/21/19 Status: Ordered acetaminophen-oxyCODONE 325 mg-5 mg oral tablet 1-2 tablets, By Mouth, 3 times a day, PRN Pain.Max 6tabs/day.RX 2 of 2, # 84 tablet, Refills 0, Tot. Refills 0, Maintenance, 08/21/19 11:06:00 EDT, Route to Pharmacy Electronically, [facility]/pharmacy #[id number] Tablet, Partial fill upon patient request, ... Start Date: 08/21/19 Status: Ordered Adderall XR 10 mg oral capsule, extended release See Instructions, 1 capsule By Mouth Daily in AM, 1 capsule at 12PM., # 56 capsule, 0 Refills, Maintenance, 08/07/19 9:16:00 EDT, [facility]/pharmacy #[id number], PLEASE also prepare oxycodone/APAP rx [...] tablet, 1 Refills, Maintenance, 08/11/19 10:38:00 EDT, [facility]/pharmacy #[id number], 142, cm, 07/18/19 15:34:00 EDT, [...] 08/01/19 14:28:00 EDT, Route to Pharmacy Electronically, [facility]/pharmacy #[id number], 142, cm, 07/18/19 15:34:00 EDT, [...] tablet, 3 Refills, Maintenance, 05/28/19 15:40:00 EST, [facility]/pharmacy #[id number], 142, cm, 05/05/19 15:28:00 EST, Height, 53.1, kg, 07/12/18 13:35:00 EST, Dry Weight Start Date: 05/28/19 Status: Ordered SUMAtriptan 25 mg oral tablet 1 tablet = 25 mg, By Mouth, Daily, PRN for migraine headache, may repeat dose after 2 hours up to amaximum of 2; max 4 headaces/mo, # 8 tablet, 2 Refills, Maintenance, 05/27/19 14:58:00 EST, Tablet,[facility]/pharmacy #[id number], 142, cm, 05/05/19 15:28:00 EST,... Start Date: 05/27/19 Status: Ordered topiramate 200 mg oral tablet 1.5 tablets, By Mouth, 2 times a day, 90 day supply, # 270 tablet, 3 Refills, Maintenance, 07/07/2013:01:00 EST, [id number], Also plz prepare oxycodone/APAP (rx on hold) for corn picker 07/08. Thank you, 142, cm, 07/01/19 [...]
--- OUTSIDE RECORDS SUMMARY | 2023-02-26 06:19 | XMS_ITS | Continuity of Care Document ---
Author Name Unknown Organization [facility] [employer] Address [address] [facility], [address] [place] [address]- Care Team Providers Care Supervisor Filling And Packing Name Role Phone Hitesh Nick MD, Melia Benjamin Primary Care Physician [phone] [place] [facility] [place] 07/22/20 - 08/21/20 [facility] [employer] [address] [facility], [address] [place] [address]- Allergies, Adverse Reactions, Alerts Substance Reaction Severity [...] 3 Refills, Maintenance, 08/04/20 9:49:00 EDT, [id number], 142, cm, 07/07/20 7:17:00 EST, Height, 51, [...] 03/15/20 9:55:00 EST, Route to Pharmacy Electronically, [facility] STORE 15127, 142, cm, 207:57:00 EDT, Height, 51, kg, [...]
--- OUTSIDE RECORDS SUMMARY | 2023-02-26 06:19 | XMS_ITS | Continuity of Care Document ---
Author Name Unknown Organization [facility] Address [address] [place] [address]- Care Team Providers Care Condenser Tube Tender Name Role Phone Melia Jacobs MD Primary Care Physician [phone] Encounter [facility] [place] Date(s): 05/04/20 - 06/17/20 [facility] [address] [place] [address] Attending Physician: Lane Grace MD Admitting Physician: Lane Grace MD Referring Physician: eMlia Jacobs MD Allergies, Adverse Reactions, Alerts Substance [...] 17:08:00 EST, Route to Pharmacy Electronically, [facility]/pharmacy #[id number] Ta... Start Date: 06/02/20 Status: Ordered buprenorphine [...] 3 Refills, Maintenance, 05/10/20 13:13:00 EST, [facility]/pharmacy #[id number], 142, cm, 04/07/20 14:00:00 EST, [...] 9:55:00 EST, Route to Pharmacy Electronically, [facility] STORE [id number], 142, cm, :57:00 EDT, Height, 51, kg, [...]
--- OUTSIDE RECORDS SUMMARY | 2023-02-26 06:19 | XMS_ITS | Continuity of Care Document ---
Author Name Unknown Organization [facility] Address [address] [place] [address]- Care Team Providers Care Agriculture Technician Name Role Phone Hitesh Nick MD, Melia Benjamin Primary Care Physician [phone] [place] [facility] [place](s): 07/12/20 - 08/11/20 [facility] [address] [address]- Allergies, Adverse Reactions, Alerts Substance Reaction Severity [...] tablet, 3 Refills, Maintenance, 08/04/20 9:49:00 EDT, [facility]/pharmacy #[id number], 142, cm, 07/07/20 7:17:00 EST, Height, 51, [...] 03/15/20 9:55:00 EST, Route to Pharmacy Electronically, [facility] STORE 74447, 142, cm, :57:00 EDT, Height, 51, kg, [...]
--- OUTSIDE RECORDS SUMMARY | 2023-02-26 06:19 | XMS_ITS | Continuity of Care Document ---
Author Name Unknown Organization [facility] Address [address] [place] [address]- Care Team Providers Care Nursery School Teacher Name Role Phone Karlie WHITEHEAD, Araceli Primary Care Physician [place] [facility] [place](s[place] 07/03/19 - 07/13/[address] [address]- [facility] Attending Physician: Toby Phelps Admitting Physician: AdmToby darnell Referring Physician: Admtr, Ar8 Allergies, Adverse Reactions, [...] 0 Refills, Maintenance, 06/25/19 17:59:00 EST, [id number], 1 capsule By Mouth Daily in AM, [...] tablet, Refills 0, Tot. Refills 0, Maintenance, 06/25/19 17:59:00 EST, Route to Pharmacy Electronically, [facility]/pharmacy #[id number], Partial fill upon patient request, 07/09/19, 142,... Start Date: 06/25/19 Status: Ordered Percocet-5/325 325 mg-5 mg oral tablet 1-2 tablets, By Mouth, 3 times a day, PRN Pain.Max 6/day.RX 1 of 2, # 84 tablet, Refills 0, Tot. Refills 0, Maintenance, 06/25/19 17:59:00 EST, Route to Pharmacy Electronically, [facility]/pharmacy #[id number], Partial full upon patient request, 142, cm, 06/10/19... Start Date: 06/25/19 Status: Ordered SUMAtriptan 25 mg oral tablet 1 tablet = 25 mg, By Mouth, Daily, PRN for migraine headache, may repeat dose after 2 hours up to amaximum of 2; max 4 headaces/mo, # 8 tablet, 2 Refills, Maintenance, 05/27/19 14:58:00 EST, Tablet,[facility]/pharm[facility] #[id number], 142, cm, 05/05/19 15:28:00 EST,... Start Date: 05/27/19 Status: Ordered topiramate 200 mg oral tablet 1.5 tablets, By Mouth, 2 times a day, 90 day supply, # 270 tablet, 3 Refills, Maintenance, 07/07/2013:01:00 EST, [facility]/pharmacy #4471, Also plz prepare oxycodone/APAP (rx [...]
--- OUTSIDE RECORDS SUMMARY | 2023-02-26 06:19 | XMS_ITS | Continuity of Care Document ---
Author Name Unknown Organization [facility] Address [address] [place] [address]- Care Team Providers Care Leather Belt Shaper Name Role Phone Hitesh Nick MD, Melia Benjamin Primary Care Physician [phone] Encounter [facility] [place] Date(s): 06/28/20 - 07/28/20 [facility] [address] [place] [address]- Allergies, Adverse Reactions, Alerts Substance Reaction Severity [...] tablet, 3 Refills, Maintenance, 05/10/20 13:13:00 EST, [id number], 142, cm, 04/07/20 14:00:00 EST, Height, [...] 9:55:00 EST, Route to Pharmacy Electronically, [facility] STORE 08728, 142, cm, :57:00 EDT, Height, 51, kg, [...] 1 Refills, Maintenance, 07/13/20 14:22:00 EST, [facility]/pharmacy #[id number], 142, cm, 07/07/20 7:17:00 EST, Height, 51, kg, 07/18/19 15:34:00 EDT, Dry Weight Start Date: 07/13/20 Status: Ordered SUMAtriptan 25 mg oral tablet See Instructions, PRN for migraine headache, 1 tab at onset of migraine. If needed may repeat 1 tabafter 2hrs. Treat max of 1 h/a per week. supply, # 8 tablet, 2 Refills, Maintenance, 05/10/2112:13:00 EST, Tablet, [facility]/pharmacy #[id number], 142, cm,... Start Date: 05/10/20 Status: [...]
--- OUTSIDE RECORDS SUMMARY | 2023-02-26 06:19 | XMS_ITS | Continuity of Care Document ---
Author Name Unknown Organization [facility] Address [address] [place] [address]- Care Team Providers Care Handle And Vent Machine Operator Name Role Phone Araceli Ziegler MD Primary Care Physician Encounter [facility] Date(s): 02/17/19 - 07/31/19 [facility] [address] [place] [address]- [facility] Attending Physician: Lane Grace MD Admitting [...] 0 Refills, Maintenance, 06/25/19 17:59:00 EST, [id number], 1 capsule By Mouth Daily in AM, [...] EDT, Route to Pharmacy Electronically, [facility]/pharmacy #[id number], Partial fill upon patient request, 08/05/19, 142,... Start Date: 07/22/19 Status: Ordered Percocet-5/325 325 mg-5 mg oral tablet 1-2 tablets, By Mouth, 3 times a day, PRN Pain.Max 6/day.RX 1 of 2, # 84 tablet, Refills 0, Tot. Refills 0, Maintenance, 07/22/19 14:59:00 EDT, Route to Pharmacy Electronically, [facility]/pharmacy #[id number], Partial full upon patient request, 142, cm, 07/18/19... Start Date: 07/22/19 Status: Ordered SUMAtriptan 25 mg oral tablet 1 tablet = 25 mg, By Mouth, Daily, PRN for migraine headache, may repeat dose after 2 hours up to amaximum of 2; max 4 headaces/mo, # 8 tablet, 2 Refills, Maintenance, 05/27/19 14:58:00 EST, Tablet,[facility]/pharmacy #[id number], 142, cm, 05/05/19 15:28:00 EST,... Start Date: 05/27/19 Status: Ordered topiramate 200 mg oral tablet 1.5 tablets, By Mouth, 2 times a day, 90 day supply, # 270 tablet, 3 Refills, Maintenance, 07/07/2013:01:00 EST, [facility]/pharmacy #[id number], Also plz prepare oxycodone/APAP (rx on hold) for pick up and delivery driver 07/08. Thank you, 142, cm, 07/01/19 [...]
--- OUTSIDE RECORDS SUMMARY | 2023-02-26 06:19 | XMS_ITS | Continuity of Care Document ---
Author Name Unknown Organization [facility] Address [address] [place] [address]- Care Team Providers Care Title Specialist Name Role Phone Hitesh Nick MD, Melia Benjamin Primary Care Physician [phone] [place] [facility] [place](s): 03/19/20 - 04/18/20 [facility] [address] [place] [address]- Allergies, Adverse Reactions, Alerts Substance Reaction Severity [...] times a day, PRN Pain.Max 6/day. RX 2 of 2, # 84 tablet, Refills 0, Tot. Refills 0, Maintenance, 04/08/20 14:44:00 EST, Route to Pharmacy Electronically, [facility]/pharmacy #4471 Tablet, Partial fill upon patient request, 04/22/20,... Start Date: 04/08/20 Status: Ordered acetaminophen-oxyCODONE 325 mg-5 mg oral tablet 1-2 tablets, By Mouth, 3 times a day, PRN Pain.Max 6tabs/day. RX 1 of 2, # 84 tablet, Refills 0, Tot. Refills 0, Maintenance, 04/08/20 14:44:00 EST, Route to Pharmacy Electronically, [facility]/pharmacy #4471 Tablet, Partial fill upon patient request, 142, c... Start Date: 04/08/20 Status: Ordered buprenorphine 15 mcg/hr transdermal film, extended release 1 patch, Topically, Every 7 days, # 4 patch, 1 Refills, Maintenance, 04/13/20 16:30:00 EST Start Date: 04/13/20 Status: Ordered cimetidine 300 mg oral tablet See Instructions, 1-2 tabs po 3-4 times/day 30min before meals & qhs. Replaces famotidine &esomeprazole, # 90 tablet, 3 Refills, Maintenance, 12/01/19 9:58:00 EDT, [facility]/pharmacy #[id number], 142, cm, 11/13/19 12:42:00 [...] 03/15/20 9:55:00 EST, Route to Pharmacy Electronically, [facility] STORE 28516, 142, cm, :57:00 EDT, Height, 51, kg, [...] plz prepare oxycodone/APAP (rx on hold) for steel pickler 07/08. Thank you, 142, cm, 07/01/19 [...]
--- OUTSIDE RECORDS SUMMARY | 2023-02-26 06:19 | XMS_ITS | Continuity of Care Document ---
Author Name Unknown Organization [facility] Address [address] [place] [address]- Care Team Providers Care Knife Setter Name Role Phone Humberto RIVERA, Rudolph Ochoa Primary Care Physi [facility] Encounter [facility] Date(s): 07/01/19 - 08/13/19 [facility] [address] [place] [address]- [facility] Attending Physician: Not on Staff, Attending MD Referring Physician: Vince Bautista MD, Otto Calderon Allergies, Adverse Reactions, Alerts Substance Reaction Severity Status morphine migraine headache; swelling in face Active salsalate difficulty breathing , severe swelling whole body Active Imitrex Difficulty breathing Bilateral shoulder heaviness Active Bactrim DS 1 Tongue swelling Chest tightness Persistent Severe Active zonisamide Finger swelling Rash Active ZOLMitriptan Chest tightness Active tiaGABine Headache Blurry vision Active lamoTRIgine Somnolence Confusion Active 1she began to experience chest pain, [...] 0 Refills, Maintenance, 08/07/19 9:16:00 EDT, [id number], PLEASE also prepare oxycodone/APAP rx currently on [...] tablet, 1 Refills, Maintenance, 08/11/19 10:38:00 EDT, [facility]/pharmacy #[id number], 142, cm, 07/18/19 15:34:00 EDT, [...] 08/01/19 14:28:00 EDT, Route to Pharmacy Electronically, [facility]/pharmacy #[id number], 142, cm, 07/18/19 15:34:00 EDT, [...] tablet, 3 Refills, Maintenance, 05/28/19 15:40:00 EST, [facility]/pharmacy #[id number], 142, cm, 05/05/19 15:28:00 EST, Height, 53.1, kg, 07/12/18 13:35:00 EST, Dry Weight Start Date: 05/28/19 Status: Ordered Percocet-5/325 325 mg-5 mg oral tablet 1-2 tablets, By Mouth, 3 times a day, PRN Pain.Max 6tabs/day.RX 2 of 2, # 84 tablet, Refills 0, Tot. Refills 0, Maintenance, 07/22/19 14:59:00 EDT, Route to Pharmacy Electronically, [facility]/pharmacy #[id number], Partial fill upon patient request, 08/05/19, 142,... Start Date: 07/22/19 Status: Ordered Percocet-5/325 325 mg-5 mg oral tablet 1-2 tablets, By Mouth, 3 times a day, PRN Pain.Max 6/day.RX 1 of 2, # 84 tablet, Refills 0, Tot. Refills 0, Maintenance, 07/22/19 14:59:00 EDT, Route to Pharmacy Electronically, [facility]/pharmacy #[id number], Partial full upon patient request, 142, cm, 07/18/19... Start Date: 07/22/19 Status: Ordered raNITIdine 150 mg oral capsule 1 capsule = 150 mg, By Mouth, 3 times a day, replaces famotidine and esomeprazole, # 90 capsule, 3 Refills, Maintenance, 08/07/19 15:42:00 EDT, [facility]/pharmacy #[id number], 142, cm, 07/18/19 15:34:00 EDT, Height, 51, kg, 07/18/19 15:34:00 EDT, Dry Weight Start Date: 08/07/19 Status: Ordered SUMAtriptan 25 mg oral tablet 1 tablet = 25 mg, By Mouth, Daily, PRN for migraine headache, may repeat dose after 2 hours up to amaximum of 2; max 4 headaces/mo, # 8 tablet, 2 Refills, Maintenance, 05/27/19 14:58:00 EST, Tablet,[facility]/pharmacy #[id number], 142, cm, 05/05/19 15:28:00 EST,... Start Date: 05/27/19 Status: Ordered topiramate 200 mg oral tablet 1.5 tablets, By Mouth, 2 times a day, 90 day supply, # 270 tablet, 3 Refills, Maintenance, 07/07/2013:01:00 EST, [facility]/pharmacy #[id number], Also plz prepare oxycodone/APAP (rx on hold) for flower picker 07/08. Thank you, 142, cm, 07/01/19 [...]
--- OUTSIDE RECORDS SUMMARY | 2023-02-26 06:19 | XMS_ITS | Continuity of Care Document ---
Author Name Unknown Organization [facility] Address [address] [place] [address]- Care Team Providers Care China Painter Name Role Phone Hitesh Nick MD, Melia Benjamin Primary Care Physician [place] [facility] [place] 01/26/20 - 02/25/20 [facility] [address] [place] [address]- [facility] Allergies, Adverse Reactions, Alerts Substance Reaction [...] 02/24/20 17:04:00 EDT, Route to Pharmacy Electronically, [facility]/pharmacy #[id number] Tablet, Partial fill upon patient request, 142, cm, 02/24/20 14... Start Date: 02/24/20 Status: Ordered acetaminophen-oxyCODONE 325 mg-5 mg oral tablet 1-2 tablets, By Mouth, 3 times a day, PRN Pain.Max 6tabs/day.RX 2 of 2, # 84 tablet, Refills 0, Tot. Refills 0, Maintenance, 01/26/20 11:54:00 EDT, Route to Pharmacy Electronically, [facility]/pharmacy #[id number] Tablet, Partial fill upon patient request, ... Start Date: 01/26/20 Status: Ordered AneCream 5 topical cream APPLY TO AFFECTED AREA 4 TIMES A DAY NEEDED Start Date: 04/09/19 Status: Ordered buprenorphine 10 mcg/hr transdermal film, extended release 1 patch, Topically, Every 7 days, # 2 patch, 0 Refills, Maintenance, 02/24/20 17:04:00 EDT, [facility]/pharmacy #[id number], 1 patch Topically Every 7 days, 142, cm, 02/24/20 14:04:00 EDT, Height, 51, kg, 07/18/19 15:34:00 EDT, Dry Weight Start Date: 02/24/20 Status: Ordered cimetidine 300 mg oral tablet See Instructions, 1-2 tabs po 3-4 times/day 30min before meals & qhs. Replaces famotidine &esomeprazole, # 90 tablet, 3 Refills, Maintenance, 12/01/19 9:58:00 EDT, [facility]/pharmacy #[id number], 142, cm, 11/13/19 12:42:00 EDT, [...] 01/12/20 3:54:00 EDT, Route to Pharmacy Electronically, [facility] STORE 30291, 142, cm, 01/07/2013:49:00 EDT, Height, 51, kg, [...] tablet, 3 Refills, Maintenance, 10/30/19 13:08:00 EDT, [facility]/pharmacy #[id number], Will merchandise pickup/receiving associate 11/02 along w/oxycodone- APAP currently on hold., [...] tablet, 2 Refills, Maintenance, 02/23/2017:04:00 EDT, Tablet, [facility]/pharmacy #[id number], 142, cm,... Start Date: 02/24/20 Status: Ordered topiramate 200 mg oral tablet 1.5 tablets, By Mouth, 2 times a day, 90 day supply, # 270 tablet, 3 Refills, Maintenance, 07/07/2013:01:00 EST, [facility]/pharmacy #[id number], Also plz prepare oxycodone/APAP (rx on hold) for merchandise pickup/receiving associate 07/08. Thank you, 142, cm, 07/01/19 15:50:00 [...]
--- OUTSIDE RECORDS SUMMARY | 2023-02-26 06:19 | XMS_ITS | Continuity of Care Document ---
Author Name Unknown Organization [facility] Address [address] [place] [address]- Care Team Providers Care Physician Neonatology Name Role Phone Hitesh Nick MD, Melia Benjamin Primary Care Physician [phone] [place] [facility] [place] 12/25/19 - 01/24/20 [facility] [address] [place] [address]- [facility] Allergies, Adverse Reactions, Alerts Substance [...] 01/12/20 3:54:00 EDT, Route to Pharmacy Electronically, [facility] STORE 97104, 142, cm, 01/07/2013:49:00 EDT, Height, 51, kg, [...] tablet, 3 Refills, Maintenance, 10/30/19 13:08:00 EDT, [facility]/pharmacy #[id number], Will 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 Thank you, 142, cm, 07/01/19 15:50:00 [...]
--- OUTSIDE RECORDS SUMMARY | 2023-02-26 06:19 | XMS_ITS | Continuity of Care Document ---
Author Name Unknown Organization [facility] Address [address] [facility], [address], [address] [place] [address]- Care Team Providers Care Director Of Premium Seat Sales Name Role Phone Hitesh Nick MD, Olinda Primary Care Physician Encounter [facility] [place] Date(s): 11/19/20 - 12/19/20 [facility] [address], [address], [address] [place] [address] Allergies, Adverse Reactions, Alerts Substance Reaction Severity [...] 03/15/20 9:55:00 EST, Route to Pharmacy Electronically, [facility] STORE 20631, 142, cm, 03/03/:57:00 EDT, Height, 51, kg, 07/18/19 15:34:00 EDT,... [...]
--- OUTSIDE RECORDS SUMMARY | 2023-02-26 06:19 | XMS_ITS | Continuity of Care Document ---
Author Name Unknown Organization [facility] Address [address] [place] [address]- Care Team Providers Care Drop Forge Operator Name Role Phone Hitesh Nick MD, Melia Benjamin Primary Care Physician Encounter [facility] [place] Date(s): 04/12/20 - 07/01/20 [facility] [address] [place] [address]- Attending Physician: Vince Carrera MD, Otto Calderon Admitting Physician: Otto Clarke Jr, MD Referring Physician: Melia Jacobs MD Allergies, Adverse Reactions, Alerts Substance Reaction Severity Status salsalate difficulty breathing, severe swelling who le body Active zonisamide Finger swelling Rash Active ZOLMitriptan Chest tightness Active lamoTRIgine Somnolence [...] tablet, 3 Refills, Maintenance, 05/10/20 13:13:00 EST, [facility]/pharmacy #[id number], 142, cm, 04/07/20 14:00:00 EST, [...] 03/15/20 9:55:00 EST, Route to Pharmacy Electronically, [facility] STORE 02982, 142, cm, :57:00 EDT, Height, 51, kg, [...]
--- OUTSIDE RECORDS SUMMARY | 2023-02-26 06:19 | XMS_ITS | Continuity of Care Document ---
Author Name Unknown Organization [facility] Address [address] [place] [address]- Care Team Providers Care Flatbed Press Operator Name Role Phone Hitesh Nick MD, Olinda Primary Care Physician [place] [facility] [id number] Date(s): 11/26/20 - 12/26/20 [facility] [address] [place] [address]- Allergies, Adverse Reactions, Alerts Substance Reaction Severity [...] 03/15/20 9:55:00 EST, Route to Pharmacy Electronically, [facility] STORE 55961, 142, cm, 03/03/:57:00 EDT, Height, 51, kg, [...]
--- OUTSIDE RECORDS SUMMARY | 2023-02-26 06:19 | XMS_ITS | Continuity of Care Document ---
Author Name Unknown Organization [facility] Address [address] [facility], [address] [place] [address]- Care Team Providers Care Handle Attacher Name Role Phone Humberto BUILDING REPAIR MAINTENANCE SUPERVISOR, Rudolph Ochoa Primary Care Physi [facility] Encounter [facility] [place] Date(s): 08/02/19 - 11/30/19 [facility] [employer] [facility] [address] [facility], [address]th [place] [address]- [facility] Attending Physician: Ivette WHITEHEAD, Rebecca Flores Referring [...] 11/17/19 10:27:00 EDT, Route to Pharmacy Electronically, [facility]/pharmacy #[id number] Tablet, Partial fill upon patient request, ... Start Date: 11/17/19 Status: Ordered acetaminophen-oxyCODONE 325 mg-5 mg oral tablet 1-2 tablets, By Mouth, 3 times a day, PRN Pain.Max 6/day.RX 1 of 2, # 84 tablet, Refills 0, Tot. Refills 0, Maintenance, 11/17/19 10:28:00 EDT, Route to Pharmacy Electronically, [facility]/pharmacy #[id number] Tablet, Partial fill upon patient request, 142, cm, 07... Start Date: 11/17/19 Status: Ordered Adderall XR 10 mg oral capsule, extended release See Instructions, 1 capsule By Mouth Daily in AM, 1 capsule at 12PM., # 56 capsule, 0 Refills, Maintenance, 10/20/19 8:37:00 EDT, [facility]/pharmacy #[id number], 1 capsule By Mouth Daily [...] tablet, 3 Refills, Maintenance, 09/18/19 9:33:00 EDT, [facility]/pharmacy #[id number], 142, cm, 09/15/19 15:31:00 EDT, [...] Instructions Replace Required Details, Routeto Pharmacy Electronically, [facility]/pharmacy #0141, 142... Start Date: 10/21/19 Status: Ordered famotidine 40 mg/5 ml oral powder for reconstitution TAKE 5 ML BY MOUTH ONCE A DAY AT BEDTIME Start Date: 09/15/19 Status: Ordered ibuprofen 600 mg oral tablet 1, tablet, By Mouth, Every 6 hours, PRN, # 100 tablet, Refills 2, Tot. Refills 0, Acute, NEEDED FOR PAIN, 10/16/19 7:59:00 EDT, Route to Pharmacy Electronically, [facility] STORE 65591, 142, cm, 09/14/2014:31:00 EDT, Height, 51, kg, [...] tablet, 3 Refills, Maintenance, 10/30/19 13:08:00 EDT, [facility]/pharmacy #[id number], Will filler picker 11/02 along w/oxycodone- APAP currently on [...] plz prepare oxycodone/APAP (rx on hold) for filler picker 07/08. Thank you, 142, cm, 07/01/19 [...]
--- OUTSIDE RECORDS SUMMARY | 2023-02-26 06:19 | XMS_ITS | Continuity of Care Document ---
Author Name Unknown Organization [facility] Address [address] [place] [address]- Care Team Providers Care Regulatory Affairs Associate Name Role Phone Humberto FORMULA BOTTLER, Rudolph Ochoa Primary Care Physi [facility] Encounter [facility] Date(s): 11/14/19 - 12/14/19 [facility] [address] [place] [address]- [facility] Allergies, Adverse Reactions, Alerts Substance Reaction Severity [...] 11/17/19 10:27:00 EDT, Route to Pharmacy Electronically, [facility]/pharmacy #[id number] Tablet, Partial fill upon patient request, ... Start Date: 11/17/19 Status: Ordered acetaminophen-oxyCODONE 325 mg-5 mg oral tablet 1-2 tablets, By Mouth, 3 times a day, PRN Pain.Max 6/day.RX 1 of 2, # 84 tablet, Refills 0, Tot. Refills 0, Maintenance, 11/17/19 10:28:00 EDT, [id number], Partial fill upon patient request, 142, cm, 07... Start Date: 11/17/19 Status: Ordered Adderall XR 10 mg oral capsule, extended release See Instructions, 1 capsule By Mouth Daily in AM, 1 capsule at 12PM., # 56 capsule, 0 Refills, Maintenance, 12/02/19 17:15:00 EDT, [facility]/pharmacy #[id number], 1 capsule By Mouth Daily [...] tablet, 3 Refills, Maintenance, 12/01/19 9:58:00 EDT, [facility]/pharmacy #[id number], 142, cm, 11/13/19 12:42:00 [...] Instructions Replace Required Details, Routeto Pharmacy Electronically, [facility]/pharmacy #[id number], 142... Start Date: 10/21/19 Status: Ordered famotidine 40 mg/5 ml oral powder for reconstitution TAKE 5 ML BY MOUTH ONCE A DAY AT BEDTIME Start Date: 09/15/19 Status: Ordered ibuprofen 600 mg oral tablet 1, tablet, By Mouth, Every 6 hours, PRN, # 100 tablet, Refills 2, Tot. Refills 0, Acute, NEEDED FOR PAIN, 10/16/19 7:59:00 EDT, Route to Pharmacy Electronically, [facility] STORE [id number], 142, cm, 09/14/2014:31:00 EDT, Height, 51, kg, [...] tablet, 3 Refills, Maintenance, 10/30/19 13:08:00 EDT, [facility]/pharmacy #[id number], Will bean picker 11/02 along w/oxycodone- APAP currently on [...] tablet, 2 Refills, Maintenance, 12/01/2016:05:00 EDT, Tablet, [facility]/pharmacy #[id number], 142, cm,... Start Date: 12/02/19 Status: Ordered topiramate 200 mg oral tablet 1.5 tablets, By Mouth, 2 times a day, 90 day supply, # 270 tablet, 3 Refills, Maintenance, 07/07/2013:01:00 EST, [facility]/pharmacy #[id number], Also plz prepare oxycodone/APAP (rx on hold) for bean picker 07/08. Thank you, 142, cm, 07/01/19 [...]
--- OUTSIDE RECORDS SUMMARY | 2023-02-26 06:19 | XMS_ITS | Continuity of Care Document ---
Author Name Unknown Organization [facility] Address [address] [place] [id number]- Care Team Providers Care Small Stock Facer Name Role Phone Hitesh Nick MD, Melia Benjamin Primary Care Physician Encounter [facility] [place] Date(s): 06/25/20 - 07/25/20 [facility] [address] [place] [address]- Allergies, Adverse Reactions, Alerts Substance Reaction Severity [...] 03/15/20 9:55:00 EST, Route to Pharmacy Electronically, [facility] ST[facility] [id number], 142, cm, :57:00 EDT, Height, 51, kg, [...] tablet, 1 Refills, Maintenance, 07/13/20 14:22:00 EST, [facility]/pharmacy #[id number], 142, cm, 07/07/20 7:17:00 EST, Height, 51, kg, 07/18/19 15:34:00 EDT, Dry Weight Start Date: 07/13/20 Status: Ordered SUMAtriptan 25 mg oral tablet See Instructions, PRN for migraine headache, 1 tab at onset of migraine. If needed may repeat 1 tabafter 2hrs. Treat max of 1 h/a per week. supply, # 8 tablet, 2 Refills, Maintenance, 05/10/2112:13:00 EST, Tablet, [facility]/pharmacy #[id number], 142, cm,... Start Date: [...]
--- OUTSIDE RECORDS SUMMARY | 2023-02-26 06:19 | XMS_ITS | Continuity of Care Document ---
Author Name Unknown Organization [facility] Alix Stuart nbrand eins [facility] Address [address], [address] [place] [address]- Care Team Providers Care Youth Leader Name Role Phone Hitesh Nick MD, Melia Benjamin Primary Care Physician Encounter [facility] Date(s): 01/13/20 - 01/20/20 [facility] [address] [place] [address]- [facility] Attending Physician: Weston Doty MD Allergies, Adverse Reactions, Alerts Substance Reaction [...] 12/25/19 12:39:00 EDT, Route to Pharmacy Electronically, [facility]/pharmacy #[id number] Tablet, Partial fill upon patient request, ... Start Date: 12/25/19 Status: Ordered acetaminophen-oxyCODONE 325 mg-5 mg oral tablet 1-2 tablets, By Mouth, 3 times a day, PRN Pain.Max 6/day. RX 1 of 2, # 84 tablet, Refills 0, Tot. Refills 0, Maintenance, 12/25/19 12:39:00 EDT, Route to Pharmacy Electronically, [facility]/pharmacy #[id number] Tablet, Partial fill [...] tablet, 3 Refills, Maintenance, 12/01/19 9:58:00 EDT, [facility]/pharmacy #[id number], 142, cm, 11/13/19 [...] 01/12/20 3:54:00 EDT, Route to Pharmacy Electronically, [facility] STORE [id number], 142, cm, 01/07/2013:49:00 EDT, Height, 51, kg, [...] tablet, 3 Refills, Maintenance, 10/30/19 13:08:00 EDT, [facility]/pharmacy #[id number], Will meat pickler 11/02 along w/oxycodone- APAP currently on [...] tablet, 2 Refills, Maintenance, 12/01/2016:05:00 EDT, Tablet, [facility]/pharmacy #[id number], 142, cm,... Start Date: 12/02/19 Status: Ordered topiramate 200 mg oral tablet 1.5 tablets, By Mouth, 2 times a day, 90 day supply, # 270 tablet, 3 Refills, Maintenance, 07/07/2013:01:00 EST, [facility]/pharmacy #[id number], Also plz prepare oxycodone/APAP (rx on hold) for meat pickler 07/08. Thank you, 142, cm, 07/01/19 [...] recent to oldest [Reference Range]: 1 Height 142 cm (01/13/20 10:39 AM) Weight 54.09 kg (01/13/20 10:39 AM) Body Mass Index [18.5-24.99] 26.83 *H* (01/13/20 10:39 AM) Blood Pressure [90-138/55-84 mm Hg] 108/ 68mm Hg (01/13/20 10:39 AM) Blood pressure sites Arm, left (01/13/20 10:39 AM) Weight Obtained Via Standing scale (01/13/20 10:39 AM) Social History Social History Type Response Smoking Status Never smoker entered on: 04/25/13 Sex
--- OUTSIDE RECORDS SUMMARY | 2023-02-26 06:19 | XMS_ITS | Continuity of Care Document ---
Author Name Unknown Organization [facility] Address [address] [place] [address]- Care Team Providers Care Residential Field Manager Name Role Phone Hitesh Nick MD, Melia Benjamin Primary Care Physician [phone] Encounter [facility] [place] Date(s): 01/13/20 - 02/12/20 [facility] [address] [place] [address]- [facility] Allergies, Adverse Reactions, Alerts Substance Reaction [...] 01/26/20 11:54:00 EDT, Route to Pharmacy Electronically, [facility]/pharmacy #[id number] Tablet, Partial fill upon patient request, 142, cm, 0... Start Date: 01/26/20 Status: Ordered acetaminophen-oxyCODONE 325 mg-5 mg oral tablet 1-2 tablets, By Mouth, 3 times a day, PRN Pain.Max 6tabs/day.RX 2 of 2, # 84 tablet, Refills 0, Tot. Refills 0, Maintenance, 01/26/20 11:54:00 EDT, Route to Pharmacy Electronically, [facility]/pharmacy #[id number] Tablet, Partial fill upon patient request, ... Start Date: 01/26/20 Status: Ordered AneCream 5 topical cream APPLY TO AFFECTED AREA 4 TIMES A DAY NEEDED Start Date: 04/09/19 Status: Ordered cimetidine 300 mg oral tablet See Instructions, 1-2 tabs po 3-4 times/day 30min before meals & qhs. Replaces famotidine &esomeprazole, # 90 tablet, 3 Refills, Maintenance, 12/01/19 9:58:00 EDT, [facility]/pharmacy #[id number], 142, cm, 11/13/19 12:42:00 EDT, [...] 01/12/20 3:54:00 EDT, Route to Pharmacy Electronically, [facility] STORE [id number], 142, cm, 01/07/2013:49:00 EDT, Height, 51, kg, [...] tablet, 3 Refills, Maintenance, 10/30/19 13:08:00 EDT, [facility]/pharmacy #[id number], Will numerical analysis group manager 11/02 along w/oxycodone- APAP currently on hold., [...] tablet, 2 Refills, Maintenance, 12/01/2016:05:00 EDT, Tablet, [facility]/pharmacy #[id number], 142, cm,... Start Date: 12/02/19 Status: Ordered topiramate 200 mg oral tablet 1.5 tablets, By Mouth, 2 times a day, 90 day supply, # 270 tablet, 3 Refills, Maintenance, 07/07/2013:01:00 EST, [id number], Also plz prepare oxycodone/APAP (rx on hold) for numerical analysis group manager 07/08. Thank you, 142, cm, 07/01/19 15:50:00 [...]
--- OUTSIDE RECORDS SUMMARY | 2023-02-26 06:19 | XMS_ITS | Continuity of Care Document ---
Author Name Unknown Organization [facility] Address [address] [place] [phone]- Care Team Providers Care Peoplesoft Programmer Name Role Phone Hitesh Nick MD, Olinda Primary Care Physician [phone] Encounter [facility] [place] Date(s): 12/09/20 - 01/08/21 [facility] [address] [place] [id number]- Allergies, Adverse Reactions, Alerts Substance Reaction Severity [...] 03/15/20 9:55:00 EST, Route to Pharmacy Electronically, [facility] [id number], 142, cm, :57:00 EDT, Height, 51, kg, [...] Refills, Maintenance, 07/31/20 15:57:00 EDT, ER Tablet, [facility]/pharmacy #[id number], Partial fill upon patient [...]
--- OUTSIDE RECORDS SUMMARY | 2023-02-26 06:19 | XMS_ITS | Continuity of Care Document ---
Author Name Unknown Organization [facility] Address [address] [place] [address]- Care Team Providers Care Field Rep Name Role Phone Humberto CONCRETE MIXING TRUCK DRIVER, Rudolph Ochoa Primary Care Physi [facility] Encounter [facility] [place] Date(s): 09/15/19 - 09/22/19 [facility] [address] [place] [address]- [facility] Attending Physician: Vince Carrera MD, Otto Calderon Admitting Physician: Vince Carrera MD, Otto Calderon Allergies, Adverse Reactions, Alerts [...] 09/18/19 11:29:00 EDT, Route to Pharmacy Electronically, [facility]/pharmacy #[id number] Tablet, Partial fill upon patient request, 142, cm, 05... Start Date: 09/18/19 Status: Ordered acetaminophen-oxyCODONE 325 mg-5 mg oral tablet 1-2 tablets, By Mouth, 3 times a day, PRN Pain.Max 6tabs/day.RX 2 of 2, # 84 tablet, Refills 0, Tot. Refills 0, Maintenance, 09/18/19 11:29:00 EDT, Route to Pharmacy Electronically, [facility]/pharmacy #[id number] Tablet, Partial fill upon patient request, ... Start Date: 09/18/19 Status: Ordered Adderall XR 10 mg oral capsule, extended release See Instructions, 1 capsule By Mouth Daily in AM, 1 capsule at 12PM., # 56 capsule, 0 Refills, Maintenance, 09/18/19 11:29:00 EDT, [facility]/pharmacy #[id number], 1 capsule By Mouth Daily [...] tablet, 3 Refills, Maintenance, 09/18/19 9:33:00 EDT, [facility]/pharmacy #[id number], 142, cm, 09/15/19 15:31:00 EDT, [...] tablet, 0 Refills, Maintenance, 09/15/19 16:30:00 EDT, [facility]/pharmacy #[id number], 142, cm, 09/15/19 15:31:00 EDT, Height, 51... Start Date: 09/15/19 Status: Ordered Movantik 25 mg oral tablet TAKE 1 TABLET BY MOUTH EVERY DAY IN THE MORNING Start Date: 02/17/19 Status: Ordered ondansetron 8 mg oral tablet 1 tablet = 8 mg, By Mouth, 2 times a day, # 56 tablet, 3 Refills, Maintenance, 05/28/19 15:40:00 EST, [facility]/pharmacy #[id number], 142, cm, 05/05/19 15:28:00 EST, Height, 53.1, kg, 07/12/18 13:35:00 EST, Dry Weight Start Date: 05/28/19 Status: Ordered SUMAtriptan 25 mg oral tablet See Instructions, PRN for migraine headache, 1 tab at onset of migraine. If needed may repeat 1 tabafter 2hrs. Treat max of 1 h/a per week. supply, # 8 tablet, 2 Refills, Maintenance, 08/31/2010:42:00 EDT, Tablet, [facility]/pharmacy #[id number], 142, cm,... Start Date: 09/01/19 Status: Ordered topiramate 200 mg oral tablet 1.5 tablets, By Mouth, 2 times a day, 90 day supply, # 270 tablet, 3 Refills, Maintenance, 07/07/2013:01:00 EST, [id number], Also plz prepare oxycodone/APAP (rx on hold) for molded goods spot picker 07/08. Thank you, 142, cm, 07/01/19 [...] oldest [Reference Range]: 1 Height 142 cm (09/15/19 3:31 PM) Social History Social History Type Response Smoking Status Never smoker entered on: 04/25/13 Sex
[2023-02-26] MEDS: Lactated Ringers 1,000 ML 100 ML IVCONT (06:29)
[2023-02-26] MEDS: Gabapentin 300 MG CAPSULE PO (06:52)
[2023-02-26] MEDS: methocarbamoL 750 MG TABLET PO (06:52)
--- NOTE | 2023-02-26 07:07 | MHC.SHP ---
Pre-Procedural Eval Section A Date of Service: 02/26/23 The patient is an INPATIENT: No Changes since office visit: No Cold of Flu in the past 2 weeks, No New Medical Problems, No Changes in Medication and No Patient answered all questions The History & Physical has been completed within 30 days and I have reviewed it.: No Section B Chief Complaint: L5-S1 ALIF Allergies: Allergies Allergy/AdvReac Type Severity Reaction Status Date / Time salsalate Allergy Severe throat Verified 02/26/23 06:20 itching swelling zolmitriptan [From ZOMIG] Allergy Severe SWOLLEN Verified 02/26/23 06:20 THROAT AND ITCHING Review of Systems Sugical H&P ROS: Negative: Constitution, Cardiovascular, Respiratory, Neurological, Psychiatric, Hem-Onc, Allergic/Immunologic, Gastrointestinal, Genitourinary, Musculoskeletal, Integumentary, Endocrine and Eyes/Ears/Nose/Throat Exam Surgical H&P Exam: Not Evaluated: HEENT, Not Evaluated: Heart, Not Evaluated: Lungs, Not Evaluated: Extremities, Not Evaluated: Abdomen, Not Evaluated: Skin and Not Evaluated: Neurological Plan Diagnosis/Plan: Unchanged I have reviewed the history and physical and performed a pertinent physical examination on my patient. No changes have occurred unless specified. L5-S1 ALIF Time Spent With Patient Time: Total time managing care of this patient today __10__ minutes.
--- NOTE | 2023-02-26 07:40 | PHA.MEDREC ---
Pharmacy Consult ? Medication Reconciliation Pharmacy has reviewed the medication reconciliation.
[2023-02-26] MEDS: ceFAZolin Sodium/Dextrose,Iso 2 GM/50 ML PIGGYBACK IV ×3 (08:15→21:15)
[2023-02-26] MEDS: Acetaminophen 1,000 MG/100 ML PIGGYBACK 400 MG IV ×3 (10:20→22:18)
--- NOTE | 2023-02-26 10:59 | P.OP_ITS ---
Operative Note Operative Note Date of Service: 02/26/23 Narrative: Preoperative Diagnosis: 1.) lumbar spondylolisthesis and lumbar degenerative disc disease L5-S1; lumbar radiculopathy and back pain Procedure: L5-S1 discectomy, arthrodesis and implantation cage through an anterior lumbar approach (ALIF) ; anterior instrumentation L5-S1; allograft Indication for Surgery Lumbar degenerative disc disease Consent Informed Consent was obtained for this operation. I have explained the nature, purpose and benefits of the operation. I have discussed the risks and benefit of the operation including possible complications or adverse events with patient/family. Alternative(s) were discussed with the patient with their relative benefits and risks as well as the consequences of not accepting the operation were included in obtaining consent. Surgeon: DAMIEN SPANGLER MD, PHD Procedure Assisted By: MARK YADAV MD and LORENA Fink Description of Procedure this 57-year-old female suffering from an L5-S1 spondylolisthesis causing back pain and bilateral L5 radiculopathy.. The patient was offered an anterior lumbar interbody fusion with anterior L5-S1 instrumentation. The procedure complications were explained. The patient was consented. The patient was brought to the operating room and endotracheally intubated. The patient was put in a supine position. Prep and drape was done followed by timeout. Dr. Yadav, co- surgeon, provided the access to the L5-S1 disc space through an anterior approach. He was assisted by physician special ed assistant who performed manual retraction. He will dictate the approach in a separate operative note. When the L5-S1 disc space was exposed I took over the procedure. An annulotomy was done followed by a partial discectomy. Sequential trial implants were inserted and advanced towards the posterior wall of the disc space. I completed the discectomy and prepare the endplates. Then a 24 x 36 x 10mm and 12 degree lordosis 4 web cage filled with allograft was inserted into the disc space. Anterior instrumentation was added to secure the implant. A screw screws with the length 27 mm were inserted into the S1 for fixation of the cage. The retractor was removed and hemostasis was done by Dr. Alexander who closed the incision. This marked first part of the procedure. Accordingly the patient was turned prone on the Sarbjit spine table and 2 C arms were installed for fluoroscopy. Prep and drape was done followed by a second timeout. 2 paramedian incisions were made lateral from the L5-S1 pedicles. The muscle fascia was opened and the musculature was split bluntly to expose the posterolateral gutter. The following steps were taken for pedicle screw placement: The pediguard tap was used to create a transpedicular trajectory into the vertebral body. A K wire was advanced. A specially designed instrument was advanced over the K wire to decorticate the posterolateral gutter. Pedicle screw was advanced after which the K wire was removed. Following the steps pedicle screws were placed in the bilateral L5 and S1 pedicles. Total of 4 screws were placed with the following measurements: 6.5 x 40 mm. A 35 mm pete was tunneled bilaterally and locked down with locking caps. The extension towers were removed. The posterolateral fusion was completed by laying down allograft in the posterolateral gutter. Hemostasis was done. The paramedian incisions were closed with an 0 Vicryl to fascia and 3-0 Vicryl to subdermal layer. Steri-Strips were used to approximate the incision. An OpSite with Tegaderm was used to cover the incisions. All sponge and needle counts were correct. The patient was extubated and transported in stable condition to recovery room. The physician special ed assistant was critical for the following aspects of surgery: Assisting approach surgeon with opening, inserting pedicle screws and closure of the incisions Anesthesia: General Estimated Blood Loss (ml): 30 mL Duration of Surgery: 2-1/2 hours Complications: None Postoperative Plan: Admit to inpatient for observation
--- NOTE | 2023-02-26 11:03 | P.OP_ITS ---
Operative Note Operative Note Date of Service: 02/26/23 Narrative: Patient was evaluated by Dr. Jane for chronic lower back pain and radiculopathy and scheduled for ALIF L5-S1. I met with the patient pre- operatively and discussed the access part of the procedure and risks an the patient agreed to proceed. She was brought to the operating room and general anaesthesia was administered without incident. Abdomen was prepped sterily and draped. Timeout was done. Horizontal 6cm suprapubic incision was done through the scar. Rectus sheaths were opened horizontally and left rectus muscle was mobilized. Left inferior epigastric vessels were protected. Round ligament was transected between hemoclips ant retroperitoneal plane was developed , Left ureter was visualized and protected. Bookwalter retractor was placed with narrow blades. Dissection was carried at the medial aspect of the the left common iliac prudence which was mobilized from the spine and middle sacral vessels were divided, Bipolar electrocautery was used to completely free L5-S1 disc anteriorly. Midline was marked with X-ray imaging. Doctor Jane then proceeded with diskectomy and cage fusion.Hemostasis was checked and was excellent. Gelfoam sponge was placed over the disc space. Ureter was intact and there was a good iliac pulse. Incision was injected with diluted Lidocaine/Marcaine mixture and closed by layers using O-Maxone on the fascia and absorbable subcutaneous and subcuticular closure. Exofin glue and steristrip was applied. EBL: less then 10ml Complication:none
[2023-02-26] MEDS: HYDROmorphone HCl 0.5 MG/0.5 ML SYRINGE 0.25 MG IVPUSH ×4 (11:35→11:50)
[2023-02-26] MEDS: Ketorolac Tromethamine 15 MG/ML VIAL IVPUSH ×3 (11:38→23:03)
[2023-02-26] MEDS: oxyCODONE HCl Immed Release 5 MG TABLET PO (12:01)
[2023-02-26] MEDS: 0.9 % Sodium Chloride 1,000 ML 75 ML IVCONT (14:11)
[2023-02-26] MEDS: HYDROmorphone HCl 1 MG/ML SYRINGE IVPUSH ×2 (14:37→18:38)
[2023-02-26] MEDS: oxyCODONE HCl Immed Release 5 MG TABLET 10 MG PO ×2 (16:07→20:23)
[2023-02-26] MEDS: Omeprazole 40 MG CAPSULE.DR PO (16:08)
[2023-02-26] MEDS: Sucralfate Oral Suspension 1 GM/10 ML ORAL.SUSP PO (20:15)
[2023-02-26] MEDS: Psyllium seed 3.7 GM PACKET PO (20:15)
[2023-02-26] MEDS: Melatonin 3 MG TABLET 6 MG PO (20:16)
[2023-02-26] MEDS: Famotidine 20 MG TABLET 40 MG PO (20:16)
[2023-02-26] MEDS: clonazePAM 1 MG TABLET PO (20:17)
[2023-02-26] MEDS: DULoxetine HCl 20 MG CAPSULE.DR PO (20:17)
[2023-02-26] MEDS: Docusate Sodium 100 MG CAPSULE PO (20:17)
[2023-02-27] VITALS (7 sets, daily range): BP systolic 81–108; BP diastolic 53–66; PULSE 71–96; RESP 16–18; TEMP 35.6–37.2; O2SAT 96–99
[2023-02-27] MEDS: HYDROmorphone HCl 1 MG/ML SYRINGE IVPUSH ×3 (00:32→12:14)
[2023-02-27] MEDS: ceFAZolin Sodium/Dextrose,Iso 2 GM/50 ML PIGGYBACK IV (02:44)
[2023-02-27] MEDS: Ketorolac Tromethamine 15 MG/ML VIAL IVPUSH ×4 (05:32→23:08)
[2023-02-27] MEDS: Acetaminophen 1,000 MG/100 ML PIGGYBACK 400 MG IV ×3 (05:32→21:20)
[2023-02-27] MEDS: Omeprazole 40 MG CAPSULE.DR PO ×2 (05:36→16:58)
--- NOTE | 2023-02-27 08:07 | HO.NEUROPN_ITS ---
Neurosurgery Operative Note Date of Service: 02/27/23 Narrative: Postop day 1. L5-S1 anterior lumbar interbody fusion patient reports pain in her lower abdomen going down into her medial thighs. She also reports some pain in her hips. Denies any radicular pain down legs, no tingling numbness or weakness. No nausea vomiting. She has been up walking to the bathroom voiding. She reports that the narcotics we have her on are not helping. She takes oxycodone 15 mg at home at baseline. Afebrile, vital signs are stable physical exam: Patient is awake alert oriented x3, she is able to demonstrate full strength of bilateral lower extremities, abdomen nondistended nontender, t here is the lower abdominal horizontal incision which has a Steri-Strip over which is clean and dry. Back dressings of a small amount of staining and some ecchymosis around the but no signs of hematoma or active oozing. Impression: Postop day 1. L5-S1 anterior lumbar interbody fusion, clinically doing okay with the exception of the patient's pain is not well controlled, she has some pain going down into her medial thighs. She tells me she had some of that before surgery as well. She has no true radicular pain. No tingling numbness or weakness. I think she may be under treated with narcotics because of her baseline oxycodone use so I will switch her over from oxycodone to Dilaudid see if that helps. We will re-evaluate later today, possibly home later today or tomorrow if she is doing okay. Plan reviewed with Dr. Jane who agrees.
[2023-02-27] MEDS: Psyllium seed 3.7 GM PACKET PO ×2 (08:44→21:17)
[2023-02-27] MEDS: Sucralfate Oral Suspension 1 GM/10 ML ORAL.SUSP PO ×2 (08:44→21:27)
[2023-02-27] MEDS: polyethylene glycoL 3350 17 GM POWD.PACK PO (08:45)
[2023-02-27] MEDS: DULoxetine HCl 20 MG CAPSULE.DR PO ×2 (08:46→21:17)
[2023-02-27] MEDS: Docusate Sodium 100 MG CAPSULE PO ×2 (08:46→21:17)
[2023-02-27] MEDS: Escitalopram Oxalate 20 MG TABLET PO (08:46)
[2023-02-27] MEDS: buPROPion HCl XL 300 MG TAB.ER.24H PO (08:46)
[2023-02-27] MEDS: lisinopriL 10 MG TABLET PO (08:46)
[2023-02-27] MEDS: clonazePAM 1 MG TABLET PO ×2 (08:46→21:17)
--- NOTE | 2023-02-27 09:32 | MHC.CM.PN ---
pt lives alone had no services does not expect to need servies when dcd has own ride home
--- NOTE | 2023-02-27 13:35 | PM.DS ---
DS: Providers Provider Date of Service: 02/28/23 Date of admission: 02/26/23 06:05 Primary care physician: Viviana Nick MD DS: Summary Time Spent with Patient Time attestation: Total time managing care of this patient today ____ minutes. Discharge coordination time: Less than 30 minutes Quality: Safe Use of Opioids Does Pt have an Active Cancer Diagnosis on the Problem List?: No Quality: Stroke Does the patient have a stroke diagnosis?: No Physical Exam Vital Signs: Vital Signs: Last Vital Signs Temp 98.1 F 02/27/23 07:16 Pulse 80 02/27/23 07:16 Resp 18 02/27/23 07:16 BP 106/55 L 02/27/23 07:16 Pulse Ox 99 02/27/23 07:16 O2 Del Method Nasal Cannula 02/27/23 07:16 O2 Flow Rate 2 02/27/23 07:16 BMI result Body Mass Index 26.0 Discharge Plan Discharge Anticipated Discharge Date/Time: 02/28/23 08:00 Patient Disposition: Home, Self-Care Discharge Diagnosis: S/P L5-S1 ALIF Referrals: Viviana Jacobs MD [Primary Care Provider] - 1 Week Discharge Medications: New hydromorphone 2 mg tablet 2 mg PO Q6H PRN (Reason: severe breakthrough pain (scale score 7-10)) Qty: 28 0RF Rx Instructions: Partial Fill upon patient request. Continued albuterol sulfate 90 mcg/actuation HFA aerosol inhaler 2 puff PO Q6H PRN (Reason: for wheezing) Qty: 8.5 6RF dicyclomine 10 mg capsule 10 mg PO QID Qty: 90 4RF cetirizine [All Day Allergy (cetirizine)] 1 mg/mL solution 10 mg PO DAILY PRN (Reason: allergy symptoms) 30 Days Qty: 120 1RF famotidine 40 mg tablet 40 mg PO BEDTIME Qty: 30 1RF hydrocortisone 2.5 % cream with perineal applicator 1 appl topical Q12H Qty: 30 1RF duloxetine 20 mg capsule,delayed release(DR/EC) 20 mg PO BID 30 Days Qty: 60 1RF lisinopril 10 mg tablet 10 mg PO DAILY 30 Days Qty: 30 1RF linaclotide 290 mcg capsule 290 mcg PO DAILY Qty: 30 1RF Rectiv 0.4 % (w/w) ointment 1 inch MI BID Qty: 30 0RF sumatriptan succinate [Imitrex] 50 mg tablet 50 mg PO Q2H PRN (Reason: migraine headache) Qty: 10 0RF Rx Instructions: do not exceed 2 doses per 24 hrs ondansetron HCl 8 mg tablet 8 mg PO DAILY PRN (Reason: for nausea/vomiting) 90 Days Qty: 90 1RF ibuprofen 800 mg tablet 800 mg PO TID PRN (Reason: pain) 90 Days Qty: 270 1RF polyethylene glycol 3350 [Gavilax] 17 gram/dose powder 17 g PO DAILY Qty: 510 3RF bupropion HCl 150 mg tablet sustained-release 12 hr 150 mg PO BID omeprazole 40 mg capsule,delayed release(DR/EC) 40 mg PO BID docusate sodium 100 mg capsule 100 mg PO BID melatonin 5 mg tablet 5 mg PO BEDTIME Metamucil Sugar-Free (aspart) 3.4 gram/5.8 gram powder 3.4 ea PO BID (DME) Blood Pressure Cuff Misc See Rx Instructions .ROUTE .MEDSUPPLY Qty: 1 0RF Rx Instructions: As directed clonazepam 1 mg tablet 1 mg PO BID citalopram 20 mg tablet 40 mg PO DAILY sucralfate 100 mg/mL suspension 10 ml PO BID Qty: 420 0RF tizanidine 4 mg capsule 4 mg PO Q6H PRN (Reason: Pain) Held diclofenac sodium [Arthritis Pain (diclofenac)] 1 % gel 2 g topical QID PRN (Reason: pain) 30 Days Qty: 100 2RF Hold Instructions: Resume on 03/31/23. Do not apply gel to incision sites until they are fully healed. Rx Instructions: apply to single elbow, wrist or hand; for hand includes palm/fingers/back of hand oxycodone 10 mg tablet 15 mg PO TID PRN (Reason: Pain) Hold Instructions: Resume on 03/07/23. Take presribed Hydromorphone for pain control then may resume outpatient Oxycodone with outpatient prescriber. Discharge Orders: Discharge Order (Routine); Ordered 02/28/23 Ordered By: Blake Juan Diet: Advance to usual diet Activity on Discharge: As tolerated Stand Alone Forms: Patient Portal Discharge page Care Plan Goals: Return to activity as tolerated. Health Concerns: None. Plan of Treatment: Follow-up in outpatient office in 2-3 weeks Assessment: Megan is a pleasant 57-year-old female who underwent a L5-S1 ALIF on 02/26/2023. POD 2. She had some difficulty with pain control on her 1st day postoperative but reports good resolution of symptoms in her legs. Her pain predominantly resides in her low back. She has been up out of bed, ambulating, voiding, tolerating diet. Due to her continued disclosed difficulty with pain in relation to movement I will complete a rceq-dh-rlnk so she is able to obtain PT/health aide services which can be set up by her nurse or oncology social work. She reports that she would like to return home to her mother's house for postoperative care. A prescription of Dilaudid was sent to her pharmacy. She was educated on the use of this medication, and advised only take it for severe breakthrough pain secondary to Tylenol/ibuprofen administration. She knows not to take her oxycodone concurrently with this medication. When this prescription has run its course she may follow up with her outpatient provider to continue her oxycodone. Blake Jane MD,PhD [facility]
--- NOTE | 2023-02-27 14:43 | HO.POSTANES ---
Post Anesthesia Evaluation Post Anesthesia Evaluation Date of Service: 02/27/23 Vital Signs: Vital Signs Temp Pulse Resp BP Pulse Ox O2 Del Method O2 Flow Rate 02/27/23 07:16 98.1 F 80 18 106/55 L 99 Nasal Cannula 2 02/27/23 06:00 97.0 F 74 18 108/66 98 Nasal Cannula 2 02/27/23 02:49 97.1 F 82 18 94/53 L 96 Nasal Cannula 2 Anesthesia: General Endotracheal-GETA Mental Status: Awake Pain Control: Satisfactory Nausea/Vomiting: None Hydration: Adequate Anesthesia-Related Issues: No Anes. Related Issues
--- NOTE | 2023-02-27 15:17 | MHC.CM.PN ---
P.T. RECOMMENDS HOME WITH SERVICES ON DC. CCA NURSE JAE MATTA [facility] WILL COVER THE PT'S P.T. SERVICES.
--- NOTE | 2023-02-27 16:51 | PC.NURSE ---
BP soft, asymptomatic at this time, Surgeon notified via tiger text.
[2023-02-27] MEDS: 0.9 % Sodium Chloride 1,000 ML 75 ML IVCONT (19:23)
[2023-02-27] MEDS: Famotidine 20 MG TABLET 40 MG PO (21:17)
[2023-02-27] MEDS: Melatonin 3 MG TABLET 6 MG PO (21:17)
[2023-02-28 03:29] VITALS: BP 112/65; PULSE 60; RESP 18; TEMP 36.1; O2SAT 96
[2023-02-28] MEDS: Acetaminophen 1,000 MG/100 ML PIGGYBACK 400 MG IV (03:32)
[2023-02-28] MEDS: Ketorolac Tromethamine 15 MG/ML VIAL IVPUSH (04:36)
[2023-02-28] MEDS: Omeprazole 40 MG CAPSULE.DR PO (05:39)
[2023-02-28] MEDS: 0.9 % Sodium Chloride 1,000 ML 75 ML IVCONT (05:44)
[2023-02-28 08:00] VITALS: BP 132/63; PULSE 85; RESP 18; TEMP 36.7; O2SAT 99
[2023-02-28] MEDS: Psyllium seed 3.7 GM PACKET PO (08:14)
[2023-02-28] MEDS: polyethylene glycoL 3350 17 GM POWD.PACK PO (08:14)
[2023-02-28] MEDS: lisinopriL 10 MG TABLET PO (08:15)
[2023-02-28] MEDS: Escitalopram Oxalate 20 MG TABLET PO (08:15)
[2023-02-28] MEDS: Docusate Sodium 100 MG CAPSULE PO (08:15)
[2023-02-28] MEDS: clonazePAM 1 MG TABLET PO (08:15)
[2023-02-28] MEDS: buPROPion HCl XL 300 MG TAB.ER.24H PO (08:15)
[2023-02-28] MEDS: DULoxetine HCl 20 MG CAPSULE.DR PO (08:16)
[2023-02-28] MEDS: Sucralfate Oral Suspension 1 GM/10 ML ORAL.SUSP PO (08:21)
[2023-02-28] MEDS: ondansetron HCL 4 MG/2 ML VIAL IVPUSH (08:56)
--- NOTE | 2023-02-28 09:31 | W.MHC.F2F ---
Service Date Service Date: 02/28/23 Encounter Date of encounter: 02/28/23 Reasons for Services Signs and symptoms assessed: Patient is s/p L5-S1 spinal fusion surgery. Reason for residential: wound care, postoperative assessment and/or care, medication management, medication treatment, teach disease management and other Reason for physical therapy: home safety and mobility, gait/transfer training and ADL training Homebound: Leaving the home is medically contraindicated at this time without the asist of a device and/or another person due to the listed conditions above and below. Reason homebound: unsteady gait / fall risk, leg weakness, pain with ambulation, pain with transfers and weakness related to hospital stay Certification: Based on the above findings, I certify that this patient is confined to the home and needs intermittent residential care, physical therapy. The patient is under my care, and I have initiated the establishment of the plan of care. The patient will be followed by a physician who will periodically review the plan of care. Time Spent With Patient Time: Total time managing care of this patient today __10__ minutes.
--- NOTE | 2023-02-28 10:19 | MHC.CM.PN ---
IMM 02/27/23 Patient S/P L-5/-S-1 Patient is discharged today with home P.T.. [facility] has agreed to provide PT at home. Patient has arranged for transport home. The patient will stay with family. services will be received at [address] [place], [place] [id number] Ida.
[2023-02-28] MEDS: HYDROmorphone HCl 2 MG TABLET PO (12:17)
== END 2023-02-28 13:12 | disposition home health service (06) | DRG 460 ==
LOC: HO.SSSA 06:14 → HO.S3 11:25
PROVIDERS: Admitting Provider Neurological Surgery; PCP Internal Medicine; Visit Provider Neurological Surgery
PROC: 0SG30A0 Fusion of Lumbosacral Joint with Interbody Fusion Device, Anterior Approach, Anterior Column, Open Approach (ICD-10-PCS; principal; 2023-02-26 07:30)
DX: M51.06 Intervertebral disc disorders with myelopathy, lumbar region (principal); M51.16 Intervertebral disc disorders with radiculopathy, lumbar region; G47.33 Obstructive sleep apnea (adult) (pediatric); K21.9 Gastro-esophageal reflux disease without esophagitis; M79.7 Fibromyalgia; M43.06 Spondylolysis, lumbar region; Z79.899 Other long term (current) drug therapy
CPT/HCPCS: 72020; 86850; 86870; 86900; 86901; 86920; 86921; 97116; 97162; 97530; 99024; C1713; J0131; J0690; J1100; J1170; J1885; J2250; J2371; J2405; J2550; J3010; L8699

== ENCOUNTER → 2023-02-26 06:05 | Outpatient (BNV) | payer OTHER, SELFPAY | PROVIDERS: Admitting Provider Neurological Surgery; PCP Internal Medicine; Visit Provider Neurological Surgery | DX: M43.14 Spondylolisthesis, thoracic region (principal); M54.40 Lumbago with sciatica, unspecified side | CPT/HCPCS: 20930; 22558; 22612; 22840; 22853; 99499; G0180 ==

== ENCOUNTER 2023-03-27 13:40 | Outpatient (REF) | payer OTHER, SELFPAY | END 2023-03-27 13:41 | disposition home or self-care (01) | LOC: HO.HOSX 13:40 | PROVIDERS: PCP Internal Medicine; Visit Provider Physician Assistant | DX: Z98.1 Arthrodesis status (principal) | CPT/HCPCS: 99212 ==

== ENCOUNTER 2023-03-27 13:40 | Outpatient (AMB) | payer OTHER, SELFPAY ==
--- NOTE | 2023-03-27 13:59 | HO.SPINEOV ---
Intake Intake Visit Reasons: 1st post op Allergies salsalate Allergy (Severe, Verified 02/26/23 06:20) throat itching swelling zolmitriptan [From ZOMIG] Allergy (Severe, Verified 02/26/23 06:20) SWOLLEN THROAT AND ITCHING Assessment & Plan Assessment & Plan (1) S/P spinal fusion: Code(s): Z98.1 - Arthrodesis status Plan: Dear colleague, On 05/09/2023, I saw for 2nd postoperative visit Megan Pardo, who underwent an anterior lumbar interbody fusion L5-S1. She is recovering very well. The severe intractable low back pain is gone. She has residual discomfort in the lower spine. Her main problem is flexion of the knees produces pain in the knee area and I do not think that is related to the spine. Apparently, Dr. Redd is considering additional injections. I told her to hold off for 1 more month. I would like to follow up in 6 months. Thank you for letting me take care of your patient. Alden Jane MD, PhD Spine Fellowship Trained Neurosurgeon Director, [facility] Plan Procedure: SCOTTF L5-S1 Megan comes in today for her 1st postoperative visit. She reports she is very satisfied with the surgery and feels much better than she did pre-operatively. She reports she is up walking around and completing all of her ADLs. She reports a typical waxing/waning healing course for she is days with near complete relief followed by days where she feels this same pain that she had prior to surgery. She states that she has been taking [id number]-[id number] medications to help to with her pain, and has been trying to ration her oxycodone medication only when needed. She did ask for her 1st partial refill of oxycodone which will be supplied to her today. We also extensively discussed the surgical procedure and I answered questions regarding what was done during her surgery. No neurological deficits. Patient is able to ambulate well, rises from a seated position without difficulty. Anterior incision site is closed, well healing, with no signs of drainage. We will follow-up with the patient in 6 weeks for her 2nd postoperative visit. At that time we will get x-rays to review with the patient. Blake Jane MD,PhD [facility] Orders: Orders XR lumbar spine 4V min 03/27/23 Z98.1 - Arthrodesis status Medications: Changed From hydromorphone Partial Fill upon patient request. 2 mg PO Q6H PRN 28 tabs 0RF severe breakthrough pain (scale score 7-10) To hydromorphone Partial Fill upon patient request. 2 mg PO BID PRN 14 tabs 0RF severe breakthrough pain (scale score 7-10) Coding Level of Care Code Global (08167) Diagnoses S/P spinal fusion Z98.1
== END 2023-03-27 14:09 | disposition home or self-care (01) ==
PROVIDERS: PCP Internal Medicine; Visit Provider Physician Assistant
DX: Z98.1 Arthrodesis status (principal)
CPT/HCPCS: 99024

== ENCOUNTER → 2023-05-09 13:35 | Outpatient (BNVA) | payer OTHER, SELFPAY | PROVIDERS: PCP Internal Medicine; Visit Provider Physician Assistant ==

== ENCOUNTER 2023-05-09 13:39 | Outpatient (REF) | payer OTHER, SELFPAY ==
--- NOTE | ~2023-05-09 | XR_ITS ---
EXAMINATION: XR LUMBOSACRAL SPINE WITH OBLIQUES CLINICAL INFORMATION: Arthrodesis status. COMPARISON: 02/26/2023 TECHNIQUE: 4 views of the lumbar spine inclusive on flexion and extension views. FINDINGS: Dextroscoliosis of the lumbar spine. Redemonstration of posterior fixation with rods and screws traversing L5-S1 and interdisc spacer. Surgical clips in the pelvis. Degenerative changes in the imaged lower thoracic spine with multilevel hypertrophic change. Advanced degenerative changes at L1-L2, L2-L3, L3-L4 and L4-L5 with hypertrophic change and loss of disc space height. Mild grade 1 retrolisthesis of L2 on L3. Grade 1 anterolisthesis of L5 on S1. XR/XR lumbar spine 4V min IMPRESSION: 1. Postsurgical changes at L5-S1. Hardware appears intact. 2. Multilevel degenerative disc disease.
== END 2023-05-09 13:40 | disposition home or self-care (01) ==
LOC: HO.HOSX 13:39
PROVIDERS: Visit Provider Physician Assistant
DX: Z98.1 Arthrodesis status (principal)
CPT/HCPCS: 72110

== ENCOUNTER 2023-05-14 10:56 | Outpatient (AMB) | payer OTHER, SELFPAY ==
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
== END 2023-05-14 12:50 | disposition home or self-care (01) ==
LOC: HO.HGI 10:56
PROVIDERS: PCP Internal Medicine; Visit Provider Internal Medicine Gastroenterology
DX: K27.9 Peptic ulcer, site unspecified, unspecified as acute or chronic, without hemorrhage or perforation (principal)
CPT/HCPCS: 99442

== ENCOUNTER → 2023-05-14 10:56 | Outpatient (BNVA) | payer OTHER, SELFPAY | PROVIDERS: PCP Internal Medicine; Visit Provider Internal Medicine Gastroenterology ==

== ENCOUNTER 2023-07-05 08:47 | Day surgery (SDC) | payer OTHER, SELFPAY ==
[2023-07-03 14:01] VITALS: BMI 25.1
--- NOTE | 2023-07-04 10:19 | P.CONAN_ITS ---
Documented by User: Eveline Barrientos NP 07/04/23 10:20 HPI - Anesthesia Eval Consult details Narrative: 57yo F for Upper Endoscopy with Balloon Dilitation, Colonoscopy s/p ALIF 02/2023 with GA-ETT 7 PMFSH Active Problems Active Problems: All Active Problems (Updated 02/15/23 @ 11:16 by Migdalia Abebe, HCIN) S/P spinal fusion (Acute) Acquired spondylolisthesis of lumbosacral region (Acute) Pre-procedure lab exam (Acute) Pre-op evaluation (Acute) Hemorrhoid (Acute) HTN (hypertension) (Acute) Abdominal wall lump (Acute) Elevated blood pressure reading (Acute) Back pain of lumbar region with sciatica (Acute) Duodenal stricture (Acute) Sinusitis (Acute) Allergic reaction (Acute) Neck pain (Acute) Chest pain (Acute) Lower back pain (Acute) Upper back pain (Acute) Rib pain (Acute) Rectal prolapse (Acute) Peptic ulcer (Acute) Idiopathic hypotension (Acute) Peptic ulcer disease (Acute) Gross hematuria (Acute) Prolapsed hemorrhoids (Acute) Autoimmune thyroiditis (Acute) URI (upper respiratory infection) (Acute) Mild recurrent major depression (Acute) Right upper quadrant abdominal pain (Acute) Voice hoarseness (Acute) Polyarthralgia (Acute) Physical exam (Acute) Left shoulder pain (Acute) GERD (gastroesophageal reflux disease) (Acute) Bladder pain (Acute) Leg edema (Acute) Migraine headache (Acute) Hair loss (Acute) Hypotension (Acute) Fibromyalgia (Acute) Mild asthma (Acute) Vitamin D deficiency (Acute) Elevated plasma metanephrines (Acute) Subclinical hyperthyroidism (Acute) Anxiety (Acute) Past Medical History Medical History History of blood transfusion MIGUE on CPAP Prolapsed hemorrhoids Murmur Autoimmune thyroiditis URI (upper respiratory infection) Mild recurrent major depression Right upper quadrant abdominal pain Voice hoarseness Polyarthralgia Physical exam Left shoulder pain Sciatica Neck pain Back pain GERD (gastroesophageal reflux disease) Bladder pain Leg edema Migraine headache Hair loss Hypotension Fibromyalgia Mild asthma Vitamin D deficiency Elevated plasma metanephrines Subclinical hyperthyroidism Anxiety Family History Family History Father Alzheimers disease Mother Hypertension Family history of problems with anesthesia: No Surgical History Surgical History History of back surgery History of hemorrhoidectomy (~12/29/22) Ectopic History of hysterectomy History of appendectomy Hx of endoscopy History of colonoscopy History of Problems with Anesthesia: No (Woke up during EGD with severe pain) Social History Social History Household Members: None Housing: Apartment Are you a primary patient care associate to a significant other at home: No Do you presently have visiting nurse or other home services: No Alcohol intake: never Patient Tobacco Use Status: Never used Tobacco e-Cigarette/Vaping Use: Never Used Second Hand Smoke Exposure: No Are you DNR?: No Advance Directives: No Advance Directives Information Provided: Yes Nutrition Risks: No Nutritional Risk service: No Current occupational status: unemployed Cognitive needs: No Hearing needs: No Vision needs: No Meds Allergies Allergy/AdvReac Type Severity Reaction Status Date / Time salsalate Allergy Severe throat Verified 02/26/23 06:20 itching swelling zolmitriptan [From ZOMIG] Allergy Severe SWOLLEN Verified 02/26/23 06:20 THROAT AND ITCHING Home Medications Medication Instructions Recorded Confirmed Last Taken Type clonazepam 1 mg tablet 1 mg PO BID 04/05/20 07/03/23 07/05/23 06:00 History citalopram 20 mg tablet 40 mg PO DAILY 02/18/21 07/03/23 Unknown History oxycodone 10 mg tablet 15 mg PO TID PRN Pain 10/30/22 07/03/23 07/04/23 06:00 History tizanidine 4 mg capsule 4 mg PO Q6H PRN Pain 10/30/22 07/03/23 Unknown History bupropion HCl 150 mg tablet,12 hr 150 mg PO BID 02/26/23 07/03/23 Unknown History sustained-release docusate sodium 100 mg capsule 100 mg PO BID 02/26/23 02/26/23 Unknown History melatonin 5 mg tablet 5 mg PO BEDTIME 02/26/23 02/26/23 Unknown History Exam Height,Weight and Vital Signs: Height 4 ft 9 in Weight 52.617 kg Narrative Narrative: EKG 10/2022 Vent. Rate : 083 BPM ? ? Atrial Rate : 083 BPM ?? P-R Int : 146 ms? QRS Dur : 076 ms ? ? QT Int : 374 ms ? ? ? P-R-T Axes : 049 073 028 degrees ?? QTc Int : 439 ms ? Normal sinus rhythm Normal ECG When compared with ECG of 20-JAN-2022 13:35, No significant change was found ECHO 2020 Conclusions: - 1. Normal LV systolic function with grade 1 diastolic dysfunction 2. Normal cardiac valvular Doppler 3. No gross pericardial effusion Assessment and Plan Assessment Anesthesia Assessment: Chart Reviewed Final Anesthetic Review Family History of Problems with Anesthesia: No History of Problems with Anesthesia: No (Woke up during EGD with severe pain) Documented by User: Kaitlyn Markham MD 07/05/23 10:42 [facility] Active Problems Active Problems: All Active Problems (Updated 07/05/23 @ 09:50 by Kaitlyn Markham MD) S/P spinal fusion (Acute) Acquired spondylolisthesis of lumbosacral region (Acute) Pre-procedure lab exam (Acute) Pre-op evaluation (Acute) Hemorrhoid (Acute) HTN (hypertension) (Acute) Abdominal wall lump (Acute) Back pain of lumbar region with sciatica (Acute) Duodenal stricture (Acute) Sinusitis (Acute) Allergic reaction (Acute) Neck pain (Acute) Chest pain (Acute) Lower back pain (Acute) Upper back pain (Acute) Rib pain (Acute) Rectal prolapse (Acute) Peptic ulcer (Acute) Idiopathic hypotension (Acute) Peptic ulcer disease (Acute) Gross hematuria (Acute) Prolapsed hemorrhoids (Acute) Autoimmune thyroiditis (Acute) URI (upper respiratory infection) (Acute) Mild recurrent major depression (Acute) Right upper quadrant abdominal pain (Acute) Voice hoarseness (Acute) Polyarthralgia (Acute) Physical exam (Acute) Left shoulder pain (Acute) GERD (gastroesophageal reflux disease) (Acute) Bladder pain (Acute) Leg edema (Acute) Migraine headache (Acute) Hair loss (Acute) Hypotension (Acute) Fibromyalgia (Acute) Mild asthma (Acute) Vitamin D deficiency (Acute) Elevated plasma metanephrines (Acute) Subclinical hyperthyroidism (Acute) Anxiety (Acute) Past Medical History Medical History History of blood transfusion MIGUE on CPAP Prolapsed hemorrhoids Murmur Autoimmune thyroiditis URI (upper respiratory infection) Mild recurrent major depression Right upper quadrant abdominal pain Voice hoarseness Polyarthralgia Physical exam Left shoulder pain Sciatica Neck pain Back pain GERD (gastroesophageal reflux disease) Bladder pain Leg edema Migraine headache Hair loss Hypotension Fibromyalgia Mild asthma Vitamin D deficiency Elevated plasma metanephrines Subclinical hyperthyroidism Anxiety Family History Family History Father Alzheimers disease Mother Hypertension Family history of problems with anesthesia: No Surgical History Surgical History History of back surgery History of hemorrhoidectomy (~12/29/22) Ectopic History of hysterectomy History of appendectomy Hx of endoscopy History of colonoscopy History of Problems with Anesthesia: No Social History Social History Household Members: None Housing: Apartment Are you a primary patient care associate to a significant other at home: No Do you presently have visiting nurse or other home services: No Alcohol intake: never Patient Tobacco Use Status: Never used Tobacco e-Cigarette/Vaping Use: Never Used Second Hand Smoke Exposure: No Are you DNR?: No Advance Directives: No Advance Directives Information Provided: Yes Nutrition Risks: No Nutritional Risk service: No Current occupational status: unemployed Cognitive needs: No Hearing needs: No Vision needs: No Meds Allergies Allergy/AdvReac Type Severity Reaction Status Date / Time salsalate Allergy Severe throat Verified 02/26/23 06:20 itching swelling zolmitriptan [From ZOMIG] Allergy Severe SWOLLEN Verified 02/26/23 06:20 THROAT AND ITCHING Home Medications Medication Instructions Recorded Confirmed Last Taken Type clonazepam 1 mg tablet 1 mg PO BID 04/05/20 07/03/23 07/05/23 06:00 History citalopram 20 mg tablet 40 mg PO DAILY 02/18/21 07/03/23 Unknown History oxycodone 10 mg tablet 15 mg PO TID PRN Pain 10/30/22 07/03/23 07/04/23 06:00 History tizanidine 4 mg capsule 4 mg PO Q6H PRN Pain 10/30/22 07/03/23 Unknown History bupropion HCl 150 mg tablet,12 hr 150 mg PO BID 02/26/23 07/03/23 Unknown History sustained-release docusate sodium 100 mg capsule 100 mg PO BID 02/26/23 02/26/23 Unknown History melatonin 5 mg tablet 5 mg PO BEDTIME 02/26/23 02/26/23 Unknown History Exam Height,Weight and Vital Signs: Height 4 ft 9 in Weight 52.617 kg Vital Signs Temp Pulse Resp BP Pulse Ox O2 Del Method 07/05/23 09:07 98.3 F 96 20 116/77 97 Room Air Airway Mallampati Class: II TM Dist: >3cm Neck ROM: Full Loose/Missing/Broken Teeth: No (Denies broken, loose, missing teeth) Heart: RRR Lungs: CTAB Assessment and Plan Assessment Anesthesia Assessment: Anesthesia Plan Discussed and Chart Reviewed Final Anesthetic Review Family History of Problems with Anesthesia: No History of Problems with Anesthesia: No NPO: Yes ASA Class: III Final Preanesthetic Review: No Changes in Pt Med Stat, Meds/Allgs Chart Reviewed, Consent Obtained/Reviewed and Anes Risks/Benef Reviewed Patient Risk: Intermediate Procedure Risk: Low Assessment/Block/Sedation in SS: Assess/Block/Sedation-SS Anesthetic Plan Anesthetic Plan: GA (Patient c/o 'feeling like throwing up'. Patient also anxious- took anxiolytic this morning. On omeprazole and famotidine for GERD. Antiemetic ordered. Will intubate ) Disposition: Standard PACU
[2023-07-05] VITALS (7 sets, daily range): BP systolic 108–129; BP diastolic 56–78; PULSE 80–96; RESP 14–20; TEMP 36.8–37.4; O2SAT 97–100; BMI 25.3
--- NOTE | 2023-07-05 09:31 | MHC.SHP ---
Pre-Procedural Eval Section A - 24 Hr Update-Section A only Date of Service: 07/05/23 Section B - Complete if H&P > 30 days Chief Complaint: Peptic ulcer, site unspecified,abdominal pain Details of Present Illness: abn bowel habit Relevant Family History (Specify if Yes): No Relevant Social History: None Present Medications: see Short Stay Collaborative assessment Medical History: Significant History (MIGUE on CPAP Prolapsed hemorrhoids Murmur Autoimmune thyroiditis URI (upper respiratory infection) Mild recurrent major depression Right upper quadrant abdominal pain Voice hoarseness Polyarthralgia Physical exam Left shoulder pain Sciatica Neck pain Back pain GERD (gastroesophageal reflux disease) B) History of Previous Operations: Relevant previous surgery/procedure and date(s) (History of back surgery History of hemorrhoidectomy (~12/29/22) Ectopic History of hysterectomy History of appendectomy Hx of endoscopy History of colonoscopy) Allergies: Allergies Allergy/AdvReac Type Severity Reaction Status Date / Time salsalate Allergy Severe throat Verified 02/26/23 06:20 itching swelling zolmitriptan [From ZOMIG] Allergy Severe SWOLLEN Verified 02/26/23 06:20 THROAT AND ITCHING Review of Systems Sugical H&P ROS: Negative: Constitution, Cardiovascular, Respiratory, Neurological, Psychiatric, Hem-Onc, Allergic/Immunologic, Gastrointestinal, Genitourinary, Musculoskeletal, Integumentary, Endocrine and Eyes/Ears/Nose/Throat Exam Surgical H&P Exam: Normal: HEENT, Normal: Heart, Normal: Lungs, Normal: Extremities, Normal: Abdomen, Normal: Skin and Normal: Neurological Plan Diagnosis/Plan: Unchanged I have reviewed the history and physical and performed a pertinent physical examination on my patient. No changes have occurred unless specified. EGD and colonoscopy for abdo pain and abn bowel habit Time Spent With Patient Time: Total time managing care of this patient today ____ minutes.
[2023-07-05] MEDS: Lactated Ringers 1,000 ML 100 ML IVCONT (09:32)
[2023-07-05] MEDS: ondansetron HCL 4 MG/2 ML VIAL IVPUSH (10:04)
--- NOTE | 2023-07-05 11:02 | W.PM.OPN ---
Operative Note Operative Note Date of Service: 07/05/23 Narrative: Operative Information Procedure Description: EGD, Colonoscopy Indication: dysphagia, and abn bowle habit Anesthesia: GA--intubated FLEXIBLE TRANSORAL UPPER GASTROINTESTINAL ENDOSCOPY AND COLONOSCOPY PROCEDURE NOTE UPPER ENDOSCOPY Consent: Indications for the procedure and potential complications of bleeding, perforation, reaction to medications and missed diagnosis were discussed with the patient and informed consent was obtained. Instrument: Olympus GIF H 190 J mid size upper endoscope Monitoring: Vital signs and clinical assessment, continuous EKG monitoring, Pulse oximetry, Carbon Dioxide monitoring and blood pressure monitoring were done throughout the procedure. Procedure: The patient was placed in the left lateral decubitis position and pre-procedure medications were administered and a bite block was placed. The endoscope was inserted into the mouth and advanced under direct vision to the third part of duodenum. A careful inspection was made as the upper endoscope was withdrawn including a retroflexed examination of the proximal stomach; Findings and interventions are described below. Findings: Larynx:normal Esophagus: GE junction at 35 cm, diaphragm hiatus at 35 cm, balloon dilation done at 19 mm to LES and UES, small tear seen proximal esophagus, bx also taken from distal and proximal esophagus Stomach: patchy erythema, small erosion in antrum site. Biopsies were obtained. Grade 2 flap valve on retroflexed examination of the cardia. Duodenum: Patchy erythema, suspicious for peptic duodenitis, bx taken, no stricture seen, prior stricture has resolved. Intervention: Biopsies as noted above COLONOSCOPY Instrument: Olympus variable stiffness pediatric scope 190L Colonoscopy Monitoring: Vital signs and clinical assessment, continuous EKG monitoring, Pulse oximetry, Carbon Dioxide monitoring and blood pressure monitoring were done throughout the procedure. Colon withdrawal time was 12 minutes. Procedure: The patient was placed in the left lateral decubitis position and pre-procedure medications were administered. After a digital rectal examination of the ano-rectum, the video colonoscope was inserted into the rectum and advanced through the colon to the cecum/TI. The colonoscope was slowly withdrawn in a retrograde panoramic fashion and the colon mucosa was carefully examined including a retroflexed view of the rectum. Findings and interventions are described below. Procedure Difficulty: easy Findings: Terminal Ileum-normal, bx taken Cecum: erosion noted, bx taken Ascending Colon: normal, random bx taken Transverse Colon -normal Descending Colon:normal, random bx taken Sigmoid Colon: patchy erythema, bx taken erosion noted as well, mild diverticulosis noted Rectum: Retroflexion with small internal hemorrhoids, grade I, rectal prolapse noted with scar tissue and some erythema, bx taken Anorectum - normal Colon preparation: [place]col[place] Bowel Preparation Scale Right colon; 2 Transverse colon: 2 Left colon; 2 (0 = Unprepared colon segment with mucosa not seen due to solid stool that cannot be cleared. 1 = Portion of mucosa of the colon segment seen, but other areas of the colon segment not well seen due to staining, residual stool and/or opaque liquid. 2 = Minor amount of residual staining, small fragments of stool and/or opaque liquid, but mucosa of colon segment seen well. 3 = Entire mucosa of colon segment seen well with no residual staining, small fragments of stool or opaque liquid) Impression and Post Procedure Diagnosis: Endoscopy Findings: gastritis duodenitis Colonoscopy Findings: patchy colitis, rectal prolapse Plan: Await Pathology results Repeat Colonoscopy in 10 years or earlier if clinically indicated High fiber diet leaflet avoid straining at stool, epsom salts and sitz bath, anusol supps or cream ensure compliance with PPI and carafate, NSADI avoidance Above findings were reviewed with the patient and relevant handouts were provided if indicated.
[2023-07-05] MEDS: Mag&Al/Sim/Diphenhyd/Lidocaine 10 ML ORAL.SUSP PO (11:32)
== END 2023-07-05 12:16 | disposition home or self-care (01) ==
PROVIDERS: PCP Internal Medicine; Visit Provider Internal Medicine Gastroenterology
PROC: (CPT 45380; principal; 2023-07-05 10:40)
PROC: 0DJD8ZZ Inspection of Lower Intestinal Tract, Via Natural or Artificial Opening Endoscopic (ICD-10-PCS; CPT 45378; 2023-07-05 10:40)
DX: R19.4 Change in bowel habit (principal); K57.30 Diverticulosis of large intestine without perforation or abscess without bleeding; K64.0 First degree hemorrhoids; K27.9 Peptic ulcer, site unspecified, unspecified as acute or chronic, without hemorrhage or perforation; K52.9 Noninfective gastroenteritis and colitis, unspecified; R13.10 Dysphagia, unspecified; K21.9 Gastro-esophageal reflux disease without esophagitis; K29.70 Gastritis, unspecified, without bleeding; K29.80 Duodenitis without bleeding; K44.9 Diaphragmatic hernia without obstruction or gangrene; F33.0 Major depressive disorder, recurrent, mild; E06.3 Autoimmune thyroiditis; G47.33 Obstructive sleep apnea (adult) (pediatric); Z79.899 Other long term (current) drug therapy; Z99.89 Dependence on other enabling machines and devices; Z88.8 Allergy status to other drugs, medicaments and biological substances
CPT/HCPCS: 45380; 43249; 43239; 88305; 88313; 88341; 88342; C1726; J0330; J2405; J2704; J2765; J3010

== ENCOUNTER → 2023-07-05 08:47 | Outpatient (BNV) | payer OTHER, SELFPAY | PROVIDERS: PCP Internal Medicine; Visit Provider Internal Medicine Gastroenterology | DX: K52.9 Noninfective gastroenteritis and colitis, unspecified (principal); K62.3 Rectal prolapse; K57.30 Diverticulosis of large intestine without perforation or abscess without bleeding; K64.0 First degree hemorrhoids; R13.10 Dysphagia, unspecified; K29.70 Gastritis, unspecified, without bleeding; K29.80 Duodenitis without bleeding | CPT/HCPCS: 43239; 43249; 45380 ==

== ENCOUNTER 2023-07-23 11:32 | Outpatient (AMB) | payer OTHER, SELFPAY ==
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
== END 2023-07-23 14:23 | disposition home or self-care (01) ==
LOC: HO.HGI 11:32
PROVIDERS: PCP Internal Medicine; Visit Provider Internal Medicine Gastroenterology
DX: K52.9 Noninfective gastroenteritis and colitis, unspecified (principal)
CPT/HCPCS: 99442

== ENCOUNTER → 2023-07-23 11:32 | Outpatient (BNVA) | payer OTHER, SELFPAY | PROVIDERS: PCP Internal Medicine; Visit Provider Internal Medicine Gastroenterology ==

== ENCOUNTER 2023-07-26 10:53 | Outpatient (AMB) | payer OTHER, SELFPAY ==
--- NOTE | 2023-07-26 10:55 | A.OFFPC_ITS ---
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 Accompanied by: Grand Child Allergies salsalate Allergy (Severe, Verified 07/26/23 11:24) throat itching swelling zolmitriptan [From ZOMIG] Allergy (Severe, Verified 07/26/23 11:24) SWOLLEN THROAT AND ITCHING Medication List - Last Reconciled 07/26/23 by Viviana Nick MD albuterol sulfate 90 mcg/actuation 2 puffs PO Q6H PRN bupropion HCl 150 mg PO BID cetirizine (All Day Allergy (cetirizine)) 10 mg (10 mL) PO DAILY PRN 30 days citalopram 40 mg PO DAILY clonazepam 1 mg PO BID dicyclomine 10 mg PO QID docusate sodium 100 mg PO BID duloxetine 20 mg PO BID 30 days famotidine 40 mg PO BEDTIME 90 days hydroxyzine pamoate 25 mg PO DAILY PRN linaclotide (Linzess) 290 mcg PO DAILY lisinopril 10 mg PO DAILY 30 days Magic Mouthwash Diphen/Lido/Antacid 1:1:1 10 mL PO QID melatonin 5 mg PO BEDTIME mesalamine ER (Apriso) 1.5 grams (4 x 0.375 gram) PO QAM miscellaneous medical supply (Blood Pressure Cuff) As directed omeprazole 40 mg PO BID ondansetron HCl 8 mg PO DAILY PRN oxycodone 15 mg PO TID PRN plecanatide (Trulance) 3 mg PO DAILY psyllium husk (aspartame) 3.4 gram/5.8 gram (Metamucil Sugar-Free (aspartame)) 3.4 ea PO BID sucralfate 1 g PO BID sumatriptan succinate (Imitrex) 50 mg PO Q2H PRN tizanidine 4 mg PO Q6H PRN Tobacco use date assessed: 07/26/23 Dental Screening Dental Screen Date: 07/26/23 Did you have a dental visit in the last 12 months?: No Did you have a dental problem in the last 6 months where you did not have access to dental care?: No Was dental information given to patient?: Patient has dentist HPI HPI Comments History of Present Illness Details This is a 58-year-old female with hypertension, hair loss, mild recurrent major depression and anxiety that comes today complaining of right upper quadrant abdominal pain and I will order ultrasound of the abdomen. This pain has been present for over 2 months. She also has diffuse joint pain and for her her loss I will refer her to Dermatology. Blood pressure stable with lisinopril. Mild recurrent major depression and anxiety are stable with medications and she does follow with psychiatrist. No chest pain or shortness of breath. Accompanied by 3-year-old grandson. [facility] Medical History History of blood transfusion MIGUE on CPAP Prolapsed hemorrhoids Murmur Autoimmune thyroiditis URI (upper respiratory infection) Mild recurrent major depression Right upper quadrant abdominal pain Voice hoarseness Polyarthralgia Physical exam Left shoulder pain Sciatica Neck pain Back pain GERD (gastroesophageal reflux disease) Bladder pain Leg edema Migraine headache Hair loss Hypotension Fibromyalgia Mild asthma Vitamin D deficiency Elevated plasma metanephrines Subclinical hyperthyroidism Anxiety Surgical History History of back surgery History of hemorrhoidectomy (~12/29/22) Ectopic History of hysterectomy History of appendectomy Hx of endoscopy History of colonoscopy Family History Father Alzheimers disease Mother Hypertension Social History Household Members: None Housing: Apartment Are you a primary care management specialist to a significant other at home: No Do you presently have visiting nurse or other home services: No Alcohol intake: never Patient Tobacco Use Status: Never used Tobacco e-Cigarette/Vaping Use: Never Used Second Hand Smoke Exposure: No service: No Current occupational status: unemployed Cognitive needs: No Hearing needs: No Vision needs: No Questionnaire PHQ-9 Over the last 2 weeks, how often have you been bothered by any of the following problems? 1. Little interest or pleasure in doing things: more than half the days 2. Feeling down, depressed, or hopeless: nearly every day 3. Trouble falling or staying asleep, or sleeping too much: nearly every day 4. Feeling tired or having little energy: nearly every day 5. Poor appetite or overeating: several days 6. Feeling bad about yourself - or that you are a failure or have let yourself or your family down: nearly every day 7. Trouble concentrating on things, such as reading the newspaper or watching television: more than half the days 8. Moving or speaking so slowly that other people could have noticed. Or the opposite - being so fidgety or restless that you have been moving around a lot more than usual: several days 9. Thoughts that you would be better off or of hurting yourself in some way: not at all Total score: 18 Depression Screening Interpretation: Positive (no suicidal thoughts) Depression Screening Follow-up: Existing condition, In treatment and Community Mental H ealth Worker F/U Depression Screening Done: Yes Source: Developed by Drs. Don Gan, Alison Hu, Anjel Chery and colleagues, with an educational kadi from [employer]. Thrive Questionnaire Date Thrive assessed: 07/26/23 I am a: Patient What is your living situation today?: I have a steady place to live Within the past 12 months, did the food you bought not last and you didn't have the money to get more?: Never true Within the past 12 months, did you worry whether your food would run out before you got money to buy more?: Never true Do you have trouble paying for medicines?: No Do you have trouble getting transportation to medical appointments?: No Do you have trouble paying your heating and electricity bill?: No Do you have trouble taking care of your child, family member or friend?: No Do you have trouble with day-to-day activities such as bathing, preparing meals, shopping, managing finances, etc.?: No Are you currently unemployed and looking for a job?: No Are you interested in more education?: No Please select the resources that you would like help with: None Currently or been in a relationship where the following occur: no concerns reported THRIVE Score: 0 AUDIT C Alcohol Use Questionnaire (AUDIT-C) 1. How often do you have a drink containing alcohol?: Never Total Score: 0 EUSEBIA-7 AMB Questionnaire EUSEBIA-7 Date EUSEBIA - 7 assessed: 07/26/23 Feeling nervous, anxious, or on edge: 3 = Nearly every day Not being able to stop or control worryin = More than half the days Worrying too much about different things: 3 = Nearly every day Trouble relaxin = More than half the days Being so restless that it is hard to sit still: 1 = Several days Becoming easily annoyed or irritable: 2 = More than half the days Feeling afraid as if something awful might happen: 2 = More than half the days Total EUSEBIA-7 score (0-4 normal; 5-9 mild; 10-14 moderate; 15-21 severe): 15 Source: Developed by Drs. Don Gan, Alison Hu, Anjel Chery and colleagues, with an educational kadi from [employer]. EUSEBIA-7 Assessment Billing EUSEBIA-7 Assessment Tool: EUSEBIA-7 Assessment 41007 Review of Systems Const All systems reviewed & are unremarkable except as noted in HPI and below Eyes Reports no additional complaints, Denies change in vision and Denies other visual disturbances Card Denies chest pain at rest, Denies chest pain with activity, Denies edema, Denies irregular heart rhythm, Denies claudication, Denies dyspnea, Denies dyspnea on exertion, Denies orthopnea, Denies paroxysmal nocturnal dyspnea and Denies slow heart rate Resp Denies cough, Denies dyspnea and Denies dyspnea on exertion GI Denies abdominal pain, Denies change in bowel habits, Denies excessive flatus, Denies nausea and Denies vomiting Denies urinary incontinence, Denies urinary hesitancy and Denies urinary urgency Physical exam (Primary Care) Vital Signs: Last Vital Signs BP 120/78 07/26/23 10:56 BMI result Body Mass Index 25.1 Tobacco/Smoking Status: Tobacco use Status Tobacco use date assessed 07/26/23 07/26/23 11:10 Patient Tobacco Use Status Never used Tobacco 07/26/23 11:04 Tobacco use type 12/16/20 14:32 e-Cigarette/Vaping Use Never Used 07/26/23 11:04 PHQ-9: PHQ-9 Score PHQ-9: Total score 18 07/26/23 11:30 Depression Screening Interpretation: Positive (no suicidal thoughts) Depression Screening Follow-up: Existing condition, In treatment and Community Mental Health Worker F/U Thrive Assessment: Date of Thrive Assessment Date Thrive assessed 07/26/23 07/26/23 11:10 Currently or been in a relationship where the following occur: no concerns reported Neck Neck: Yes normal visual inspection and Yes supple Resp Effort & Inspection: normal respiratory effort Auscultation: clear to auscultation bilaterally Cardio Jugular venous distension: no JVD Rate: regular rate Rhythm: regular rhythm Heart sounds: S1 normal heart sound present and S2 normal heart sound present Extrem General: Yes full ROM Assessment and Plan Assessment & Plan (1) HTN (hypertension): Code(s): I10 - Essential (primary) hypertension Qualifiers: Hypertension type: primary hypertension Qualified Code(s): I10 - Essential (primary) hypertension Plan: Continue lisinopril. Blood pressure goal is equal or less than 130/80. (2) Mild recurrent major depression: Code(s): F33.0 - Major depressive disorder, recurrent, mild Plan: Continue bupropion and citalopram. Follow-up with psychiatry. (3) Anxiety: Code(s): F41.9 - Anxiety disorder, unspecified Plan: Continue citalopram. Follow-up with psychiatry. (4) Hair loss: Code(s): L65.9 - Nonscarring hair loss, unspecified Plan: Referred to dermatology. (5) Right upper quadrant abdominal pain: Code(s): R10.11 - Right upper quadrant pain Plan: Ultrasound of the abdomen ordered Orders: Orders Complete Blood Count Auto Diff Today M54.50 - Low back pain, unspecified Thyroid Stimulating Hormone Today E06.3 - Autoimmune thyroiditis US abdomen complete Today R10.11 - Right upper quadrant pain Lipid Panel Today E78.5 - Hyperlipidemia, unspecified, I10 - Essential (primary) hypertension Comprehensive Hume. Panel Fast Today I10 - Essential (primary) hypertension Referrals Dermatology Referral L65.9 - Nonscarring hair loss, unspecified Coding Level of Care Code Est Pt Level 4 (44798) Diagnoses Primary hypertension I10 Hypertension type: primary hypertension Mild recurrent major depression F33.0 Anxiety F41.9 Hair loss L65.9 Right upper quadrant abdominal pain R10.11 Additional Codes EUSEBIA-7 Assessment Billing - EUSEBIA-7 Assessment Tool: EUSEBIA-7 Assessment 52363 ([id number]) Time Spent (min) 24
[2023-07-26 10:56] VITALS: BP 120/78; BMI 25.1
== END 2023-07-26 11:37 | disposition home or self-care (01) ==
PROVIDERS: PCP Internal Medicine; Visit Provider Internal Medicine
DX: I10 Essential (primary) hypertension (principal); F33.0 Major depressive disorder, recurrent, mild; F41.9 Anxiety disorder, unspecified; L65.9 Nonscarring hair loss, unspecified; R10.11 Right upper quadrant pain
CPT/HCPCS: 99214

== ENCOUNTER 2023-08-29 10:32 | Outpatient (REF) | payer OTHER, SELFPAY ==
--- NOTE | ~2023-08-29 | US_ITS ---
EXAMINATION: US ABDOMEN COMPLETE CLINICAL INFORMATION: Right upper quadrant pain. COMPARISON: CT abdomen and pelvis with contrast 02/05/2023. Ultrasound abdomen limited 08/09/2021. Ultrasound bladder 01/06/2021. X-ray abdomen 03/26/2019 and 02/03/2016. TECHNIQUE: Real-time imaging of the abdominal viscera. FINDINGS: PANCREAS: Normal head and body, tail is obscured by bowel gas. ABDOMINAL AORTA: The distal abdominal aorta is obscured by bowel gas. The proximal and mid abdominal aorta are normal caliber. INFERIOR VENA CAVA: Visualized portions are normal. LIVER: Normal. The liver is normal in size. The liver contour is normal. Parenchymal echogenicity is normal. No focal hepatic lesion. There is no intrahepatic biliary duct dilatation seen. GALLBLADDER: Normal. The gallbladder is physiologically distended without evidence of stones, sludge, polyps, wall thickening or pericholecystic fluid. COMMON BILE DUCT: Normal in caliber measuring 0.3 cm in diameter. RIGHT KIDNEY: Normal. No hydronephrosis. No renal calculi or focal parenchymal lesions. The kidney measures 8.6 cm in maximum dimension. LEFT KIDNEY: Normal. No hydronephrosis. No renal calculi or focal parenchymal lesions. The kidney measures 9.6 cm in maximum dimension. SPLEEN: The spleen is small The spleen measures 6.2 cm in maximum dimension. FREE FLUID: None. US/US abdomen complete IMPRESSION: 1. No abnormality demonstrated. 2. The tail of the pancreas and distal abdominal aorta are obscured by bowel gas.
== END 2023-08-29 10:33 | disposition home or self-care (01) ==
LOC: HO.US 10:32
PROVIDERS: PCP Internal Medicine; Visit Provider Internal Medicine
DX: R10.11 Right upper quadrant pain (principal)
CPT/HCPCS: 76700

== ENCOUNTER 2023-09-06 16:11 | Outpatient (AMB) | payer OTHER, SELFPAY ==
[2023-09-06 16:26] VITALS: BP 120/80; BMI 25.3
--- NOTE | 2023-09-06 16:26 | A.OFFPC_ITS ---
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: No Accompanied by: Self / Same As Patient Allergies salsalate Allergy (Severe, Verified 09/06/23 16:32) throat itching swelling zolmitriptan [From ZOMIG] Allergy (Severe, Verified 09/06/23 16:32) SWOLLEN THROAT AND ITCHING Medication List - Last Reconciled 09/06/23 by Viviana Nick MD albuterol sulfate 90 mcg/actuation 2 puffs PO Q6H PRN bupropion HCl SR 150 mg PO BID cetirizine (All Day Allergy (cetirizine)) 10 mg (10 mL) PO DAILY PRN 30 days citalopram 40 mg PO DAILY clonazepam 1 mg PO BID dicyclomine 10 mg PO QID docusate sodium 100 mg PO BID duloxetine 20 mg PO BID 30 days famotidine 40 mg PO BEDTIME 90 days hydrocortisone 2.5% 1 appl topical BID PRN hydroxyzine pamoate 25 mg PO DAILY PRN linaclotide (Linzess) 290 mcg PO DAILY lisinopril 10 mg PO DAILY 30 days Magic Mouthwash Diphen/Lido/Antacid 1:1:1 10 mL PO QID melatonin 5 mg PO BEDTIME mesalamine ER 1.5 grams (4 x 0.375 gram) PO QAM miscellaneous medical supply (Blood Pressure Cuff) As directed omeprazole 40 mg PO BID ondansetron HCl 8 mg PO DAILY PRN oxycodone 15 mg PO TID PRN plecanatide (Trulance) 3 mg PO DAILY psyllium husk (aspartame) 3.4 gram/5.8 gram (Metamucil Sugar-Free (aspartame)) 3.4 ea PO BID sucralfate 1 g PO BID sumatriptan succinate (Imitrex) 50 mg PO Q2H PRN tizanidine 4 mg PO Q6H PRN Tobacco use date assessed: 07/26/23 Dental Screening Dental Screen Date: 07/26/23 HPI HPI Comments History of Present Illness Details This is a 58 year old female with hypertension, fibromyalgia, chronic idiopathic constipation and mild recurrent major depression that comes today complaining of ear pain that has been present for about 2 days after she push a long Qtip in her ear. BP stable with meds. Fibromyalgia well controlled with duloxetine. Constipation stable with linzess. Depression stable with bupropion and she follows with psychiatry. No fever. No trauma in the ear canal. [facility] Medical History (Updated 09/08/23 @ 16:46 by Viviana Nick MD) History of blood transfusion MIGUE on CPAP Prolapsed hemorrhoids Murmur Autoimmune thyroiditis URI (upper respiratory infection) Mild recurrent major depression Right upper quadrant abdominal pain Voice hoarseness Polyarthralgia Physical exam Left shoulder pain Sciatica Neck pain Back pain GERD (gastroesophageal reflux disease) Bladder pain Leg edema Migraine headache Hair loss Hypotension Fibromyalgia Mild asthma Vitamin D deficiency Elevated plasma metanephrines Subclinical hyperthyroidism Anxiety Surgical History History of back surgery History of hemorrhoidectomy (~12/29/22) Ectopic History of hysterectomy History of appendectomy Hx of endoscopy History of colonoscopy Family History Father Alzheimers disease Mother Hypertension Social History Household Members: None Housing: Apartment Are you a primary home care physical therapist to a significant other at home: No Do you presently have visiting nurse or other home services: No Alcohol intake: never Patient Tobacco Use Status: Never used Tobacco e-Cigarette/Vaping Use: Never Used Second Hand Smoke Exposure: No service: No Current occupational status: unemployed Cognitive needs: No Hearing needs: No Vision needs: No Questionnaire Thrive Questionnaire Date Thrive assessed: 07/26/23 EUSEBIA-7 AMB Questionnaire EUSEBIA-7 Date EUSEBIA - 7 assessed: 07/26/23 Source: Developed by Drs. Don Gan, Alison Hu, Anjel Chery and colleagues, with an educational kadi from [employer]. Review of Systems Const All systems reviewed & are unremarkable except as noted in HPI and below Eyes Reports no additional complaints, Denies change in vision and Denies other visual disturbances Card Denies chest pain at rest, Denies chest pain with activity, Denies edema, Denies irregular heart rhythm, Denies claudication, Denies dyspnea, Denies dyspnea on exertion, Denies orthopnea, Denies paroxysmal nocturnal dyspnea and Denies slow heart rate Resp Denies cough, Denies dyspnea and Denies dyspnea on exertion Physical exam (Primary Care) Vital Signs: Last Vital Signs BP 120/80 09/06/23 16:26 BMI result Body Mass Index 25.3 Tobacco/Smoking Status: Tobacco use Status Tobacco use date assessed 07/26/23 09/06/23 16:26 Patient Tobacco Use Status Never used Tobacco 09/06/23 16:26 Tobacco use type 12/16/20 14:32 e-Cigarette/Vaping Use Never Used 09/06/23 16:26 Thrive Assessment: Date of Thrive Assessment Date Thrive assessed 07/26/23 09/06/23 16:26 Resp Effort & Inspection: normal respiratory effort Auscultation: clear to auscultation bilaterally Cardio Jugular venous distension: no JVD Rate: regular rate Rhythm: regular rhythm Heart sounds: S1 normal heart sound present and S2 normal heart sound present Extrem General: Yes full ROM Assessment and Plan Assessment & Plan (1) HTN (hypertension): Code(s): I10 - Essential (primary) hypertension Qualifiers: Hypertension type: primary hypertension Qualified Code(s): I10 - Essential (primary) hypertension Plan: Continue lisinopril. BP goal is equal or less than 130/80. (2) Mild recurrent major depression: Code(s): F33.0 - Major depressive disorder, recurrent, mild Plan: Continue bupropion. (3) Fibromyalgia: Code(s): M79.7 - Fibromyalgia Plan: Continue duloxetine. (4) Chronic idiopathic constipation: Code(s): K59.04 - Chronic idiopathic constipation Plan: Continue linzess. Coding Level of Care Code Est Pt Level 4 (53376) Diagnoses Primary hypertension I10 Hypertension type: primary hypertension Mild recurrent major depression F33.0 Fibromyalgia M79.7 Chronic idiopathic constipation K59.04 Time Spent (min) 20
== END 2023-09-06 16:43 | disposition home or self-care (01) ==
PROVIDERS: PCP Internal Medicine; Visit Provider Internal Medicine
DX: I10 Essential (primary) hypertension (principal); F33.0 Major depressive disorder, recurrent, mild; M79.7 Fibromyalgia; K59.04 Chronic idiopathic constipation
CPT/HCPCS: 99214

== ENCOUNTER 2023-09-11 16:27 | Emergency (ER) | payer OTHER, SELFPAY ==
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
[2023-09-11 17:46] VITALS: BP 158/93; PULSE 80; RESP 18; TEMP 37.1; O2SAT 100; BMI 26.0
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
[2023-09-11 19:30] VITALS: BP 149/83; PULSE 80; RESP 20; O2SAT 99
[2023-09-11] MEDS: Cyclobenzaprine HCl 10 MG TABLET PO (21:12)
[2023-09-11] MEDS: Ketorolac Tromethamine 30 MG/ML VIAL IM (21:13)
[2023-09-11 21:38] VITALS: BP 140/81; PULSE 74; RESP 18; TEMP 36.7; O2SAT 100
[2023-09-11 21:39] VITALS: BP 140/81; PULSE 74; RESP 18; TEMP 36.7
== END 2023-09-11 21:39 | disposition home or self-care (01) ==
PROVIDERS: Emergency Provider Emergency Medicine; PCP Internal Medicine
DX: S16.1XXA Strain of muscle, fascia and tendon at neck level, initial encounter (principal); S39.012A Strain of muscle, fascia and tendon of lower back, initial encounter; M54.16 Radiculopathy, lumbar region; V89.2XXA Person injured in unspecified motor-vehicle accident, traffic, initial encounter; Y93.9 Activity, unspecified; Y92.410 Unspecified street and highway as the place of occurrence of the external cause; Y99.9 Unspecified external cause status
CPT/HCPCS: 71101; 73030; 96372; 99284; J1885

== ENCOUNTER 2023-11-23 10:57 | Outpatient (AMB) | payer OTHER, SELFPAY ==
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
[2023-11-23 10:59] VITALS: BP 118/64; PULSE 83; BMI 25.8
== END 2023-11-23 11:49 | disposition home or self-care (01) ==
PROVIDERS: PCP Internal Medicine; Visit Provider Internal Medicine Gastroenterology
DX: K52.9 Noninfective gastroenteritis and colitis, unspecified (principal)
CPT/HCPCS: 99214

== ENCOUNTER → 2023-11-23 10:57 | Outpatient (BNVA) | payer OTHER, SELFPAY | PROVIDERS: PCP Internal Medicine; Visit Provider Internal Medicine Gastroenterology | DX: K52.9 Noninfective gastroenteritis and colitis, unspecified (principal); R10.33 Periumbilical pain | CPT/HCPCS: 99212 ==

== ENCOUNTER 2023-12-12 13:17 | Outpatient (AMB) | payer OTHER, SELFPAY ==
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
== END 2023-12-12 14:30 | disposition home or self-care (01) ==
PROVIDERS: PCP Internal Medicine; Visit Provider Neurological Surgery
DX: Z98.1 Arthrodesis status (principal); V89.2XXA Person injured in unspecified motor-vehicle accident, traffic, initial encounter
CPT/HCPCS: 99213

== ENCOUNTER → 2023-12-12 13:17 | Outpatient (BNVA) | payer OTHER, SELFPAY | PROVIDERS: PCP Internal Medicine; Visit Provider Neurological Surgery | DX: M54.9 Dorsalgia, unspecified (principal); Z98.1 Arthrodesis status | CPT/HCPCS: 99212 ==

== ENCOUNTER 2024-01-21 14:32 | Outpatient (REF) | payer OTHER, SELFPAY ==
--- NOTE | ~2024-01-21 | CT_ITS ---
EXAMINATION: CT ENTEROGRAPHY ABDOMEN AND PELVIS WITH CONTRAST CLINICAL INFORMATION: Periumbilical pain COMPARISON: CT dated February 05, 2023 TECHNIQUE: Study performed with oral VoLumen (1500 mL) and 480 mL of water to distend the abdomen. The patient was injected with 85 mL Omnipaque 350 intravenous contrast which was administered without adverse effect. Coronal and sagittal reformatted images were obtained at the technologist's workstation. This CT examination was performed using dose optimization techniques as appropriate, variously including the following: *Automated exposure control *Adjustment of mA and/or kV according to patient size (this includes techniques or standardized protocols for targeted exams where dose is matched to indication/reason for exam; i.e. extremities or head) *Use of iterative reconstruction technique DLP: 302 mGy-cm FINDINGS: GASTROINTESTINAL FINDINGS: Stomach: No focal mass. No dilatation. Small intestine: Collapsed appearance of degenerative loops. The possibility of concentric wall thickening distal ileal loops cannot be excluded. No intestinal obstruction pattern. Large intestine: No focal wall thickening. No pneumatosis intestinalis. Collapsed appearance of the rectosigmoid colon. No intestinal obstruction pattern. Postsurgical changes likely post appendectomy. Additional findings: No abnormal enhancement of the vasa recta or significant mesenteric or retroperitoneal lymphadenopathy is seen. No abdominal abscess or fistulous tract demonstrated. ABDOMINAL AND PELVIC CT FINDINGS: Liver, gallbladder, biliary tract: There are measures 16 cm. No focal mass. Portal vein and hepatic veins and intrahepatic portion of the IVC are patent. No intrahepatic or extrahepatic biliary ductal dilatation. No pericholecystic fluid collection or gallbladder wall thickening. Pancreas: No focal mass. No peripancreatic fluid collection. No main pancreatic ductal dilatation. Spleen: 9 cm. No focal mass. Adrenal glands and kidneys: No nodular lesions in the adrenal glands. No gross renal mass or hydronephrosis. Normal contrast enhancement of the renal parenchyma. Subcentimeter cyst, right kidney. Small tiny fat-containing umbilical hernia. Ureters and bladder: Fluid-filled nearly collapsed bladder. The ureters are not dilated. Lymphovascular structures: No lymphadenopathy. No aneurysm or dissection, abdominal aorta. Bones: Multilevel thoracolumbar spondylosis resulting in grade 1 retrolisthesis L3-4 and 6 to a lesser extent L4-5. Transpedicular screws at L5 and S1, bilaterally. Intervertebral disc spacer placement at L5-S1. S-shaped curvature of the thoracolumbar spine with a dextroconvex rotoscoliosis apex at L2-3. Lung bases: No acute airspace disease or gross pulmonary nodules in the included lungs. CT/CT enterography IMPRESSION: Small tiny fat-containing umbilical hernia Multilevel thoracolumbar spondylosis and dextroconvex rotoscoliosis lumbar spine.. Electronically signed by: Chuy Simental MD 04/07/2024 03:32 PM [facility]
[2024-01-21] MEDS: iohexoL 350 MG/ML 75 ML INFUS..BTL 85 ML IV (16:06)
[2024-01-21] MEDS: Sorbitol/Mannit/Xanth Imaging 500 ML LIQUID 1500 ML PO (16:23)
[2024-01-22 10:27] LABS: Creatinine POC 0.7 mg/dL (0.5-1.4); GFR POC > 60
== END 2024-01-21 14:33 | disposition home or self-care (01) ==
LOC: HO.CT 14:32
PROVIDERS: PCP Internal Medicine; Visit Provider Internal Medicine Gastroenterology
DX: R10.33 Periumbilical pain (principal)
CPT/HCPCS: 74177; 82565; Q9967

== ENCOUNTER → 2024-01-21 14:34 | Outpatient (BNV) | payer OTHER, SELFPAY | PROVIDERS: PCP Internal Medicine; Visit Provider Radiology Diagnostic Radiology | DX: K42.9 Umbilical hernia without obstruction or gangrene (principal) | CPT/HCPCS: 74177 ==

== ENCOUNTER 2024-01-24 14:32 | Outpatient (AMB) | payer OTHER, SELFPAY ==
[2024-01-24 14:47] VITALS: BP 134/80; BMI 26.0
--- NOTE | 2024-01-24 14:47 | A.OFFPC_ITS ---
Vital Signs 01/24/24 14:47 Height 4 ft 9 in Weight 120 lb BMI 26.0 BP 134/80 Blood Pressure Location Lt brachial Position Sitting Intake Visit Reasons: Annual Exam Intake Note: Patient here for a physical exam Community Association Manager Required: No Accompanied by: Self / Same As Patient Allergies salsalate Allergy (Severe, Verified 01/24/24 14:57) throat itching swelling zolmitriptan [From ZOMIG] Allergy (Severe, Verified 01/24/24 14:57) SWOLLEN THROAT AND ITCHING Medication List - Last Reconciled 01/24/24 by Viviana Nick MD albuterol sulfate 90 mcg/actuation 2 puffs PO Q6H PRN bupropion HCl SR 150 mg PO BID cetirizine (All Day Allergy (cetirizine)) 10 mg (10 mL) PO DAILY PRN 30 days citalopram 40 mg PO DAILY clonazepam 1 mg PO BID cyclobenzaprine 10 mg PO TID PRN dicyclomine 10 mg PO QID docusate sodium 100 mg PO BID duloxetine 20 mg PO BID 30 days famotidine 40 mg PO BEDTIME 90 days hydrocortisone 2.5% 1 appl topical BID PRN hydrocortisone 2.5% 1 appl topical Q12H PRN hydroxyzine pamoate 25 mg PO DAILY PRN linaclotide (Linzess) 290 mcg PO DAILY lisinopril 10 mg PO DAILY 30 days [MAGIC MOUTHWASH 10 mL PO QID] melatonin 5 mg PO BEDTIME mesalamine 1 g VT BEDTIME 4 weeks mesalamine 4 grams (60 mL) VT BEDTIME mesalamine ER 1.5 grams (4 x 0.375 gram) PO QAM miscellaneous medical supply (Blood Pressure Cuff) As directed omeprazole 40 mg PO BID ondansetron HCl 8 mg PO DAILY PRN oxycodone 15 mg PO TID PRN plecanatide (Trulance) 3 mg PO DAILY psyllium husk (aspartame) 3.4 gram/5.8 gram (Metamucil Sugar-Free (aspartame)) 3.4 ea PO BID sucralfate 1 g PO BID sumatriptan succinate (Imitrex) 50 mg PO Q2H PRN tizanidine 4 mg PO Q6H PRN Tobacco use date assessed: 07/26/23 Dental Screening Dental Screen Date: 01/24/24 Did you have a dental visit in the last 12 months?: No Did you have a dental problem in the last 6 months where you did not have access to dental care?: No Was dental information given to patient?: Patient has dentist HPI HPI Comments History of Present Illness Details This is a 58-year-old female that comes for her physical exam. Mammogram done less than a year ago and he was normal. Colonoscopy done 2023. No chest pain or shortness on breath. Compliant with medications. [facility] Medical History Colitis History of blood transfusion MIGUE on CPAP Prolapsed hemorrhoids Murmur Autoimmune thyroiditis URI (upper respiratory infection) Mild recurrent major depression Right upper quadrant abdominal pain Voice hoarseness Polyarthralgia Physical exam Left shoulder pain Sciatica Neck pain Back pain GERD (gastroesophageal reflux disease) Bladder pain Leg edema Migraine headache Hair loss Hypotension Fibromyalgia Mild asthma Vitamin D deficiency Elevated plasma metanephrines Subclinical hyperthyroidism Anxiety Surgical History History of back surgery History of hemorrhoidectomy (~12/29/22) Ectopic History of hysterectomy History of appendectomy Hx of endoscopy History of colonoscopy Family History (Updated 01/24/24 @ 15:07 by Viviana Nick MD) Father Alzheimers disease Mother Hypertension Social History Household Members: None Housing: Apartment Are you a primary reservoir caretaker to a significant other at home: No Do you presently have visiting nurse or other home services: No Alcohol intake: never Patient Tobacco Use Status: Never used Tobacco e-Cigarette/Vaping Use: Never Used Second Hand Smoke Exposure: No service: No Current occupational status: unemployed Cognitive needs: No Hearing needs: No Vision needs: No Questionnaire PHQ-9 Over the last 2 weeks, how often have you been bothered by any of the following problems? 1. Little interest or pleasure in doing things: nearly every day 2. Feeling down, depressed, or hopeless: nearly every day 3. Trouble falling or staying asleep, or sleeping too much: nearly every day 4. Feeling tired or having little energy: nearly every day 5. Poor appetite or overeating: nearly every day 6. Feeling bad about yourself - or that you are a failure or have let yourself or your family down: more than half the days 7. Trouble concentrating on things, such as reading the newspaper or watching television: nearly every day 8. Moving or speaking so slowly that other people could have noticed. Or the opposite - being so fidgety or restless that you have been moving around a lot more than usual: more than half the days 9. Thoughts that you would be better off or of hurting yourself in some way: not at all Total score: 22 Depression Screening Interpretation: Positive (no suicidal thoughts) Depression Screening Follow-up: Existing condition, In treatment, Community Mental Health Worker F/U and Follow-up Visit Requested Depression Screening Done: Yes 47820 - PHQ-9 Billing: Yes Source: Developed by Drs. Don Gan, Alison Hu, Anjle Chery and colleagues, with an educational kdai from [employer]. Thrive Questionnaire Date Thrive assessed: 01/24/24 I am a: Patient What is your living situation today?: I have a place to live, but I am worried about losing it in the future Within the past 12 months, did the food you bought not last and you didn't have the money to get more?: Sometimes True Within the past 12 months, did you worry whether your food would run out before you got money to buy more?: Sometimes True Do you have trouble paying for medicines?: Yes Do you have trouble getting transportation to medical appointments?: No Do you have trouble paying your heating and electricity bill?: I choose not to answer this question Do you have trouble taking care of your child, family member or friend?: I choose not to answer this question Do you have trouble with day-to-day activities such as bathing, preparing meals, shopping, managing finances, etc.?: I choose not to answer this question Are you currently unemployed and looking for a job?: I choose not to answer this question Are you interested in more education?: I choose not to answer this question Please select the resources that you would like help with: Food, Paying for medicine and Utilities Currently or been in a relationship where the following occur: No concerns reported THRIVE Score: 3 AUDIT C Alcohol Use Questionnaire (AUDIT-C) 1. How often do you have a drink containing alcohol?: Never Total Score: 0 Score Reviewed/Action Taken: No EUSEBIA-7 AMB Questionnaire EUSEBIA-7 Date EUSEBIA - 7 assessed: 01/24/24 Feeling nervous, anxious, or on edge: 3 = Nearly every day Not being able to stop or control worryin = Nearly every day Worrying too much about different things: 3 = Nearly every day Trouble relaxin = Nearly every day Being so restless that it is hard to sit still: 3 = Nearly every day Becoming easily annoyed or irritable: 2 = More than half the days Feeling afraid as if something awful might happen: 3 = Nearly every day Total EUSEBIA-7 score (0-4 normal; 5-9 mild; 10-14 moderate; 15-21 severe): 20 Source: Developed by Drs. Don Gan, Alison Hu, Anjel Chery and colleagues, with an educational kadi from [employer]. EUSEBIA-7 Assessment Billing EUSEBIA-7 Assessment Tool: EUSEBIA-7 Assessment 58583 Review of Systems Const All systems reviewed & are unremarkable except as noted in HPI and below Card Denies chest pain at rest, Denies chest pain with activity, Denies edema, Denies irregular heart rhythm, Denies claudication, Denies dyspnea, Denies dyspnea on exertion, Denies orthopnea, Denies paroxysmal nocturnal dyspnea and Denies slow heart rate Resp Denies cough, Denies dyspnea and Denies dyspnea on exertion GI Denies abdominal pain, Denies change in bowel habits, Denies excessive flatus, Denies nausea and Denies vomiting Denies urinary incontinence, Denies urinary hesitancy and Denies urinary urgency Musc Denies abnormal gait, Denies atrophy, Denies deformity and Denies limited range of motion Skin/Breast Denies bleeding lesions, Denies changing lesions and Denies rash Neuro Denies abnormal gait, Denies behavioral changes and Denies lack of coordination Psych Denies behavioral changes Physical exam (Primary Care) Vital Signs: Last Vital Signs BP 134/80 01/24/24 14:47 BMI result Body Mass Index 26.0 Tobacco/Smoking Status: Tobacco use Status Tobacco use date assessed 07/26/23 01/24/24 14:54 Patient Tobacco Use Status Never used Tobacco 01/24/24 14:54 Tobacco use type 12/16/20 14:32 e-Cigarette/Vaping Use Never Used 01/24/24 14:54 PHQ-9: PHQ-9 Score PHQ-9: Total score 22 01/24/24 15:05 Depression Screening Interpretation: Positive (no suicidal thoughts) Depression Screening Follow-up: Existing condition, In treatment, Community Mental Health Worker F/U and Follow-up Visit Requested Thrive Assessment: Date of Thrive Assessment Date Thrive assessed 01/24/24 01/24/24 14:54 Currently or been in a relationship where the following occur: No concerns reported HENMT Head: Yes normal to inspection, Yes normocephalic and Yes atraumatic Ears: external ears normal Eyes General: appearance normal, both eyes and all related structures Eyelids: Yes eyelids normal Conjunctivae: conjunctivae normal Neck Neck: Yes normal visual inspection and Yes supple Resp Effort & Inspection: normal respiratory effort Auscultation: clear to auscultation bilaterally Cardio Jugular venous distension: no JVD Rate: regular rate Rhythm: regular rhythm Heart sounds: S1 normal heart sound present and S2 normal heart sound present GI Inspection: Yes normal to inspection Palpation (GI): Soft to palpation and nontender Auscultation: normal bowel sounds Skin General skin exam: no rashes or lesions noted Neuro General: no focal motor deficits Extrem General: Yes full ROM Psych Appearance: grossly normal Assessment and Plan Assessment & Plan (1) Physical exam: Code(s): Z00.00 - Encounter for general adult medical examination without abnormal findings Plan: Repeat in a year. Orders: Orders Thyroid Stimulating Hormone Today E06.3 - Autoimmune thyroiditis Free T4 (Free Thyroxine) Today E06.3 - Autoimmune thyroiditis Comprehensive [place]. Panel Fast Today Z00.00 - Encounter for general adult medical examination without abnormal findings Lipid Panel Today Z00.00 - Encounter for general adult medical examination without abnormal findings Coding Level of Care Code Est Pt Prev Care 40-64y(33656) Diagnoses Physical exam Z00.00 Additional Codes EUSEBIA-7 Assessment Billing - EUSEBIA-7 Assessment Tool: EUSEBIA-7 Assessment 01994 ([id number]) Time Spent (min) 30
== END 2024-01-24 15:15 | disposition home or self-care (01) ==
PROVIDERS: PCP Internal Medicine; Visit Provider Internal Medicine
DX: Z00.00 Encounter for general adult medical examination without abnormal findings (principal)

== ENCOUNTER → 2024-01-24 14:32 | Outpatient (BNVA) | payer OTHER, SELFPAY | PROVIDERS: PCP Internal Medicine; Visit Provider Internal Medicine | DX: Z00.00 Encounter for general adult medical examination without abnormal findings (principal); E06.3 Autoimmune thyroiditis | CPT/HCPCS: 96127 ==

== ENCOUNTER 2024-01-28 08:01 | Outpatient (REF) | payer OTHER, SELFPAY ==
[2024-01-28 08:10] LABS: MANUAL DIFF FLAG NO
[2024-01-28 08:25] LABS: Basophils Percent Auto 0.5 % (0-2); Eosinophils Absolute Auto 0.2 X10*3/uL (0.0-0.4); Eosinophils Percent Auto 3.7 % (0-4); Hematocrit 33.7 % (37.0-47.0); Hemoglobin 10.8 g/dl (12.0-16.0); Imm Gran Abs Auto 0.01 X10*3/uL (0.00-0.03); Imm Gran Pct Auto 0.2 % (0.0-0.4); Lymphocytes Absolute Auto 1.3 X10*3/uL (1.2-4.9); Lymphocytes Percent Auto 29.4 % (20-40); Mean Corpuscular Hemoglobin 29.8 pg (27.0-33.0); Mean Corpuscular Volume 93.1 fL (80.0-98.0); Mean Platelet Volume 10.4 fL (9.4-12.3); Monocytes Absolute Auto 0.5 X10*3/uL (0.1-1.2); Monocytes Percent Auto 12.4 % (2-11); Neutrophils Absolute Auto 2.3 x10*3/uL (2.0-8.3); Neutrophils Percent Auto 53.8 % (45-73); Platelet Count 208 X10*3/uL (160-400); Red Blood Count 3.62 X10*6/uL (4.20-5.50); Red Cell Distribution Width 13.3 % (11.0-16.0); White Blood Count 4.4 X10*3/uL (4.8-10.8)
[2024-01-28 09:04] LABS: Alanine Aminotransferase 16 U/L (0-31); Albumin Level 3.7 g/dL (3.5-5.0); Alkaline Phosphatase 63 U/L (39-117); Anion Gap 10 (12-20); Aspartate Amino Transferase 14 U/L (5-31); Bilirubin Total 0.1 mg/dL (0.0-1.0); Blood Urea Nitrogen 12 mg/dL (9-16); Calcium 8.8 mg/dL (8.4-10.2); Carbon Dioxide 28 mmol/L (22-29); Chloride 109 mmol/L (96-108); Cholesterol 145 mg/dL (<200); Estimated Glomerular Filt Rate > 60; Glucose Fasting 86 mg/dL (60-99); HDL Cholesterol 57 mg/dL (>40); LDL Cholesterol Calculated 71 mg/dL (<100); Potassium 4.1 mmol/L (3.3-5.1); Sodium 143 mmol/L (135-145); Triglycerides 87 mg/dL (<150)
[2024-01-28 09:23] LABS: Free T4 (Free Thyroxine) 0.72 ng/dL (0.71-1.85); Thyroid Stimulating Hormone 0.64 uIU/mL (0.32-4.0)
== END 2024-01-28 08:02 | disposition home or self-care (01) ==
LOC: HO.LAB 08:01
PROVIDERS: PCP Internal Medicine; Visit Provider Internal Medicine
DX: Z00.00 Encounter for general adult medical examination without abnormal findings (principal); M54.50 Low back pain, unspecified; E06.3 Autoimmune thyroiditis
CPT/HCPCS: 36415; 80053; 80061; 84439; 84443; 85025

== ENCOUNTER 2024-03-24 10:43 | Outpatient (AMB) | payer OTHER, SELFPAY ==
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
[2024-03-24 10:47] VITALS: BP 145/79; PULSE 105; BMI 25.8
== END 2024-03-24 11:30 | disposition home or self-care (01) ==
PROVIDERS: PCP Internal Medicine; Visit Provider Internal Medicine Gastroenterology
DX: E55.9 Vitamin D deficiency, unspecified (principal); K52.9 Noninfective gastroenteritis and colitis, unspecified
CPT/HCPCS: 99214

== ENCOUNTER → 2024-03-24 10:43 | Outpatient (BNVA) | payer OTHER, SELFPAY | PROVIDERS: PCP Internal Medicine; Visit Provider Internal Medicine Gastroenterology | DX: E55.9 Vitamin D deficiency, unspecified (principal); K52.9 Noninfective gastroenteritis and colitis, unspecified | CPT/HCPCS: 99212 ==

== ENCOUNTER 2024-05-23 08:24 | Outpatient (REF) | payer OTHER, SELFPAY ==
[2024-05-23 10:12] LABS: Ferritin 62 ng/mL (10-250); Vitamin D 25-OH Total 35.9 ng/mL (>30)
[2024-05-23 10:26] LABS: Folate 18.3 ng/mL (> or = 4.0); Vitamin B12 1555 pg/mL (200-900)
[2024-05-27 18:54] LABS: Zinc 70 mcg/dL (60-130)
[2024-05-27 23:23] LABS: Alpha-Tocopherol 11.2 mg/L (5.7-19.9); Beta-Gamma Tocopherol <1.0 mg/L (<=4.3)
[2024-05-28 00:48] LABS: Vitamin A 59 mcg/dL (38-98)
[2024-05-29 05:04] LABS: VITAMIN D (1,25 OH) D3 44 pg/mL; Vit D (1,25-Dihydroxy) Total 44 pg/mL (18-72); Vitamin D (1,25 OH) D2 <8 pg/mL
[2024-05-29 15:04] LABS: Nicotinamide <20 ng/mL (see note); Vit B3 - Nicotinic Acid <20 ng/mL (see note)
[2024-05-29 15:12] LABS: Vitamin B5 (Pantothenic Acid) 67 ng/mL (<275)
[2024-05-29 20:23] LABS: Vitamin K1 228 pg/mL (130-1500)
[2024-05-30 11:34] LABS: Vitamin C 1.6 mg/dL (0.3-2.7)
[2024-05-30 19:59] LABS: Vitamin B1 21 nmol/L (8-30)
[2024-05-31 16:32] LABS: Vitamin B6 39.7 ng/mL (2.1-21.7)
== END 2024-05-23 08:25 | disposition home or self-care (01) ==
LOC: HO.LAB 08:24
PROVIDERS: PCP Internal Medicine; Visit Provider Internal Medicine Gastroenterology
DX: E55.9 Vitamin D deficiency, unspecified (principal); K52.9 Noninfective gastroenteritis and colitis, unspecified
CPT/HCPCS: 36415; 82180; 82306; 82607; 82652; 82728; 82746; 84207; 84425; 84446; 84590; 84591; 84597; 84630

== ENCOUNTER 2024-07-23 14:10 | Outpatient (AMB) | payer OTHER, SELFPAY ==
--- NOTE | 2024-07-23 14:12 | MHC.PC.OV ---
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: No Accompanied by: Self / Same As Patient Allergies salsalate Allergy (Severe, Verified 07/23/24 14:38) throat itching swelling zolmitriptan [From ZOMIG] Allergy (Severe, Verified 07/23/24 14:38) SWOLLEN THROAT AND ITCHING Medication List - Last Reconciled 07/23/24 by Viviana Nick MD albuterol sulfate 90 mcg/actuation 2 puffs PO Q6H PRN bupropion HCl SR 150 mg PO BID cetirizine (All Day Allergy (cetirizine)) 10 mg (10 mL) PO DAILY PRN 30 days citalopram 40 mg PO DAILY clonazepam 1 mg PO BID cyclobenzaprine 10 mg PO TID PRN dicyclomine 10 mg PO QID docusate sodium 100 mg PO BID duloxetine 20 mg PO BID 30 days famotidine 40 mg PO BEDTIME 90 days hydrocortisone 2.5% 1 appl topical Q12H hydroxyzine pamoate 25 mg PO DAILY PRN linaclotide (Linzess) 290 mcg PO DAILY lisinopril 10 mg PO DAILY 30 days Magic Mouthwash Diphen/Lido/Antacid 1:1:1 10 mL PO DAILY melatonin 5 mg PO BEDTIME miscellaneous medical supply (Blood Pressure Cuff) As directed omeprazole 40 mg PO BID ondansetron 4 mg PO Q8H PRN oxycodone 15 mg PO TID PRN phosphorated carbohydrate (Emetrol oral solution) 15 mL PO Q15M PRN plecanatide (Trulance) 3 mg PO DAILY polyethylene glycol 3350 17 grams PO BID psyllium husk (aspartame) 3.4 gram/5.8 gram (Metamucil Sugar-Free (aspartame)) 3.4 ea PO BID sucralfate 1 g PO BID sumatriptan succinate (Imitrex) 50 mg PO Q2H PRN tizanidine 4 mg PO Q6H PRN Tobacco use date assessed: 07/23/24 Dental Screening Dental Screen Date: 07/23/24 Did you have a dental visit in the last 12 months?: No Did you have a dental problem in the last 6 months where you did not have access to dental care?: No Was dental information given to patient?: Patient has dentist HPI HPI Comments History of Present Illness Details The patient is a 59-year-old female presenting with chronic headache and associated symptoms. She describes experiencing severe headaches that are intolerable and affect her entire head and body. These headaches occur almost daily and severely impact her functioning. Alongside these headaches, the patient experiences left-sided weakness, specifically in the left arm, and occasional chest pain that varies in intensity and location depending on her position. The patient also reports heaviness and numbness in the left arm, particularly when the chest pain is prominent. She reports having a history of migraines previously managed with sumatriptan, though she has run out due to frequency of use. During the pandemic, she ceased using topiramate, which had been effective in managing her migraine symptoms. Her health maintenance includes management of essential hypertension with lisinopril and depression with bupropion and citalopram. She also manages allergic rhinitis with cetirizine. Furthermore, the patient noted a history of anemia with low hemoglobin levels and unexplained bruising, necessitating further evaluation. She also has hypertension stable with lisinopril. [facility] Medical History (Updated 07/23/24 @ 14:56 by Viviana Nick MD) Colitis History of blood transfusion MIGUE on CPAP Prolapsed hemorrhoids Murmur Autoimmune thyroiditis URI (upper respiratory infection) Mild recurrent major depression Right upper quadrant abdominal pain Voice hoarseness Polyarthralgia Physical exam Left shoulder pain Sciatica Neck pain Back pain GERD (gastroesophageal reflux disease) Bladder pain Leg edema Migraine headache Hair loss Hypotension Fibromyalgia Mild asthma Vitamin D deficiency Elevated plasma metanephrines Subclinical hyperthyroidism Anxiety Surgical History History of back surgery History of hemorrhoidectomy (~12/29/22) Ectopic History of hysterectomy History of appendectomy Hx of endoscopy History of colonoscopy Family History Father Alzheimers disease Mother Hypertension Social History Household Members: None Housing: Apartment Are you a primary wound care technician to a significant other at home: No Do you presently have visiting nurse or other home services: No Alcohol intake: never Patient Tobacco Use Status: Never used Tobacco e-Cigarette/Vaping Use: Never Used Second Hand Smoke Exposure: No service: No Current occupational status: unemployed Cognitive needs: No Hearing needs: No Vision needs: No Questionnaire PHQ-9 Over the last 2 weeks, how often have you been bothered by any of the following problems? 1. Little interest or pleasure in doing things: several days 2. Feeling down, depressed, or hopeless: several days 3. Trouble falling or staying asleep, or sleeping too much: several days 4. Feeling tired or having little energy: several days 5. Poor appetite or overeating: not at all 6. Feeling bad about yourself - or that you are a failure or have let yourself or your family down: several days 7. Trouble concentrating on things, such as reading the newspaper or watching television: several days 8. Moving or speaking so slowly that other people could have noticed. Or the opposite - being so fidgety or restless that you have been moving around a lot more than usual: several days 9. Thoughts that you would be better off or of hurting yourself in some way: not at all Total score: 7 Depression Screening Interpretation: Positive Depression Screening Follow-up: Existing condition, In treatment, Community Mental Health Worker F/U and Follow-up Visit Requested Depression Screening Done: Yes 91378 - PHQ-9 Billing: Yes Source: Developed by Drs. Don Gan, Alison Hu, Anjel Chery and colleagues, with an educational kadi from [employer]. Thrive Questionnaire Date Thrive assessed: 07/23/24 I am a: Patient What is your living situation today?: I have a place to live, but I am worried about losing it in the future Within the past 12 months, did the food you bought not last and you didn't have the money to get more?: Sometimes True Within the past 12 months, did you worry whether your food would run out before you got money to buy more?: Sometimes True Do you have trouble paying for medicines?: Yes Do you have trouble getting transportation to medical appointments?: No Do you have trouble paying your heating and electricity bill?: I choose not to answer this question Do you have trouble taking care of your child, family member or friend?: I choose not to answer this question Do you have trouble with day-to-day activities such as bathing, preparing meals, shopping, managing finances, etc.?: I choose not to answer this question Are you currently unemployed and looking for a job?: I choose not to answer this question Are you interested in more education?: I choose not to answer this question Please select the resources that you would like help with: Food, Paying for medicine and Utilities Currently or been in a relationship where the following occur: No concerns reported THRIVE Score: 3 AUDIT C Alcohol Use Questionnaire (AUDIT-C) 1. How often do you have a drink containing alcohol?: Never Total Score: 0 Score Reviewed/Action Taken: No EUSEBIA-7 AMB Questionnaire EUSEBIA-7 Date EUSEBIA - 7 assessed: 07/23/24 Feeling nervous, anxious, or on edge: 1 = Several days Not being able to stop or control worryin = Several days Worrying too much about different things: 1 = Several days Trouble relaxin = Several days Being so restless that it is hard to sit still: 1 = Several days Becoming easily annoyed or irritable: 1 = Several days Feeling afraid as if something awful might happen: 1 = Several days Total EUSEBIA-7 score (0-4 normal; 5-9 mild; 10-14 moderate; 15-21 severe): 7 Source: Developed by Drs. Don Gan, Alison Hu, Anjel Chery and colleagues, with an educational kadi from [employer]. EUSEBIA-7 Assessment Billing EUSEBIA-7 Assessment Tool: EUSEBIA-7 Assessment 05360 Review of Systems Const All systems reviewed & are unremarkable except as noted in HPI and below Reports headache(s) ENT Reports headache(s) Card Denies chest pain at rest, Denies chest pain with activity, Denies edema, Denies irregular heart rhythm, Denies claudication, Denies dyspnea, Denies dyspnea on exertion, Denies orthopnea, Denies paroxysmal nocturnal dyspnea and Denies slow heart rate Resp Denies cough, Denies dyspnea and Denies dyspnea on exertion GI Denies abdominal pain, Denies change in bowel habits, Denies excessive flatus, Denies nausea and Denies vomiting Denies urinary incontinence, Denies urinary hesitancy and Denies urinary urgency Musc Denies abnormal gait, Denies atrophy, Denies deformity, Reports arthralgias and Denies limited range of motion Skin/Breast Denies bleeding lesions, Denies changing lesions and Denies rash Neuro Denies abnormal gait, Reports headache(s) and Denies lack of coordination Psych Reports anxiety and Reports depression Lobo/Lymph Reports easy bruising Physical exam (Primary Care) Vital Signs: Last Vital Signs BP 118/72 07/23/24 14:14 BMI result Body Mass Index 26.4 Tobacco/Smoking Status: Tobacco use Status Tobacco use date assessed 07/23/24 07/23/24 14:21 Patient Tobacco Use Status Never used Tobacco 07/23/24 14:21 Tobacco use type 12/16/20 14:32 e-Cigarette/Vaping Use Never Used 07/23/24 14:21 PHQ-9: PHQ-9 Score PHQ-9: Total score 7 07/23/24 14:21 Depression Screening Interpretation: Positive Depression Screening Follow-up: Existing condition, In treatment, Community Mental Health Worker F/U and Follow-up Visit Requested Thrive Assessment: Date of Thrive Assessment Date Thrive assessed 07/23/24 07/23/24 14:21 Currently or been in a relationship where the following occur: No concerns reported Resp Effort & Inspection: normal respiratory effort Auscultation: clear to auscultation bilaterally Cardio Jugular venous distension: no JVD Rate: regular rate Rhythm: regular rhythm Heart sounds: S1 normal heart sound present and S2 normal heart sound present Extrem General: Yes full ROM Coding Level of Care Code Est Pt Level 4 (26424) Complex EM visit Add On G2211 Diagnoses Chest pain R07.9 Chronic headaches R51.9; G89.29 Primary hypertension I10 Hypertension type: primary hypertension Mild recurrent major depression F33.0 Anxiety F41.9 Anemia D64.9 Additional Codes PHQ-9 - 20333 - PHQ-9 Billing: Yes ([id number]) EUSEBIA-7 Assessment Billing - EUSEBIA-7 Assessment Tool: EUSEBIA-7 Assessment 61173 ([id number]) Time Spent (min) 24 Assessment & Plan Assessment & Plan (1) Chest pain: Code(s): R07.9 - Chest pain, unspecified Category: Medical (2) Chronic headaches: Code(s): R51.9 - Headache, unspecified; G89.29 - Other chronic pain Category: Medical (3) HTN (hypertension): Code(s): I10 - Essential (primary) hypertension Category: Medical Qualifiers: Hypertension type: primary hypertension Qualified Code(s): I10 - Essential (primary) hypertension (4) Mild recurrent major depression: Code(s): F33.0 - Major depressive disorder, recurrent, mild Category: Medical (5) Anxiety: Code(s): F41.9 - Anxiety disorder, unspecified Category: Medical (6) Anemia: Code(s): D64.9 - Anemia, unspecified Category: Medical Plan I have recommended a neurological evaluation due to the patient's chronic migraine headaches and related symptoms, including left-sided weakness and chest pain. To manage her migraines, I will restart low-dose topiramate and instruct on using sumatriptan for acute attacks only. Given the report of anemia and bruising, further blood work is planned to assess her hemoglobin. Chest pain concerns necessitate an electrocardiogram, given the time lapsed since her last one. We will continue her current regimen for hypertension and discuss ongoing psychiatric care regarding her depression management. Her allergy to salazate was reviewed to avoid contraindicated medications, and I plan regular follow-ups to assess treatment response and monitor laboratory findings. Patient was informed and verbally consented to the use of an ambient scribe for clinic note documentation during this visit. During the visit, I discussed the diagnosis and management of her chronic headaches, inclusive of options for acute interventions like sumatriptan and preventives such as topiramate, starting at a low dose to minimize side effects. I emphasized the importance of laboratory testing for her anemia and advised on the benefit of repeating the electrocardiogram to evaluate heart health in light of her chest pain symptoms. The patient was informed about the possible risks and benefits of all medications and diagnostic tests, and she consented to proceed with the recommended evaluations and treatments. I also informed her of the potential need for neurologist input due to persistent symptomatology and reassured her about the available effective headache management strategies. Orders: Orders Complete Blood Count Auto Diff Today D64.9 - Anemia, unspecified Vitamin D 25-OH Total Today E55.9 - Vitamin D deficiency, unspecified ECG 12 lead EKG Today R07.9 - Chest pain, unspecified IRON PROFILE Today D64.9 - Anemia, unspecified Vitamin B12 and Folate Today E53.8 - Deficiency of other specified B group vitamins Thyroid Stimulating Hormone Today E05.90 - Thyrotoxicosis, unspecified without thyrotoxic crisis or storm Referrals Neurology Referral G89.29 - Other chronic pain, R51.9 - Headache, unspecified Medications: New topiramate 25 mg PO DAILY 90 days 90 tabs 0RF Refilled sumatriptan succinate (Imitrex) do not exceed 2 doses per 24 hrs 50 mg PO Q2H PRN 10 tabs 1RF migraine headache Discontinued cyclobenzaprine Discontinued Reason: Patient Completed Course 10 mg PO TID PRN 20 tabs 0RF muscle spasm Patient Instructions: - Take prescribed medications as directed, especially low-dose topiramate every evening. - Use sumatriptan only for acute headache relief. - Undergo scheduled blood work to reassess hemoglobin and seek an electrocardiogram. - Follow up with the psychiatrist for depression management. - Report any worsening symptoms, especially concerning new or intensifying chest pain.
[2024-07-23 14:14] VITALS: BP 118/72; BMI 26.4
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
--- OUTSIDE RECORDS SUMMARY | 2024-07-23 16:34 | XMS_ITS | Clinical Summary ---
Author Organization [facility] Address [address] [place] [address] Care Team Providers Care Parts Analyst Name Role Phone Petr Garduno MD Primary Care Provider [phone] Allergies No known active allergies Medications salsalate (DISALCID) 500 mg tablet 1 po twice daily prn 8 Active acetaminophen (TYLENOL) 500 mg capsule 2 po twice daily prn 8 Active clonazePAM (KlonoPIN) 1 mg tablet 1 TABLET 3 TIMES DAILY 7 Active zaleplon (SONATA) 10 mg capsule 1 po at bedtime 7 Active buPROPion SR (Wellbutrin SR) 200 mg 12 hr tablet 1 po twice daily 7 Active cyclobenzaprine (FLEXERIL) 10 mg tablet 1 TABLET po qhs muscle relaxant 7 Active omeprazole OTC (PriLOSEC OTC) 20 mg EC tablet 1 po daily 7 Active SALSALATE ORAL 1 tab po tid with food for arm and shoulder pain 7 Active estrogens,conj. ,synthetic A (CENESTIN ORAL) 1 TABLET DAILY Active estradiol (VAGIFEM VAGL) 1 SUPPOSITORY VAGINALLY TWICE WEEKLY Active estrogens, conjugated,-met hylTESTOSTERone (EEMT,COVARYX) 1.25-2.5 mg per tablet 1 TABLET DAILY Activ e bisacodyL 5 mg tablet 3 tabs qhs Active ibuprofen (IBU) 600 mg tablet 1 po bid Active Active Problems Problem Noted Date Diagnosed Date Migraine with aura 08/03/2006 Overview (04/22/2024): ct head negative 08/11-cancelled appt with neuro 08/11 IMO update Mastodynia 07/31/2006 Overview (04/22/2024): several us and seen by [facility] had some cyst which was regerssed on us 09/09.had ?? biopsy-sees Dr Delatorre ladle operator Backache 07/06/2006 Overview (04/22/2024): HERNIATED DISC AND SEES PAIN MGT AND GETTING SHOTS-DR DIAZ mri spine 08/09: mild herniation at l2-3/herniation at l5 s1 with superimposed devlpmntal setonsis with ??s1 nerve encroatchement mild t10-11 IMO update Depressive disorder 07/06/2006 Overview (04/22/2024): sees dr colin ponce psych who gives her psych-jamar gann Heartburn 07/06/2006 Irritable bowel syndrome 07/06/2006 Overview (04/22/2024): Dr Yovani kee/dr love-gi had colonoscopy as well-01/08 external and internal hemmrhoids but unsucessful beyond splenic flexure due to kink. baruim enema 08/09 negative Immunizations Name Administration Dates Next Due PPD Test 07/06/2006 Surgical History Surgery Date Site/Laterality Comments OTHER SURGICAL HISTORY PROCEDURE: [place] ECTOPIC ABDL OTHER SURGICAL HISTORY PROCEDURE: [place] TOTAL ABDOMINAL HYSTERECT W/WO RMVL TUBE OVARY; COMMENT: FOR ENDOMETRIOSIS Family History Medical History Relation Name Comments Hypertension Father Hypertension Mother Hypertension Sister Relation Name Status Comments Father Alive Mother Alive Sister Alive 1 Social History Tobacco Use Types Packs/Day Years Used Date Smoking Tobacco: Never Alcohol Use Standard Drinks/Week Comments No 0 (1 standard drink = 0.6 oz pur e alcohol) Comments Unknown Sex and Gender Information Value Date Recorded Sex Assigned at Not on file Legal Sex Female 9:43 AM EST Gender Identity Not on file Sexual Orientation Not on file Obstetrics History Plan of Treatment Health Maintenance Due Date Last Done Comments DTaP,Tdap,and Td Vaccines (1 - Tdap) 1984 Hepatitis B Vaccines (1 of 3 - 19+ 3-dose series) 1984 Cervical Cancer Screening: P ap Smear 04/07/2009 04/07/2006 Pneumococcal Vaccine: 50+ Years (1 of 1 - PCV) 07/09/2015 Zoster Vaccines (1 of 2) 07/09/2015 Colorectal Cancer Screening: Colonoscopy 04/04/2022 Depression Screening 04/04/2022 HIV Screening 04/04/2022 Hepatitis C Screening 04/04/2022 Social Influencers of Health Screening 04/04/2022 COVID-19 Vaccine (1 - 2023-2 5 season) 2024 Influenza Vaccine (#1) 2024 Breast Cancer Screening 07/27/2024 07/28/19 23, 03/18/2018 RSV Immunization Patients 60 + Years Old (1 - 1-dose 75+ series) 2040 HIB Vaccines Aged Out No longer eligi ble based on patient's age to complete this topic HPV Vaccines Aged Out No longer eligi ble based on patient's age to complete this topic Hepatitis A Vaccines Aged Out No long er eligible based on patient's age to complete this topic IPV Vaccines Aged Out No longer eligi ble based on patient's age to complete this topic MMR Vaccines Aged Out No longer eligi ble based on patient's age to complete this topic Meningococcal ACWY Vaccine Aged Out N o longer eligible based on patient's age to complete this topic Meningococcal B Vacine Aged Out No lo nger eligible based on patient's age to complete this topic Pneumococcal Vaccine: Pediatrics (0 to 5 Years) and At-Risk Patients (6 to 64 Years) Aged Out No longer eligible b ased on patient's age to complete this topic RSV Immunization Patients Under 20 months Aged Out No longer eligible b ased on patient's age to complete this topic Varicella Vaccines Aged Out No longer eligible based on patient's age to complete this topic Procedures Procedure Name Priority Date/Time Associated Diagnosis Comments CLIFFORD SCREENING DIGITAL Routine 07/27/2022 4:50 PM EDT Encounter for screening mammogram for malignant neoplasm of breast HM PAP SMEAR Routine 04/07/2006 from Last 3 Months or Most Recently Relevant to Health Maintenance Results * CLIFFORD SCREENING DIGITAL (07/27/2022 4:50 PM EDT) Anatomical Region Laterality Modality Mammography 07/27/2022 11:1 8 AM EDT Narrative 07/27/2022 4:50 PM EDT [facility] Diagnostic Imaging Department [address] [place] [address] Patient: ??MEGAN BERNAL ?/Age/Sex: 1965 57 - F Unit#: ??[id number] ? Location/Status: ??SPDIMAM/PRE CLI ? Mnemonic/Ordering Site: ??DIGSC/SPMAM Ordering Physician: ??JOLLY SMALLS MD [facility] Screening Digital - 07/27/221632 EXAM: [facility] Screening Digital EXAM DATE AND TIME: 07/27/2022 4:33 PM HISTORY: ??Screening. COMPARISON: ??03/18/18, 12/25/14 TECHNIQUE: CC and MLO views of both breasts were obtained using full field digital mammography. Bilateral digital breast tomosynthesis was performed in the MLO projection. Computer aided detection with inEarth 7.2-H and [employer] 3D 3.1 was employed. TISSUE DENSITY: b. There are scattered areas of fibroglandular density. FINDINGS: No suspicious masses, grouped microcalcifications, or areas of architectural distortion are seen. The skin and vascularity are unremarkable. IMPRESSION: Stable mammographic appearance of the breasts. ??No evidence of malignancy is seen. A negative mammogram in the presence of a clinically suspicious palpable abnormality does not preclude the possibility of malignancy or alter the indications for biopsy. BI-RADS: ??Category 1: Negative RECOMMENDATION(S): 1: Routine screening mammogram BILATERAL in 1 year. 69928, 42999 3341F, 7025F Dictating Physician: ??SHRUTI JOHN MD Electronically Signed by: ??SHRUTI JOHN MD Dic Date/Time: ??07/27/221649 Sign date/Time: ??07/27/221649 Procedure Note Shruti John MD - 06/08/2023 [facility] Diagnostic Imaging Department [address] [place], [place] [id number] Patient: MEGAN BERNAL /Age/Sex: 1965 - 57 - F Unit#: [id number] Location/Status: SPDIMAM/PRE CLI Mnemonic/Ordering Site: [facility] Ordering Physician: JOLLY SMALLS MD [facility] Screening Digital - 07/27/221632 EXAM: [facility] Screening Digital EXAM DATE AND TIME: 07/27/2022 4:33 PM HISTORY: Screening. COMPARISON: 03/18/18, 12/25/14 TECHNIQUE: CC and MLO views of both breasts were obtained using fullfield digital mammography. Bilateral digital breast tomosynthesis was performedin the MLO projection. Computer aided detection with iCAD PowerLook 7.2-H andiCAD [employer] AI 3D 3.1 was employed. TISSUE DENSITY: b. There are scattered areas of fibroglandular density. FINDINGS: No suspicious masses, grouped microcalcifications, or areas ofarchitectural distortion are seen. The skin and vascularity are unremarkable. IMPRESSION: Stable mammographic appearance of the breasts. No evidence of malignancyis seen. A negative mammogram in the presence of a clinically suspicious palpable abnormality does not preclude the possibility of malignancy or alter the indications for biopsy. BI-RADS: Category 1: Negative RECOMMENDATION(S): 1: Routine screening mammogram BILATERAL in 1 year. 77742, 16190 3341F, 7025F Dictating Physician: SHRUTI JOHN MD Electronically Signed by: SHRUTI JOHN MD Dic Date/Time: 07/27/221649 Sign date/Time: 07/27/221649 us Viviana Nick MD IMG BI PROCEDURES Final Result * Pap Smear (04/07/2006) Pap smear Abstracted, No Interpretation us Historical Provider HEALTH MAINTENANCE Final Result from Last 3 Months or Most Recently Relevant to Health Maintenance Advance Directives Documents on File Type Date Recorded Patient Ground Surveillance Systems Operator Expl anation Health Care Decision (hx) 02/12/2018 AD AGRAWAL DIRECTIVE Health Care Decision (hx) 02/12/2018 AD AGRAWAL DIRECTIVE Health Care Decision (hx) 02/12/2018 AD AGRAWAL DIRECTIVE Health Care Decision (hx) 02/12/2018 AD AGRAWAL DIRECTIVE Health Care Decision (hx) 02/12/2018 AD AGRAWAL DIRECTIVE Health Care Decision (hx) 02/10/2018 AD AGRAWAL DIRECTIVE Health Care Decision (hx) 02/10/2018 AD AGRAWAL DIRECTIVE Health Care Decision (hx) 02/10/2018 AD GARAWAL DIRECTIVE Health Care Decision (hx) 02/10/2018 AD AGRAWAL DIRECTIVE Health Care Decision (hx) 02/10/2018 AD AGRAWAL DIRECTIVE Care Teams Parts Analyst Relationship Specialty Start Date End Date Petr Garduno MD PCP - General Internal Medicine 10/18/12
== END 2024-07-23 14:50 | disposition home or self-care (01) ==
LOC: HO.HMCH 14:10
PROVIDERS: PCP Internal Medicine; Visit Provider Internal Medicine
DX: R07.9 Chest pain, unspecified (principal); F33.0 Major depressive disorder, recurrent, mild; R51.9 Headache, unspecified; G89.29 Other chronic pain; I10 Essential (primary) hypertension; F41.9 Anxiety disorder, unspecified; D64.9 Anemia, unspecified

== ENCOUNTER → 2024-07-23 14:10 | Outpatient (BNVA) | payer OTHER, SELFPAY | PROVIDERS: PCP Internal Medicine; Visit Provider Internal Medicine | DX: R07.9 Chest pain, unspecified (principal); R51.9 Headache, unspecified; G89.29 Other chronic pain; I10 Essential (primary) hypertension; F33.0 Major depressive disorder, recurrent, mild; D64.9 Anemia, unspecified; F41.9 Anxiety disorder, unspecified | CPT/HCPCS: 96127; 99212 ==

== ENCOUNTER 2024-09-23 15:34 | Outpatient (REF) | payer OTHER, SELFPAY ==
--- NOTE | 2024-09-23 15:37 | ECG_ITS ---
Test Reason : CP Blood Pressure : */* mmHG Vent. Rate : 78 BPM Atrial Rate : 78 BPM P-R Int : 140 ms QRS Dur : 78 ms QT Int : 372 ms P-R-T Axes : 46 71 28 degrees QTcB Int : 424 ms Sinus rhythm with occasional Premature ventricular complexes and Premature atrial complexes Otherwise normal ECG When compared with ECG of 30-Oct-2022 21:08, Premature ventricular complexes are now Present Premature atrial complexes are now Present Referred By: Viviana Nick Electronically Signed By: Bryant Ferguson
[2024-09-23 15:49] LABS: MANUAL DIFF FLAG NO
--- OUTSIDE RECORDS SUMMARY | 2024-09-23 16:32 | XMS_ITS | Clinical Summary ---
Author Organization [facility], Address [address] [place] [address] Phone Care Team Providers Care Building Specialist Name Role Phone Viviana Jacobs MD Primary Care Provider [phone] Allergies Active Allergy Reactions Criticality Noted Date [...] (1 of 3 - 19+ 3-dose series) 07/08 Colorectal Cancer Screening: Annual FOBT 2014 Colorectal Cancer Screening: Colonoscopy 2014 Colorectal Cancer Screening: Sigmoidoscopy 2014 Pneumococcal Vaccine: 50+ Years (1 of 1 - PCV) 016 Influenza Vaccine (Season Ended) 2025 Insurance #[id number] PATSY STEELE [id number] [facility] Dual SNP ([id number]) [place] [id number] [place] [id number] [place] [address] Care Teams Building Specialist Relationship Specialty Start Date End Date Viviana Jacobs MD [address] [place], [place] PCP - General Internal Medicine 12/13/22
--- OUTSIDE RECORDS SUMMARY | 2024-09-23 16:32 | XMS_ITS | Clinical Summary ---
Author Organization [facility] Address [address] [place] [address] Care Team Providers Care Coin Wrapping Machine Operator Name Role Phone Petr Garduno MD Primary Care Provider [phone] Allergies No known active allergies Medications salsalate [...] on us 09/09.had ?? biopsy-sees Dr Delatorre oem sales manager Backache 07/06/2006 Overview (04/22/2024): HERNIATED DISC AND [...] Date Site/Laterality Comments OTHER SURGICAL HISTORY PROCEDURE: [place] ECTOPIC ABDL OTHER SURGICAL HISTORY PROCEDURE: IN TOTAL ABDOMINAL HYSTERECT W/WO RMVL TUBE OVARY; [...] Vaccine (1 - 2023-2 5 season) 2024 Breast Cancer Screening 07/27/2024 07/28/19 23, 03/18/2018 Influenza Vaccine (Season Ended) 2025 RSV Immunization Adult Patients (1 - 1-dose 75+ series) 2040 HIB [...] age to complete this topic Meningococcal B Vaccine Aged Out No l onger eligible based on patient's age to complete [...] AM EDT Narrative 07/27/2022 4:50 PM EDT [facility] Diagnostic Imaging Department [address] [place] [address] Patient: ??MEGAN BERNAL ?/Age/Sex: 1965 - Unit#: ??[id number] ? Location/Status: ??SPDIMAM/PRE CLI ? Mnemonic/Ordering Site: ??DIGSC/SPMAM Ordering Physician: ??JOLLY SMALLS MD [facility] Screening Digital - 07/27/221632 EXAM: [facility] Screening Digital EXAM DATE AND TIME: 07/27/2022 4:33 PM HISTORY: ??Screening. COMPARISON: ??03/18/18, 12/25/14 TECHNIQUE: CC and MLO views of both breasts were obtained using full field digital mammography. Bilateral digital breast tomosynthesis was performed in the MLO projection. Computer aided detection with [employer] 7.2-H and [employer] 3D 3.1 was employed. TISSUE DENSITY: b. [...] Routine screening mammogram BILATERAL in 1 year. 26972, [address]6319 3341F, 7025F Dictating Physician: ??SHRUTI JOHN MD Electronically Signed by: ??SHRUTI JOHN MD Dic Date/Time: ??07/27/221649 Sign date/Time: ??07/27/221649 Procedure Note Shruti John MD - 06/08/2023 [facility] Diagnostic Imaging Department [address] [place] [address] Patient: MEGAN BERNAL /Age/Sex: 1965 - 57 - F Unit#: [id number] Location/Status: SPDIMAM/PRE CLI Mnemonic/Ordering Site: [facility] Ordering Physician: JOLLY SMALLS MD [facility] Screening Digital - 07/27/221632 EXAM: [facility] Screening Digital EXAM DATE AND TIME: 07/27/2022 4:33 PM HISTORY: Screening. COMPARISON: 03/18/18, 12/25/14 TECHNIQUE: CC and MLO views of both breasts were obtained using fullfield digital mammography. Bilateral digital breast tomosynthesis was performedin the MLO projection. Computer aided detection with Circl 7.2-H andiCAD [employer] AI 3D 3.1 was employed. TISSUE DENSITY: [...] Routine screening mammogram BILATERAL in 1 year. 29413, 23947 3341F, 7025F Dictating Physician: SHRUTI JOHN MD Electronically Signed by: SHRUTI JOHN MD Dic Date/Time: 07/27/221649 Sign date/Time: 07/27/221649 us Viviana Nick MD IMG BI PROCEDURES Final Result * Pap Smear (04/07/2006) HM Pap smear Abstracted, No Interpretation us Historical Provider HEALTH MAINTENANCE Final Result from Last 3 Months or Most Recently Relevant to Health Maintenance Advance Directives Documents on File Type Date Recorded Patient Transfer Specialist Expl anation Health Care Decision (hx) 02/12/2018 [...] (hx) 02/10/2018 AD AGRAWAL DIRECTIVE Care Teams Coin Wrapping Machine Operator Relationship Specialty Start Date End Date Petr Garduno MD PCP - General Internal Medicine 10/18/12
[2024-09-23 17:13] LABS: Basophils Percent Auto 0.3 % (0-2); Eosinophils Absolute Auto 0.2 X10*3/uL (0.0-0.4); Eosinophils Percent Auto 2.8 % (0-4); Hematocrit 34.4 % (37.0-47.0); Hemoglobin 10.7 g/dl (12.0-16.0); Imm Gran Abs Auto 0.01 X10*3/uL (0.00-0.03); Imm Gran Pct Auto 0.1 % (0.0-0.4); Lymphocytes Absolute Auto 1.7 X10*3/uL (1.2-4.9); Lymphocytes Percent Auto 24.6 % (20-40); Mean Corpuscular HGB Conc 31.1 g/dl (31.0-35.0); Mean Corpuscular Hemoglobin 28.5 pg (27.0-33.0); Mean Corpuscular Volume 91.5 fL (80.0-98.0); Mean Platelet Volume 12.1 fL (9.4-12.3); Monocytes Absolute Auto 0.8 X10*3/uL (0.1-1.2); Monocytes Percent Auto 10.8 % (2-11); Neutrophils Absolute Auto 4.3 x10*3/uL (2.0-8.3); Neutrophils Percent Auto 61.4 % (45-73); Platelet Count 192 X10*3/uL (160-400); Red Blood Count 3.76 X10*6/uL (4.20-5.50); Red Cell Distribution Width 13.7 % (11.0-16.0)
[2024-09-23 17:59] LABS: Iron 108 mcg/dL (30-160); Percent Iron Saturation 37 % (15-50); Total Iron Binding Capacity 293 mcg/dL (228-428); Unsaturated Iron Binding 185 ug/dL
[2024-09-23 18:07] LABS: Thyroid Stimulating Hormone 0.92 uIU/mL (0.32-4.0)
[2024-09-23 18:14] LABS: Folate 14.5 ng/mL (> or = 4.0); Vitamin B12 856 pg/mL (200-900)
== END 2024-09-23 15:35 | disposition home or self-care (01) ==
LOC: HO.LAB 15:34
PROVIDERS: PCP Internal Medicine; Visit Provider Internal Medicine
DX: D64.9 Anemia, unspecified (principal); E55.9 Vitamin D deficiency, unspecified; E53.8 Deficiency of other specified B group vitamins; E05.90 Thyrotoxicosis, unspecified without thyrotoxic crisis or storm; R07.9 Chest pain, unspecified
CPT/HCPCS: 36415; 82306; 82607; 82746; 83540; 84443; 85025; 93005

== ENCOUNTER → 2024-09-23 15:37 | Outpatient (BNV) | payer OTHER, SELFPAY | PROVIDERS: PCP Internal Medicine; Visit Provider Internal Medicine Cardiovascular Disease | DX: I49.3 Ventricular premature depolarization (principal); I49.1 Atrial premature depolarization | CPT/HCPCS: 93010 ==

== ENCOUNTER 2024-10-27 11:17 | Outpatient (AMB) | payer OTHER, SELFPAY ==
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
--- OUTSIDE RECORDS SUMMARY | 2024-10-27 12:54 | XMS_ITS | Clinical Summary ---
Author Organization [facility] Address [address] [place] [address] Care Team Providers Care Manager Neonatal Name Role Phone Petr Garduno MD Primary Care Provider [phone] Allergies No known active allergies Medications salsalate [...] on us 09/09.had ?? 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 Backache 07/06/2006 Overview (04/22/2024): HERNIATED DISC AND [...] Date Site/Laterality Comments OTHER SURGICAL HISTORY PROCEDURE: [place] ECTOPIC ABDL OTHER SURGICAL HISTORY PROCEDURE: [place] TOTAL ABDOMINAL HYSTERECT W/WO RMVL TUBE OVARY; [...] Health Maintenance Due Date Last Done Comments Hepatitis B Vaccines (1 of 3 - 19+ 3-dose series) 1984 Pneumococcal Vaccine: 50+ Years (1 of 2 - PCV) 1984 Pneumococcal Vaccine: Pediatrics (0 to 5 Years) and At-Risk Patients (6 to 64 Years) (1 of 2 - PCV) 1984 Cervical Cancer Screening: P ap Smear 04/07/2009 04/07/2006 Zoster Vaccines (1 of 2) 07/09/2015 Colorectal Cancer Screening: Colonoscopy 04/04/2022 Depression Screening 04/04/2022 HIV Screening 04/04/2022 Hepatitis C Screening 04/04/2022 Osteoporosis Screening (Bone Density Screening) 04/04/2022 Social Influencers of Health Screening 04/04/2022 DTaP,Tdap,and Td Vaccines (2 - Td or Tdap) 07/26/2023 07/25/2013 COVID-19 Vaccine ( - 2023-2 5 season) 2024 Breast Cancer Screening 07/27/2024 07/28/19 23, 03/18/2018 Influenza Vaccine (Season Ended) 2025 04/14/2013 RSV Immunization Adult Patients (1 - 1-dose [...] AM EDT Narrative 07/27/2022 4:50 PM EDT [facility] Diagnostic Imaging Department [address] [place] [address] Patient: BERNALMEGAN /Age/Sex: 1965 - 57 - F Unit#: [id number] Location/Status: SPDIMAM/PRE CLI Mnem[facility] Ordering Physician: JOLLY SMALLS MD [facility] Screening Digital - 07/27/22 - 163 EXAM: [facility] Screening Digital EXAM DATE AND TIME: 07/27/2022 4:33 PM HISTORY: Screening. COMPARISON: 03/18/18, 12/25/14 TECHNIQUE: CC and MLO views of both breasts were obtained using full field digital mammography. Bilateral digital breast tomosynthesis was performed in the MLO projection. Computer aided detection with [employer] 7.2-H and [employer] 3D 3.1 was employed. TISSUE DENSITY: b. There are scattered areas of fibroglandular density. FINDINGS: No suspicious masses, grouped microcalcifications, or areas of architectural distortion are seen. The skin and vascularity are unremarkable. IMPRESSION: Stable mammographic appearance of the breasts. No evidence of malignancy is seen. A negative mammogram in the presence of a clinically suspicious palpable abnormality does not preclude the possibility of malignancy or alter the indications for biopsy. BI-RADS: Category 1: Negative RECOMMENDATION(S): 1: Routine screening mammogram BILATERAL in 1 year. 63015, 23048 3341F, 7079F Dictating Physician: SHRUTI JOHN MD Electronically Signed by: SHRUTI JOHN MD Dic Date/Time: 07/27/221649 Sign date/Time: 07/27/221649 Procedure Note Shruti John MD - 06/08/2023 [facility] Diagnostic Imaging Department [address] [place] [address] Patient: MEGAN BERNAL /Age/Sex: 1965 - 57 - F Unit#: [id number] Location/Status: SPDIMAM/PRE CLI Mnemonic/Ordering Site[facility] Ordering Physician: JOLLY SMALLS MD [facility] Screening Digital - 07/27/22 - 163 EXAM: [facility] Screening Digital EXAM DATE AND TIME: 07/27/2022 4:33 PM HISTORY: Screening. COMPARISON: 03/18/18, 12/25/14 TECHNIQUE: CC and MLO views of both breasts were obtained using fullfield digital mammography. Bilateral digital breast tomosynthesis was performedin the MLO projection. Computer aided detection with [employer] 7.2-H [employer] 3D 3.1 was employed. TISSUE DENSITY: b. [...] Routine screening mammogram BILATERAL in 1 year. 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
== END 2024-10-27 15:49 | disposition home or self-care (01) ==
PROVIDERS: PCP Internal Medicine; Visit Provider Internal Medicine Gastroenterology
DX: K27.9 Peptic ulcer, site unspecified, unspecified as acute or chronic, without hemorrhage or perforation (principal)
CPT/HCPCS: 99214

== ENCOUNTER 2024-11-12 13:27 | Outpatient (AMB) | payer OTHER, SELFPAY ==
--- NOTE | 2024-11-12 13:30 | A.OFFVIS_ITS ---
Vital Signs 11/12/24 13:44 Height 4 ft 9 in Weight 121 lb BMI 26.2 BP 101/59 L Blood Pressure Location Rt brachial Position Sitting Respiration 77 H Pulse 77 Intake Visit Reasons: hemorrhoids Intake Note: Patient scheduled today's appointment with concerns of anal prolapse. Reports episodes of anal incontinence. Hx of hemorrhoidectomy 12-29-2022. Patient c/o: pain, bleeding, feels like part of the anus sticks out. Denies cons tipation, diarrhea. Cord Tire Builder Required: No Accompanied by: Self / Same As Patient Allergies salsalate Allergy (Severe, Verified 11/12/24 13:40) throat itching swelling zolmitriptan (From ZOMIG) Allergy (Severe, Verified 11/12/24 13:40) SWOLLEN THROAT AND ITCHING Medication List - Last Reconciled 11/12/24 by Yonny Washington MD albuterol sulfate 90 mcg/actuation 2 puffs PO Q6H PRN bupropion HCl SR 150 mg PO BID cetirizine 10 mg (10 mL) PO DAILY PRN 30 days citalopram 40 mg PO DAILY clonazepam 1 mg PO BID dicyclomine 10 mg PO QID docusate sodium 100 mg PO BID duloxetine 20 mg PO BID 30 days hydrocortisone 2.5% 1 appl topical Q12H linaclotide (Linzess) 290 mcg PO DAILY lisinopril 10 mg PO DAILY 30 days Magic Mouthwash Diphen/Lido/Antacid 1:1:1 10 mL PO DAILY miscellaneous medical supply (Blood Pressure Cuff) As directed omeprazole 40 mg PO BID ondansetron HCl 8 mg PO DAILY PRN oxycodone 15 mg PO TID PRN Held on 02/28/23. Instructions: Resume on 03/07/23. Take presribed Hydromorphone for pain control then may resume outpatient Oxycodone with outpatient prescriber. plecanatide (Trulance) 3 mg PO DAILY polyethylene glycol 3350 17 grams PO BID psyllium husk (Metamucil Sugar-Free (aspartame)) 3.4 ea PO BID sumatriptan succinate (Imitrex) 50 mg PO Q2H PRN tizanidine 4 mg PO Q6H PRN topiramate 25 mg PO DAILY 90 days HPI HPI hemorrhoids: Details: [age] year old female for describes this prolapse of her hemorrhoids. She actually had hemorrhoidectomy in 2022. She says she had been doing well after that However, for the past few months, she says started noticing prolapse again. She says that this does not happen every day. She he sees small amounts of blood Denies any pain or tenderness. [facility] Medical History (Updated 11/12/24 @ 14:02 by Yonny Washington MD) Internal prolapsed hemorrhoids Colitis History of blood transfusion MIGUE on CPAP Prolapsed hemorrhoids Murmur Autoimmune thyroiditis URI (upper respiratory infection) Mild recurrent major depression Right upper quadrant abdominal pain Voice hoarseness Polyarthralgia Physical exam Left shoulder pain Sciatica Neck pain Back pain GERD (gastroesophageal reflux disease) Bladder pain Leg edema Migraine headache Hair loss Hypotension Fibromyalgia Mild asthma Vitamin D deficiency Elevated plasma metanephrines Subclinical hyperthyroidism Anxiety Surgical History History of back surgery History of hemorrhoidectomy (~12/29/22) Ectopic History of hysterectomy History of appendectomy Hx of endoscopy History of colonoscopy (~07/05/23) Family History Father Alzheimers disease Mother Hypertension Social History Household Members: None Housing: Apartment Are you a primary family day care worker to a significant other at home: No Do you presently have visiting nurse or other home services: No Alcohol intake: never Patient Tobacco Use Status: Never used Tobacco e-Cigarette/Vaping Use: Never Used Second Hand Smoke Exposure: No service: No Current occupational status: unemployed Cognitive needs: No Hearing needs: No Vision needs: No Review of Systems Const Denies chills and Denies fever(s) Card Denies chest pain, Denies dyspnea and Denies dyspnea on exertion Resp Denies cough, Denies dyspnea and Denies dyspnea on exertion GI Reports hematochezia and Denies change in bowel habits Denies hematuria Musc Denies back pain and Denies limited range of motion Neuro Denies focal weakness and Denies convulsions Psych Denies depression and Denies mood swings Physical Exam Vital Signs: Last Vital Signs Pulse 77 11/12/24 13:44 Resp 77 H 11/12/24 13:44 BP 101/59 L 11/12/24 13:44 BMI result Body Mass Index 26.2 Const General: comfortable and no acute distress Orientation/consciousness: patient oriented x3 Neck Neck: Yes no lymphadenopathy Resp Auscultation: clear to auscultation bilaterally Cardio Rhythm: regular rhythm GI Other: Rectal exam shows small external internal hemorrhoids left and right side Palpation (GI): Soft to palpation, nontender and no guarding Neuro General: patient oriented x3 Office Procedures Anoscopy She was in kneeling bhavna-knife position. The anoscope was gently inserted. A full examination of the anal was done. She did have what appeared to be some mucosal prolapse on the anterior aspect. This may be mixed with some internal hemorrhoids. She also had some hemorrhoids on both the left and right side which were non bulky. There were no other lesions. There was no fissure ulceration. There was no induration on digital exam. There was no bleeding [id number] Assessment & Plan Assessment & Plan (1) Internal prolapsed hemorrhoids: Code(s): K64.8 - Other hemorrhoids Category: Medical Plan: Her main complaint today is that she notices prolapse of her hemorrhoids periodically. She denies any severe pain. She says that this does not happen every day I called today would not proceed with hemorrhoidectomy at this time in view of her minimal symptoms. I will start her on Metamucil to help with bowel movements. I told her we will see her again in the office in about 2-3 months to see how she is doing. She is comfortable with the plan. Coding Level of Care Code Est Pt Level 3 (15380) Diagnoses Internal prolapsed hemorrhoids K64.8 CPT Codes Details - CPT: 85326-[id number] ([id number])
[2024-11-12 13:44] VITALS: BP 101/59; PULSE 77; RESP 77; BMI 26.2
--- OUTSIDE RECORDS SUMMARY | 2024-11-12 14:16 | XMS_ITS | Clinical Summary ---
Author Organization [facility] Address [address] [place] [address] Care Team Providers Care National Secretary Name Role Phone Petr Garduno MD Primary Care Provider [phone] Allergies No known active allergies Medications salsalate [...] on us 09/09.had ?? 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 Backache 07/06/2006 Overview (04/22/2024): HERNIATED DISC AND [...] Date Site/Laterality Comments OTHER SURGICAL HISTORY PROCEDURE: [place] ECTOPIC ABDL OTHER SURGICAL HISTORY PROCEDURE: [place] TOTAL ABDOMINAL HYSTERECT W/WO RMVL TUBE OVARY; [...] Years (1 of 2 - PCV) 1984 Cervical Cancer Screening: P ap Smear 04/07/2009 04/07/2006 Zoster Vaccines (1 of 2) 07/09/2015 Colorectal Cancer Screening: Colonoscopy 04/04/2022 Depression Screening 04/04/2022 HIV Screening 04/04/2022 Hepatitis C Screening 04/04/2022 Osteoporosis Screening (Bone Density Screening) 04/04/2022 Social Influencers of Health Screening 04/04/2022 DTaP,Tdap,and Td Vaccines (2 - Td or Tdap) 07/26/2023 07/25/2013 COVID-19 Vaccine (1 - 2023-2 5 season) 2024 Breast Cancer Screening 07/27/2024 07/28/19 23, 03/18/2018 Influenza Vaccine (#1) 2025 04/14/2013 RSV Immunization Adult Patients (1 [...] AM EDT Narrative 07/27/2022 4:50 PM EDT [facility] Diagnostic Imaging Department [address] [place] [address] Patient: MEGNA BERNAL /Age/Sex: 1965 - 57 - F Unit#: [id number] Location/Status: SPDIMAM/PRE CLI Mnemonic/Ordering Site: [facility] Ordering Physician: JOLLY SMALLS MD [facility] Screening Digital - 07/27/221632 EXAM: [facility] Screening Digital EXAM DATE AND TIME: 07/27/2022 4:33 PM HISTORY: Screening. COMPARISON: 03/18/18, 12/25/14 TECHNIQUE: CC and MLO views of both breasts were obtained using full field digital mammography. Bilateral digital breast tomosynthesis was performed in the MLO projection. Computer aided detection with [employer] 7.2-H and [employer] 3D 3.1 was employed. TISSUE DENSITY: b. [...] Routine screening mammogram BILATERAL in 1 year. 77552, [id number] 5551F, 7075F Dictating Physician: SHRUTI JOHN MD Electronically Signed by: SHRUTI JOHN MD Dic Date/Time: 07/27/221649 Sign date/Time: 07/27/221649 Procedure Note Shruti John MD - 06/08/2023 [facility] Diagnostic Imaging Department [address] [place] [address] Patient: MEGAN BERNAL /Age/Sex: 1965 - 57 - F Unit#: [id number] Location/Status: SPDIMAM/PRE CLI Mnemonic/Ordering Site: [facility] Ordering Physician: JOLLY SMALLS MD [facility] Screening Digital - 07/27/22 - 1632 EXAM: [facility] Screening Digital EXAM DATE AND TIME: 07/27/2022 4:33 PM HISTORY: Screening. COMPARISON: 03/18/18, 12/25/14 TECHNIQUE: CC and MLO views of both breasts were obtained using fullfield digital mammography. Bilateral digital breast tomosynthesis was performedin the MLO projection. Computer aided detection with [employer]H [employer] 3D 3.1 was employed. TISSUE DENSITY: b. [...] Routine screening mammogram BILATERAL in 1 year. 82783, 34320 3341F, 7025F Dictating Physician: SHRUTI JOHN MD Electronically Signed by: SHRUTI JOHN MD Dic Date/Time: 07/27/22 1650 Sign date/Time: 07/27/22 165 us Viviana Nick MD IMG BI PROCEDURES Final Result * Pap Smear (04/07/2006) Pap smear Abstracted, No Interpretation us Historical Provider MD HEALTH MAINTENANCE Final Result from Last 3 Months or Most Recently Relevant to Health Maintenance Advance Directives Documents on File Type Date Recorded Patient Video Control Engineer Expl anation Health Care Decision (hx) [...] (hx) 02/10/2018 AD AGRAWAL DIRECTIVE Care Teams National Secretary Relationship Specialty Start Date End Date Petr Garduno MD PCP - General Internal Medicine 10/18/12
--- OUTSIDE RECORDS SUMMARY | 2024-11-12 14:16 | XMS_ITS | Clinical Summary ---
Author Organization [facility], Address [address] [place] [address] Phone Care Team Providers Care Flat Cutter Name Role Phone Viviana Jacobs MD Primary Care Provider [phone] Allergies Active Allergy Reactions Criticality Noted Date [...] 76 02/13/2023 10:37 AM EDT Temperature 36.3 C (97.4 F) 02/13/2023 10:37 AM EDT Respiratory Rate - - Oxygen Saturation 95% [...] of 1 - PCV) 016 Influenza Vaccine (#1) 2025 [address] [place] [id number] [facility] Dual SNP ([id number]) LORENA PIERRE [id number] [place] [address] [address] [place] [address] Care Teams Flat Cutter Relationship Specialty Start Date End Date Viviana Jacobs MD [address] [place], [place] PCP - General Internal Medicine 12/13/22
== END 2024-11-12 14:01 | disposition home or self-care (01) ==
LOC: HO.HGS 13:28
PROVIDERS: PCP Internal Medicine; Visit Provider Surgery
DX: K64.8 Other hemorrhoids (principal)
CPT/HCPCS: 46600; 99213

== ENCOUNTER → 2024-11-12 13:27 | Outpatient (BNVA) | payer OTHER, SELFPAY | PROVIDERS: PCP Internal Medicine; Visit Provider Surgery | DX: K64.8 Other hemorrhoids (principal) | CPT/HCPCS: 46600; 99212 ==

== ENCOUNTER 2024-11-14 12:49 | Outpatient (AMB) | payer OTHER, SELFPAY ==
--- OUTSIDE RECORDS SUMMARY | 2024-11-14 12:52 | XMS_ITS | Clinical Summary ---
Author Organization [facility] Address [address] [place] [address] Care Team Providers Care Weight Loss Sales Consultant Name Role Phone Petr Garduno MD Primary Care Provider [phone] Allergies No known active allergies Medications salsalate [...] on us 09/09.had ?? 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 Backache 07/06/2006 Overview (04/22/2024): HERNIATED DISC AND [...] Date Site/Laterality Comments OTHER SURGICAL HISTORY PROCEDURE: [place] TX ECTOPIC ABDL OTHER SURGICAL HISTORY PROCEDURE: [place] TOTAL ABDOMINAL HYSTERECT W/WO RMVL TUBE OVARY; [...] AM EDT Narrative 07/27/2022 4:50 PM EDT [facility] Diagnostic Imaging Department [address] [place] [address] Patient: MEGAN BERNAL /Age/Sex: 1965 - 57 - F Unit#: [id number] Location/Status: SPDIMAM/PRE CLI Mnemonic/Ordering Site: [facility] Ordering Physician: JOLLY SMALLS MD [facility] Screening Digital - 07/27/221632 EXAM: [facility] Screening Digital EXAM DATE AND TIME: 07/27/2022 4:33 PM HISTORY: Screening. COMPARISON: 03/18/18, 12/25/14 TECHNIQUE: CC and MLO views of both breasts were obtained using full field digital mammography. Bilateral digital breast tomosynthesis was performed in the MLO projection. Computer aided detection with [employer] 7.2-H and [employer] 3D 3.1 was employed. TISSUE DENSITY: b. [...] Routine screening mammogram BILATERAL in 1 year. 38553, [id number] 1821F, 7090F Dictating Physician: SHRUTI JOHN MD Electronically Signed by: SHRUTI JOHN MD Dic Date/Time: 07/27/221649 Sign date/Time: 07/27/221649 Procedure Note Shruti John MD - 06/08/2023 [facility] Diagnostic Imaging Department [address] [place] [address] Patient: MEGAN BERNAL /Age/Sex: 1965 - 57 - F Unit#: [id number] Location/Status: SPDIMAM/PRE CLI Mnemonic/Ordering Site: [facility] Ordering Physician: JOLLY SMALLS MD [facility] Screening Digital - 07/27/22 - 1632 EXAM: [facility] Screening Digital EXAM DATE AND TIME: 07/27/2022 4:33 PM HISTORY: Screening. COMPARISON: 03/18/18, 12/25/14 TECHNIQUE: CC and MLO views of both breasts were obtained using fullfield digital mammography. Bilateral digital breast tomosynthesis was performedin the MLO projection. Computer aided detection with [employer]H and[employer] 3D 3.1 was employed. TISSUE DENSITY: b. [...] Routine screening mammogram BILATERAL in 1 year. 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
--- OUTSIDE RECORDS SUMMARY | 2024-11-14 12:52 | XMS_ITS | Clinical Summary ---
Author Organization [facility], Address [address] [place] [address] Phone Care Team Providers Care Rn Placement Name Role Phone Viviana Jacobs MD Primary Care Provider [phone] Allergies Active Allergy Reactions Criticality Noted Date [...] 016 Influenza Vaccine (#1) 2025 Insurance [address] [place] [address] [facility] Dual SNP ([id number]) LORENA PIERRE [id number] [place] [address] [address] [place] [address] Care Teams Rn Placement Relationship Specialty Start Date End Date Viviana Jacobs MD [address] [place], [place] PCP - General Internal Medicine 12/13/22
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
== END 2024-11-14 14:27 | disposition home or self-care (01) ==
LOC: HO.HNS 12:49
PROVIDERS: PCP Internal Medicine; Visit Provider Physician Assistant
DX: M50.90 Cervical disc disorder, unspecified, unspecified cervical region (principal); M25.512 Pain in left shoulder
CPT/HCPCS: 99213

== ENCOUNTER 2024-11-14 12:49 | Outpatient (REF) | payer OTHER, SELFPAY ==
--- NOTE | ~2024-11-14 | XR_ITS ---
EXAMINATION: XR SHOULDER, LEFT CLINICAL INFORMATION: M25.512 - Pain in left shoulder COMPARISON: None available. TECHNIQUE: Two views of the left shoulder. FINDINGS: Normal bone mineralization. No fracture, dislocation, or suspicious bone lesion. Normal alignment. The glenohumeral joint is normal. The AC joint is normal. There is a type II acromion. No undersurface spurring. The subacromial space is preserved. Remainder of the soft tissue and bony structures appear normal. XR/XR shoulder LT min 2V IMPRESSION: Normal left shoulder. Electronically signed by: Anupam Wu MD 11/14/2024 02:13 PM EDT
--- NOTE | ~2024-11-14 | XR_ITS ---
EXAMINATION: XR CERVICAL SPINE CLINICAL INFORMATION: M50.90 - Cervical disc disorder, unspecified, unspecified cervical region COMPARISON: 03/28/2022. TECHNIQUE: 4 views of the cervical spine were obtained, including flexion and extension views. FINDINGS: There is no scoliosis. There is mild straightening of the normal lordosis. There is a 3 mm retrolisthesis C3 on C4. There is a 2 mm anterolisthesis C4 on C5. No additional subluxation. These remain unchanged in both flexion and extension views without evidence of instability present. Craniocervical junction and C1-2 articulation are intact and aligned. There are no compression deformities, acute fracture, or suspicious bone lesions. There is severe disc degeneration at C3-4, and moderate degeneration at C5-6 and C6-7. There is normal facet alignment bilaterally. There are mild left greater than right multilevel degenerative facet changes present. No prevertebral soft tissue swelling or paravertebral soft tissue abnormality. Imaged lung apices are clear. XR/XR cervical spine 4V IMPRESSION: 1. Mild to moderate spondylosis of the cervical spine most significant at C3-4. Minimal progression from 2021. 2. There is no acute bony abnormality of the cervical spine. 3. There is no evidence of instability on flexion and extension views. Electronically signed by: Anupam Wu MD 11/14/2024 02:18 PM EDT
== END 2024-11-14 12:50 | disposition home or self-care (01) ==
LOC: HO.HOSX 12:49
PROVIDERS: PCP Internal Medicine; Visit Provider Physician Assistant
DX: M47.22 Other spondylosis with radiculopathy, cervical region (principal); M25.512 Pain in left shoulder
CPT/HCPCS: 72050; 73030; 99212

== ENCOUNTER → 2024-11-14 13:32 | Outpatient (BNV) | payer OTHER, SELFPAY | PROVIDERS: PCP Internal Medicine; Visit Provider Radiology Diagnostic Radiology | DX: M47.812 Spondylosis without myelopathy or radiculopathy, cervical region (principal); M25.512 Pain in left shoulder | CPT/HCPCS: 72050; 73030 ==

== ENCOUNTER 2024-12-08 14:55 | Outpatient (AMB) | payer OTHER, SELFPAY ==
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
[2024-12-08 14:58] VITALS: BP 126/76; PULSE 81; O2SAT 96; BMI 25.7
--- OUTSIDE RECORDS SUMMARY | 2024-12-08 14:58 | XMS_ITS | Clinical Summary ---
Author Organization [facility] Address [address] [place] [address] Care Team Providers Care Workers Compensation Claims Examiner Name Role Phone Petr Garduno MD Primary Care Provider Allergies No known active allergies Medications salsalate [...] on us 09/09.had ?? 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 Backache 07/06/2006 Overview (04/22/2024): HERNIATED DISC AND [...] Date Site/Laterality Comments OTHER SURGICAL HISTORY PROCEDURE: NE TX ECTOPIC ABDL OTHER SURGICAL HISTORY PROCEDURE: NE TOTAL ABDOMINAL HYSTERECT W/WO RMVL TUBE OVARY; [...] 2) 07/09/2015 Colorectal Cancer Screening: Colonoscopy 04/04/2022 HIV Screening 04/04/2022 Hepatitis C Screening 04/04/2022 Osteoporosis Screening (Bone Density Screening) 04/04/2022 Social Influencers of Health Screening 04/04/2022 DTaP,Tdap,and Td Vaccines (2 - Td or Tdap) 07/26/2023 07/25/2013 COVID-19 Vaccine (1 - 2023-2 5 season) 2024 Depression Screening 05/07/2024 Breast Cancer Screening 07/27/2024 07/28/19 23, 03/18/2018 [...] AM EDT Narrative 07/27/2022 4:50 PM EDT [facility] Diagnostic Imaging Department [address] [place] [address] Patient: MEGAN BERNAL /Age/Sex: 1965 - 57 - F Unit#: [id number] Location/Status: SPDIMAM/PRE CLI Mnemonic/Ordering Site: [facility] Ordering Physician: JOLLY SMALLS MD [facility] Screening Digital - 07/27/221632 EXAM: [facility] Screening Digital EXAM DATE AND TIME: 07/27/2022 4:33 PM HISTORY: Screening. COMPARISON: 03/18/18, 12/25/14 TECHNIQUE: CC and MLO views of both breasts were obtained using full field digital mammography. Bilateral digital breast tomosynthesis was performed in the MLO projection. Computer aided detection with SeeWhy 7.2-H and HiConversion.ru 3D 3.1 was employed. TISSUE DENSITY: b. [...] Routine screening mammogram BILATERAL in 1 year. 69985, [id number] 4371F, 7076F Dictating Physician: SHRUTI JOHN MD Electronically Signed by: SHRUTI JHON MD Dic Date/Time: 07/27/221649 Sign date/Time: 07/27/221649 Procedure Note Shruti John MD - 06/08/2023 [facility] Diagnostic Imaging Department [address] [place] [address] Patient: MEGAN BERNAL /Age/Sex: 1965 - 57 - F Unit#: [id number] Location/Status: SPDIMAM/PRE CLI Mnemonic/Ordering Site: [facility] Ordering Physician: JOLLY SMALLS MD [facility] Screening Digital - 07/27/22 - 1632 EXAM: [facility] Screening Digital EXAM DATE AND TIME: 07/27/2022 4:33 PM HISTORY: Screening. COMPARISON: 03/18/18, 12/25/14 TECHNIQUE: CC and MLO views of both breasts were obtained using fullfield digital mammography. Bilateral digital breast tomosynthesis was performedin the MLO projection. Computer aided detection with SeeWhy 7.2-H andHiConversion.ru 3D 3.1 was employed. TISSUE DENSITY: b. [...] Routine screening mammogram BILATERAL in 1 year. 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 Health Care Decision (hx) 02/12/2018 AD AGRAWAL DIRECTIVE Health Care Decision (hx) 02/12/2018 AD AGRAWAL DIRECTIVE Health Care Decision (hx) 02/12/2018 AD AGRAWAL DIRECTIVE Health Care Decision (hx) 02/12/2018 AD ARGAWAL DIRECTIVE Health Care Decision (hx) 02/12/2018 AD AGRAWAL DIRECTIVE Health Care Decision (hx) 02/10/2018 AD AGRAWAL DIRECTIVE Health Care Decision (hx) 02/10/2018 AD AGRAWAL DIRECTIVE Health Care Decision (hx) 02/10/2018 AD AGRAWAL DIRECTIVE Health Care Decision (hx) 02/10/2018 AD AGRAWAL DIRECTIVE Health Care Decision (hx) 02/10/2018 AD AGRAWAL DIRECTIVE Care Teams Workers Compensation Claims Examiner Relationship Specialty Start Date End Date Petr Garduno MD PCP - General Internal Medicine 10/18/12
--- OUTSIDE RECORDS SUMMARY | 2024-12-08 14:58 | XMS_ITS | Clinical Summary ---
Author Organization [facility], Address [address] [place] [address] Phone Care Team Providers Care Outcomes Analyst Name Role Phone Viviana Jacobs MD Primary Care Provider [phone] Allergies Active Allergy Reactions Criticality Noted Date [...] 016 Influenza Vaccine (#1) 2025 Insurance #[address] [address] [facility] Dual SNP ([id number]) LORENA PIERRE [id number] [facility] [place] [address] [address] [place] [address] Care Teams Outcomes Analyst Relationship Specialty Start Date End Date Viviana Jacobs MD [address] [place], [place] PCP - General Internal Medicine 12/13/22
== END 2024-12-26 17:46 | disposition home or self-care (01) ==
LOC: HO.HSMS 14:55
PROVIDERS: PCP Internal Medicine; Visit Provider Nurse Practitioner Family
DX: R51.9 Headache, unspecified (principal); H53.2 Diplopia; H53.9 Unspecified visual disturbance; R06.83 Snoring; G47.33 Obstructive sleep apnea (adult) (pediatric); G47.19 Other hypersomnia; G43.E09 Chronic migraine with aura, not intractable, without status migrainosus; G24.3 Spasmodic torticollis; T78.40XA Allergy, unspecified, initial encounter
CPT/HCPCS: 99204

== ENCOUNTER → 2024-12-08 14:55 | Outpatient (BNVA) | payer OTHER, SELFPAY | PROVIDERS: PCP Internal Medicine; Visit Provider Nurse Practitioner Family | DX: H53.2 Diplopia (principal); R06.83 Snoring; G47.33 Obstructive sleep apnea (adult) (pediatric); G47.19 Other hypersomnia; G43.E09 Chronic migraine with aura, not intractable, without status migrainosus; G24.3 Spasmodic torticollis; Z91.09 Other allergy status, other than to drugs and biological substances | CPT/HCPCS: 99202 ==

== ENCOUNTER 2024-12-25 15:44 | Outpatient (REF) | payer OTHER, SELFPAY ==
--- NOTE | ~2024-12-25 | MR_ITS ---
EXAMINATION: MR BRAIN WITHOUT THEN WITH IV CONTRAST CLINICAL INFORMATION: Reason for Exam-R51.9 - Headache, unspecified COMPARISON: None available. TECHNIQUE: Multiplanar, multisequence MRI of the brain was obtained before and after the intravenous administration of 6 cc of gadolinium Gadavist. FINDINGS: Artifact degrades some images. Brain parenchyma: No evidence of acute infarct, mass lesion or parenchymal hemorrhage. No abnormal parenchymal enhancement. Ventricles/extra-axial spaces: No hydrocephalus. No extra-axial fluid collection. Extracranial structures: Arterial flow voids within the skull base are preserved. Orbits are unremarkable. Paranasal sinuses and mastoid air cells are clear. MR/MR head/brain wo/w con IMPRESSION: No evidence of acute infarct, mass lesion, parenchymal hemorrhage or abnormal parenchymal enhancement. Electronically signed by: Dwain Rayo MD 12/25/2024 05:01 PM EDT
== END 2024-12-25 15:45 | disposition home or self-care (01) ==
LOC: HO.MRI 15:44
PROVIDERS: Visit Provider Nurse Practitioner Family
DX: R51.9 Headache, unspecified (principal); H53.2 Diplopia; H53.9 Unspecified visual disturbance; G24.3 Spasmodic torticollis
CPT/HCPCS: 70553; A9585

== ENCOUNTER → 2024-12-25 15:50 | Outpatient (BNV) | payer OTHER, SELFPAY | PROVIDERS: Visit Provider Radiology Body Imaging | DX: R51.9 Headache, unspecified (principal) | CPT/HCPCS: 70553 ==

== ENCOUNTER 2024-12-31 07:50 | Day surgery (SDC) | payer OTHER, SELFPAY ==
--- OUTSIDE RECORDS SUMMARY | 2024-12-23 16:47 | XMS_ITS | Clinical Summary ---
Author Organization [facility] Address [address] [place] [address] Care Team Providers Care Water Resources Project Manager Name Role Phone Petr Garduno MD Primary Care Provider [phone] Allergies No known active allergies Medications salsalate [...] on us 09/09.had ?? 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 icu Backache 07/06/2006 Overview (04/22/2024): HERNIATED DISC AND [...] AM EDT Narrative 07/27/2022 4:50 PM EDT [facility] Diagnostic Imaging Department [address] [place] [address] Patient: MEGAN BERNAL /Age/Sex: 1965 - 57 - F Unit#: [id number] Location/Status: SPDIMAM/PRE CLI Mnemonic/Ordering Site: [facility] Ordering Physician: JOLLY SMALLS MD [facility] Screening Digital - 07/27/221632 EXAM: [facility] Screening Digital EXAM DATE AND TIME: 07/27/2022 4:33 PM HISTORY: Screening. COMPARISON: 03/18/18, 12/25/14 TECHNIQUE: CC and MLO views of both breasts were obtained using full field digital mammography. Bilateral digital breast tomosynthesis was performed in the MLO projection. Computer aided detection with Peel-Works 7.2-H and Startlocal 3D 3.1 was employed. TISSUE DENSITY: b. [...] Routine screening mammogram BILATERAL in 1 year. 40972, [id number] 2011F, 7030F Dictating Physician: SHRUTI JOHN MD Electronically Signed by: SHRUTI JOHN MD Dic Date/Time: 07/27/221649 Sign date/Time: 07/27/221649 Procedure Note Shruti John MD - 06/08/2023 [facility] Diagnostic Imaging Department [address] [place] [address] Patient: MEGAN BERNAL /Age/Sex: 1965 - 57 - F Unit#: [id number] Location/Status: SPDIMAM/PRE CLI Mnemonic/Ordering Site: [facility] Ordering Physician: JOLLY SMALLS MD [facility] Screening Digital - 07/27/22 - 1632 EXAM: [facility] Screening Digital EXAM DATE AND TIME: 07/27/2022 4:33 PM HISTORY: Screening. COMPARISON: 03/18/18, 12/25/14 TECHNIQUE: CC and MLO views of both breasts were obtained using fullfield digital mammography. Bilateral digital breast tomosynthesis was performedin the MLO projection. Computer aided detection with Peel-Works 7.2-H andStartlocal 3D 3.1 was employed. TISSUE DENSITY: b. [...] Routine screening mammogram BILATERAL in 1 year. 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
--- OUTSIDE RECORDS SUMMARY | 2024-12-23 16:48 | XMS_ITS | Clinical Summary ---
Author Organization [facility], Address [address] [place] [address] Phone Care Team Providers Care Wire Wheeler Name Role Phone Viviana Jacobs MD Primary Care Provider [phone] Allergies Active Allergy Reactions Criticality Noted Date [...] 016 Influenza Vaccine (#1) 2025 Insurance #[address]RD [place] [address] [facility] Dual SNP ([id number]) [place]ER[place] [id number] [facility] [place] [address] [address] [place] [address] Care Teams Wire Wheeler Relationship Specialty Start Date End Date Viviana Jacobs MD [address] [place], [place] PCP - General Internal Medicine 12/13/22
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
[2024-12-31 08:11] VITALS: BMI 27.5
[2024-12-31 08:26] VITALS: BP 125/68; PULSE 72; RESP 16; TEMP 36.6; O2SAT 100
[2024-12-31] MEDS: Lactated Ringers 1,000 ML 100 ML IVCONT (08:28)
--- NOTE | 2024-12-31 08:40 | MHC.SHP ---
Pre-Procedural Eval Section A - 24 Hr Update-Section A only Date of Service: 12/31/24 Section B - Complete if H&P > 30 days Chief Complaint: Change in bowel habit,gerd, Relevant Family History (Specify if Yes): No Relevant Social History: None Present Medications: see Short Stay Collaborative assessment Medical History: Significant History (Internal prolapsed hemorrhoids Colitis History of blood transfusion MIGUE on CPAP Prolapsed hemorrhoids Murmur Autoimmune thyroiditis URI (upper respiratory infection) Mild recurrent major depression Right upper quadrant abdominal pain Voice hoarseness Polyarthralgia Physical exam Left shoulder pain S) History of Previous Operations: Relevant previous surgery/procedure and date(s) (History of back surgery History of hemorrhoidectomy (~12/29/22) Ectopic History of hysterectomy History of appendectomy Hx of endoscopy History of colonoscopy (~07/05/23)) Allergies: Allergies Allergy/AdvReac Type Severity Reaction Status Date / Time peanut Allergy Severe Anaphylaxis Verified 12/08/24 16:30 salsalate Allergy Severe throat Verified 12/08/24 15:02 itching swelling zolmitriptan (From ZOMIG) Allergy Severe SWOLLEN Verified 12/08/24 15:02 THROAT AND ITCHING Review of Systems Sugical H&P ROS: Negative: Constitution, Cardiovascular, Respiratory, Neurological, Psychiatric, Hem-Onc, Allergic/Immunologic, Gastrointestinal, Genitourinary, Musculoskeletal, Integumentary, Endocrine and Eyes/Ears/Nose/Throat Exam Surgical H&P Exam: Normal: HEENT, Normal: Heart, Normal: Lungs, Normal: Extremities, Normal: Abdomen, Normal: Skin and Normal: Neurological Plan Diagnosis/Plan: Unchanged I have reviewed the history and physical and performed a pertinent physical examination on my patient. No changes have occurred unless specified. Time Spent With Patient Time: Total time managing care of this patient today ____ minutes.
--- NOTE | 2024-12-31 09:12 | W.PM.OPN ---
Operative Note Operative Note Date of Service: 12/31/24 Narrative: Procedure Description: EGD, sigmoidoscopy Indication: abdominal pain and rectal bleeding Anesthesia: MAC FLEXIBLE TRANSORAL UPPER GASTROINTESTINAL ENDOSCOPY AND Sigmoidoscopy PROCEDURE NOTE UPPER ENDOSCOPY Consent: Indications for the procedure and potential complications of bleeding, perforation, reaction to medications and missed diagnosis were discussed with the patient and informed consent was obtained. Instrument: Olympus GIF H 190 J mid size upper endoscope Monitoring: Vital signs and clinical assessment, continuous EKG monitoring, Pulse oximetry, Carbon Dioxide monitoring and blood pressure monitoring were done throughout the procedure. Procedure: The patient was placed in the left lateral decubitis position and pre-procedure medications were administered and a bite block was placed. The endoscope was inserted into the mouth and advanced under direct vision to the third part of duodenum. A careful inspection was made as the upper endoscope was withdrawn including a retroflexed examination of the proximal stomach; Findings and interventions are described below. Findings: Larynx:normal Esophagus: GE junction at 34? cm, diaphragm hiatus at 34 cm, normal Stomach: Mild gastritis and superficial small ulcer with surrounding erythema and edema in the pre pyloric fold, bx taken.Grade 2 flap valve on retroflexed examination of the cardia. Bile acid reflux also noted. Duodenum: no duodenal stricture, mucosa looked normal Intervention: biopsy Sigmoidoscopy Instrument:As above Procedure: The patient was placed in the left lateral decubitis position and pre-procedure medications were administered. After a digital rectal examination of the ano-rectum, the video scope was inserted into the rectum and advanced through the colon. The scope was slowly withdrawn in a retrograde panoramic fashion and the colon mucosa was carefully examined including a retroflexed view of the rectum. Findings and interventions are described below. Procedure Difficulty:easy Findings: Transverse Colon -normal Descending Colon:normal Sigmoid Colon: normal Rectum: Retroflexion with small internal hemorrhoids, grade I, there was some erythema in the mid rectum, bx taken, looked like prolapse changes Anorectum - normal Impression and Post Procedure Diagnosis: Endoscopy Findings: bile acid reflux gastritis and small ulcer Colonoscopy Findings: internal hemorrhoids rectal prolapse Plan: Await Pathology results High fiber diet leaflet avoid straining at stool, epsom salts and sitz bath, anusol supps or cream if prolapse changes seen on path then refer for PT check if still taking PPI and technique, add sucralfate
[2024-12-31 09:35] VITALS: BP 104/67; PULSE 81; RESP 20; TEMP 36.6; O2SAT 97
[2024-12-31 09:50] VITALS: BP 115/77; PULSE 73; RESP 20; O2SAT 100
[2024-12-31 10:05] VITALS: BP 128/93; PULSE 83; RESP 16; TEMP 36.8; O2SAT 100
== END 2024-12-31 10:34 | disposition home or self-care (01) ==
PROVIDERS: PCP Internal Medicine; Visit Provider Internal Medicine Gastroenterology
PROC: 0DJ08ZZ Inspection of Upper Intestinal Tract, Via Natural or Artificial Opening Endoscopic (ICD-10-PCS; CPT 43235; principal; 2024-12-31 09:20)
PROC: 0DJD8ZZ Inspection of Lower Intestinal Tract, Via Natural or Artificial Opening Endoscopic (ICD-10-PCS; CPT 45330; 2024-12-31 09:20)
DX: R19.4 Change in bowel habit (principal); K64.0 First degree hemorrhoids; K62.3 Rectal prolapse; K21.9 Gastro-esophageal reflux disease without esophagitis; K25.9 Gastric ulcer, unspecified as acute or chronic, without hemorrhage or perforation; K29.60 Other gastritis without bleeding; I10 Essential (primary) hypertension; J45.909 Unspecified asthma, uncomplicated; G47.33 Obstructive sleep apnea (adult) (pediatric); Z91.010 Allergy to peanuts
CPT/HCPCS: 45331; 43239; 88305; 88313; 88342; J2003; J2704

== ENCOUNTER → 2024-12-31 07:50 | Outpatient (BNV) | payer OTHER, SELFPAY | PROVIDERS: PCP Internal Medicine; Visit Provider Internal Medicine Gastroenterology | DX: K21.9 Gastro-esophageal reflux disease without esophagitis (principal); K29.70 Gastritis, unspecified, without bleeding; K25.9 Gastric ulcer, unspecified as acute or chronic, without hemorrhage or perforation; K62.5 Hemorrhage of anus and rectum; K62.3 Rectal prolapse; K64.0 First degree hemorrhoids | CPT/HCPCS: 43239; 45380 ==

== ENCOUNTER 2025-01-26 14:37 | Outpatient (AMB) | payer OTHER, SELFPAY ==
--- NOTE | 2025-01-26 14:43 | MHC.PC.OV ---
Vital Signs 01/26/25 14:45 Height 4 ft 6 in Weight 120 lb BMI 28.9 BP 126/82 Blood Pressure Location Lt brachial Position Sitting Pulse 92 Pulse Source Pulse Oximeter Temp 96.9 F Temp Source Temporal Artery Scan Pulse Oximetry (%) 97 Oxygen Delivery Method Room Air Intake Visit Reasons: Annual exam Intake Note: Patient is here today for a physical. Clinical Immunologist Required: No Financial Advisor Trainee: Not Required per policy Accompanied by: Self / Same As Patient Allergies peanut Allergy (Severe, Verified 01/26/25 15:18) Anaphylaxis salsalate Allergy (Severe, Verified 01/26/25 15:18) throat itching swelling zolmitriptan (From ZOMIG) Allergy (Severe, Verified 01/26/25 15:18) SWOLLEN THROAT AND ITCHING Medication List - Last Reconciled 01/26/25 by Viviana Nick MD acetaminophen 1,000 mg (2 x 500 mg) PO Q6H PRN 30 days MDD 6 tabs albuterol sulfate 90 mcg/actuation 2 puffs PO Q6H PRN bupropion HCl SR 150 mg PO BID cetirizine 10 mg (10 mL) PO DAILY PRN 30 days citalopram 40 mg PO DAILY clonazepam 1 mg PO BID dicyclomine 10 mg PO QID docusate sodium 100 mg PO BID duloxetine 20 mg PO BID 30 days epinephrine (EpiPen 2-Andreas) 0.3 mg (0.3 mL) IM Q15M PRN MDD 2 doses hydrocortisone 2.5% 1 appl topical Q12H linaclotide (Linzess) 290 mcg PO DAILY lisinopril 10 mg PO DAILY 30 days [MAGIC MOUTHWASH 10 mL PO DAILY] miscellaneous medical supply (Blood Pressure Cuff) As directed omeprazole 40 mg PO BID ondansetron 4 mg PO Q8H PRN oxycodone 15 mg PO TID PRN Held on 02/28/23. Instructions: Resume on 03/07/23. Take presribed Hydromorphone for pain control then may resume outpatient Oxycodone with outpatient prescriber. polyethylene glycol 3350 17 grams PO BID psyllium husk (Metamucil Sugar-Free (aspartame)) 3.4 ea PO BID psyllium seed (sugar) (Metamucil (sugar) oral powder) 1 tbsp PO BID sumatriptan succinate 50 - 100 mg orally at onset of headache, may repeat in 2 hrs PRN; max 2 tabs per day or 4 tabs/week (may take with Tylenol) 30 days tizanidine 4 mg PO Q6H PRN topiramate 50 mg PO BEDTIME 30 days Trulance (plecanatide) 3 mg PO DAILY NS ursodiol 500 mg PO BID Tobacco use date assessed: 01/26/25 Dental Screening Dental Screen Date: 07/23/24 HPI HPI Comments History of Present Illness Details The patient is a 59-year-old female presenting for an annual physical examination and preventative care. She has a history of peanut and salsalate allergies, which have been managed by avoiding these allergens. Her medication regimen includes Tylenol, albuterol inhaler, bupropion, cetirizine, citalopram, clonazepam, dicyclomine, docusate, and simvastatin, among others, to manage various conditions including depression, anxiety, and constipation. The patient has a history of lumbar fusion surgery, hemorrhoidectomy, ectopic , and hysterectomy performed in 2000. She has also undergone appendectomy, endoscopy, and colonoscopy, although the date of the last colonoscopy is not specified. Complains of bilateral scapular pain and also right upper quadrant abdominal pain. Her family history includes a mother with hypertension. Preventative care measures discussed include the need for a Tdap vaccination and a mammogram, which have not been completed yet. [facility] Medical History (Updated 01/26/25 @ 15:32 by Viviana Nick MD) Internal prolapsed hemorrhoids Colitis History of blood transfusion MIGUE on CPAP Prolapsed hemorrhoids Murmur Autoimmune thyroiditis URI (upper respiratory infection) Mild recurrent major depression Right upper quadrant abdominal pain Voice hoarseness Polyarthralgia Physical exam Left shoulder pain Sciatica Neck pain Back pain GERD (gastroesophageal reflux disease) Bladder pain Leg edema Migraine headache Hair loss Hypotension Fibromyalgia Mild asthma Vitamin D deficiency Elevated plasma metanephrines Subclinical hyperthyroidism Anxiety Surgical History History of back surgery History of hemorrhoidectomy (~12/29/22) Ectopic History of hysterectomy History of appendectomy Hx of endoscopy History of colonoscopy (~07/05/23) Family History Father Alzheimers disease Mother Hypertension Social History Household Members: None Housing: Apartment Are you a primary care specialist to a significant other at home: No Do you presently have visiting nurse or other home services: No Alcohol intake: never Patient Tobacco Use Status: Never used Tobacco e-Cigarette/Vaping Use: Never Used Second Hand Smoke Exposure: No service: No Current occupational status: unemployed Cognitive needs: No Hearing needs: No Vision needs: No Questionnaire PHQ-9 Over the last 2 weeks, how often have you been bothered by any of the following problems? 1. Little interest or pleasure in doing things: not at all 2. Feeling down, depressed, or hopeless: more than half the days 3. Trouble falling or staying asleep, or sleeping too much: nearly every day 4. Feeling tired or having little energy: nearly every day 5. Poor appetite or overeating: nearly every day 6. Feeling bad about yourself - or that you are a failure or have let yourself or your family down: more than half the days 7. Trouble concentrating on things, such as reading the newspaper or watching television: more than half the days 8. Moving or speaking so slowly that other people could have noticed. Or the opposite - being so fidgety or restless that you have been moving around a lot more than usual: not at all 9. Thoughts that you would be better off or of hurting yourself in some way: not at all Total score: 15 Depression Screening Interpretation: Positive Depression Screening Follow-up: Existing condition, In treatment, Community Mental Health Worker F/U and Follow-up Visit Requested Depression Screening Done: Yes 33890 - PHQ-9 Billing: Yes Source: Developed by Drs. Don Gan, Alison Hu, Anjel Chery and colleagues, with an educational kadi from [facility]. Thrive Questionnaire Date Thrive assessed: 07/23/24 I am a: Patient What is your living situation today?: I have a steady place to live Within the past 12 months, did the food you bought not last and you didn't have the money to get more?: Sometimes True Within the past 12 months, did you worry whether your food would run out before you got money to buy more?: Sometimes True Do you have trouble paying for medicines?: Yes Do you have trouble getting transportation to medical appointments?: Yes Do you have trouble paying your heating and electricity bill?: Yes Do you have trouble taking care of your child, family member or friend?: Yes Do you have trouble with day-to-day activities such as bathing, preparing meals, shopping, managing finances, etc.?: Yes Are you currently unemployed and looking for a job?: Yes Are you interested in more education?: No Please select the resources that you would like help with: Food and Utilities Currently or been in a relationship where the following occur: I choose not to answer THRIVE Score: 4 AUDIT C Alcohol Use Questionnaire (AUDIT-C) 1. How often do you have a drink containing alcohol?: Never Total Score: 0 Score Reviewed/Action Taken: No EUSEBIA-7 AMB Questionnaire EUSEBIA-7 Date EUSEBIA - 7 assessed: 07/23/24 Feeling nervous, anxious, or on edge: 3 = Nearly every day Not being able to stop or control worryin = Nearly every day Worrying too much about different things: 3 = Nearly every day Trouble relaxin = Nearly every day Being so restless that it is hard to sit still: 3 = Nearly every day Becoming easily annoyed or irritable: 2 = More than half the days Feeling afraid as if something awful might happen: 3 = Nearly every day Total EUSEBIA-7 score (0-4 normal; 5-9 mild; 10-14 moderate; 15-21 severe): 20 Source: Developed by Drs. Don Gan, Alison Hu, Anjel Chery and colleagues, with an educational kadi from [facility]. EUSEBIA-7 Assessment Billing EUSEBIA-7 Assessment Tool: EUSEBIA-7 Assessment 45673 Review of Systems Const All systems reviewed & are unremarkable except as noted in HPI and below Card Denies chest pain at rest, Denies chest pain with activity, Denies edema, Denies irregular heart rhythm, Denies claudication, Denies dyspnea, Denies dyspnea on exertion, Denies orthopnea, Denies paroxysmal nocturnal dyspnea and Denies slow heart rate Resp Denies cough, Denies dyspnea and Denies dyspnea on exertion GI Denies abdominal pain, Denies change in bowel habits, Denies excessive flatus, Denies nausea and Denies vomiting Denies urinary incontinence, Denies urinary hesitancy and Denies urinary urgency Musc Denies abnormal gait, Denies atrophy, Denies deformity and Denies limited range of motion Skin/Breast Denies bleeding lesions, Denies changing lesions and Denies rash Neuro Denies abnormal gait and Denies lack of coordination Physical exam (Primary Care) Vital Signs: Last Vital Signs Temp 96.9 F 01/26/25 14:45 Pulse 92 01/26/25 14:45 BP 126/82 01/26/25 14:45 Pulse Ox 97 01/26/25 14:45 Oxygen Delivery Method Room Air 01/26/25 14:45 BMI result Body Mass Index 28.9 Tobacco/Smoking Status: Tobacco use Status Tobacco use date assessed 01/26/25 01/26/25 14:51 Patient Tobacco Use Status Never used Tobacco 01/26/25 14:51 Tobacco use type 01/01/25 15:56 e-Cigarette/Vaping Use Never Used 01/26/25 14:51 PHQ-9: PHQ-9 Score PHQ-9: Total score 15 01/26/25 15:21 Depression Screening Interpretation: Positive Depression Screening Follow-up: Existing condition, In treatment, Community Mental Health Worker F/U and Follow-up Visit Requested Thrive Assessment: Date of Thrive Assessment Date Thrive assessed 07/23/24 01/26/25 14:51 Currently or been in a relationship where the following occur: I choose not to answer HENMT Head: Yes normal to inspection, Yes normocephalic and Yes atraumatic Ears: external ears normal Eyes General: appearance normal, both eyes and all related structures Eyelids: Yes eyelids normal Conjunctivae: conjunctivae normal Neck Neck: Yes normal visual inspection and Yes supple Resp Effort & Inspection: normal respiratory effort Auscultation: clear to auscultation bilaterally Cardio Jugular venous distension: no JVD Rate: regular rate Rhythm: regular rhythm Heart sounds: S1 normal heart sound present and S2 normal heart sound present GI Inspection: Yes normal to inspection Palpation (GI): Soft to palpation and nontender Auscultation: normal bowel sounds Skin General skin exam: no rashes or lesions noted Neuro General: no focal motor deficits Extrem General: Yes full ROM Psych Appearance: grossly normal Coding Level of Care Code Est Pt Level 3 (23621) Est Pt Prev Care 40-64y(62878) Diagnoses Physical exam Z00.00 Pain of left scapula M89.8X1 Pain of right scapula M89.8X1 Right upper quadrant abdominal pain R10.11 Mild recurrent major depression F33.0 Additional Codes EUSEBIA-7 Assessment Billing - EUSEBIA-7 Assessment Tool: EUSEBIA-7 Assessment 60311 ([id number]) PHQ-9 - 02758 - PHQ-9 Billing: Yes ([id number]) Time Spent (min) 31 Assessment & Plan Assessment & Plan (1) Physical exam: Code(s): Z00.00 - Encounter for general adult medical examination without abnormal findings Category: Medical (2) Pain of left scapula: Code(s): M89.8X1 - Other specified disorders of bone, shoulder Category: Medical (3) Pain of right scapula: Code(s): M89.8X1 - Other specified disorders of bone, shoulder Category: Medical (4) Right upper quadrant abdominal pain: Code(s): R10.11 - Right upper quadrant pain Category: Medical (5) Mild recurrent major depression: Code(s): F33.0 - Major depressive disorder, recurrent, mild Category: Medical Plan Plan Patient was informed and verbally consented to the use of an ambient scribe for clinic note documentation during this visit. 1. Encounter for general adult medical examination without abnormal findings Z00.00 Tdap vaccination is planned to be administered during this visit. 2. Depression, unspecified F32.A The patient is under psychiatric care and is taking bupropion and citalopram for depression management. Orders: Orders Vitamin B12 and Folate Today E53.8 - Deficiency of other specified B group vitamins Vitamin D 25-OH Total Today E55.9 - Vitamin D deficiency, unspecified Comprehensive Met. Panel Today I10 - Essential (primary) hypertension US abdomen limited Today R10.11 - Right upper quadrant pain XR scapula LT Today M89.8X1 - Other specified disorders of bone, shoulder TDaP Immunization Today Z23 - Encounter for immunization Lipid Panel Today E78.5 - Hyperlipidemia, unspecified XR scapula RT Today M89.8X1 - Other specified disorders of bone, shoulder Medications: New Boostrix Tdap (diphth,pertus(acell),tetanus) 0.5 mL IM ONCE 0.5 mL 0RF NS Z23 - Encounter for immunization
[2025-01-26 14:45] VITALS: BP 126/82; PULSE 92; TEMP 36.1; O2SAT 97; BMI 28.9
== END 2025-01-26 15:43 | disposition home or self-care (01) ==
LOC: HO.HMCH 14:37
PROVIDERS: PCP Internal Medicine; Visit Provider Internal Medicine
DX: Z00.00 Encounter for general adult medical examination without abnormal findings (principal); M89.8X1 Other specified disorders of bone, shoulder; R10.11 Right upper quadrant pain; F33.0 Major depressive disorder, recurrent, mild; Z23 Encounter for immunization

== ENCOUNTER → 2025-01-26 14:37 | Outpatient (BNVA) | payer OTHER, SELFPAY | PROVIDERS: PCP Internal Medicine; Visit Provider Internal Medicine | DX: Z00.00 Encounter for general adult medical examination without abnormal findings (principal); M89.8X1 Other specified disorders of bone, shoulder; I10 Essential (primary) hypertension; R10.11 Right upper quadrant pain; F33.0 Major depressive disorder, recurrent, mild; E53.8 Deficiency of other specified B group vitamins; E55.9 Vitamin D deficiency, unspecified; E78.5 Hyperlipidemia, unspecified; Z23 Encounter for immunization; Z98.1 Arthrodesis status | CPT/HCPCS: 90471; 90715; 96127; 99212; 99396 ==